=== PATIENT | male | born 1950 | race Caucasian/White ===

== ENCOUNTER 2022-01-21 14:32 | Emergency (ER) | payer OTHER, MEDICARE, SELFPAY ==
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
[2022-01-21 14:40] VITALS: BP 146/63; PULSE 62; RESP 18; TEMP 36.8; O2SAT 98; BMI 28.7
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
[2022-01-21] MEDS: Acetaminophen 325 MG TABLET 650 MG PO (18:19)
[2022-01-21] MEDS: Cyclobenzaprine HCl 5 MG TABLET PO (18:19)
[2022-01-21 18:23] VITALS: BP 178/80; PULSE 60; RESP 20; TEMP 36.6; O2SAT 98
[2022-01-21 18:30] VITALS: BP 126/62
[2022-01-21 18:31] VITALS: BP 126/62
== END 2022-01-21 20:47 | disposition home or self-care (01) ==
PROVIDERS: Emergency Provider Emergency Medicine; PCP Physician Assistant Medical
DX: S13.4XXA Sprain of ligaments of cervical spine, initial encounter (principal); V43.52XA Car driver injured in collision with other type car in traffic accident, initial encounter; Y93.89 Activity, other specified; Y92.414 Local residential or business street as the place of occurrence of the external cause; Y99.9 Unspecified external cause status
CPT/HCPCS: 70450; 72125; 73030; 73090; 73502; 73564; 99283; 99284

== ENCOUNTER 2023-02-14 18:32 | Inpatient (IN) | payer MEDICARE, OTHER, SELFPAY ==
--- NOTE | ~2023-02-14 | XR_ITS ---
EXAMINATION: XR WRIST, RIGHT XR HAND, RIGHT CLINICAL INFORMATION: Evaluate for osteopenia. COMPARISON: None available. TECHNIQUE: PA, lateral, and oblique views of the right wrist and PA, lateral, and oblique views of the right hand FINDINGS: RIGHT HAND: There is loss of PIP and DIP joint space with mild periarticular spurring DIP joint fifth digit and PIP joint fourth digit. No visible acute fracture, dislocation or subluxation seen. RIGHT WRIST: There is small lucency in the central scaphoid bone. No visible fracture or dislocation involving the carpal bones. The intercarpal joint space is preserved. The radioulnar carpal and carpometacarpal joint space is preserved. There are surgical lobo along the distal radius soft tissues from previous intervention.. XR/XR hand wrist RT IMPRESSION: 1. Mild degenerative changes PIP and DIP joints right hand. No visible acute fracture or dislocation seen. 2. Small lucency in the central scaphoid bone likely degenerative cyst. 3. There are surgical lobo along the distal radius soft tissues from previous intervention. No abnormality seen involving the right wrist. 4. There is mild degenerative osteoarthritis PIP and DIP joints all digits with periarticular articular spurring
--- NOTE | ~2023-02-14 | US_ITS ---
EXAMINATION: US VENOUS WITH DOPPLER UPPER EXTREMITY, RIGHT CLINICAL INFORMATION: Redness, swelling COMPARISON: None available. TECHNIQUE: Ultrasound of the upper extremity is performed using compression sonography and color and pulse Doppler flow with assessment of augmentation of flow. There is also imaging and Doppler assessment of the jugular and subclavian veins. Spectral analysis with color-flow imaging is performed. FINDINGS: Respiratory variation, normal compression, and augmented flow are noted throughout the upper extremity including the axillary, brachial, basilic, cephalic and radial and ulnar veins. There is normal flow in the internal jugular and subclavian veins. There is no visible deep or superficial thrombophlebitis. Normal vascular flow is seen within the left subclavian vein. US/US venous duplex UE RT IMPRESSION: No DVT demonstrated in the right upper extremity.
--- NOTE | 2023-02-14 18:59 | ED.SKABFB ---
HPI - Skin/Abscess/Foreign Bdy General Chief complaint: Extremity Problem Stated complaint: cellulitis Time Seen by Provider: 02/15/23 01:30 Source: patient Mode of arrival: ambulatory Limitations: no limitations Related Data Previous Rx's Medication Instructions Recorded cyclobenzaprine 10 mg tablet 10 mg PO TID PRN muscle spasm #14 01/21/22 tabs Allergies Allergy/AdvReac Type Severity Reaction Status Date / Time celecoxib [From CELEBREX] Allergy Severe ANAPHYLAXIS Verified 02/15/23 02:46 Sulfa (Sulfonamide Allergy Unknown ANAPHYLACTI Verified 02/15/23 02:46 Antibiotics) S [SULFA (SULFONAMIDE ANTIBIOTICS)] [facility] Past Medical History Medical History (Updated 02/15/23 @ 04:33 by Suraj Keith MD) Cervical radiculopathy due to degenerative joint disease of spine Severe obesity Thyroid goiter Scottie cell carcinoma HLD (hyperlipidemia) Social History Alcohol intake: current Alcohol intake frequency: holidays/special occasions only Patient Tobacco Use Status: Never used Tobacco Smoked in Last 30 Days: No Use of substances other than those prescribed or required for medical reasons: No Advance Directives: No Advance Directives Information Provided: Yes Nutrition Risks: No Nutritional Risk Physical Exam Vital Signs: Vital Signs: Last Vital Signs Temp 97.7 F 02/15/23 04:50 Pulse 69 02/15/23 04:50 Resp 20 02/15/23 04:50 BP 119/69 02/15/23 04:50 Pulse Ox 95 02/15/23 04:50 O2 Del Method Room Air 02/15/23 04:50 BMI result Body Mass Index 39.3 Course Course Course Narrative: This is a rapid medical exam. Deferred additional HPI, ROS, PE to primary provider. 72yo male with a past medical history of merckels cell carcinoma RUE (immunotherapy-followed by [facility] oncology/Kala Felix), HLD here with right arm swollen/painful/redness x 1 week. Patient is right-hand dominant. Patient was seen at the cancer center today at [facility] and did receive cefepime today. Will obtain labs, x-ray, give APAP VSS Medications Administered Generic Name Dose Route Start Last Admin Trade Name Freq PRN Reason Stop Dose Admin Enoxaparin Sodium 40 mg 02/15/23 06:00 02/15/23 05:44 Enoxaparin Sodium 40 Mg/0.4 Ml Syringe SUBCUT 40 mg Q24H CHEO Administration Piperacillin Sod/Tazobactam 50 mls @ 100 mls/hr 02/15/23 05:00 02/15/23 05:45 Sod 3.375 gm/ Sodium Chloride IV Infused Q6H CHEO Infusion Discontinued Medications Generic Name Dose Route Start Last Admin Trade Name Freq PRN Reason Stop Dose Admin Acetaminophen 975 mg 02/14/23 19:08 02/14/23 19:11 Acetaminophen 325 Mg Tablet PO 02/14/23 19:09 975 mg ONCE ONE Administration Vancomycin HCl 2,000 mg in 500 mls @ 250 mls/hr 02/15/23 02:25 02/15/23 05:24 Vancomycin/Ns IV 02/15/23 04:24 Infused ONCE ONE Infusion Medical Decision Making Lab Data 02/14/23 19:36 02/15/23 05:48 Labs: Lab Results 02/14/23 Range/Units 19:36 WBC 11.8 H (4.8-10.8) X10*3/uL RBC 4.63 (4.60-5.80) X10*6/uL Hgb 13.8 L (14.0-18.0) g/dl Hct 41.0 L (42.0-52.0) % MCV 88.6 (80.0-98.0) fL MCH 29.8 (27.0-33.0) pg MCHC 33.7 (31.0-36.0) g/dl RDW 13.0 (11.0-16.0) % Plt Count 134 L (160-400) X10*3/uL MPV 10.4 (9.4-12.4) fL Immature Gran % (Auto) 0.2 (0.0-0.4) % Neut % (Auto) 83.1 H (45-73) % Lymph % (Auto) 7.8 L (20-40) % [place] % (Auto) 7.7 (2-11) % Eos % (Auto) 0.9 (0-4) % Baso % (Auto) 0.3 (0-2) % Lymph # (Auto) 0.9 L (1.2-4.9) X10*3/uL [place] # (Auto) 0.9 (0.1-1.2) X10*3/uL Eos # (Auto) 0.1 (0.0-0.4) X10*3/uL Baso # (Auto) 0.0 (0.0-0.2) X10*3/uL Abs Immat Gran (auto) 0.02 (0.00-0.03) X10*3/uL Absolute Neuts (auto) 9.9 H (2.0-8.3) x10*3/uL Absolute Nucleated RBC 0.000 (0.0-0.012) X10*3/uL Nucleated RBC % (auto) 0.0 (0.0-0.2) /100WBC ESR 65 H (0-15) MM/HR Sodium 134 L (135-145) mmol/L Potassium 4.0 (3.3-5.1) mmol/L Chloride 104 (96-108) mmol/L Carbon Dioxide 22 (22-29) mmol/L Anion Gap 12 (12-20) BUN 23 H (9-16) mg/dL Creatinine 1.26 (0.5-1.4) mg/dL Estim Creat Clear Calc 72.1 Estimated GFR 57 Random Glucose 172 H (60-115) mg/dL Lactic Acid 0.9 (0.5-2.0) mmol/L Calcium 9.2 (8.4-10.2) mg/dL Total Bilirubin 0.8 (0.0-1.0) mg/dL Direct Bilirubin 0.4 (0.0-0.5) mg/dL AST 20 (5-37) U/L ALT 31 (0-40) U/L Alkaline Phosphatase 77 (39-117) U/L C-Reactive Protein 20.84 H (< or = 0.50) mg/dL Total Protein 7.3 (6.5-8.0) g/dL Albumin 3.8 (3.5-5.0) g/dL
[2023-02-14 19:01] VITALS: BP 151/78; PULSE 108; RESP 20; TEMP 37.7; O2SAT 95; BMI 39.3
[2023-02-14] MEDS: Acetaminophen 325 MG TABLET 975 MG PO (19:11)
[2023-02-14 19:43] LABS: MANUAL DIFF FLAG NO
[2023-02-14 19:44] LABS: Basophils Percent Auto 0.3 % (0-2); Eosinophils Absolute Auto 0.1 X10*3/uL (0.0-0.4); Eosinophils Percent Auto 0.9 % (0-4); Hemoglobin 13.8 g/dl (14.0-18.0); Imm Gran Abs Auto 0.02 X10*3/uL (0.00-0.03); Imm Gran Pct Auto 0.2 % (0.0-0.4); Lymphocytes Absolute Auto 0.9 X10*3/uL (1.2-4.9); Lymphocytes Percent Auto 7.8 % (20-40); Mean Corpuscular HGB Conc 33.7 g/dl (31.0-36.0); Mean Corpuscular Hemoglobin 29.8 pg (27.0-33.0); Mean Corpuscular Volume 88.6 fL (80.0-98.0); Mean Platelet Volume 10.4 fL (9.4-12.4); Monocytes Absolute Auto 0.9 X10*3/uL (0.1-1.2); Monocytes Percent Auto 7.7 % (2-11); Neutrophils Absolute Auto 9.9 x10*3/uL (2.0-8.3); Neutrophils Percent Auto 83.1 % (45-73); Platelet Count 134 X10*3/uL (160-400); Red Blood Count 4.63 X10*6/uL (4.60-5.80); White Blood Count 11.8 X10*3/uL (4.8-10.8)
[2023-02-14 19:54] LABS: Lactic Acid 0.9 mmol/L (0.5-2.0)
[2023-02-14 19:58] LABS: Alanine Aminotransferase 31 U/L (0-40); Albumin Level 3.8 g/dL (3.5-5.0); Alkaline Phosphatase 77 U/L (39-117); Anion Gap 12 (12-20); Aspartate Amino Transferase 20 U/L (5-37); Bilirubin Direct 0.4 mg/dL (0.0-0.5); Bilirubin Total 0.8 mg/dL (0.0-1.0); Blood Urea Nitrogen 23 mg/dL (9-16); C Reactive Protein 20.84 mg/dL (< or = 0.50); Calcium 9.2 mg/dL (8.4-10.2); Carbon Dioxide 22 mmol/L (22-29); Chloride 104 mmol/L (96-108); Creatinine Clr Calc Pharmacy 72.1; Estimated Glomerular Filt Rate 57; Glucose Random 172 mg/dL (60-115); Sodium 134 mmol/L (135-145); Total Protein 7.3 g/dL (6.5-8.0)
[2023-02-14 20:42] LABS: Erythrocyte Sedimentation Rate 65 MM/HR (0-15)
[2023-02-14 22:41] VITALS: BP 122/62; PULSE 74; RESP 16; O2SAT 96
[2023-02-15] VITALS (7 sets, daily range): BP systolic 112–139; BP diastolic 53–83; PULSE 53–89; RESP 17–20; TEMP 36–37.1; O2SAT 95–97; BMI 38.3
--- NOTE | 2023-02-15 01:00 | PC.NURSE ---
pt presents with R wrist redness and swelling. majority of concern in below the elbow. some patchy redness extends just below the shoulder and at the elbow. pt reporting pressure and tightness, no itching or burning. limited ROM d/t size. minimal pain. pt brought CPAP from home, left for the night.
--- NOTE | 2023-02-15 02:28 | ED_ITS ---
HPI - Extremity Problem General Chief complaint: Extremity Problem Stated complaint: cellulitis Time Seen by Provider: 02/15/23 01:30 Source: patient Mode of arrival: ambulatory Limitations: no limitations History of Present Illness HPI Narrative: Patient been treated with immunotherapy for [place] cell carcinoma for last 1 year last dose was on 02/11/23 which was given on the left arm patient noticed redness on the right arm last 2 days getting worse spreading to the arm now no fever no chills Related Data Previous Rx's Medication Instructions Recorded cyclobenzaprine 10 mg tablet 10 mg PO TID PRN muscle spasm #14 01/21/22 tabs Allergies Allergy/AdvReac Type Severity Reaction Status Date / Time celecoxib [From CELEBREX] Allergy Severe ANAPHYLAXIS Verified 02/15/23 02:46 Sulfa (Sulfonamide Allergy Unknown ANAPHYLACTI Verified 02/15/23 02:46 Antibiotics) S [SULFA (SULFONAMIDE ANTIBIOTICS)] Review of Systems 2 Review of Systems: Yes all other systems are reviewed and are negative PMFSH Past Medical History Medical History (Updated 02/15/23 @ 07:35 by Thiago Fitch MD) Cervical radiculopathy due to degenerative joint disease of spine Severe obesity Thyroid goiter Scottie cell carcinoma HLD (hyperlipidemia) Social History Alcohol intake: current Alcohol intake frequency: holidays/special occasions only Patient Tobacco Use Status: Never used Tobacco Smoked in Last 30 Days: No Use of substances other than those prescribed or required for medical reasons: No Advance Directives: No Advance Directives Information Provided: Yes Nutrition Risks: No Nutritional Risk Physical Exam 2 Vital Signs: Vital Signs: Last Vital Signs Temp 97.7 F 02/15/23 04:50 Pulse 69 02/15/23 04:50 Resp 20 02/15/23 04:50 BP 119/69 02/15/23 04:50 Pulse Ox 95 02/15/23 04:50 O2 Del Method Room Air 02/15/23 04:50 BMI result Body Mass Index 39.3 Appearance: Alert. Oriented X3. No acute distress. Eyes: PERRLA, No Nystagmus ENT: Pharynx normal. Oral Mucosa moist Neck: Normal inspection. Neck supple. CVS: Normal heart rate and rhythm. Pulses normal. Respiratory: No respiratory distress. Equal air entry bilateral, Abdomen: Soft and nontender. Bowel sounds are present, Skin: Skin warm and dry. Normal skin color. Normal skin turgor. Extremities: No lower extremity edema. No calf tenderness Neuro: Oriented X 3. No motor deficit. No sensory deficit.No cerebellar signs , cranial nerves II-XII intact Medications Administered Generic Name Dose Route Start Last Admin Trade Name Freq PRN Reason Stop Dose Admin Enoxaparin Sodium 40 mg 02/15/23 06:00 02/15/23 05:44 Enoxaparin Sodium 40 Mg/0.4 Ml Syringe SUBCUT 40 mg Q24H CHEO Administration Piperacillin Sod/Tazobactam 50 mls @ 100 mls/hr 02/15/23 05:00 02/15/23 05:45 Sod 3.375 gm/ Sodium Chloride IV Infused Q6H CHEO Infusion Discontinued Medications Generic Name Dose Route Start Last Admin Trade Name Freq PRN Reason Stop Dose Admin Acetaminophen 975 mg 02/14/23 19:08 02/14/23 19:11 Acetaminophen 325 Mg Tablet PO 02/14/23 19:09 975 mg ONCE ONE Administration Vancomycin HCl 2,000 mg in 500 mls @ 250 mls/hr 02/15/23 02:25 02/15/23 05:24 Vancomycin/Ns IV 02/15/23 04:24 Infused ONCE ONE Infusion Medical Decision Making Medical Decision Making [facility] Narrative: Patient immunocompromised with right forearm erisepelas/cellulitis very rapidly progressing will give IV antibiotic and admit Differential Diagnosis Differential Diagnoses: The differential diagnosis associated with the presentation includes as above Admission/Observation Consideration of admission/observation: Escalation of care including admission/observation considered Consult Healthcare Provider Management of the patient was discussed with: Hospitalist Lab Data [facility] Lab Attestation statement: I reviewed the patient's lab results. 02/14/23 19:36 02/15/23 05:48 Labs: Lab Results 02/14/23 Range/Units 19:36 WBC 11.8 H (4.8-10.8) X10*3/uL RBC 4.63 (4.60-5.80) X10*6/uL Hgb 13.8 L (14.0-18.0) g/dl Hct 41.0 L (42.0-52.0) % MCV 88.6 (80.0-98.0) fL MCH 29.8 (27.0-33.0) pg MCHC 33.7 (31.0-36.0) g/dl RDW 13.0 (11.0-16.0) % Plt Count 134 L (160-400) X10*3/uL MPV 10.4 (9.4-12.4) fL Immature Gran % (Auto) 0.2 (0.0-0.4) % Neut % (Auto) 83.1 H (45-73) % Lymph % (Auto) 7.8 L (20-40) % [place] % (Auto) 7.7 (2-11) % Eos % (Auto) 0.9 (0-4) % Baso % (Auto) 0.3 (0-2) % Lymph # (Auto) 0.9 L (1.2-4.9) X10*3/uL [place] # (Auto) 0.9 (0.1-1.2) X10*3/uL Eos # (Auto) 0.1 (0.0-0.4) X10*3/uL Baso # (Auto) 0.0 (0.0-0.2) X10*3/uL Abs Immat Gran (auto) 0.02 (0.00-0.03) X10*3/uL Absolute Neuts (auto) 9.9 H (2.0-8.3) x10*3/uL Absolute Nucleated RBC 0.000 (0.0-0.012) X10*3/uL Nucleated RBC % (auto) 0.0 (0.0-0.2) /100WBC ESR 65 H (0-15) MM/HR Sodium 134 L (135-145) mmol/L Potassium 4.0 (3.3-5.1) mmol/L Chloride 104 (96-108) mmol/L Carbon Dioxide 22 (22-29) mmol/L Anion Gap 12 (12-20) BUN 23 H (9-16) mg/dL Creatinine 1.26 (0.5-1.4) mg/dL Estim Creat Clear Calc 72.1 Estimated GFR 57 Random Glucose 172 H (60-115) mg/dL Lactic Acid 0.9 (0.5-2.0) mmol/L Calcium 9.2 (8.4-10.2) mg/dL Total Bilirubin 0.8 (0.0-1.0) mg/dL Direct Bilirubin 0.4 (0.0-0.5) mg/dL AST 20 (5-37) U/L ALT 31 (0-40) U/L Alkaline Phosphatase 77 (39-117) U/L C-Reactive Protein 20.84 H (< or = 0.50) mg/dL Total Protein 7.3 (6.5-8.0) g/dL Albumin 3.8 (3.5-5.0) g/dL Discharge Plan Discharge Clinical Impression: Cellulitis of right arm Patient Disposition: Admitted As Inpatient
[2023-02-15] MEDS: vancomycin/NS 2,000 MG/500 ML PLAST..BAG 250 MG IV (02:46)
--- NOTE | 2023-02-15 03:58 | PM.IMHP ---
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 He is followed by both [facility] oncology and [facility]. He has been well until about a week ago when noticed increasing fatigue and had noticed area of redness in the right arm that has progresively gotten much worse today along with fatigue. Additionally has noticed some redness in the upper arm. He has not had fever or chills. Patient was seen at the Oncology clinic at [facility] on Feb 14 and was given 1 dose of Cefepime in clinic and advised to go to the ED. Review of Systems Review of Systems: Gen: no fever, gen fatigue Resp: no sob, no cough CV: no chest, no FIGUEROA, no leg edema GI: No n/v, no abd pain Neuro: No confusion Skin: redness of the right arm Yes all other systems are reviewed and are negative [facility] Medical History (Updated 02/15/23 @ 04:33 by Suraj Keith MD) Cervical radiculopathy due to degenerative joint disease of spine Severe obesity Thyroid goiter Scottie cell carcinoma HLD (hyperlipidemia) Alcohol intake: current Alcohol intake frequency: holidays/special occasions only Patient Tobacco Use Status: Never used Tobacco Smoked in Last 30 Days: No Use of substances other than those prescribed or required for medical reasons: No Advance Directives: No Advance Directives Information Provided: Yes Nutrition Risks: No Nutritional Risk Meds Allergies Allergy/AdvReac Type Severity Reaction Status Date / Time celecoxib [From CELEBREX] Allergy Severe ANAPHYLAXIS Verified 02/15/23 02:46 Sulfa (Sulfonamide Allergy Unknown ANAPHYLACTI Verified 02/15/23 02:46 Antibiotics) S [SULFA (SULFONAMIDE ANTIBIOTICS)] Active Medications: Current Medications Vancomycin HCl (Vancomycin/Ns) 2,000 mg in 500 mls @ 250 mls/hr IV ONCE ONE Stop: 02/15/23 04:24 Last Admin: 02/15/23 02:46 Dose: 250 mls/hr Pharmacy Consult (Consult Rx Vancomycin Dosing) 1 each MISCELLANE DAILY PRN PRN Reason: Consult order Physical Exam Vital Signs and Narrative: Vital Signs: Last Vital Signs Temp 97.8 F 02/15/23 00:38 Pulse 69 02/15/23 02:24 Resp 20 02/15/23 02:24 BP 112/53 L 02/15/23 02:24 Pulse Ox 96 02/15/23 02:24 O2 Del Method CPAP 02/15/23 02:24 BMI result Body Mass Index 39.3 Constitutional: Alert, in no distress, overweight. Mental Status: Oriented to person, place and time. Eyes: Pupils are equal, round and reactive to light. Ear, Nose and Throat: Oropharynx clear, mucous membranes moist. Respiratory: Clear to auscultation. No wheezing, rales or rhonchi. Cardiovascular: S1 S2 regular. No murmurs, rubs or gallops. Gastrointestinal: Abdomen soft, non-tender, non-distended. Normal bowel sounds.? Neurologic: Cranial nerves II-XII grossly intact. No focal neurological deficits. Moves all extremities spontaneously.? Skin: see picture Musculoskeletal: No cyanosis or clubbing. Psychiatric: Normal mood and affect? Const: Other: Results Labs 02/14/23 19:36 02/14/23 19:36 Labs: Laboratory Results - last 24 hr 02/14/23 19:36 MCV 88.6 MCH 29.8 MCHC 33.7 RDW 13.0 Plt Count 134 L MPV 10.4 Immature Gran % (Auto) 0.2 Neut % (Auto) 83.1 H Lymph % (Auto) 7.8 L [place] % (Auto) 7.7 Eos % (Auto) 0.9 Baso % (Auto) 0.3 Lymph # (Auto) 0.9 L [place] # (Auto) 0.9 Eos # (Auto) 0.1 Baso # (Auto) 0.0 Abs Immat Gran (auto) 0.02 Absolute Neuts (auto) 9.9 H Absolute Nucleated RBC 0.000 Nucleated RBC % (auto) 0.0 ESR 65 H Anion Gap 12 Estim Creat Clear Calc 72.1 Estimated GFR 57 Random Glucose 172 H Lactic Acid 0.9 Calcium 9.2 Total Bilirubin 0.8 Direct Bilirubin 0.4 AST 20 ALT 31 Alkaline Phosphatase 77 C-Reactive Protein 20.84 H Total Protein 7.3 Albumin 3.8 Imaging Radiologist's Impressions: Impressions Hand/Wrist X-Ray 02/14/23 19:55 IMPRESSION: 1. Mild degenerative changes PIP and DIP joints right hand. No visible acute fracture or dislocation seen. 2. Small lucency in the central scaphoid bone likely degenerative cyst. 3. There are surgical lobo along the distal radius soft tissues from previous intervention. No abnormality seen involving the right wrist. 4. 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 Here with extensive cellulitis of the right arm and upper arm with raid progression Right arm and upper severe Cellulitis in an immunocompromised patient, involving > 50% of the limb -Zosyn and Vnco, started 02/15 -Blood cultures pending -ID consult -doesn't meet sepsis criteria but not to be closely monitor for progression to sepsis JAIR, CPAP at night HLD--statin morbid obesity -weight loss advised DVT prophylaxis: Lovenox Full Code Admission for at least 2 midnight for management of severe cellulitis Quality Stroke Does the patient have a stroke diagnosis?: No VTE Prior VTE?: No VTE Risk Level:: Medical - moderate - high VTE Device Contraindication: Treatment Not Indicated VTE Drug Contraindication: N/A - Med Ordered
[2023-02-15] MEDS: Piperacillin Sodium/Tazobactam 3.375 GM in 0.9 % Sodium Chloride 50 ML IV ×3 (05:12→16:40)
[2023-02-15] MEDS: Enoxaparin Sodium 40 MG/0.4 ML SYRINGE SUBCUT (05:44)
[2023-02-15 06:15] LABS: Alanine Aminotransferase 29 U/L (0-40); Albumin Level 3.4 g/dL (3.5-5.0); Alkaline Phosphatase 70 U/L (39-117); Anion Gap 11 (12-20); Aspartate Amino Transferase 20 U/L (5-37); Bilirubin Total 0.7 mg/dL (0.0-1.0); Blood Urea Nitrogen 21 mg/dL (9-16); Calcium 8.8 mg/dL (8.4-10.2); Carbon Dioxide 24 mmol/L (22-29); Chloride 105 mmol/L (96-108); Creatinine Clr Calc Pharmacy 88.2; Estimated Glomerular Filt Rate > 60; Glucose Random 110 mg/dL (60-115); Potassium 3.9 mmol/L (3.3-5.1); Sodium 136 mmol/L (135-145); Total Protein 6.7 g/dL (6.5-8.0)
--- NOTE | 2023-02-15 07:15 | PC.NURSE ---
pt is alert and oriented, skin pwd, respirations even and unlabored, ls clear, pt presents with a right arm redness- the entire hand to the upper wrist area, there is a also a red area behind the elbow area and another red spot by the shoulder, pt states that it feels like pressure, and pain at 5/10. ns on the monitor and vs stable.
--- NOTE | 2023-02-15 07:44 | PC.NURSE ---
called the floor to give report but no answer
--- NOTE | 2023-02-15 07:51 | PHA.PROG ---
Admission Date/Time: February 15, 2023 04:52 Indication: skin Weight in k.3 kg Adjusted body weight in K.52 [place] body weight in K Obesity Dosing Indication % IBW: Serum Creatinine - Last 168 Hours 02/14/23 02/15/23 19:36 05:48 Creatinine 1.26 1.03 Estimated CrCl and GFR - Last 168 Hours 02/14/23 02/15/23 19:36 05:48 Estim Creat Clear Calc 72.1 88.2 Estimated GFR 57 > 60 Vancomycin Loading Dose: 1999 Current Vancomycin Dosing Regimen: 1000 Q12H Vancomycin Monitoring using AUC goal of 400 - 600 range with trough as surrogate marker: 506 Date and Time for next Vancomycin Level to be drawn: 02/16 @1300 Pharmacist Comments on Vancomycin Plan: Vancomycin dosing will take advantage of [employer] as a clinical decision support tool that uses Bayesian modeling to calculate individual patient's pharmacokinetic parameters and forecast the patient's drug concentration time course with the target goal AUC 24 range of 400 - 600 mg/L/hr.
[2023-02-15] MEDS: 0.9 % Sodium Chloride Flush 3 ML SYRINGE IVFLUSH ×3 (07:52→20:46)
--- NOTE | 2023-02-15 08:36 | PC.NURSE ---
report given to med/rn neurosurgical
--- NOTE | 2023-02-15 08:46 | P.PNIM_ITS ---
Subjective Subjective Date of Service: 02/15/23 Interval History: Seen in follow up for extensive cellulitis RUE Interval history: Mild headache, reports pressure in the right forearm, hand. Still warmth and erythematous Review of Systems Review of Systems: Yes all other systems are reviewed and are negative Physical Exam 2 Vital Signs: Vital Signs: Last Vital Signs Temp 98.7 F 02/15/23 08:15 Pulse 70 02/15/23 08:15 Resp 18 02/15/23 08:15 BP 128/71 02/15/23 08:15 Pulse Ox 96 02/15/23 08:15 O2 Del Method Room Air 02/15/23 08:15 BMI result Body Mass Index 39.3 Constitutional - Awake and Alert, No apparent distress Eyes - PERRLA, EOMI Cardiovascular - S1S2, RRR, No edema Respiratory - Normal lung expansion, Normal respiratory effort, No respiratory distress, CTA bilaterally Gastrointestinal - NT / ND; +BS; No rebound or guarding Extremities - no calf tenderness bilaterally, no swelling Skin - Warm/Dry. Significant erythema and warmth of the dorsal aspect of the right hand extending circumferentiallyover the right forearm. Satellite patches of erythema on the upper arm. No fluctuance or drainage. See photos Neurological - Alert & oriented x3 Psychological - Appropriate affect Objective Data Active Medications Acetaminophen (Acetaminophen 325 Mg Tablet) 650 mg PO Q6H PRN PRN Reason: Pain, Mild (Pain Scale 1-3) Enoxaparin Sodium (Enoxaparin Sodium 40 Mg/0.4 Ml Syringe) 40 mg SUBCUT Q24H [facility] Last Admin: 02/15/23 05:44 Dose: 40 mg Documented By: WILTON Piperacillin Sod/Tazobactam (Sod 3.375 gm/ Sodium Chloride) 50 mls @ 100 mls/hr IV Q6H [facility] Last Infusion: 02/15/23 05:45 Dose: Infused Documented By: WILTON Vancomycin HCl 1,000 mg/ (Sodium Chloride) 270 mls @ 270 mls/hr IV Q12H [facility] Magnesium Hydroxide (Milk Of Magnesia 30 Ml Oral.Susp) 30 ml PO DAILY PRN PRN Reason: Constipation Ondansetron HCl (Ondansetron Hcl 4 Mg/2 Ml Vial) 4 mg IVPUSH Q8H PRN PRN Reason: Nausea and Vomiting Pharmacy Consult (Consult Rx Vancomycin Dosing) 1 each MISCELLANE DAILY PRN PRN Reason: Consult order Sodium Chloride (0.9 % Sodium Chloride Flush 3 Ml Syringe) 3 ml IVFLUSH QSHIFT [facility] Last Admin: 02/15/23 07:52 Dose: 3 ml Documented By: DEMETRIUS Labs 02/14/23 19:36 02/15/23 05:48 Labs: Laboratory Results - last 24 hr 02/14/23 02/15/23 19:36 05:48 MCV 88.6 MCH 29.8 MCHC 33.7 RDW 13.0 Plt Count 134 L MPV 10.4 Immature Gran % (Auto) 0.2 Neut % (Auto) 83.1 H Lymph % (Auto) 7.8 L [place] % (Auto) 7.7 Eos % (Auto) 0.9 Baso % (Auto) 0.3 Lymph # (Auto) 0.9 L [place] # (Auto) 0.9 Eos # (Auto) 0.1 Baso # (Auto) 0.0 Abs Immat Gran (auto) 0.02 Absolute Neuts (auto) 9.9 H Absolute Nucleated RBC 0.000 Nucleated RBC % (auto) 0.0 ESR 65 H Anion Gap 12 11 L Estim Creat Clear Calc 72.1 88.2 Estimated GFR 57 > 60 Random Glucose 172 H 110 Lactic Acid 0.9 Calcium 9.2 8.8 Total Bilirubin 0.8 0.7 Direct Bilirubin 0.4 AST 20 20 ALT 31 29 Alkaline Phosphatase 77 70 C-Reactive Protein 20.84 H Total Protein 7.3 6.7 Albumin 3.8 3.4 L Assessment and Plan (1) Cellulitis of right arm: Status: Acute Plan 72 year male with 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 Admitted early this morning with extensive cellulitis RUE with rapid progression. #Severe cellulitis RUE in immunocompromised patient involving >50% of limb -Continue Zosyn and Vanco, started 02/15 -Blood cultures pending -ID consult pending -doesn't meet sepsis criteria but not to be closely monitor for progression to sepsis #JAIR -CPAP at night #HLD -statin #Scottie cell carcinoma -outpt follow up morbid obesity -weight loss advised DVT prophylaxis: Lovenox Full Code Requires ongoing inpt stay for ivx due to extensive cellulitis >50% extremity in immunocompromised pt Quality Stroke Does the patient have a stroke diagnosis?: No VTE Prior VTE?: No VTE Risk Level:: Medical - moderate - high VTE Device Contraindication: Treatment Not Indicated VTE Drug Contraindication: N/A - Med Ordered
[2023-02-15] MEDS: Acetaminophen 325 MG TABLET 650 MG PO ×2 (09:51→20:59)
--- NOTE | 2023-02-15 10:30 | PHA.MEDREC ---
Pharmacy Consult ? Medication Reconciliation Pharmacy has completed the medication reconciliation confirmed with patient.
--- NOTE | 2023-02-15 11:50 | MHC.CM.PN ---
pt lives with they are independent not expecting to neeeed servcies when dcd ..has own ride home..
--- NOTE | 2023-02-15 14:04 | P.CNID_ITS ---
History of Present Illness Data of Consult Service Date: 02/15/23 Requesting physician: Tawny Ibrahim Primary Care Provider: KIERA White HPI Reason for consult: right arm redness He presents with right arm redness and pain and diagnosed he says with cellulitis per his Oncologist yesterday. He received one dose Cefepime from oncologist and told to come to ER. 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 He received infusion left arm. He is not febrile at this time. Review of Systems 2 Review of Systems: Yes all other systems are reviewed and are negative PMFSH Past Medical History Medical History (Updated 02/15/23 @ 14:08 by Noris Beard MD) Arm erythema Cervical radiculopathy due to degenerative joint disease of spine Severe obesity Thyroid goiter Scottie cell carcinoma HLD (hyperlipidemia) Social History Social History Household Members: Spouse Housing: House Do you presently have visiting nurse or other home services: No Alcohol intake: current Alcohol intake frequency: holidays/special occasions only Patient Tobacco Use Status: Never used Tobacco Smoked in Last 30 Days: No Patient Interested in Nicotine Replacement: No Patient Given Instructions on How to Stop Smoking: No Second Hand Smoke Exposure: No Use of substances other than those prescribed or required for medical reasons: No Currently Displaying Signs/Symptoms of Drug Intoxication Withdrawal: No Any prior treatment program specific to substance use: No Have you been hit, kicked, punched, or otherwise hurt by someone within the past year? If so, by whom?: No Do you feel safe in your current relationship?: Yes Is there a partner from a previous relationship who is making you feel unsafe now?: No Are you made to feel afraid or neglected: No Advance Directives: No Advance Directives Information Provided: Yes Advance Directives on File: No Do you have thoughts of harming others: None Do you have a plan to hurt others: No Plan Recently lost weight without trying: No Eating poorly because of decreased appetite: No Nutrition Risks: No Nutritional Risk Poor oral hygiene: No service: No Meds Allergies Allergy/AdvReac Type Severity Reaction Status Date / Time celecoxib [From CELEBREX] Allergy Severe ANAPHYLAXIS Verified 02/15/23 02:46 Sulfa (Sulfonamide Allergy Unknown ANAPHYLACTI Verified 02/15/23 02:46 Antibiotics) S [SULFA (SULFONAMIDE ANTIBIOTICS)] Active Medications: Current Medications Acetaminophen (Acetaminophen 325 Mg Tablet) 650 mg PO Q6H PRN PRN Reason: Pain, Mild (Pain Scale 1-3) Last Admin: 02/15/23 09:51 Dose: 650 mg Enoxaparin Sodium (Enoxaparin Sodium 40 Mg/0.4 Ml Syringe) 40 mg SUBCUT Q24H [facility] Last Admin: 02/15/23 05:44 Dose: 40 mg Piperacillin Sod/Tazobactam (Sod 3.375 gm/ Sodium Chloride) 50 mls @ 100 mls/hr IV Q6H [facility] Last Infusion: 02/15/23 11:07 Dose: Infused Vancomycin HCl 1,000 mg/ (Sodium Chloride) 270 mls @ 270 mls/hr IV Q12H [facility] Magnesium Hydroxide (Milk Of Magnesia 30 Ml Oral.Susp) 30 ml PO DAILY PRN PRN Reason: Constipation Ondansetron HCl (Ondansetron Hcl 4 Mg/2 Ml Vial) 4 mg IVPUSH Q8H PRN PRN Reason: Nausea and Vomiting Pharmacy Consult (Consult Rx Vancomycin Dosing) 1 each MISCELLANE DAILY PRN PRN Reason: Consult order Sodium Chloride (0.9 % Sodium Chloride Flush 3 Ml Syringe) 3 ml IVFLUSH QSHIFT [facility] Last Admin: 02/15/23 07:52 Dose: 3 ml Home Medications Medication Instructions Recorded Confirmed Last Taken Type acetaminophen 325 mg tablet 325 mg PO QID PRN Pain 02/15/23 02/15/23 Unknown History atorvastatin 20 mg tablet 20 mg PO DAILY 02/15/23 02/15/23 02/14/23 History chlordiazepoxide-clidinium 5 1 cap PO TIDWM 02/15/23 02/15/23 02/14/23 History mg-2.5 mg capsule citalopram 20 mg tablet 20 mg PO DAILY 02/15/23 02/15/23 02/14/23 History diclofenac sodium 1 % topical gel 2 g topical QID PRN Pain 02/15/23 02/15/23 Unknown History famotidine 20 mg tablet 20 mg PO BID 02/15/23 02/15/23 02/14/23 History fluticasone propionate 50 2 spray intranasal DAILY PRN 02/15/23 02/15/23 Unknown History mcg/actuation nasal Allergy Symptoms spray,suspension ketoconazole 2 % topical cream 1 appl topical DAILY PRN Rash 02/15/23 02/15/23 Unknown History nystatin 100,000 unit/gram topical 1 appl topical QID PRN Rash 02/15/23 02/15/23 Unknown History powder tramadol 50 mg tablet 50 mg PO Q12H PRN pain 02/15/23 02/15/23 Unknown History Physical Exam 2 Vital Signs: Vital Signs: Last Vital Signs Temp 96.9 F 02/15/23 09:16 Pulse 89 02/15/23 09:16 Resp 18 02/15/23 09:16 BP 130/71 02/15/23 09:16 Pulse Ox 95 02/15/23 09:16 O2 Del Method Room Air 02/15/23 09:16 BMI result Body Mass Index 38.3 Const: General: cooperative HEENT: Head: Yes normal to inspection Face and sinus: Yes normal facial exam Mouth: Normal oral and palatal mucosa present Teeth and gingiva: d entition normal Eyes: General: appearance normal, both eyes and all related structures P upils: Equal, round and reactive pupils present Resp: Effort & Inspection: normal respiratory effort Cardio: Rate: regular rate Rhythm: regular rhythm GI: Palpation (GI): Soft to palpation and nontender : General: Yes no CVA tenderness Back/Spine/Pelvis: Back: no CVA tenderness Skin: General skin exam: no rashes or lesions noted Neuro: General: moves all extremities Cranial nerves: Yes Equal, round and reactive pupils present Extrem: Other: right arm hot and red including fingers skip lesion red upper arm Psych: Appearance: grossly normal Results Labs 02/14/23 19:36 02/15/23 05:48 Labs: Short CBC 02/14/23 Range/Units 19:36 WBC 11.8 H (4.8-10.8) X10*3/uL Hgb 13.8 L (14.0-18.0) g/dl Hct 41.0 L (42.0-52.0) % Plt Count 134 L (160-400) X10*3/uL BMP 02/14/23 02/15/23 19:36 05:48 Sodium 134 L 136 Potassium 4.0 3.9 Chloride 104 105 Carbon Dioxide 22 24 BUN 23 H 21 H Creatinine 1.26 1.03 Calcium 9.2 8.8 Liver Function 02/14/23 02/15/23 Range/Units 19:36 05:48 Total Bilirubin 0.8 0.7 (0.0-1.0) mg/dL Direct Bilirubin 0.4 (0.0-0.5) mg/dL AST 20 20 (5-37) U/L ALT 31 29 (0-40) U/L Alkaline Phosphatase 77 70 (39-117) U/L Albumin 3.8 3.4 L (3.5-5.0) g/dL Assessment and Plan (1) Cellulitis of right arm: Status: Acute (2) Arm erythema: Status: Acute He may have cellulitis,septic thrombitis or SJS/TENS He has unusual distribution rash Less likely atypical fungal or AFB or tick borne Plan Continue Zosyn and Vancomycin for now. Await blood cultures. Arm u/s evaluate DVT/ Septic thrombophlebitis. Surgery check biopsy eval SJS/TENS if patient agrees.
--- NOTE | 2023-02-15 14:21 | PM.EVENT ---
Event Note Date of Service: 02/15/23 Event Note: He also has fungal infection and using ketoconazole cream under breast left. Time Spent With Patient Time: Total time managing care of this patient today ____ minutes.
[2023-02-15] MEDS: vancomycin HCL 1,000 MG in 0.9 % Sodium Chloride 250 ML 270 MG IV (14:31)
[2023-02-15] MEDS: Famotidine 20 MG TABLET PO (20:46)
[2023-02-15] MEDS: Nystatin Powder 15 GM BOTTLE 1 APPL TOPICAL (20:59)
[2023-02-15] MEDS: Clotrimazole 1 % Cream 15 GM TUBE 1 APPL TOPICAL (20:59)
--- NOTE | 2023-02-15 21:26 | PM.CNGS ---
History of Present Illness Consult details Consult date: 02/15/23 Reason for consult: other Requesting physician: Tawny Ibrahim Narrative: The patient is a 72-year-old male who has Scottie cell cancer of his right forearm that was surgically excised and for which she received chemo and radiation therapy several years ago. Generally he has been doing okay. However he came into the emergency room last night complaining of increased redness to the arm. He denies any trauma he denies any IV medications he denies any bug bites but it was definitely more swollen and tight and uncomfortable. He denies any fevers or chills. He sometimes gets fungal infections in his left axillary area in groins for which he uses antifungal powder or creams. He says this feels different however. He is followed by Oncology at [facility] Dr. Guzman and other doctor in [place]. This afternoon he is feeling much better the arm is less swollen less erythematous less tight. He does not feel ill he feels fine. Review of Systems Review of Systems: Yes all other systems are reviewed and are negative [facility] Past Medical History Medical History (Updated 02/15/23 @ 14:08 by Noris Beard MD) Arm erythema Cervical radiculopathy due to degenerative joint disease of spine Severe obesity Thyroid goiter Scottie cell carcinoma HLD (hyperlipidemia) Social History Social History Household Members: Spouse Housing: House Do you presently have visiting nurse or other home services: No Alcohol intake: current Alcohol intake frequency: holidays/special occasions only Patient Tobacco Use Status: Never used Tobacco Smoked in Last 30 Days: No Patient Interested in Nicotine Replacement: No Patient Given Instructions on How to Stop Smoking: No Second Hand Smoke Exposure: No Use of substances other than those prescribed or required for medical reasons: No Currently Displaying Signs/Symptoms of Drug Intoxication Withdrawal: No Any prior treatment program specific to substance use: No Have you been hit, kicked, punched, or otherwise hurt by someone within the past year? If so, by whom?: No Do you feel safe in your current relationship?: Yes Is there a partner from a previous relationship who is making you feel unsafe now?: No Are you made to feel afraid or neglected: No Advance Directives: No Advance Directives Information Provided: Yes Advance Directives on File: No Do you have thoughts of harming others: None Do you have a plan to hurt others: No Plan Recently lost weight without trying: No Eating poorly because of decreased appetite: No Nutrition Risks: No Nutritional Risk Poor oral hygiene: No service: No Meds Allergies Allergy/AdvReac Type Severity Reaction Status Date / Time celecoxib [From CELEBREX] Allergy Severe ANAPHYLAXIS Verified 02/15/23 02:46 Sulfa (Sulfonamide Allergy Unknown ANAPHYLACTI Verified 02/15/23 02:46 Antibiotics) S [SULFA (SULFONAMIDE ANTIBIOTICS)] Active Medications: Current Medications Acetaminophen (Acetaminophen 325 Mg Tablet) 650 mg PO Q6H PRN PRN Reason: Pain, Mild (Pain Scale 1-3) Last Admin: 02/15/23 20:59 Dose: 650 mg Atorvastatin Calcium (Atorvastatin Calcium 20 Mg Tablet) 20 mg PO DAILY [facility] Clotrimazole (Clotrimazole 1 % Cream 15 Gm Tube) 1 appl TOPICAL DAILY PRN PRN Reason: Rash Last Admin: 02/15/23 20:59 Dose: 1 appl Enoxaparin Sodium (Enoxaparin Sodium 40 Mg/0.4 Ml Syringe) 40 mg SUBCUT Q24H [facility] Last Admin: 02/15/23 05:44 Dose: 40 mg Escitalopram Oxalate (Escitalopram Oxalate 10 Mg Tablet) 10 mg PO DAILY [facility] Famotidine (Famotidine 20 Mg Tablet) 20 mg PO BID [facility] Last Admin: 02/15/23 20:46 Dose: 20 mg Fluticasone Propionate (Fluticasone Propionate Nasal 16 Gm [place]) 2 spray NOSTRIL-B DAILY PRN PRN Reason: Allergy Symptoms Piperacillin Sod/Tazobactam (Sod 3.375 gm/ Sodium Chloride) 50 mls @ 100 mls/hr IV Q6H [facility] Last Infusion: 02/15/23 17:15 Dose: Infused Vancomycin HCl 1,000 mg/ (Sodium Chloride) 270 mls @ 270 mls/hr IV Q12H [facility] Last Infusion: 02/15/23 15:49 Dose: Infused Magnesium Hydroxide (Milk Of Magnesia 30 Ml Oral.Susp) 30 ml PO DAILY PRN PRN Reason: Constipation Non-Formulary Medication (Chlordiazepoxide-Clidinium) 1 cap PO TIDWM [facility] Nystatin (Nystatin Powder 15 Gm Bottle) 1 appl TOPICAL QID PRN; Protocol PRN Reason: Rash Last Admin: 02/15/23 20:59 Dose: 1 appl Ondansetron HCl (Ondansetron Hcl 4 Mg/2 Ml Vial) 4 mg IVPUSH Q8H PRN PRN Reason: Nausea and Vomiting Pharmacy Consult (Consult Rx Vancomycin Dosing) 1 each MISCELLANE DAILY PRN PRN Reason: Consult order Sodium Chloride (0.9 % Sodium Chloride Flush 3 Ml Syringe) 3 ml IVFLUSH QSHIFT [facility] Last Admin: 02/15/23 20:46 Dose: 3 ml Tramadol HCl (Tramadol Hcl 50 Mg Tablet) 50 mg PO Q12H PRN PRN Reason: Pain, Moderate(Pain Scale 4-6) Home Medications Medication Instructions Recorded Confirmed Last Taken Type acetaminophen 325 mg tablet 325 mg PO QID PRN Pain 02/15/23 02/15/23 Unknown History atorvastatin 20 mg tablet 20 mg PO DAILY 02/15/23 02/15/23 02/14/23 History chlordiazepoxide-clidinium 5 1 cap PO TIDWM 02/15/23 02/15/23 02/14/23 History mg-2.5 mg capsule citalopram 20 mg tablet 20 mg PO DAILY 02/15/23 02/15/23 02/14/23 History diclofenac sodium 1 % topical gel 2 g topical QID PRN Pain 02/15/23 02/15/23 Unknown History famotidine 20 mg tablet 20 mg PO BID 02/15/23 02/15/23 02/14/23 History fluticasone propionate 50 2 spray intranasal DAILY PRN 02/15/23 02/15/23 Unknown History mcg/actuation nasal Allergy Symptoms spray,suspension ketoconazole 2 % topical cream 1 appl topical DAILY PRN Rash 02/15/23 02/15/23 Unknown History nystatin 100,000 unit/gram topical 1 appl topical QID PRN Rash 02/15/23 02/15/23 Unknown History powder tramadol 50 mg tablet 50 mg PO Q12H PRN pain 02/15/23 02/15/23 Unknown History Physical Exam Vital Signs: Vital Signs: Last Vital Signs Temp 96.8 F 02/15/23 20:00 Pulse 85 02/15/23 20:00 Resp 18 02/15/23 20:00 BP 131/66 02/15/23 20:00 Pulse Ox 97 02/15/23 20:00 O2 Del Method Room Air 02/15/23 20:00 BMI result Body Mass Index 38.3 Const: General: cooperative, healthy appearing, comfortable, no acute distress, alert, awake and Physically active Orientation/consciousness: patient oriented x3 Skin: Other: Right dorsal forearm a little bit on the ventral aspect with red erythematous flat skin changes. In comparison with previous pictures the erythema is in the smaller area and is definitely not as bright as it was. The skin erythema does not mckenna there is a little bit of some edema but nothing very significant the patient says he generally has some arm swelling and wears compression garment at times. The tissue here is not painful he is able to have a good range of motion. There is no blistering or open areas. There is no evidence of any bug bites etc.. Neuro: General: patient oriented x3, moves all extremities and Normal light touch and pain sensation Results Labs 02/14/23 19:36 02/15/23 05:48 Labs: Abnormal lab results 02/15/23 Range/Units 05:48 Anion Gap 11 L (12-20) BUN 21 H (9-16) mg/dL Albumin 3.4 L (3.5-5.0) g/dL BMP 02/15/23 05:48 Sodium 136 Potassium 3.9 Chloride 105 Carbon Dioxide 24 BUN 21 H Creatinine 1.03 Calcium 8.8 Liver Function 02/15/23 Range/Units 05:48 Total Bilirubin 0.7 (0.0-1.0) mg/dL AST 20 (5-37) U/L ALT 29 (0-40) U/L Alkaline Phosphatase 70 (39-117) U/L Albumin 3.4 L (3.5-5.0) g/dL All other labs normal. Assessment and Plan (1) Arm erythema: Status: Acute Plan 72-year-old male with history of right Scottie cell forearm carcinoma status post remote excision and chemo or radiation treatment. Recently in the last 48 hours with increasing arm erythema any came into the hospital and was started on IV Zosyn and vanco. Diagnosis was erysipelas/cellulitis. Infectious Disease has seen patient as well. Question whether this may be Farhad Archie syndrome but at this point the patient is not really ill and there is not a lot of blistering and the area is not really tender. It seems to been remarkably improved from early this morning to now. Will discuss with the team about the benefit of biopsy especially seeing as the patient is improving with just antibiotic treatment and is not ill. I think wearing compression once he is discharged is a good idea to decreased lymphedema. Risks of open wounds or biopsies on this lymphedema arm could lead to chronic wound failure to heal especially as he is improving with hold this for now. Patient agrees and would like to be re-evaluated tomorrow. Total time managing care of this patient today: 45 minutes. Procedures Date of Service Date of Service: 02/15/23
[2023-02-16] MEDS: Piperacillin Sodium/Tazobactam 3.375 GM in 0.9 % Sodium Chloride 50 ML IV ×5 (00:52→22:08)
[2023-02-16] MEDS: vancomycin HCL 1,000 MG in 0.9 % Sodium Chloride 250 ML 270 MG IV ×2 (02:47→15:17)
[2023-02-16 03:14] VITALS: BP 141/65; PULSE 53; RESP 18; TEMP 36.4; O2SAT 98
[2023-02-16 06:21] LABS: MANUAL DIFF FLAG NO
[2023-02-16 06:36] LABS: Basophils Percent Auto 0.3 % (0-2); Eosinophils Absolute Auto 0.4 X10*3/uL (0.0-0.4); Eosinophils Percent Auto 4.6 % (0-4); Hematocrit 38.4 % (42.0-52.0); Hemoglobin 12.8 g/dl (14.0-18.0); Imm Gran Abs Auto 0.03 X10*3/uL (0.00-0.03); Imm Gran Pct Auto 0.4 % (0.0-0.4); Lymphocytes Absolute Auto 1.1 X10*3/uL (1.2-4.9); Lymphocytes Percent Auto 14.2 % (20-40); Mean Corpuscular HGB Conc 33.3 g/dl (31.0-36.0); Mean Corpuscular Volume 89.9 fL (80.0-98.0); Monocytes Absolute Auto 0.7 X10*3/uL (0.1-1.2); Monocytes Percent Auto 8.7 % (2-11); Neutrophils Absolute Auto 5.5 x10*3/uL (2.0-8.3); Neutrophils Percent Auto 71.8 % (45-73); Platelet Count 136 X10*3/uL (160-400); Red Blood Count 4.27 X10*6/uL (4.60-5.80); White Blood Count 7.6 X10*3/uL (4.8-10.8)
[2023-02-16] MEDS: Enoxaparin Sodium 40 MG/0.4 ML SYRINGE SUBCUT (06:36)
[2023-02-16 06:43] LABS: Anion Gap 11 (12-20); Blood Urea Nitrogen 21 mg/dL (9-16); Calcium 8.8 mg/dL (8.4-10.2); Carbon Dioxide 27 mmol/L (22-29); Chloride 105 mmol/L (96-108); Creatinine Clr Calc Pharmacy 86.1; Estimated Glomerular Filt Rate > 60; Glucose Random 105 mg/dL (60-115); Potassium 3.8 mmol/L (3.3-5.1); Sodium 139 mmol/L (135-145)
[2023-02-16 07:51] VITALS: BP 120/60; PULSE 56; RESP 18; TEMP 36.2; O2SAT 96
[2023-02-16] MEDS: 0.9 % Sodium Chloride Flush 3 ML SYRINGE IVFLUSH ×3 (08:11→22:09)
[2023-02-16] MEDS: Famotidine 20 MG TABLET PO ×2 (08:11→22:08)
[2023-02-16] MEDS: Atorvastatin Calcium 20 MG TABLET PO (08:11)
[2023-02-16] MEDS: Escitalopram Oxalate 10 MG TABLET PO (08:11)
--- NOTE | 2023-02-16 12:57 | MHC.CM.PN ---
per rounds pt to be seen by id expected dc posiible fri
[2023-02-16 13:07] LABS: Vancomycin Random 10.4 mcg/mL (15-20)
--- NOTE | 2023-02-16 13:19 | HO.PM.IMPN ---
Subjective Subjective Date of Service: 02/16/23 Interval History: Seen in follow up for extensive cellulitis RUE Interval history: No complaints. Decreased pressure in RUE, improved erythema. WBC trending down Review of Systems Review of Systems: Yes all other systems are reviewed and are negative Physical Exam Vital Signs: Vital Signs: Last Vital Signs Temp 97.2 F 02/16/23 07:51 Pulse 56 02/16/23 07:51 Resp 18 02/16/23 07:51 BP 120/60 02/16/23 07:51 Pulse Ox 96 02/16/23 07:51 O2 Del Method Room Air 02/16/23 07:51 BMI result Body Mass Index 38.3 Constitutional - Awake and Alert, No apparent distress Eyes - PERRLA, EOMI Cardiovascular - S1S2, RRR, No edema Respiratory - Normal lung expansion, Normal respiratory effort, No respiratory distress, CTA bilaterally Extremities - no calf tenderness bilaterally, no swelling Skin - Warm/Dry. Improved erythema and warmth of the dorsal aspect of the right hand extending circumferentially over the right forearm, with improvement in swelling. Satellite patches of erythema on the upper arm. No fluctuance or drainage Neurological - Alert & oriented x3 Psychological - Appropriate affect Objective Data Active Medications Acetaminophen (Acetaminophen 325 Mg Tablet) 650 mg PO Q6H PRN PRN Reason: Pain, Mild (Pain Scale 1-3) Last Admin: 02/15/23 20:59 Dose: 650 mg Documented By: ELVIA Atorvastatin Calcium (Atorvastatin Calcium 20 Mg Tablet) 20 mg PO DAILY [facility] Last Admin: 02/16/23 08:11 Dose: 20 mg Documented By: PANDA Clotrimazole (Clotrimazole 1 % Cream 15 Gm Tube) 1 appl TOPICAL DAILY PRN PRN Reason: Rash Last Admin: 02/15/23 20:59 Dose: 1 appl Documented By: ELVIA Enoxaparin Sodium (Enoxaparin Sodium 40 Mg/0.4 Ml Syringe) 40 mg SUBCUT Q24H [facility] Last Admin: 02/16/23 06:36 Dose: 40 mg Documented By: ELVIA Escitalopram Oxalate (Escitalopram Oxalate 10 Mg Tablet) 10 mg PO DAILY [facility] Last Admin: 02/16/23 08:11 Dose: 10 mg Documented By: PANDA Famotidine (Famotidine 20 Mg Tablet) 20 mg PO BID [facility] Last Admin: 02/16/23 08:11 Dose: 20 mg Documented By: PANDA Fluticasone Propionate (Fluticasone Propionate Nasal [address]) 2 spray NOSTRIL-B DAILY PRN PRN Reason: Allergy Symptoms Piperacillin Sod/Tazobactam (Sod 3.375 gm/ Sodium Chloride) 50 mls @ 100 mls/hr IV Q6H [facility] Last Infusion: 02/16/23 12:08 Dose: Infused Documented By: PANDA Vancomycin HCl 1,000 mg/ (Sodium Chloride) 270 mls @ 270 mls/hr IV Q12H [facility] Last Infusion: 02/16/23 04:20 Dose: Infused Documented By: ELVIA Magnesium Hydroxide (Milk Of Magnesia 30 Ml Oral.Susp) 30 ml PO DAILY PRN PRN Reason: Constipation Non-Formulary Medication (Chlordiazepoxide-Clidinium) 1 cap PO TIDWM [facility] Nystatin (Nystatin Powder 15 Gm Bottle) 1 appl TOPICAL QID PRN; Protocol PRN Reason: Rash Last Admin: 02/15/23 20:59 Dose: 1 appl Documented By: ELVIA Ondansetron HCl (Ondansetron Hcl 4 Mg/2 Ml Vial) 4 mg IVPUSH Q8H PRN PRN Reason: Nausea and Vomiting Pharmacy Consult (Consult Rx Vancomycin Dosing) 1 each MISCELLANE DAILY PRN PRN Reason: Consult order Sodium Chloride (0.9 % Sodium Chloride Flush 3 Ml Syringe) 3 ml IVFLUSH QSHIFT [facility] Last Admin: 02/16/23 08:11 Dose: 3 ml Documented By: PANDA Tramadol HCl (Tramadol Hcl 50 Mg Tablet) 50 mg PO Q12H PRN PRN Reason: Pain, Moderate(Pain Scale 4-6) Labs 02/16/23 05:26 02/16/23 05:26 Labs: Laboratory Results - last 24 hr 02/16/23 02/16/23 05:26 12:45 MCV 89.9 MCH 30.0 MCHC 33.3 RDW 13.0 Plt Count 136 L MPV 11.0 Immature Gran % (Auto) 0.4 Neut % (Auto) 71.8 Lymph % (Auto) 14.2 L [place] % (Auto) 8.7 Eos % (Auto) 4.6 H Baso % (Auto) 0.3 Lymph # (Auto) 1.1 L [place] # (Auto) 0.7 Eos # (Auto) 0.4 Baso # (Auto) 0.0 Abs Immat Gran (auto) 0.03 Absolute Neuts (auto) 5.5 Absolute Nucleated RBC 0.000 Nucleated RBC % (auto) 0.0 Anion Gap 11 L Estim Creat Clear Calc 86.1 Estimated GFR > 60 Random Glucose 105 Calcium 8.8 Random Vancomycin 10.4 L Microbiology Microbiology Results: Microbiology 02/14/23 19:36 Blood Culture - Preliminary Blood - Venous No growth after 24 hours. 02/14/23 19:36 Blood Culture - Preliminary Blood - Venous No growth after 24 hours. 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 Admitted early this morning with extensive cellulitis RUE with rapid progression. #Severe cellulitis RUE in immunocompromised patient involving >50% of limb -Improving erythema but still covering extension area of RUE -Continue Zosyn and Vanco, started 02/15 -Blood cultures pending, prelim report negative x2 -Per ID, consider bx. Seen by general surgery, given improvement in appearance of RUE, elect to defer bx at this time. ID also considering SJS/TEN but pt is otherwise well appearing #JAIR -CPAP at night #HLD -statin #Scottie cell carcinoma -outpt follow up morbid obesity -weight loss advised DVT prophylaxis: Lovenox Full Code Requires ongoing inpt stay for ivx due to extensive cellulitis >50% extremity in immunocompromised pt Quality Stroke Does the patient have a stroke diagnosis?: No VTE Prior VTE?: No VTE Risk Level:: Medical - moderate - high VTE Device Contraindication: Treatment Not Indicated VTE Drug Contraindication: N/A - Med Ordered
--- NOTE | 2023-02-16 13:39 | HE.PHANOTE ---
RE: VANCO Based on sCr of 1.04 and predicted AUC of 453 and trough of 14.5, continue dose of 1000mg q12h. Next random lab is scheduled on 02/18/23@1300 before 7th dose to make sure dose is still appropriate.
[2023-02-16 16:00] VITALS: BP 126/59; PULSE 58; RESP 18; TEMP 36.1; O2SAT 95
[2023-02-16 19:24] VITALS: BP 127/60; PULSE 62; RESP 18; TEMP 36.2; O2SAT 94
[2023-02-17] MEDS: vancomycin HCL 1,000 MG in 0.9 % Sodium Chloride 250 ML 270 MG IV (03:01)
[2023-02-17 03:11] VITALS: BP 118/60; PULSE 56; RESP 18; TEMP 37; O2SAT 96
[2023-02-17] MEDS: Piperacillin Sodium/Tazobactam 3.375 GM in 0.9 % Sodium Chloride 50 ML IV ×4 (04:46→22:47)
[2023-02-17] MEDS: Enoxaparin Sodium 40 MG/0.4 ML SYRINGE SUBCUT (05:33)
[2023-02-17 06:44] LABS: Creatinine Clr Calc Pharmacy 90.5; Estimated Glomerular Filt Rate > 60
[2023-02-17 08:00] VITALS: BP 128/56; PULSE 75; RESP 18; TEMP 36.1; O2SAT 96
[2023-02-17] MEDS: Escitalopram Oxalate 10 MG TABLET PO (08:14)
[2023-02-17] MEDS: Atorvastatin Calcium 20 MG TABLET PO (08:14)
[2023-02-17] MEDS: 0.9 % Sodium Chloride Flush 3 ML SYRINGE IVFLUSH ×3 (08:14→20:17)
[2023-02-17] MEDS: Famotidine 20 MG TABLET PO ×2 (08:14→20:17)
[2023-02-17 15:06] VITALS: BP 136/63; PULSE 76; RESP 18; TEMP 36.6; O2SAT 96
--- NOTE | 2023-02-17 17:24 | P.PNIM_ITS ---
Subjective Subjective Date of Service: 02/17/23 Interval History: seen and examined this morning follow up for RUE cellulitis beginning to improve denies fever or chills Review of Systems Review of Systems: Yes all other systems are reviewed and are negative Constitutional Constitutional: Denies chills and Denies fever(s) Cardiovascular Cardiovascular: Denies chest pain, Denies palpitations and Denies dyspnea Respiratory Respiratory: Denies cough and Denies dyspnea Endocrine Endocrine: Denies palpitations Physical Exam 2 Vital Signs: Vital Signs: Last Vital Signs Temp 97.8 F 02/17/23 15:06 Pulse 76 02/17/23 15:06 Resp 18 02/17/23 15:06 BP 136/63 02/17/23 15:06 Pulse Ox 96 02/17/23 15:06 O2 Del Method Room Air 02/17/23 15:06 BMI result Body Mass Index 38.3 Const: General: cooperative, comfortable, no acute distress, alert and awake Nutritional Appearance: obese Orientation/consciousness: patient oriented x3 Resp: Effort & Inspection: normal respiratory effort, able to speak in complete sentences, no respiratory distress and no use of accessory muscles Cardio: Rate: regular rate GI: Inspection: No distended Palpation (GI): Soft to palpation Skin: Other: right arm, no open wounds, no drainage Neuro: General: patient oriented x3 Extrem: General: Yes no pedal edema Objective Data Active Medications Acetaminophen (Acetaminophen 325 Mg Tablet) 650 mg PO Q6H PRN PRN Reason: Pain, Mild (Pain Scale 1-3) Last Admin: 02/15/23 20:59 Dose: 650 mg Documented By: ELVIA Atorvastatin Calcium (Atorvastatin Calcium 20 Mg Tablet) 20 mg PO DAILY [facility] Last Admin: 02/17/23 08:14 Dose: 20 mg Documented By: MIO Clotrimazole (Clotrimazole 1 % Cream 15 Gm Tube) 1 appl TOPICAL DAILY PRN PRN Reason: Rash Last Admin: 02/15/23 20:59 Dose: 1 appl Documented By: ELVIA Enoxaparin Sodium (Enoxaparin Sodium 40 Mg/0.4 Ml Syringe) 40 mg SUBCUT Q24H [facility] Last Admin: 02/17/23 05:33 Dose: 40 mg Documented By: GIRMA Escitalopram Oxalate (Escitalopram Oxalate 10 Mg Tablet) 10 mg PO DAILY [facility] Last Admin: 02/17/23 08:14 Dose: 10 mg Documented By: MIO Famotidine (Famotidine 20 Mg Tablet) 20 mg PO BID [facility] Last Admin: 02/17/23 08:14 Dose: 20 mg Documented By: MIO Fluticasone Propionate (Fluticasone Propionate Nasal 16 Gm [place]) 2 spray NOSTRIL-B DAILY PRN PRN Reason: Allergy Symptoms Piperacillin Sod/Tazobactam (Sod 3.375 gm/ Sodium Chloride) 50 mls @ 100 mls/hr IV Q6H [facility] Last Admin: 02/17/23 17:11 Dose: 100 mls/hr Documented By: MIO Magnesium Hydroxide (Milk Of Magnesia 30 Ml Oral.Susp) 30 ml PO DAILY PRN PRN Reason: Constipation Non-Formulary Medication (Chlordiazepoxide-Clidinium) 1 cap PO TIDWM [facility] Nystatin (Nystatin Powder 15 Gm Bottle) 1 appl TOPICAL QID PRN; Protocol PRN Reason: Rash Last Admin: 02/15/23 20:59 Dose: 1 appl Documented By: ELVIA Ondansetron HCl (Ondansetron Hcl 4 Mg/2 Ml Vial) 4 mg IVPUSH Q8H PRN PRN Reason: Nausea and Vomiting Sodium Chloride (0.9 % Sodium Chloride Flush 3 Ml Syringe) 3 ml IVFLUSH QSHIFT [facility] Last Admin: 02/17/23 15:22 Dose: 3 ml Documented By: MIO Tramadol HCl (Tramadol Hcl 50 Mg Tablet) 50 mg PO Q12H PRN PRN Reason: Pain, Moderate(Pain Scale 4-6) Labs 02/16/23 05:26 02/17/23 05:51 Labs: Laboratory Results - last 24 hr 02/17/23 05:51 Hold Purple Top SEE NOTE Estim Creat Clear Calc 90.5 Estimated GFR > 60 Microbiology Microbiology Results: Microbiology 02/14/23 19:36 Blood Culture - Preliminary Blood - Venous No growth after 48 hours. 02/14/23 19:36 Blood Culture - Preliminary Blood - Venous No growth after 48 hours. 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 Seen by general surgery, given improvement in appearance of RUE, elect to defer bx at this time. ID also considering SJS/TEN but pt is otherwise well appearing so less likely - plan to d/c home with 7 days of augmentin, likely in am US negative for clot #JAIR -CPAP at night #HLD -statin #Scottie cell carcinoma -outpt follow up morbid obesity -weight loss advised DVT prophylaxis: Lovenox Full Code attending - dr. moran Requires ongoing inpt stay for ivx due to extensive cellulitis >50% extremity in immunocompromised pt to prevent decompensation Quality Stroke Does the patient have a stroke diagnosis?: No VTE Prior VTE?: No VTE Risk Level:: Medical - moderate - high VTE Device Contraindication: Treatment Not Indicated VTE Drug Contraindication: N/A - Med Ordered
[2023-02-17 20:00] VITALS: BP 123/59; PULSE 59; RESP 17; TEMP 36; O2SAT 96
[2023-02-18 03:33] VITALS: BP 146/72; PULSE 52; RESP 17; TEMP 36.5; O2SAT 95
[2023-02-18] MEDS: Piperacillin Sodium/Tazobactam 3.375 GM in 0.9 % Sodium Chloride 50 ML IV (04:47)
[2023-02-18] MEDS: Enoxaparin Sodium 40 MG/0.4 ML SYRINGE SUBCUT (05:06)
[2023-02-18 06:13] LABS: Creatinine Clr Calc Pharmacy 97.4; Estimated Glomerular Filt Rate > 60
[2023-02-18 07:04] VITALS: BP 123/61; PULSE 55; RESP 16; TEMP 36; O2SAT 97
[2023-02-18] MEDS: Escitalopram Oxalate 10 MG TABLET PO (08:26)
[2023-02-18] MEDS: Atorvastatin Calcium 20 MG TABLET PO (08:26)
[2023-02-18] MEDS: 0.9 % Sodium Chloride Flush 3 ML SYRINGE IVFLUSH (08:26)
[2023-02-18] MEDS: Famotidine 20 MG TABLET PO (08:26)
--- NOTE | 2023-02-18 11:28 | PM.DS ---
DS: Providers Provider Date of Service: 02/18/23 Date of admission: 02/15/23 04:52 Date of discharge: 02/18/23 Primary care physician: KIERA White Consults: 02/15/23 04:01 Consult to Infectious Diseases Routine Consulting Provider: [facility] Infect[facility] Disease Reason for consultation: extensive cellulitis of the right arm Has provider been notified: No 02/15/23 14:05 Consult to General Surgery Routine Consulting Provider: [facility] [place] General Surgeons Reason for consultation: ?bx RUE per ID Attending physician on discharge: Alec Villalta Discharging clinician: Yamini Macias DS: Diagnosis Discharge Diagnosis (1) Cellulitis of right arm: Status: Acute DS: Summary Hospital Course Hospital Course: From H&P on day of admission 72 year male with 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 He is followed by both [facility] oncology and [facility]. He has been well until about a week ago when noticed increasing fatigue and had noticed area of redness in the right arm that has progresively gotten much worse today along with fatigue. Additionally has noticed some redness in the upper arm. He has not had fever or chills. Patient was seen at the Oncology clinic at [facility] on Feb 14 and was given 1 dose of Cefepime in clinic and advised to go to the ED. Severe cellulitis RUE in immunocompromised patient involving >50% of limb He was treated with IV Zosyn and Vanco, started 02/15, his erythema improved, leukocytosis resolved and he has remained afebrile. Blood cultures have remained negative to date. He was seen by ID who recommended to consider biopsy. He was Seen by general surgery, but given that he was already improving elected to defer bx at this time. US of the arm showed no evidence of blood clot. ID rec total 7 days of augmentin. Recommend outpatient follow up with PCP to ensure resolution. Time Attestation Discharge coordination time: Greater than 30 minutes Quality: Safe Use of Opioids Does Pt have an Active Cancer Diagnosis on the Problem List?: Yes Opioid Measure Date for [facility] Report: 01/19/23 Opioid Measure Time for [facility] Report: 11:33 Quality: Stroke Does the patient have a stroke diagnosis?: No Physical Exam Vital Signs: Vital Signs: Last Vital Signs Temp 96.8 F 02/18/23 07:04 Pulse 55 02/18/23 07:04 Resp 16 02/18/23 07:04 BP 123/61 02/18/23 07:04 Pulse Ox 97 02/18/23 07:04 O2 Del Method CPAP 02/18/23 07:04 BMI result Body Mass Index 38.3 Const: General: cooperative and comfortable Nutritional Appearance: obese Orientation/consciousness: patient oriented x3 Resp: Effort & Inspection: normal respiratory effort, able to speak in complete sentences, no respiratory distress and no use of accessory muscles Cardio: Rate: regular rate GI: Inspection: No distended Palpation (GI): Soft to palpation Skin: Other: right arm, no open wounds, no drainage Neuro: General: patient oriented x3 Extrem: General: Yes no pedal edema DS: Data Data Completed and Pending Labs on day of discharge: Laboratory Results - last 24 hr 02/18/23 05:23 Hold Purple Top SEE NOTE Creatinine 0.92 Estim Creat Clear Calc 97.4 Estimated GFR > 60 Preliminary micro results at discharge 02/14/23 19:36 Blood Culture - Preliminary Blood - Venous No growth after 48 hours. 02/14/23 19:36 Blood Culture - Preliminary Blood - Venous No growth after 48 hours. Discharge Plan Discharge Anticipated Discharge Date/Time: 02/18/23 11:33 Patient Disposition: Home, Self-Care Discharge Diagnosis: right arm cellulitis Referrals: Suresh Mcclellan PA [Primary Care Provider] - 1 Week Discharge Medications: New amoxicillin-pot clavulanate 875-125 mg tablet 1 tab PO BID 7 Days Qty: 14 0RF Continued atorvastatin 20 mg tablet 20 mg PO DAILY tramadol 50 mg tablet 50 mg PO Q12H PRN (Reason: pain) citalopram 20 mg tablet 20 mg PO DAILY famotidine 20 mg tablet 20 mg PO BID chlordiazepoxide-clidinium 5-2.5 mg capsule 1 cap PO TIDWM nystatin 100,000 unit/gram powder 1 appl topical QID PRN (Reason: Rash) ketoconazole 2 % cream 1 appl topical DAILY PRN (Reason: Rash) fluticasone propionate 50 mcg/actuation spray,suspension 2 spray intranasal DAILY PRN (Reason: Allergy Symptoms) acetaminophen 325 mg Tablet 325 mg PO QID PRN (Reason: Pain) diclofenac sodium 1 % Gel 2 g TOPICAL QID PRN (Reason: Pain) Rx Instructions: APPLY TO KNEES PRN Discharge Orders: Discharge Order (Routine); Ordered 02/18/23 Ordered By: Yamini Macias Activity on Discharge: As tolerated Stand Alone Forms: Patient Portal Discharge page Care Plan Goals: see below Health Concerns: right arm cellulitis Plan of Treatment: complete course of antibiotics as prescribed call to schedule follow up appointment with PCP to ensure resolution of infection Assessment: see discharge summary
--- NOTE | 2023-02-18 12:32 | MHC.CM.PN ---
pt is dcd home no servies
== END 2023-02-18 14:22 | disposition home or self-care (01) | DRG 603 ==
LOC: HO.ED 02-15 01:30 → HO.EDOVER 02-15 05:16 → HO.S3 02-15 07:27
PROVIDERS: Nurse Practitioner Family; Physician Assistant; Student in an Organized Health Care Education/Training Program; Admitting Provider Internal Medicine; Emergency Provider Internal Medicine; PCP Physician Assistant Medical; Visit Provider Physician Assistant Medical
DX: L03.113 Cellulitis of right upper limb (principal); D84.9 Immunodeficiency, unspecified; C4A.61 Merkel cell carcinoma of right upper limb, including shoulder; B36.8 Other specified superficial mycoses; G47.33 Obstructive sleep apnea (adult) (pediatric); E66.01 Morbid (severe) obesity due to excess calories; Z68.38 Body mass index [BMI] 38.0-38.9, adult; Z79.899 Other long term (current) drug therapy
CPT/HCPCS: 36415; 73110; 73130; 80048; 80053; 80076; 80202; 82565; 83605; 85025; 85652; 86140; 87040; 93971; 99285; J1650; J2543; J3370

== ENCOUNTER → 2023-02-15 04:52 | Outpatient (BNV) | payer MEDICARE, OTHER, SELFPAY | PROVIDERS: Admitting Provider Internal Medicine; Emergency Provider Internal Medicine; PCP Physician Assistant Medical; Visit Provider Physician Assistant | DX: L03.113 Cellulitis of right upper limb (principal) | CPT/HCPCS: 99223; 99232; 99239; 99429; 99499 ==

== ENCOUNTER → 2023-02-15 04:52 | Outpatient (BNV) | payer MEDICARE, OTHER, SELFPAY | PROVIDERS: Admitting Provider Internal Medicine; Emergency Provider Internal Medicine; PCP Physician Assistant Medical; Visit Provider Internal Medicine | DX: L03.113 Cellulitis of right upper limb (principal); L53.9 Erythematous condition, unspecified | CPT/HCPCS: 99222; 99499 ==

== ENCOUNTER → 2023-02-15 04:52 | Outpatient (BNV) | payer MEDICARE, OTHER, SELFPAY | PROVIDERS: Admitting Provider Internal Medicine; Emergency Provider Internal Medicine; PCP Physician Assistant Medical; Visit Provider Surgery | DX: L53.9 Erythematous condition, unspecified (principal) | CPT/HCPCS: 99222 ==

== ENCOUNTER 2024-02-07 14:47 | Outpatient (AMB) | payer MEDICARE, OTHER, SELFPAY ==
[2024-02-07 15:20] VITALS: BP 110/58; PULSE 74; O2SAT 96; BMI 32.1
--- NOTE | 2024-02-07 15:20 | MHC.OFFVIS ---
Vital Signs 02/07/24 15:20 Height 5 ft 10 in Weight 223 lb 12.307 oz BMI 32.1 BP 110/58 L Blood Pressure Location Lt brachial Position Sitting Pulse 74 Pulse Source Pulse Oximeter Pulse Oximetry (%) 96 Oxygen Delivery Method Room Air Intake Visit Reasons: arthritis//RECORDS RECEIVED Intake Note: Patient presents today for follow up on arthritis, he was last seen in the arthritis treatment center by Dr. Nam on 09/30/2023. Allergies celecoxib [From CELEBREX] Allergy (Severe, Verified 02/07/24 15:23) ANAPHYLAXIS Sulfa (Sulfonamide Antibiotics) [SULFA (SULFONAMIDE ANTIBIOTICS)] Allergy (Unknown, Verified 02/07/24 15:23) ANAPHYLACTIS z pack Allergy (Mild, Uncoded 02/07/24 15:23) Hives HPI HPI arthritis//RECORDS RECEIVED: Details: Last cortisone injection in bilateral knees was effective. He completed physical therapy for right shoulder pain. He has lost over 60 lb in the last year. No rheumatology records received from [facility]. Rheumatology history osteoarthritis bilateral knees treated with cortisone injections. He has completed physical therapy in the past. He uses Tylenol as needed when experiences pain. [facility] Medical History (Updated 02/07/24 @ 16:26 by Murray Nam MD) Cervical radiculopathy due to degenerative joint disease of spine Severe obesity Thyroid goiter Comfort cell carcinoma HLD (hyperlipidemia) Social History Household Members: Spouse Housing: House Do you presently have visiting nurse or other home services: No Alcohol intake: current Alcohol intake frequency: holidays/special occasions only Patient Tobacco Use Status: Never used Tobacco Second Hand Smoke Exposure: No service: No Review of Systems Const All systems reviewed & are unremarkable except as noted in HPI and below Physical Exam Vital Signs: Last Vital Signs Pulse 74 02/07/24 15:20 BP 110/58 L 02/07/24 15:20 Pulse Ox 96 02/07/24 15:20 Oxygen Delivery Method Room Air 02/07/24 15:20 BMI result Body Mass Index 32.1 Const General: cooperative and healthy appearing Skin General skin exam: no rashes or lesions noted Extrem Other: Tender to palpate bilateral knees along joint line. No joint effusion. Good range of motion of bilateral knees. Office Procedures AMB Joint Injection/Aspiration Joint Injection/Aspiration Details: Bilateral knees were injected. Each knee Prep: site was prepped using aseptic technique Injected: 40 mg of, Kenalog and 1% plain lidocaine Approach Used: anterolateral Procedure: The patient tolerated the procedure well Coding 99567 - Large joint (Bilateral) Additional procedure code (CPT) needed (Modifier needed) Office Meds Kenalog 40 mg/mL suspension for injection Performing Provider: Murray Nam MD [place] [facility] [place] [facility] Administered by: Murray Nam MD on 02/07/24 16:19 Dose Route Admin Location Dispensed Lot Number Expiration Date [facility] [employer] 40 mg intra-articular Right knee 1 mL [id number] [employer] 40 mg intra-articular Left knee 1 mL AP [id number] [employer] lidocaine (PF) 10 mg/mL (1 %) injection solution Performing Provider: Murray Nam MD [place] [facility] [place] [facility] Administered by: Murray Nam MD on 02/07/24 16:19 Dose Route Admin Location Dispensed Lot Number Expiration Date [facility] [employer] 10 mg Infiltration Right knee and left knee 2 mL [id number] [facility] Assessment & Plan Assessment & Plan (1) Osteoarthritis of knees, bilateral: Comment: Uncontrolled pain. Pain is controlled with cortisone injections. Code(s): M17.0 - Bilateral primary osteoarthritis of knee Category: Medical Plan: Bilateral knee cortisone injections given this visit Continue exercise Okay to use Tylenol as needed for pain Return to clinic in 3 months Plan . Orders: Orders AMB Joint Injection/Aspiration Today M17.0 - Bilateral primary osteoarthritis of knee Medications: New lidocaine (PF) 10 mg Infiltration ONCE 1 mL 0RF M17.0 - Bilateral primary osteoarthritis of knee Kenalog (triamcinolone acetonide) 80 mg (2 mL) intra-articular ONCE 2 mL 0RF NS M17.0 - Bilateral primary osteoarthritis of knee Coding Level of Care Code Est Pt Level 3 (10372) Diagnoses Osteoarthritis of knees, bilateral M17.0 CPT Codes Coding - 26347 Large joint: 75858 - Large joint ([id number])
== END 2024-02-07 16:15 | disposition home or self-care (01) ==
PROVIDERS: PCP Physician Assistant Medical; Visit Provider Internal Medicine Rheumatology
DX: M17.0 Bilateral primary osteoarthritis of knee (principal)
CPT/HCPCS: 20610; 99214

== ENCOUNTER → 2024-02-07 14:47 | Outpatient (BNVA) | payer MEDICARE, OTHER, SELFPAY | PROVIDERS: PCP Physician Assistant Medical; Visit Provider Internal Medicine Rheumatology | DX: M17.0 Bilateral primary osteoarthritis of knee (principal) | CPT/HCPCS: 20610; 99212; J2003; J3300 ==

== ENCOUNTER 2024-05-08 14:28 | Outpatient (AMB) | payer MEDICARE, OTHER, SELFPAY ==
--- NOTE | 2024-05-08 14:33 | A.OFFVIS_ITS ---
Vital Signs 05/08/24 14:34 Height 5 ft 10 in Weight 229 lb 4 oz BMI 32.9 BP 102/68 Blood Pressure Location Rt brachial Position Sitting Pulse 76 Pulse Source Pulse Oximeter Pulse Oximetry (%) 98 Oxygen Delivery Method Room Air Intake Visit Reasons: 3 mo f/u Intake Note: Patient presents today for follow up on arthritis. Accompanied by: Self / Same As Patient Allergies celecoxib [From CELEBREX] Allergy (Severe, Verified 05/08/24 14:33) ANAPHYLAXIS Sulfa (Sulfonamide Antibiotics) [SULFA (SULFONAMIDE ANTIBIOTICS)] Allergy (Unknown, Verified 05/08/24 14:33) ANAPHYLACTIS z pack Allergy (Mild, Uncoded 02/07/24 15:23) Hives HPI HPI 3 mo f/u: Details: Last cortisone injection last month. He has been intermittent pain in his knees, which he most experiences in the evening. Pain occurs with activity. He self medicates with Tylenol when needed for pain control. [facility] Medical History (Updated 05/08/24 @ 15:49 by Murray Nam MD) Cervical radiculopathy due to degenerative joint disease of spine Severe obesity Thyroid goiter [place] cell carcinoma HLD (hyperlipidemia) Social History Household Members: Spouse Housing: House Do you presently have visiting nurse or other home services: No Alcohol intake: current Alcohol intake frequency: holidays/special occasions only Patient Tobacco Use Status: Never used Tobacco Second Hand Smoke Exposure: No service: No Review of Systems Const All systems reviewed & are unremarkable except as noted in HPI and below Physical Exam Vital Signs: Last Vital Signs Pulse 76 05/08/24 14:34 BP 102/68 05/08/24 14:34 Pulse Ox 98 05/08/24 14:34 Oxygen Delivery Method Room Air 05/08/24 14:34 BMI result Body Mass Index 32.9 Const General: cooperative and healthy appearing Skin General skin exam: no rashes or lesions noted Extrem Other: Tender to palpate bilateral knees along joint line. No joint effusion. Good range of motion of bilateral knees. Office Procedures AMB Joint Injection/Aspiration Joint Injection/Aspiration Details: Bilateral knee joints Prep: site was prepped using aseptic technique Injected into each joint: 40 mg of, Kenalog, with 1 mL of and 1% plain lidocaine Procedure: The patient tolerated the procedure well. Postprocedure protocol was discussed with patient. Coding 96560 - Bilateral Large Joint Procedure code (CPT) selection complete AMB Joint Injection/Aspiration Coding 28888 - Bilateral Large Joint Procedure code (CPT) selection complete Office Meds lidocaine (PF) 10 mg/mL (1 %) injection solution Performing Provider: Murray Nam MD Performing Location: [facility] [place] [facility] Administered by: Murray Nam MD on 05/08/24 15:45 Dose Route Admin Location Dispensed Lot Number Expiration Date [facility] [employer]man 10 mg Infiltration 2 mL [id number] [employer] Kenalog 40 mg/mL suspension for injection Performing Provider: Murray Nam MD Performing Location: [facility] – [place] [facility] Administered by: Murray Nam MD on 05/08/24 15:45 Dose Route Admin Location Dispensed Lot Number Expiration Date [facility] [employer] 40 mg intra-articular 1 mL AP [id number] [employer] lidocaine (PF) 10 mg/mL (1 %) injection solution Performing Provider: Murray Nam MD Performing Location: [facility] – [place] [facility] Administered by: Murray Nam MD on 05/08/24 15:45 Dose Route Admin Location Dispensed Lot Number Expiration Date [facility] Camera [employer]man 10 mg Infiltration 2 mL [id number] [employer] Kenalog 40 mg/mL suspension for injection Performing Provider: Murray Nam MD Performing Location: [facility] – [place] [facility] Administered by: Murray Nam MD on 05/08/24 15:45 Dose Route Admin Location Dispensed Lot Number Expiration Date [facility] [employer]man 40 mg intra-articular 1 mL AP [id number] [employer] Assessment & Plan Assessment & Plan (1) Osteoarthritis of knees, bilateral: Comment: Uncontrolled pain. We discussed considering Euflexxa injections. Cortisone injections are only lasting a month and now he is experiencing intermittent pain mostly at night requiring Tylenol for pain control. He would like to try cortisone injections this time and will think about Euflexxa injections. Discussed side effects and benefits of Euflexxa. Code(s): M17.0 - Bilateral primary osteoarthritis of knee Category: Medical Plan: Patient received bilateral cortisone injections to knees Information on Euflexxa given to patient. Return to clinic in 3 months or sooner if needed Orders: Orders AMB Joint Injection/Aspiration Today M17.0 - Bilateral primary osteoarthritis of knee AMB Joint Injection/Aspiration Today M17.0 - Bilateral primary osteoarthritis of knee Medications: New Kenalog (triamcinolone acetonide) 40 mg intra-articular ONCE 1 mL 0RF NS M17.0 - Bilateral primary osteoarthritis of knee Kenalog (triamcinolone acetonide) 40 mg intra-articular ONCE 1 mL 0RF NS M17.0 - Bilateral primary osteoarthritis of knee lidocaine (PF) 10 mg Infiltration ONCE 1 mL 0RF M17.0 - Bilateral primary osteoarthritis of knee lidocaine (PF) 10 mg Infiltration ONCE 1 mL 0RF M17.0 - Bilateral primary osteoarthritis of knee Coding Level of Care Code Est Pt Level 3 (21631) Complex EM visit Add On G2211 Diagnoses Osteoarthritis of knees, bilateral M17.0 CPT Codes Coding - 21676 - Bilateral Large Joint: 22605 - Bilateral Large Joint ([id number]) Coding - 14188 - Bilateral Large Joint: 50235 - Bilateral Large Joint ([id number])
[2024-05-08 14:34] VITALS: BP 102/68; PULSE 76; O2SAT 98; BMI 32.9
--- OUTSIDE RECORDS SUMMARY | 2024-05-08 15:27 | XMS_ITS | Clinical Summary ---
Author Organization [address] [facility] Address [address] [place] [address] Phone Care Team Providers Care Customer Relationship Specialist Name Role Phone Suresh Mcclellan Primary Care Provider [phone] Allergies Active Allergy Reactions Criticality Noted Date Comments Azithromycin 11/09/2019 rash Celecoxib 08/07/2009 Other Reaction(s): Hives/Urticaria, Numbness, tingling or swelling of the lips, tongue or mouth Dexamethasone 07/07/2021 Sulfa (Sulfonamide Antibiotics) Medium 08/07/2009 Other Reaction(s): Flushing, feeling of warmth This occurred with celebrex Medications pembrolizumab (Keytruda) 25 mg/mL solution Infuse into a venous catheter. Active nystatin (MYCOSTATIN) 100,000 unit/gram powder APPLY 1 TO 4 TIMES A DAY TO BODY FOLDS NEEDED Strength: 100,000 UNIT/GM 3 Active traMADoL (ULTRAM) 50 mg tablet Take 1 Tab by mouth every 6 hours as needed for Pain. 0 Active LORazepam (ATIVAN) 1 mg tablet Take 1 Tab by mouth daily as needed for Anxiety. 9 Active ketoconazole (NIZORAL) 2 % cream APPLY TO RASHES IN BODY FOLDS AND GROIN DAILY NEEDED 3 Active fluticasone propionate (FLONASE) 50 mcg/actuation nasal spray Administer 1 spray into each nostril 1 (one) time each day. Active atorvastatin (LIPITOR) 20 mg tablet Take 1 tablet (20 mg total) by mouth 1 (one) time each day. 4 Active sildenafiL (VIAGRA) 100 mg tablet 1 (one) time each day if needed. Take 0.5 Tablets by mouth as needed for Erectile Dysfunction Active citalopram (CeleXA) 10 mg tablet Take 1 Tablet by mouth every morning Active chlordiazePOXID E-clidinium (LIBRAX) 5-2.5 mg per capsule TAKE ONE CAPSULE BY MOUTH THREE TIMES A DAY WITH MEALS Active famotidine (PEPCID) 20 mg tablet Take 1 tablet (20 mg total) by mouth 1 (one) time each day. Active miscellaneous medical supply misc CPAP Historical (HISTORICAL CPAP) Inhale 9 cm into the lungs nightly. 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 Sebaceous cyst 04/03/2019 Obstructive sleep apnea 12/19/2018 Overview (12/21/2023): Uses cpap regularly Severe obesity (BMI 35.0-39.9) with comorbidity 12/19/2018 Hyperlipidemia 06/05/2018 Irritable bowel syndrome 11/30/2016 Neck pain 01/28/2015 Overview (12/21/2023): [facility] - 01/28/15 - 80% improved after second injection; gabapentin discussed but deferred; followup 3 months Adjustment disorder 02/13/2013 GERD (gastroesophageal reflux disease) 1 Dysplastic nevus 03/16/2010 Generalized osteoarthrosis, involving multiple s ites 05/07/2009 Panic disorder without agoraphobia 07/04/2006 Allergic rhinitis 07/19/2005 Encounters Date Type Department Care Team Description 02/28/2024 2:45 PM EST Office Visit Orthopedic Surgery - [address] [facility] [address] [place] [address] Ishan Riojas, KARLA Pain in toes of both feet (Primary Dx); Ingrown right big toenail; Arthritis of both feet; Neuropathy due to chemotherapeutic drug ([facility]/HCC) from Last 3 Months Immunizations Name Administration Dates Next Due H1N1 Inj Preservative Free 03/31/2009 Influenza Quadravalent, 0.5m l (Fluzone High-dose) 65yo and older 12/05/2023 Influenza Quadravalent, MDCK , 0.5ml, preservative free (Flucelvax) 6mo and older 02/28/2018 Influenza Quadravalent, MDCK , 0.5ml, with preservative (Flucelvax) 6mo and older 11/30/2016 Influenza trivalent, 0.5mL ( Fluzone High-dose) 65yo and older 11/29/2022,01/18/2022,12/31/2020,01/21,12/26/2018 Influenza trivalent, 0.5mL, preservative free (Fluarix; FluLaval; Fluzone) ages 6mo and older (Afluria) 3 years and older 05/18/2014 Influenza trivalent, with pr eservative (Fluzone; Afluria) 6mo and older 12/16/2015,11/21/2012,12/21/2011,04/09,03/31/2009 Pneumococcal conjugate 13 va lent (Prevnar 13, PCV13) 2mo and older 12/06/2017 Pneumococcal polysaccharide 23 valent (Pneumovax 23) 2yo and older 12/26/2018 Td Tetanus diptheria (Tdvax) 7yo and older 05/22/2013,09/26/2001,09/26/2001 Zoster Live 11/21/2012 Surgical History Surgery Date Site/Laterality Comments COLONOSCOPY 2002 PROCEDURE: HISTORICAL COLONOSCOPY; COMMENT: minimal diverticulosis OTHER SURGICAL HISTORY PROCEDURE: HISTORY OTHER; COMMENT: SCALP basal cell skin cancer MOLE REMOVAL PROCEDURE: HISTORICAL MOLE (REMOVAL OF) COLONOSCOPY 2012 PROCEDURE: TX COLONOSCOPY FLX DX W/COLLJ SPEC WHEN PFRMD; COMMENT: no polyps OTHER SURGICAL HISTORY PROCEDURE: CHG ONC SCOTTIE CELL CARC DETCJ ANTB SERUM PABLO; COMMENT: biopsies related to scottie cell cancer OTHER SURGICAL HISTORY PROCEDURE: TX MYRINGOTOMY ASPIR&/EUSTACHIAN TUBE NFLTJ; COMMENT: ENT in [place] 2022 Medical History Medical History Date Comments Allergic rhinitis, cause unspecified 07/19/2005 DX:Allergic rhinitis, cause unspecified Panic disorder without agoraphobia 07/04/2006 DX:Panic disorder without agoraphobia Obesity, unspecified 07/04/2006 DX:Obesity, unspecified Historical Medical DX DX:Other a nd unspecified malignant neoplasm of skin of other and unspecified parts of face Dysplastic nevus 03/16/2010 DX:Dysplastic n evus Dysplastic nevus 03/16/2010 DX:Dysplastic n evus History of basal cell carcinoma 10/18/2006 DX:History of basal cell carcinoma; COMMENT: BCC 09/20 Scalp IMO update History of dysplastic nevus 03/16/2010 DX:H istory of dysplastic nevus; COMMENT: Dysplastic nevus 02/27 back (moderate atypia) History of basal cell carcin mat of skin 10/18/2006 DX:History of basal cell car cinoma of skin; COMMENT: BCC 09/20 Scalp IMO update Hyperlipidemia 06/05/2018 DX:Hyperlipidemi a Melanoma (CMS/HCC) DX:Melanoma ( HCC) Multiple thyroid nodules 04/28/2021 DX:Mult iple thyroid nodules; COMMENT: Benign follicular nodules (left and right) - followed by [facility] endocrinology (Dr. Kat Guerrero) Scottie cell cancer (CMS/HCC) DX: Scottie cell cancer (HCC) H/O head and neck radiation DX:H /O head and neck radiation Esophageal reflux DX:Esophageal reflux Immunotherapy DX:Immunotherapy Dyspepsia DX:Dyspepsia Cervical spondylosis without myelopathy DX:Cervical spondylosis with out myelopathy Depressive disorder DX:Depressiv e disorder Irritable bowel syndrome DX:Irri table bowel syndrome Family History Medical History Relation Name Comments Colon cancer Father Ovarian cancer Sister 1 Relation Name Status Comments Father (Age 91) COLON CANC ER AT AGE 91 Mother (Age 91) CVA Sister 1 ovarian cancer Sister 2 Alive Sister 3 Alive Sister 4 Alive Social History Tobacco Use Types Packs/Day Years Used Date Smoking Tobacco: Never Smokeless Tobacco: Never Alcohol Use Standard Drinks/Week Comments Yes 0 (1 standard drink = 0.6 oz pur e alcohol) Sex and Gender Information Value Date Recorded Sex Assigned at Not on file Legal Sex Male 1:22 PM EST Gender Identity Not on file Sexual Orientation Not on file Obstetrics History Last Filed Vital Signs Vital Sign Reading Time Taken Comments Blood Pressure 88/59 12/05/2023 11:13 AM EDT Pulse 87 12/05/2023 11:13 AM EDT Temperature - - Respiratory Rate - - Oxygen Saturation - - Inhaled Oxygen Concentration - - Weight 101 kg (223 lb) 02/28/2024 2:58 PM EST Height 177.8 cm (5' 10 ) 02/28/2024 2:58 PM EST Body Mass Index 32 02/28/2024 2:58 PM EST Plan of Treatment Health Maintenance Due Date Last Done Comments RSV Immunization Patients 60+ Years Old (1 - Risk 60-74 years 1-dose series) 2012 Zoster Vaccines (1 of 2) 01/16/2013 11/21/2012 Falls Risk Assessment 02/26/2022 Social Influencers of Health Screening 02/26/2022 DTaP,Tdap,and Td Vaccines (4 - Td or Tdap) 05/23/2023 05/22/2013, 09/26/2001, 09/26/2001 COVID-19 Vaccine ( - season) 2023 03/02/2021, 02/18/2021, 06/14/2020, Additional history exists Depression Screening 12/04/2024 12/05/2023 Medicare Annual Wellness Visit 12/04/2024 12/05/2023 Cholesterol Screening (Lipid Panel) 12/04/2028 12/05/2023, 12/05/2023 Colorectal Cancer Screening: Colonoscopy 03/31/2033 03/31/2023 Pneumococcal Vaccine: 50+ Years Completed 12/26/2018, 12/06/2017 Hepatitis C Screening Completed 07/17/2023 Influenza Vaccine Completed 12/05/2023, , 01/18/2022, Additional history exists HIB Vaccines Aged Out No longer eligi ble based on patient's age to complete this topic HPV Vaccines Aged Out No longer eligi ble based on patient's age to complete this topic Hepatitis A Vaccines Aged Out No long er eligible based on patient's age to complete this topic Hepatitis B Vaccines Aged Out No long er eligible based on patient's age to complete this topic IPV Vaccines Aged Out No longer eligi ble based on patient's age to complete this topic MMR Vaccines Aged Out No longer eligi ble based on patient's age to complete this topic Meningococcal ACWY Vaccine Aged Out N o longer eligible based on patient's age to complete this topic Meningococcal B Vacine Aged Out No lo nger eligible based on patient's age to complete this topic RSV Immunization Patients Under 20 months Aged Out No longer eligible based on patient's age to complete this topic Varicella Vaccines Aged Out No longer eligible based on patient's age to complete this topic Procedures Procedure Name Priority Date/Time Associated Diagnosis Comments DEPRESSION SCREENING Routine 12/05/2023 LIPID PANEL Routine 12/05/2023 HEPATITIS C SCREENING Routine 07/17/2023 COLONOSCOPY Routine 03/31/2023 from Last 3 Months or Most Recently Relevant to Health Maintenance Results * Depression Screening (12/05/2023) [facility] Depression Screening Abstracted [facility] Provider HEALTH MAINTENANCE Final Result * Lipid panel (12/05/2023) [facility] LDL/HDL Ratio 3 0 - 4 Triglycerides 133 0 - 150 mg/dL Cholesterol 140 0 - 200 mg/dL HDL 46 >=40 mg/dL LDL Cholesterol 68 0 - 100 mg/dL Blood Venous blood specimen / Unknown [facility] Provider LAB BLOOD ORDERABLES Aminata l Result * Hepatitis C Screening (07/17/2023) [facility] Hepatitis C Screening Abstracted [facility] Provider HEALTH MAINTENANCE Final Result * Colonoscopy (03/31/2023) [facility] Colonoscopy No Interpretation , Abstracted Anatomical Region Laterality Modality Other [facility] Provider HEALTH MAINTENANCE Final Result from Last 3 Months or Most Recently Relevant to Health Maintenance Insurance MEDICARE [facility] Care Teams Customer Relationship Specialist Relationship Specialty Start Date End Date Suresh Mcclellan PA [facility] [place] [phone] PCP - General Internal Medicine 06/06/20
--- OUTSIDE RECORDS SUMMARY | 2024-05-08 15:28 | XMS_ITS ---
Author Name [facility] Organization Unknown Results Test Name/Text Value Interpretation Date Range Source Surgical . Normal [id number] History of Medication Use Medication Directions Dispensed Refills Start Date End Date Stat us traMADol (ULTRAM) 50 MG tablet Take 50 mg by mouth. 2023 active sildenafil (VIAGRA) 100 MG tablet 1 (one) time each day if needed. Take 0.5 Tablets by mouth as needed for Erectile Dysfunction 12/21/2023 active fluticasone (FloNASE) 50 mcg/spray nasal spray 100 mcg into each nostril. 05/30/2023 active pembrolizumab (Keytruda) Solution injection Infuse into a venous catheter. active citalopram (CeleXA) 10 MG tablet Take 1 tablet by mouth every morning. 12/05/2023 active Problems Problem Status Onset Date Problem Type Date of Resolution Source History of basal cell carcinoma (BCC) active 2006-10-18 [facility] DJD (degenerative joint disease) active 2019-06-14 ProblemAct [facility] Sebaceous cyst active 2019-04-03 ProblemAct [facility] CT Adjustment disorder active 2013-02-13 ProblemAct [facility] Hypercholesteremia active 2019-06-14 ProblemAct [facility] Seasonal allergies active 2019-06-14 ProblemAct [facility] Dysplastic nevus active 2010-03-16 ProblemAct [facility] Eustachian tube dysfunction, bilateral active EncounterDiagnosisAct [facility] Scottie cell carcinoma active 2023-12-21 ProblemAct [facility] History of dysplastic nevus active 2010-03-16 ProblemAct [facility] Irritable bowel syndrome active 2016-11-30 ProblemAct [facility] Obstructive sleep apnea active 2018-12-19 ProblemAct [facility] 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 active 2019-06-06 ProblemAct [facility] Allergic rhinitis active 2005-07-19 ProblemAct [facility] Hyperlipidemia active 2018-06-05 ProblemAct [facility] CT Dyspepsia active 2023-12-21 ProblemAct [facility] Prediabetes active 2022-02-12 ProblemAct [facility] Generalized osteoarthritis of multiple sites active 2009-05-07 ProblemAct [facility] Depression active 2019-06-14 ProblemAct [facility] Panic disorder without agoraphobia active 2006-07-04 ProblemAct [facility] Multiple thyroid nodules active 2021-04-28 ProblemAct [facility] Nasopharyngeal neoplasm active EncounterDiagnos isAct [facility] H/O head and neck radiation active 2024-02-24 ProblemAct [facility] Class 1 obesity active 2024-02-24 ProblemAct [facility] Perforation of right tympanic membrane active EncounterDiagnosisAct [facility] Immunotherapy active 2024-02-24 ProblemAct [facility] T Neck pain active 2015-01-28 ProblemAct [facility] Severe obesity (BMI 35.0-39.9) with comorbidity active 2018-12-19 ProblemAct [facility] GERD (gastroesophageal reflux disease) active 2010-10-12 ProblemAct [facility] Immunizations Vaccine Date Source Lot Number Status Influenza High-Dose Trivalen t,(FLUZONE HIGH-DOSE), Perservative Free IM 0.5 mL 65 years and older 12/31/2020 [facility] [id number] completed Influenza Virus Trivalent Sp lit Vaccine (MDV) IM 11/21/2012 [facility] [id number] completed Influenza, Trivalent (FLUARI X, AFLURIA, FLULAVAL, FLUZONE) Preservative Free IM 12/21/2011 [facility] [id number] completed Influenza, Trivalent (FLUARI X, AFLURIA, FLULAVAL, FLUZONE) Preservative Free IM 11/21/2012 [facility] [id number] completed Influenza High-Dose Trivalen t,(FLUZONE HIGH-DOSE), Perservative Free IM 0.5 mL 65 years and older 01/18/2022 [facility] [id number] completed Influenza, Trivalent (FLUAD) Adjuvanted Preservative Free IM 65 years and older 01/18/2022 [facility] [id number] completed Pneumococcal Conjugate 13-Valent 12/06/2017 [facility] [id number] completed Zoster Vaccine Live/Attenuated (Zostavax) 11/21/2012 [facility] [id number] completed Influenza High-Dose Quadriva lent,(FLUZONE HIGH-DOSE), Perservative Free IM 0.7 mL 65 years and older 12/31/2020 [facility] [id number] completed Influenza, Trivalent (FLUAD) Adjuvanted Preservative Free IM 65 years and older 11/29/2022 [facility] [id number] completed Influenza, Trivalent (FLUARI X, AFLURIA, FLULAVAL, FLUZONE) Preservative Free IM 03/31/2009 [facility] [id number] completed Influenza High-Dose Quadriva lent,(FLUZONE HIGH-DOSE), Perservative Free IM 0.7 mL 65 years and older 12/05/2023 [facility] completed Influenza High-Dose Trivalen t,(FLUZONE HIGH-DOSE), Perservative Free IM 0.5 mL 65 years and older 01/22/2020 [facility] [id number] completed Influenza High-Dose Quadriva lent,(FLUZONE HIGH-DOSE), Perservative Free IM 0.7 mL 65 years and older 01/22/2020 [facility] [id number] completed Influenza, Trivalent (FLUARI X, AFLURIA, FLULAVAL, FLUZONE) Preservative Free IM 12/16/2015 [facility] [id number] completed Influenza Virus Trivalent Sp lit Vaccine (MDV) IM 12/21/2011 [facility] [id number] completed Influenza High-Dose Trivalen t,(FLUZONE HIGH-DOSE), Perservative Free IM 0.5 mL 65 years and older 11/29/2022 [facility] [id number] completed Influenza Virus Trivalent Sp lit Vaccine (MDV) IM 04/09/2011 [facility] [id number] completed Influenza, Quadrivalent (FLU CELVAX) MDCK, Preservative Free IM 02/28/2018 [facility] [id number] completed H1N1 Inj Preservative Free 03/31/2009 [facility] [id number] completed Influenza, Trivalent (FLUARI X, AFLURIA, FLULAVAL, FLUZONE) Preservative Free IM 05/18/2014 [facility] [id number] completed Influenza, Trivalent (FLUARI X, AFLURIA, FLULAVAL, FLUZONE) Preservative Free IM 04/09/2011 [facility] [id number] completed Influenza High-Dose Trivalen t,(FLUZONE HIGH-DOSE), Perservative Free IM 0.5 mL 65 years and older 12/26/2018 [facility] [id number] completed Influenza, Trivalent (FLUAD) Adjuvanted Preservative Free IM 65 years and older 12/26/2018 [facility] [id number] completed Influenza Virus Trivalent Sp lit Vaccine (MDV) IM 12/16/2015 [facility] [id number] completed Influenza, Trivalent (FLUAD) Adjuvanted Preservative Free IM 65 years and older 12/05/2023 [facility] [id number] completed Pneumococcal Polysaccharide 23-Valent 12/26/2018 [facility] [id number] completed Influenza, Trivalent (FLUAD) Adjuvanted Preservative Free IM 65 years and older 12/31/2020 [facility] [id number] completed Influenza Virus Trivalent Sp lit Vaccine (MDV) IM 03/31/2009 [facility] [id number] completed Influenza, Trivalent (FLUAD) Adjuvanted Preservative Free IM 65 years and older 01/22/2020 [facility] [id number] completed
--- OUTSIDE RECORDS SUMMARY | 2024-05-08 15:28 | XMS_ITS | Clinical Summary ---
Author Organization [facility] Address [address] [place] [address] Care Team Providers Care Store Receiving Specialist Name Role Phone Suresh Mcclellan PA-C Primary Care Provider [phone] Allergies Active Allergy Reactions Criticality Noted Date Comments Azithromycin Hives Medium 11/09/2019 rash Celecoxib Anaphylaxis,Hives,Sw ell ing,Rash/Dermatitis High 08/07/2009 Other Reaction(s): Hives/Urticaria, Numbness, tingling or swelling of the lips, tongue or mouth Dexamethasone Unknown/Patient and Family Unable to Define Medium 07/07/2021 Sulfa Antibiotics Other (See Comments),Rash/Dermatit is Medium 08/07/2009 This occurred with celebrex Medications Medication Sig Dispensed Refills Start Date End Date Status acetaminophen (TYLENOL) 325 MG tablet Take 650 mg by mouth 4 times daily (every 6 hours) as needed. Active atorvastatin (LIPITOR) 20 MG tablet Take 20 mg by mouth daily. 04/25/2023 Active clidinium-chlordiaze poxide (LIBRAX) 5-2.5 MG per capsule TAKE ONE CAPSULE BY MOUTH THREE TIMES A DAY WITH MEALS 01/16/2024 Active citalopram (CeleXA) 10 MG tablet Take 1 tablet by mouth every morning. 12/05/2023 Active famotidine (PEPCID) 20 MG tablet Take 20 mg by mouth daily. 11/29/2023 Active fexofenadine (LETICIA) 180 MG tablet Take 180 mg by mouth daily. Active fluticasone (FloNASE) 50 mcg/spray nasal spray 100 mcg into each nostril. 05/30/2023 Active pembrolizumab (Keytruda) Solution injection Infuse into a venous catheter. Active sildenafil (VIAGRA) 100 MG tablet 1 (one) time each day if needed. Take 0.5 Tablets by mouth as needed for Erectile Dysfunction 12/21/2023 Active traMADol (ULTRAM) 50 MG tablet Take 50 mg by mouth. 2023 Acti ve Active Problems Problem Noted Date Diagnosed Date Class 1 obesity 02/24/2024 H/O head and neck radiation 02/24/2024 Immunotherapy 02/24/2024 Dyspepsia 12/21/2023 [place] cell carcinoma 12/21/2023 Overview (02/24/2024): Right forearm, stage IIIB Prediabetes 02/12/2022 Multiple thyroid nodules 04/28/2021 Overview (02/24/2024): Benign follicular nodules (left and right) - followed by [facility] endocrinology (Dr. 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 06/06/2019 Sebaceous cyst 04/03/2019 Obstructive sleep apnea 12/19/2018 Overview (02/24/2024): Uses cpap regularly Severe obesity (BMI 35.0-39.9) with comorbidity 12/19/2018 Hyperlipidemia 06/05/2018 Irritable bowel syndrome 11/30/2016 Neck pain 01/28/2015 Overview (02/24/2024): [facility] - 01/28/15 - 80% improved after second injection; gabapentin discussed but deferred; followup 3 months Adjustment disorder 02/13/2013 GERD (gastroesophageal reflux disease) 1 Dysplastic nevus 03/16/2010 History of dysplastic nevus 03/16/2010 Overview (02/24/2024): Dysplastic nevus 02/27 back (moderate atypia) Generalized osteoarthritis of multiple sites History of basal cell carcinoma (BCC) 10/18/2006 Overview (02/24/2024): BCC 09/20 Scalp IMO update Panic disorder without agoraphobia 07/04/2006 Allergic rhinitis 07/19/2005 Encounters Date Type Department Care Team Description 02/27/2024 2:15 PM EST Office Visit [facility] [address] [place] [phone] Luke Ross MD [place] cell carcinoma (HCC) (Primary Dx); Perforation of right tympanic membrane; Eustachian tube dysfunction, bilateral; Nasopharyngeal neoplasm from Last 3 Months Immunizations Name Administration Dates Next Due H1N1 Inj Preservative Free 03/31/2009 Influenza High-Dose Quadrivalent,(FLUZONE HIGH-DOSE), Perservative Free IM 0.7 mL 65 years and older 12/05/2023,12/31/2020,01/22/2020 Influenza High-Dose Trivalen t,(FLUZONE HIGH-DOSE), Perservative Free IM 0.5 mL 65 years and older 11/29/2022,01/18/2022,12/31/2020,01/21,12/26/2018 Influenza Virus Trivalent Sp lit Vaccine (MDV) IM 12/16/2015,11/21/2012,12/21/2011,04/09,03/31/2009 Influenza, Quadrivalent (FLU CELVAX) MDCK, Preservative Free IM 02/28/2018 Influenza, Trivalent (FLUAD) Adjuvanted Preservative Free IM 65 years and older 12/05/2023,11/29/2022,01/18/2022,12/31,01/22/2020,12/26/2018 Influenza, Trivalent (FLUARI X, AFLURIA, FLULAVAL, FLUZONE) Preservative Free IM 12/16/2015,05/18/2014,11/21/2012,12/20,04/09/2011,03/31/2009 Pneumococcal Conjugate 13-Valent 12/06/2017 Pneumococcal Polysaccharide 23-Valent 12/26/2018 Zoster Vaccine Live/Attenuat ed (Zostavax) 11/21/2012 Social History Tobacco Use Types Packs/Day Years Used Date Smoking Tobacco: Never Passive Smoke Exposure: Never Smokeless Tobacco: Never Tobacco Cessation:Counseling Given: Not Answered Sex and Gender Information Value Date Recorded Sex Assigned at Male 01/03/2023 4:03 PM EDT Gender Identity Male 01/03/2023 4:03 PM EDT Sexual Orientation Not on file Last Filed Vital Signs Vital Sign Reading Time Taken Comments Blood Pressure - - Pulse - - Temperature - - Respiratory Rate - - Oxygen Saturation - - Inhaled Oxygen Concentration - - Weight 97.1 kg (214 lb) 02/27/2024 2:20 PM EST Height 177.8 cm (5' 10 ) 02/27/2024 2:20 PM EST Body Mass Index 30.71 02/27/2024 2:20 PM EST Plan of Treatment Upcoming Encounters Date Type Department Care Team (Late st Contact Info) Description 05/28/2024 2:15 PM EDT Office Visit [facility] [address] [place] [address] Luke Ross MD [address] [place] [address] Health Maintenance Due Date Last Done Comments Hepatitis C Virus Screening 1950 DTaP/Tdap/Td Vaccines (1 - Tdap) 09/20/1971 Colonoscopy 1997 RSV Vaccine 60 years and older and Patients (1 - Risk 60-74 years 1-dose series) 2012 Zoster (Shingles) Vaccine (1 of 2) 01/16/2013 11/21/2012 COVID-19 Vaccine ( season) 2023 03/02/2021, 02/18/2021, 06/14/2020, Additional history exists Pneumococcal Vaccines 50+ Completed 12/26/2018, Influenza Vaccine Completed 12/05/2023, , 12/05/2023, Additional history exists Hepatitis B Vaccines Aged Out No long er eligible based on patient's age to complete this topic Care Teams Store Receiving Specialist Relationship Specialty Start Date End Date Suresh Mcclellan PA-C PCP - General Internal Medicine 02/24/24
--- OUTSIDE RECORDS SUMMARY | 2024-05-08 15:28 | XMS_ITS | Patient Health Record ---
Author Organization [facility] Address [address] [place] [address] Care Team Providers Care Lathe Scalper Operator Name Role Phone Suresh Gill Primary Care Provider Unav ailable David Williams Unavailable [phone] Suresh Gill Unavailable Unavailabl e Allergies Allergen (clinical drug ingredient) Drug/Non Drug Allergy documented on EMR Reaction Allergy Type Onset Date Status sulfamethoxazole / trimethoprim Bactrim Ended up in the Er Drug Allergy Active celecoxib CeleBREX Ended up in ER Drug Allergy Ac tive Reason For Referral No Information Medications Medication SIG (Take, Route, Frequency, Duration) Notes Start Date End Date Status LORazepam PRN Active traMADol HCl PRN Active Clidinium-Chlordiazepox elkin Active Atenolol Active codeine Cough syrup Active LORazepam Active Atenolol Active Clidinium-Chlordiazepox elkin 2.5 mg Active traMADol HCl 50 MG as directed Orally Active Mucinex PRN Active Night Splint AFO - L1930 as directed 10/08/2021 Active Mucinex Active Immunizations Vaccine Route Administration Date Status Comme nts COVID-19 Pfizer BioNTech Vaccine Unknown 02/18/2021 Administered 05/2020 Unsure Dates Social History Tobacco Use: Social History Observation Description Date Details (start date - stop date) Never Smoker NA - NA Tobacco Use/Smoking Question Answer Notes Are you a: nonsmoker Additional Findings: Tobacco Non-User Current no n-smoker Alcohol Screen Question Answer Notes Did you have a drink contain ing alcohol in the past year? Yes How often did you have a dri nk containing alcohol in the past year? 2 to 3 times a week (3 points) Points 3 Interpretation Negative Tobacco use other than smoking: Question Answer Notes Are you an other tobacco user? No Problems Problem Type SNOMED Code ICD Code Onset Dates Problem Status W/U Status Risk Notes Problem Acquired hammer toe of right foot (8214145933070 105) Other hammer toe(s) (acquired), right foot (M20.41) Active confirmed Problem Acquired hammer toe of left foot (9540431830736 103) Other hammer toe(s) (acquired), left foot (M20.42) Active confirmed Plan Of Treatment Pending Test Test Name Order Date X ray : Foot, left 3V 10/08/2021 X ray : Foot, right 3V 10/08/2021 Insurance Providers Payer Name Payer Address Payer Phone Subscriber Number Group Number Insured Name Patient Relationship to Insured Coverage Start Date Coverage End Date Medicare National Govt Sv[employer] [address] [facility] [place] [address] [id number] Hernandez Boss Self - patient is the insured [facility] [address] [place] [address] [phone] [id number] Hernandez Boss Self - patient is the insured Medical (General) History Medical History History ICD Code Anxiety Arthritis Cancer Depression Hiatal hernia chronic sinusitis Measles Chicken pox Surgical History Surgery Date(Month/Year) tumor removal from the right arm 020 Hospitalization History Reason Date(Month/Year) Cancer Teartment 2021
--- OUTSIDE RECORDS SUMMARY | 2024-05-08 15:28 | XMS_ITS | Clinical Summary ---
Author Organization [facility] Address [address] [place] [address] Care Team Providers Care Cigar Bander Hand Name Role Phone Trae Rojas MD Primary Care Provider [phone] Allergies Active Allergy Reactions Criticality Noted Date Comments Celecoxib 06/06/2019 Sulfa Antibiotics 06/06/2019 Medications Medication Sig Dispensed Refills Start Date End Date Status fluticasone (FLONASE) 50 MCG/ACT nasal spray spray/apply 1 spray in each nostril daily. 0 Active Fexofenadine HCl (LETICIA ALLERGY PO) Take by mouth daily as needed. 0 Active traMADol (ULTRAM) 50 MG tablet Take 50 mg by mouth every 6 (six) hours as needed for pain. 0 Active acetaminophen (TYLENOL) 325 MG tablet Take 650 mg by mouth every 6 (six) hours as needed for pain. 0 Active ibuprofen (ADVIL,MOTRIN) 200 MG tablet Take 200 mg by mouth every 6 (six) hours as needed for pain. 0 Active CITALOPRAM HYDROBROMIDE POIndications:pt does not know dosage Take by mouth daily. 0 Active NAPROXEN POIndications:pt does not know dosage Take by mouth 2 (two) times a day. 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 Family History Medical History Relation Name Comments Colon cancer Father Cervical cancer Sister Relation Name Status Comments Father Mother Sister Social History Tobacco Use Types Packs/Day Years Used Date Smoking Tobacco: Never Smokeless Tobacco: Never Alcohol Use Standard Drinks/Week Comments Yes 0 (1 standard drink = 0.6 oz pur e alcohol) Sex and Gender Information Value Date Recorded Sex Assigned at Not on file Gender Identity Not on file Sexual Orientation Not on file Last Filed Vital Signs Vital Sign Reading Time Taken Comments Blood Pressure 141/64 06/19/2019 1:12 PM EDT Pulse 63 06/19/2019 1:12 PM EDT Temperature 37 ??C (98.6 ??F) 06/19/2019 1:12 PM EDT Respiratory Rate - - Oxygen Saturation - - Inhaled Oxygen Concentration - - Weight 118.4 kg (261 lb) 06/19/2019 1:12 PM EDT Height 172.7 cm (5' 8 ) 06/19/2019 1:12 PM EDT Body Mass Index 39.68 06/19/2019 1:12 PM EDT Plan of Treatment Health Maintenance Due Date Last Done Comments Hepatitis C Screening 1950 COVID-19 Vaccine (#1) 1957 Depression Screening 1964 Preventative Health Evaluation 1970 DTap / Tdap / Td (1 - Tdap) 09/20/1971 Shingrix-Zoster Vaccine (1 of 2) 09/20/1971 Colon Cancer Screening (Colonoscopy) 1997 Fall Risk Assessment 2017 Influenza Vaccine (#1) 2023 9, 02/28/2018, 11/30/2016, Additional history exists RSV Adult > 60+ Yrs or (1 - 1-dose 75+ series) 09/20/2027 Pneumococcal Vaccine Completed 12/26/2018, 12/07/19 18 Hepatitis B Vaccines Aged Out No long er eligible based on patient's age to complete this topic RSV Ped < 20 months Aged Out No longe r eligible based on patient's age to complete this topic Care Teams Cigar Bander Hand Relationship Specialty Start Date End Date Trae Rojas MD PCP - General Slasher Runner 05/29/19
== END 2024-05-08 15:31 | disposition home or self-care (01) ==
PROVIDERS: PCP Physician Assistant Medical; Visit Provider Internal Medicine Rheumatology
DX: M17.0 Bilateral primary osteoarthritis of knee (principal)
CPT/HCPCS: 20610; 99213

== ENCOUNTER → 2024-05-08 14:28 | Outpatient (BNVA) | payer MEDICARE, OTHER, SELFPAY | PROVIDERS: PCP Physician Assistant Medical; Visit Provider Internal Medicine Rheumatology | DX: M17.0 Bilateral primary osteoarthritis of knee (principal) | CPT/HCPCS: 20610; 99212; J2003; J3300 ==

== ENCOUNTER 2024-08-07 12:52 | Outpatient (AMB) | payer MEDICARE, OTHER, SELFPAY ==
[2024-08-07 12:57] VITALS: BP 100/70; PULSE 54; O2SAT 98; BMI 33.3
--- NOTE | 2024-08-07 12:57 | A.OFFVIS_ITS ---
Vital Signs 08/07/24 12:57 Height 5 ft 10 in Weight 231 lb 14.821 oz BMI 33.3 BP 100/70 Blood Pressure Location Rt brachial Position Sitting Pulse 54 Pulse Source Pulse Oximeter Pulse Oximetry (%) 98 Oxygen Delivery Method Room Air Intake Visit Reasons: 3 months Intake Note: Patient presents today for follow up on arthritis. Allergies celecoxib [From CELEBREX] Allergy (Severe, Verified 08/07/24 12:57) ANAPHYLAXIS Sulfa (Sulfonamide Antibiotics) [SULFA (SULFONAMIDE ANTIBIOTICS)] Allergy (Unknown, Verified 08/07/24 12:57) ANAPHYLACTIS z pack Allergy (Mild, Uncoded 02/07/24 15:23) Hives HPI HPI 3 months: Details: He continues to have benefit in reducing knee pain from last set of cortisone injections. He is using Tylenol about twice a week as needed for joint pain. He has intermittent hip pain. [facility] Medical History Cervical radiculopathy due to degenerative joint disease of spine Severe obesity Thyroid goiter Valentine cell carcinoma HLD (hyperlipidemia) Social History Household Members: Spouse Housing: House Do you presently have visiting nurse or other home services: No Alcohol intake: current Alcohol intake frequency: holidays/special occasions only Patient Tobacco Use Status: Never used Tobacco Second Hand Smoke Exposure: No service: No Physical Exam Vital Signs: Last Vital Signs Pulse 54 08/07/24 12:57 BP 100/70 08/07/24 12:57 Pulse Ox 98 08/07/24 12:57 Oxygen Delivery Method Room Air 08/07/24 12:57 BMI result Body Mass Index 33.3 Const General: cooperative and healthy appearing Skin General skin exam: no rashes or lesions noted Extrem Other: Tender to palpate bilateral knees along joint line. Left knee mild joint effusion. Normal range of motion of bilateral knees. Tender to palpate bilateral trochanteric bursae. Assessment & Plan Assessment & Plan (1) Osteoarthritis of knees, bilateral: Comment: Pain is controlled with last of cortisone injections. Code(s): M17.0 - Bilateral primary osteoarthritis of knee Category: Medical Plan: Return to clinic in 3 months or sooner if needed for cortisone injections [facility] knee strengthening program printed for patient (2) Greater trochanteric bursitis of both hips: Comment: Intermittent. Discussed conservative management. Code(s): M70.61 - Trochanteric bursitis, right hip; M70.62 - Trochanteric bursitis, left hip Category: Medical Plan: [facility] hip strengthening program printed for patient Return to clinic in 3 months Coding Level of Care Code Est Pt Level 3 (53513) Complex EM visit Add On G2211 Diagnoses Osteoarthritis of knees, bilateral M17.0 Greater trochanteric bursitis of both hips M70.61; M70.62
--- OUTSIDE RECORDS SUMMARY | 2024-08-07 13:56 | XMS_ITS | Patient Health Record ---
[facility] Address [address] [place] [address] Care Team Providers Care Tune Up Mechanic Name Role Phone Suresh Gill Primary Care Provider Unav ailfabio Hernandez Williams Unavailable [phone] Suresh Gill Unavailable Unavailabl e Allergies Allergen [...] Problem Acquired hammer toe of right foot ([id number] 105) Other hammer toe(s) (acquired), right foot (M20.41) Active confirmed Problem Acquired hammer toe of left foot (2359177988203 103) Other hammer toe(s) (acquired), left foot [...] Medicare National Govt Svcs Inc [address] [facility] [place] [address] [id number] Hernandez Boss Self - patient is the insured [facility] ([facility]) [address] [place] [address] [id number] Hernandez Boss Self - patient is the insured Medical (General) History Medical History History ICD Code Anxiety Arthritis Cancer Depression Hiatal hernia chronic sinusitis Measles Chicken pox Surgical History Surgery Date(Month/Year) tumor removal from the right arm 020 Hospitalization History Reason Date(Month/Year) Cancer Teartment 2021
--- OUTSIDE RECORDS SUMMARY | 2024-08-07 13:56 | XMS_ITS | Clinical Summary ---
Author Organization [facility] Address [address] [place] [address] Care Team Providers Care Screen Printing Machine Operator Name Role Phone Trae Rojas MD Primary Care Provider [phone] Allergies Active Allergy Reactions Criticality Noted Date [...] Active Problems Problem Noted Date Diagnosed Date [place] cell carcinoma of right upper extremity 0 [...] age to complete this topic Care Teams Screen Printing Machine Operator Relationship Specialty Start Date End Date Trae Rojas MD PCP - General Agricultural Produce Sorter 05/29/19
--- OUTSIDE RECORDS SUMMARY | 2024-08-07 13:56 | XMS_ITS | Clinical Summary ---
Author Organization [facility] Address [address] [place] [address] Care Team Providers Care Automotive Parts Counter Assistant Name Role Phone Suresh Mcclellan PA-C Primary Care Provider Un available Allergies Active Allergy Reactions Criticality Noted Date Comments Azithromycin Hives Medium 11/09/2019 rash Celecoxib Anaphylaxis,Hives,Sw elling,Rash/Dermatit is High 08/07/2009 Other Reaction(s): Hives/Urticaria, Numbness, tingling or swelling of the lips, tongue or mouth Dexamethasone Unknown/Patient and Family Unable to Define Medium 07/07/2021 Sulfa Antibiotics Other (See Comments),Rash/[place]nee titis Medium 08/07/2009 This occurred with celebrex Sulfamethoxazole-Trimeth oprim Other (See Comments) Low 05/14/2024 Medications acetaminophen (TYLENOL) 325 MG tablet Take 650 mg by mouth 4 times daily (every 6 hours) as needed. Active atorvastatin (LIPITOR) 20 MG tablet Take 20 mg by mouth daily. 4 Active clidinium-chlor diazepoxide (LIBRAX) 5-2.5 MG per capsule TAKE ONE CAPSULE BY MOUTH THREE TIMES A DAY WITH MEALS 4 Active citalopram (CeleXA) 10 MG tablet Take 1 tablet by mouth every morning. 4 Active famotidine (PEPCID) 20 MG tablet Take 20 mg by mouth daily. 4 Active fexofenadine (LETICIA) 180 MG tablet Take 180 mg by mouth daily. Active fluticasone (FloNASE) 50 mcg/spray nasal spray 100 mcg into each nostril. 4 Active pembrolizumab (Keytruda) Solution injection Infuse into a venous catheter. Active sildenafil (VIAGRA) 100 MG tablet 1 (one) time each day if needed. Take 0.5 Tablets by mouth as needed for Erectile Dysfunction 4 Active traMADol (ULTRAM) 50 MG tablet Take 50 mg by mouth. 4 Active Active Problems Problem Noted Date Diagnosed Date Class 1 obesity 02/24/2024 H/O head and neck radiation 02/24/2024 Immunotherapy 02/24/2024 Dyspepsia 12/21/2023 [place] cell carcinoma 12/21/2023 Overview (02/24/2024): Right forearm, stage IIIB Prediabetes 02/12/2022 Multiple thyroid nodules 04/28/2021 Overview (02/24/2024): Benign follicular nodules (left and right) - followed by [facility] endocrinology (Dr. Kat Guerrero) Depression 06/14/2019 DJD (degenerative joint disease) 06/14/2019 Hypercholesteremia 06/14/2019 Seasonal allergies 06/14/2019 [place] cell carcinoma of right upper extremity 0 06/06/2019 Sebaceous cyst 04/03/2019 Obstructive sleep apnea 12/19/2018 Overview (02/24/2024): Uses cpap regularly Severe obesity (BMI 35.0-39.9) with comorbidity 12/19/2018 Hyperlipidemia 06/05/2018 Irritable bowel syndrome 11/30/2016 Neck pain 01/28/2015 Overview (02/24/2024): [facility] - 01/28/15 - 80% [...] Encounters Date Type Department Care Team Description 05/28/2024 2:15 PM EDT Office Visit [facility] [address] [place] [address] Luke Ross MD [place] cell carcinoma (HCC) (Primary Dx); Eustachian tube dysfunction, bilateral; Perforation of right tympanic membrane from Last 3 Months Immunizations Immunization Administration Dates Next Due Covid-19 MRNA Vaccine - Pfiz er 12+ (Purple Cap) 02/18/2021 H1N1 Inj Preservative Free 03/31/2009 Influenza High-Dose [...] Assigned at Male 01/03/2023 4:03 PM EDT Legal Sex Male 4:03 PM EDT Gender Identity Male 01/03/2023 4:03 PM EDT Sexual Orientation Not on file Last Filed Vital Signs Vital Sign Reading Time Taken Comments Blood Pressure - - Pulse - - Temperature - - Respiratory Rate - - Oxygen Saturation - - Inhaled Oxygen Concentration - - Weight 97.1 kg (214 lb) 05/28/2024 2:20 PM EDT Height 177.8 cm (5' 10 ) 05/28/2024 2:20 PM EDT Body Mass Index 30.71 05/28/2024 2:20 PM EDT Plan of Treatment Upcoming Encounters Date Type Department Care Team (Late st Contact Info) Description 08/28/2024 3:00 PM EDT Office Visit [facility] [address] [address] Luke Ross MD [address] [place] [address] Health Maintenance Due Date Last Done Comments Hepatitis C Virus Screening 1950 DTaP/Tdap/Td Vaccines (1 - Tdap) 09/20/1971 Colonoscopy 1997 RSV Vaccine 60 years and older and Patients (1 - Risk 60-74 years 1-dose series) 2012 Zoster (Shingles) Vaccine (1 of 2) 01/16/2013 11/21/2012 COVID-19 Vaccine ( season) 2023 03/02/2021, 02/18/2021, 06/14/2020, Additional history exists Influenza Vaccine 10/19/2024 12/05/2023, , 12/05/2023, Additional history exists Pneumococcal Vaccines 50+ Completed 12/26/2018, Hepatitis B Vaccines Aged Out No long er eligible based on patient's age to complete this topic Insurance MEDICARE PART A & [facility] Care Teams Automotive Parts Counter Assistant Relationship Specialty Start Date End Date Suresh Mcclellan PA-C PCP - General Internal Medicine 02/24/24
--- OUTSIDE RECORDS SUMMARY | 2024-08-07 13:56 | XMS_ITS | Clinical Summary ---
Author Organization [address] [facility] Address [address] [place] [address] Phone Care Team Providers Care Weigher Alloy Name Role Phone Suresh Mcclellan Primary Care Provider [phone] Allergies Active Allergy Reactions Criticality Noted Date [...] nostril 1 (one) time each day. Active sildenafiL (VIAGRA) 100 mg tablet 1 (one) time each day if needed. Take 0.5 Tablets by mouth as needed for Erectile Dysfunction Active citalopram (CeleXA) 10 mg tablet Take 1 Tablet by mouth every morning Active famotidine (PEPCID) 20 mg tablet Take 1 tablet (20 mg total) by mouth 1 (one) time each day. Active miscellaneous medical supply [facility] CPAP Historical (HISTORICAL CPAP) Inhale 9 cm into the lungs nightly. Via nasal pillows/ BHI&R, 9 cm, Inhalation, NIGHTLY Active atorvastatin (LIPITOR) 20 mg tablet TAKE ONE TABLET BY MOUTH EVERY DAY 90 tablet 5 Active chlordiazePOXI DE-clidinium (LIBRAX) 5-2.5 mg per capsule Take 1 capsule by mouth 3 (three) times a day with meals. 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 9) with comorbidity ([facility] V24, [facility] V28) 12/19/2018 Hyperlipidemia 06/05/2018 Irritable bowel syndrome 11/30/2016 Neck pain 01/28/2015 Overview (12/21/2023): [facility] - 01/28/15 - 80% improved after second injection; gabapentin discussed but deferred; followup 3 months Adjustment disorder 02/13/2013 GERD (gastroesophageal reflux disease) 1 Dysplastic nevus 03/16/2010 Generalized osteoarthrosis, involving multiple s ites 05/07/2009 Panic disorder without agoraphobia 07/04/2006 Allergic rhinitis 07/19/2005 Encounters Date Type Department Care Team Description 06/13/2024 1:45 PM EDT Office Visit [facility] [place] [address] [place] [phone] Ishan Riojas, DPM Pain in toes of both feet (Primary Dx); Ingrown right big toenail; Arthritis of both feet; Neuropathy due to chemotherapeutic drug ([facility] V24) from Last 3 Months Immunizations Name Administration [...] HISTORICAL MOLE (REMOVAL OF) COLONOSCOPY 2012 PROCEDURE: ID COLONOSCOPY FLX DX W/COLLJ SPEC WHEN PFRMD; COMMENT: no polyps OTHER SURGICAL HISTORY PROCEDURE: CHG ONC SCOTTIE CELL CARC DETCJ ANTB SERUM PABLO; COMMENT: biopsies related to scottie cell cancer OTHER SURGICAL HISTORY PROCEDURE: ID MYRINGOTOMY ASPIR&/EUSTACHIAN TUBE NFLTJ; COMMENT: ENT in [place] 2022 Medical History Medical History Date Comments [...] IMO update Hyperlipidemia 06/05/2018 DX:Hyperlipidemi a Melanoma (CMS/HCC V24, CMS/HCC V28) DX:Melanoma (HCC) Multiple thyroid nodules 04/28/2021 DX:Mult iple thyroid nodules; COMMENT: Benign follicular nodules (left and right) - followed by [facility] endocrinology (Dr. Kat Guerrero) [place] cell cancer (CMS/HCC V24, CMS/HCC V28) DX:[place] cell cancer (HCC) H/O head and neck [...] - - Weight 101 kg (223 lb) 06/13/2024 1:52 PM EDT Height 177.8 cm (5' 10 ) 06/13/2024 1:52 PM EDT Body Mass Index 32 06/13/2024 1:52 PM EDT Plan of Treatment Upcoming Encounters Date Type Department Care Team ([facility] st Contact Info) Description 08/22/2024 2:00 PM EDT Office Visit Orthopedic Surgery - [place] [address] [phone] Ishan Riojas, KARLA [address] [address] Health Maintenance Due Date Last Done Comments RSV Immunization Adult Patients (1 - Risk 60-74 years 1-dose series) 2012 Zoster Vaccines (1 of 2) 01/16/2013 11/21/2012 Falls Risk Assessment 02/26/2022 Social Influencers of Health Screening 02/26/2022 DTaP,Tdap,and Td Vaccines (4 - Td or Tdap) 05/23/2023 05/22/2013, 09/26/2001, 09/26/2001 COVID-19 Vaccine (5 - 2024-25 season) 2023 03/02/2021, 02/18/2021, 06/14/2020, Additional history [...] age to complete this topic Meningococcal B Vaccine Aged Out No l onger eligible based on patient's age to complete [...] Health Maintenance Results * Depression Screening (12/05/2023) Depression Screening Abstracted Historical Provider HEALTH MAINTENANCE Final Result * Lipid panel (12/05/2023) Pathologist [facility] LDL/HDL Ratio 3 0 - 4 Triglycerides 133 0 - 150 mg/dL Cholesterol 140 0 - 200 mg/dL HDL 46 >=40 mg/dL LDL Cholesterol 68 0 - 100 mg/dL Blood Venous blood specimen / Unknown [facility] Provider LAB BLOOD ORDERABLES Aminata l Result * Hepatitis C Screening (07/17/2023) Pathologist [facility] Hepatitis C Screening Abstracted [facility] Provider HEALTH MAINTENANCE Final Result * Colonoscopy (03/31/2023) Pathologist [facility] Colonoscopy No Interpretation , Abstracted Anatomical Region Laterality Modality Other [facility] Provider HEALTH MAINTENANCE Final Result from Last 3 Months or Most Recently Relevant to Health Maintenance Insurance MEDICARE [facility] Care Teams Weigher Alloy Relationship Specialty Start Date End Date Suresh Mcclellan PA [address] [place] [address] PCP - General Internal Medicine 06/06/20
== END 2024-08-07 13:40 | disposition home or self-care (01) ==
LOC: HO.RHES 12:53
PROVIDERS: PCP Physician Assistant Medical; Visit Provider Internal Medicine Rheumatology
DX: M17.0 Bilateral primary osteoarthritis of knee (principal); M70.61 Trochanteric bursitis, right hip; M70.62 Trochanteric bursitis, left hip
CPT/HCPCS: 99213; G2211

== ENCOUNTER → 2024-08-07 12:52 | Outpatient (BNVA) | payer MEDICARE, OTHER, SELFPAY | PROVIDERS: PCP Physician Assistant Medical; Visit Provider Internal Medicine Rheumatology | DX: M17.0 Bilateral primary osteoarthritis of knee (principal); M70.61 Trochanteric bursitis, right hip; M70.62 Trochanteric bursitis, left hip | CPT/HCPCS: 99212 ==

== ENCOUNTER 2024-11-13 12:59 | Outpatient (AMB) | payer MEDICARE, OTHER, SELFPAY ==
--- OUTSIDE RECORDS SUMMARY | 2024-11-07 12:18 | XMS_ITS | Encounter Summary ---
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 Procedures NM PET CT Scalp to Toes Melany Davey MD Phone: tel: fax: mailto:[email or web address] Referral ID Status Reason Start Date Expiration Date Visits Re quested Visits Authorized [id number] Closed 08/16/2024 12/08/2024 1 1 Reason for Visit * MRI/CAT Scan - Closed Specialty Diagnoses / Procedures Referred By Contac t Referred To Contact Radiology Diagnoses 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 Procedures NM PET CT Scalp to Toes Melany Davey MD Phone: tel: fax: mailto:[email or web address] Referral ID Status Reason Start Date Expiration Date Visits Re quested Visits Authorized [id number] Closed 08/16/2024 12/08/2024 1 1 Encounter Details Date Type Department Care Team (Late st Contact Info) Description 11/07/2024 12:18 PM EDT - 11/07/2024 11:59 PM EDT Hospital Encounter [facility] Imaging Department, [facility] [place], PET/CT [address] [place] [address] Melany Davey MD [address] [place] [address] [email or web address] Discharge Disposition: Home or Self Care Social History Tobacco Use Types Packs/Day Years Used Date Smoking Tobacco: Never Smokeless Tobacco: Never Education Answer Date Recorded Are you interested in more education? Not on alice e 07/16/2022 Are you concerned about learning? Not on file 07/16/2022 No 07/16/2022 No 07/16/2022 Digital Access Answer Date Recorded No 08/17/2022 No 08/17/2022 Reliable internet access at home? Not on file 08/17/2022 Device with a working camera? Not on file Sex and Gender Information Value Date Recorded Sex Assigned at Male 10/10/2019 11:34 PM EDT Legal Sex Male 3:02 PM EDT Gender Identity Male 10/10/2019 11:34 PM EDT Sexual Orientation Straight 10/10/2019 11 :34 PM EDT documented as of this encounter Last Filed Vital Signs Vital Sign Reading Time Taken Comments Blood Pressure - - Pulse - - Temperature - - Respiratory Rate - - Oxygen Saturation - - Inhaled Oxygen Concentration - - Weight 101.3 kg (223 lb 5.2 oz) 025 11:00 AM EDT Height - - Body Mass Index 34.08 04/19/2024 9:26 AM EST documented in this encounter Medications at Time of Discharge citalopram (CELEXA) 10 MG tablet Take 10 mg by mouth daily. clindamycin (CLEOCIN T) 1 % lotion Apply topically 2 (two) times a day. 60 mL 6 09/01/2021 clobetasol (TEMOVATE) 0.05 % ointment Apply topically 2 (two) times a day. As needed for itchy bug bites. For flares of rash on TRUNK/EXTREMITI ES up to 2weeks/month. Avoid face, genitals, armpits. 30 g 1 12/28/2022 fexofenadine (LETICIA) 180 MG tablet Take 180 mg by mouth daily. fluticasone propionate (FLONASE) 50 mcg/actuation nasal spray 1 spray by Nasal route daily. ketoconazole 2 % cream APPLY TOPICALLY DAILY NEEDED FOR RASHES IN BODY FOLDS AND GROIN AREA 60 g 11 06/22/2022 triamcinolone acetonide 0.1 % cream Apply topically to affected areas of skin twice daily for no more than 2 weeks per month. Avoid eyes and areas with thin skin. 80 g 1 10/11/2019 documented as of this encounter Plan of Treatment Upcoming Encounters Date Type Department Care Team (Late st Contact Info) Description 01/30/2025 11:45 AM EST Blood Draw [facility], [facility], Imaging [facility] [address] [facility], Floor [address] [place] [address] Melany Davey MD [address] [place] [id number] [email or web address] 01/30/2025 1:45 PM EST Appointment [facility] Imaging Department, [facility], PET/CT [address] [place] [address] Melany Davey MD [address] [place] [id number] [email or web address] 01/31/2025 11:30 AM EST [facility], [address] [place] [address] Alida Mancilla MD [address] [facility] [address] [place] [address] [email or web address] 01/31/2025 12:00 PM EST [facility] [address] [facility], 5th [place] [address] Melany Davey MD [address] [place] [address] 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 There are also persistent intensely avid foci of uptake within the spleen with new areas of heterogeneous increased uptake scattered throughout the rest of the splenic parenchyma. There is a newly FDG-avid portacaval lymph node which has increased in size. This pattern of findings would be unusual for metastatic Scottie cell carcinoma, especially given the reported benign biopsy results from the spleen. Inflammation of the liver and spleen is possible, possibly representing a delayed immunotherapy related adverse event after treatment cessation. Clinical correlation is recommended. There is no definite evidence of FDG-avid Scottie cell carcinoma. ATTESTATION: Sen Botello, as teaching physician have reviewed the images, if any, for this patient's exam, and if necessary, have edited the report originally created by Elizabeth Nguyen. 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 Subsequent treatment strategy. TECHNIQUE: Radiopharmaceutical: F-18-FDG. Dose: 10.0 mCi. Blood glucose: 99 mg/dL. TECHNIQUE: At 61 minutes following IV tracer administration via a left antecubital vein, positron emission tomography was performed from the vertex of the skull through the toes. Non-contrast low-dose helical CT imaging was performed over the same range without breath-hold for attenuation correction of PET images and anatomic correlation. COMPARISON: FDG PET/CT of 08/15/2024. FINDINGS: HEAD AND NECK: No abnormal FDG uptake in the head and neck. Similar large left thyroid nodule with internal calcifications and low level FDG uptake, extending into the superior mediastinum with tracheoesophageal displacement. This was previously characterize as benign nodular hyperplasia on thyroid ultrasound in 2019. Bilateral carotid artery atherosclerosis. CHEST: Ports and devices: None. Lungs: No abnormal FDG uptake. Bilateral apical scarring/radiation fibrosis. Similar size of right apical, middle, and bilateral lower lobe consolidations with low level uptake decreased from prior, likely scarring. Pleura: No abnormal FDG uptake. Similar mild pleural thickening near areas of parenchymal scarring, likely postradiation changes. Lymph Nodes: No abnormal FDG uptake. Mediastinum: Mild esophageal uptake similar to prior, likely inflammatory in the setting of a small hiatal hernia. Atherosclerosis of the thoracic aorta and coronary arteries. Breasts/Chest Wall: No abnormal FDG uptake. Right axillary lymph node dissection. ABDOMEN/PELVIS: Liver/biliary system: There is new diffuse relatively intense heterogeneous FDG uptake throughout the liver which has increased in size from approximately 18 cm to 24 cm in craniocaudal dimension. Pancreas: No abnormal FDG uptake. Spleen: There are persistent intensely avid foci of uptake within the spleen with new areas of heterogeneous increased uptake throughout the rest of the splenic parenchyma. The spleen has slightly increased in size. Adrenal Glands: No abnormal FDG uptake. Kidneys: No abnormal FDG uptake. Bowel: No abnormal FDG uptake. Mesentery, Omentum and Peritoneum: No abnormal FDG uptake. Pelvis Organs: No abnormal FDG uptake. Lymph Nodes: There has been increase in size and new FDG uptake in a 1.8 x 1.1 cm portacaval lymph node (image 194). MUSCULOSKELETAL: No abnormal FDG uptake. LOWER EXTREMITIES: No abnormal FDG uptake. Multilevel degenerative changes of the spine with expected post radiation changes in the upper thoracic spine. Similar sclerotic changes in the right humeral head with mild FDG uptake likely representing treated disease. Procedure Note Sen Coon MD - 11/12/2024 Reason for exam (per EHR order): *Skin cancer, staging Additional clinical information obtained from the EHR: 74-year-old manwith [place] cell carcinoma of the right forearm status post excision andradiation to the right forearm (2019) with metastatic recurrence statuspost radiation to the left neck (2021) and nasopharynx (2023), onpembrolizumab since 2019. Subsequent treatment strategy. TECHNIQUE: Radiopharmaceutical: F-18-FDG. Dose: 10.0 mCi. Blood glucose: 99 mg/dL. TECHNIQUE: At 61 minutes following IV tracer administration via a leftantecubital vein, positron emission tomography was performed from thevertex of the skull through the toes. Non-contrast low-dose helical CTimaging was performed over the same range without breath-hold forattenuation correction of PET images and anatomic correlation. COMPARISON: FDG PET/CT of 08/15/2024. FINDINGS: HEAD AND NECK: No abnormal FDG uptake in the head and neck. Similar largeleft thyroid nodule with internal calcifications and low level FDG uptake,extending into the superior mediastinum with tracheoesophagealdisplacement. This was previously characterize as benign nodularhyperplasia on thyroid ultrasound in 2020. Bilateral carotid artery atherosclerosis. CHEST: Ports and devices: None. Lungs: No abnormal FDG uptake. Bilateral apical scarring/radiationfibrosis. Similar size of right apical, middle, and bilateral lower lobeconsolidations with low level uptake decreased from prior, likelyscarring. Pleura: No abnormal FDG uptake. Similar mild pleural thickening near areasof parenchymal scarring, likely postradiation changes. Lymph Nodes: No abnormal FDG uptake. Mediastinum: Mild esophageal uptake similar to prior, likely inflammatoryin the setting of a small hiatal hernia. Atherosclerosis of the thoracicaorta and coronary arteries. Breasts/Chest Wall: No abnormal FDG uptake. Right axillary lymph nodedissection. ABDOMEN/PELVIS: Liver/biliary system: There is new diffuse relatively intenseheterogeneous FDG uptake throughout the liver which has increased in sizefrom approximately 18 cm to 24 cm in craniocaudal dimension. Pancreas: No abnormal FDG uptake. Spleen: There are persistent intensely avid foci of uptake within thespleen with new areas of heterogeneous increased uptake throughout therest of the splenic parenchyma. The spleen has slightly increased in size. Adrenal Glands: No abnormal FDG uptake. Kidneys: No abnormal FDG uptake. Bowel: No abnormal FDG uptake. Mesentery, Omentum and Peritoneum: No abnormal FDG uptake. Pelvis Organs: No abnormal FDG uptake. Lymph Nodes: There has been increase in size and new FDG uptake in a 1.8 x1.1 cm portacaval lymph node (image 194). MUSCULOSKELETAL: No abnormal FDG uptake. LOWER EXTREMITIES: No abnormal FDG uptake. Multilevel degenerative changesof the spine with expected post radiation changes in the upper thoracicspine. Similar sclerotic changes in the right humeral head with mild FDGuptake likely representing treated disease. IMPRESSION: There is new diffuse relatively intense heterogeneous uptake throughoutthe liver which has increased in size. There are also persistent intenselyavid foci of uptake within the spleen with new areas of heterogeneousincreased uptake scattered throughout the rest of the splenic parenchyma.There is a newly FDG-avid portacaval lymph node which has increased insize. This pattern of findings would be unusual for metastatic [place] cellcarcinoma, especially given the reported benign biopsy results [facility]. Inflammation of the liver and spleen is possible, possiblyrepresenting a delayed immunotherapy related adverse event after treatmentcessation. Clinical correlation is recommended. There is no definite evidence of FDG-avid [place] cell carcinoma. ATTESTATION: Sen Botello, as teaching physician have reviewedthe images, if any, for this patient's exam, and if necessary, have editedthe report originally created by Elizabeth Nguyen. Melany Davey MD IMG NM PET Final Result * POCT Glucose (11/07/2024 12:31 PM EDT) WHOLE BLOOD GLUCOSE 91 70 - 110 mg/dL [facility] LIC# [id number] 11/07/2024 12:3 1 PM EDT 11/07/2024 12:32 PM EDT us Melany Davey MD POINT OF CARE TEST ORDERABLES Fi nal Result [facility] LIC# [id number] [address] [place] [address] documented in this encounter Visit Diagnoses Diagnosis [place] cell carcinoma of right upper extremity documented in this encounter Administered Medications Inactive Administered Medications - up to 3 most recent administrations Medication Order MAR Action Action Date Dose Rate Site fludeoxyglucose F-18 (FDG) injection 9-11 millicurie 9-11 millicurie, Intravenous, Once as needed, pre procedure/treatment, Starting on Tue11/07/24 at 1250, For 1 dose, Procedural Contrast/Med Active Now Given 11/07/2024 12:38 PM EDT 10 millicuries documented in this encounter Care Teams Rotary Machine Operator Relationship Specialty Start Date End Date Suresh Mcclellan PA [address] [place] [address] PCP - General Unknown Provider Specialty 10/30/20 Self-Referred, Patient Referring Physician 06/07/19 Lillian Muñiz LICSW [address] [place] [id number] [email or web address] Closer 06/20/19 Janine Simeon MD [address] [place] [id number] [email or web address] [email or web address] Oncology 10/19/19 Herman Guzman MD [address] [place] [address] Hematology/[place] [address] [email or web address] 01/18/20 Daniela Bazan MD [address] [place] [id number] [email or web address] Medical Student 11/05/20 Luke Ross MD 15 Janeen Abdullahi [address] [place] [id number] Otolaryngology 03/04/23 documented as of this encounter Additional Source Comments The information contained in this document represents components of the legal health record. It is not the complete legal health record.[facility]
--- OUTSIDE RECORDS SUMMARY | 2024-11-08 10:00 | XMS_ITS | Encounter Summary ---
Author Organization [facility] Address [address] [facility] [address] [place] [phone] Phone Care Team Providers Care Plier Worker Name Role Phone Self-Referred, Patient Unavailable Unavailab Lillian ChoSW Unavailable Janine Simeon MD Unavailable Herman Guzman MD Unavailable Suresh Mcclellan Primary Care Provid er Daniela Bazan MD Unavailable Luke Ross MD Unavailable Encounter Details Date Type Department Care Team (Late st Contact Info) Description 11/08/2024 10:00 AM EDT Office Visit [facility] [place] [address] [place] [address], 5th [place] [address] Alida Mancilla MD [address] 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; Seborrheic keratoses Social History Tobacco Use Types Packs/Day Years [...] Sign Reading Time Taken Comments Blood Pressure 117/56 11/08/2024 10:13 AM EDT Pulse 91 11/08/2024 10:13 AM EDT Temperature 36.6 C (97.9 F) 11/08/2024 10:13 AM EDT Respiratory Rate 18 11/08/2024 10:1 1 AM EDT Oxygen Saturation 96% 11/08/2024 10: 13 AM EDT Inhaled Oxygen Concentration - - Weight 102.1 kg (225 lb 1.4 oz) 025 10:11 AM EDT Height 172.5 cm (5' 7.91 ) 11/08/2024 1 0:11 AM EDT Body Mass Index 34.31 11/08/2024 10:11 AM EDT documented in this encounter Progress Notes * Alida Mancilla MD - 11/08/2024 10:00 AM EDT Images from the original note were not included. [address] [place], [place] [id number] ?? [facility] Follow-Up Visit Last Visit: 08/16/2024 ?Date of Service: 11/08/2024 INVOLVED PHYSICIANS: - PCP: Trae Rojas MD - Primary Fuller Brush Worker: KIERA Melgar ([facility]) - Surgeon: Dr. Nelson Webb - Radiation Oncologist ([facility]): Dr. Suresh Calabrese - Medical Oncologist ([facility]): Dr. Herman Guzman - Medical Oncology at [facility]: Melany Davey MD - Radiation Oncology at [facility]: Tierney Davidson MD MPH Chief Complaint: f/u ASSISTED ID: Hernandez Boss is a very pleasant 74 y.o. male with past history significant for BCC, HLD, and depression, and Stage IV ASSISTED, initially of the right forearm. He is usually accompanied by his supportive Joanna. CUTANEOUS ONCOLOGY HISTORY: The following has been copied from prior notes for clinical reference and updated to reflect the most recent history as appropriate. + past history of basal cell carcinoma on scalp, 15 years ago, follows routinely with dermatology PA Jagdeep Tyler. Dec 2018: enlarging mass on right forearm 05/10/19: Biopsy taken on by Dr. Nelson Webb, which was consistent with Scottie Cell Carcinoma. StageIIIA T3N1a. Work up and initial consults done at [place], [place]. 05/10/19 Excisional Biopsy Results: 3 discrete masses, all > 2cm. CK20 +. Chromogranin +. Synaptophysin +. LVI +. Deep and peripheral margins involved. 05/21/19 MRI of right forearm- subcutaneous tumor on dorsal aspect of right forearm adjacent to the distant ulnar shaft. Measurements 1.4x 1.0 x 2.9. 05/25/19- WLE with skin grafting and SLN bx by Dr. Webb: 1.4 cm (1.5 cm thickness) Byron Cell Carcinoma. LVI was not present, mitotic rate was 14/m2. The deep margin was 0.5 sound technician and the peripheral margin 0.9 cm. 1/ sentinel lymph nodes martinez involved witha 2. 5 mm tumor. 1/1 non sentinel lymph node was involved with a 2. 9 cm tumor with extranodal extension. Local surgical oncologist recommended possible completion right axillary node dissection, 2nd opinion at [facility] 06/05/[address]: negative for metastatic disease. 06/14/19, [facility] consults with Drs. Mancilla and Petar, both Virtual due to COVID-19 pandemic 06/15/19: [facility] consult with Dr. Davidson. Recommended adjuvant radiation to the primary site and axilla and strongly recommended against completion lymph node dissection 10/01/19: completed RT to the right forearm at OSH (records not available at the time of visit) 01/10/20: Recurrence fo ASSISTED of R forearm 01/14/20: PET showed FDG-avid skeletal metastatic disease involving multiple skeletal sites, neck and left inguinal lymph nodes, chest wall nodules. FDG-avid right pleural nodularity, most likely metastatic 02/08/2020: started pembro 07/16/20: PET 1. Decreased FDG avidity of multiple osseous lesions which no longer demonstrated FDG uptake above background. 2. New FDG-avid left level 2 cervical lymph nodes, indeterminate. 10/29/20: PET/CT showed FDG avid lymph node in the neck and bilateral inguinal region most concerning for worsening metastatic disease. 11/04/20, FNA left neck node, +ASSISTED November 2020: Hernandez was treated by Dr. Suresh Calabrese to a very large and fast growing 08/26/21, PET/CT: Increasing size and FDG uptake of left level 2 lymph nodes which is suspicious for increasing metabolically active malignancy. There are similar metabolic activity in bilateral inguinal nodes. left cervical LN 11/26/2021: Recommended switching treatment to ipi/nivo, insurance not covered so continued pembro. Plan for 2nd course of RT to left neck. 09/25/2021: Hernandez received a second course of radiation to the left neck by Dr. Suresh Calabrese in 5 fractions. The area of disease progression was located just above the previous radiation field. 12/2022: PET stable 04/27/23 PET: stable to slightly progressive findings. Has increased nasopharyngeal intensity along the nasopharyngeal soft tissue/adenoids. Azalea increased 11-->37 05/18/23: Local ENT in CT, pathology of R nasophaynx showed ASSISTED 06/23/23-08/03/23: completed RT to nasopharynx 09/12/23: f/u with local onc. Continues on pembro. MRI brain ordered for persistent frontal headaches 10/12/23 PET 1. Resolved FDG-avid nasopharyngeal soft tissue thickening, representing the known metasatic Merkelcell carcinoma. 2. Decreased size and FDG uptake of the left upper cervical chain lymph nodes. 3. New multifocal FDG avid pulmonary consolidations may be infectious, possibly atypical, or represent an inflammatory process such as sarcoidosis. Clinical correlation is recommended, and these findings should be followed up to clearing. 4. New bilateral pleuroparenchymal scarring with low level FDG uptake, may be related to post radiation changes. 5. FDG avid focal right pleural base thickening, of unclear etiology, may be inflammatory as well. 6. Increased size and FDG uptake of a right inguinal node. This node has been FDG-avid on scans dating back to 2021 following the initiation of immunotherapy and therefore may be reactive and less likely metastatic. 12/16/23 MRI Brain IMPRESSION: 1. No acute intracranial process 2. No evidence of acute infarct or intracranial hemorrhage. 3. No abnormal enhancement to suggest mass lesions. 01/04/2024 PET 1. Increased size of the FDG-avid right inguinal node, likely metastatic. 2. Increased focal FDG uptake along the inferior endplate at L3 (image 252), likely inflammatory, associated with a Schmorl's node. Attention to follow-up. 3. Persistent multifocal pulmonary consolidations with decreased FDG uptake, likely resolving infectious/inflammatory process. 04/18/2024 PET 1. Interval radiation to right inguinal maryann conglomerate, which show decreased size and near complete resolution of FDG avidity now similar to that of blood pool, consistent with treatment response. 2. Interval slightly decreased multifocal pulmonary consolidations, likely inflammatory. 3. Persistent mild diffuse heterogeneous FDG uptake in the prostate gland, correlation with PSA would be useful. 08/16/24 PET 1. Three new moderately to intensely FDG avid lesions in the spleen as described. Metastases are atypical in this region but cannot be formally excluded in the current clinical context. A lymphoproliferative disorder is also in the differential diagnosis. Histopathological correlation is recommended. 2. Further interval decrease in FDG uptake involving the 2 small right inguinal lymph nodes, currently below blood pool uptake, consistent with treated disease. 3. Persistent large nodule in the left lobe of the thyroid gland. Consider sonography for further evaluation given its large size. INTERVAL HISTORY: 11/07/24 PET: Pending History of Present Illness The patient is a 74-year-old gentleman with a complicated history of metastatic Scottie cell carcinoma, currently on pembrolizumab for over 4 years. He is here for follow-up of a recent scan performedyesterday, which has not yet been read. Dr. Davey, who reviewed the scan, and I discussed the case with, feels that it looks largely the same as prior. He had AMERK antibody and Azalea ctDNA drawn yesterday, with results pending. He is scheduled to see Dr. Davey, a medical oncologist at [facility], later today and follows for treatment with Dr. Guzman at [facility]. He is accompanied by his supportive . He reports that his interpretation of the recent OSH biopsy is that body appears to be storing antibodies. The biopsy did not reveal any definitive lymphoma, suggesting a reactive phenomenon. His recalls a bowling alley attendant suggesting the possibility of no longer having Byron cell carcinoma. Dr. Guzman did discussed the option of a temporary pause in immunotherapy, which he is considering due to its perceived benefits. He has been diligent in protecting his skin from sun exposure during the summer. He has noticed a spot on his scalp, which he is unsure if it was present before. Patient Active Problem List Diagnosis 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 Seasonal allergies DJD (degenerative joint disease) Depression Hypercholesteremia Outpatient Medications as of 07/17/2020 Medication atorvastatin (LIPITOR) 20 MG tablet citalopram (CELEXA) 10 MG tablet clindamycin (CLEOCIN T) 1 % lotion fexofenadine (LETICIA) 180 MG tablet fluticasone propionate (FLONASE) 50 mcg/actuation nasal spray ketoconazole 2 % cream triamcinolone acetonide 0.1 % cream No current facility-administered medications on file as of 07/17/2020. Family History: - Melanoma: negative - NMSC: negative - Father with h/o metastatic colon cancer, at 91 from cancer. - Mother also at 91 from complications of a CVA - 1/4 sisters with ovarian cancer, at 74 from cancer. Social History: - Self employed- runs [employer] - 37 years, no children - Daily alcohol intake at dinner - Never smoker - No hx/o blistering sunburns or tanning bed use PHYSICAL EXAM: full skin and lymph node exam Estimated body mass index is 34.08 kg/m?? as calculated from the following: Height as of 04/19/24: 172.4 cm (5' 7.87 ). Weight as of 11/07/24: 101.3 kg (223 lb 5.2 oz). Skin examined was unremarkable except for where noted below. - No evidence of ASSISTED - No palpable nodes ASSESSMENT/PLAN/MDM: He is a 74 y.o. male who was diagnosed with Stage IIIB ([id number]) Byron cell carcinoma of the rightforearm in early 2019, now Stage IV. He had a mixed response on pembro. Most of the disease shrank,but he required palliative RT to the left neck x2. Has had stable to slowly progressive disease on pembro for a long time, but developed a new met in R nasopharynx and increase in ctDNA, status post radiation therapy with improvement of the nasopharyn mass and decrease in CT DNA. In fall 2023 had doubling in size of R inguinal mass with elevation in ctDNA and AMERK, and subsequent palliative RT. ASSISTED Specialty labs: AMERK status: + 06/21/19 = 1570 10/11/19 = 2400 01/10/20 = 15,000 02/28/20 = 47,200 04/10/20 = 32,600 07/16/20 = 17,600 10/29/20 = 19,100 01/22/21 = 13,600 02/25/21 = 20,500 03/25/2021 = 26,600 05/28/21 = 22,200 08/27/21= 18,900 11/25/21 = 16,700 03/04/22 = 21,300 04/06/22 = 24,800 05/26/22 = 30,200 09/08/22: 25,400 12/29/22: 49,800 04/27/23: 115,000 10/12/23: [id number] 01/04/24: 40842 08/15/24: 56846 11/07/24 Circulating tumor DNA assay with Azalea, which was detectable: 11/18/20 = 18.47 01/22/21 = 15.44 02/25/21 = 11.79 03/25/2021 = 22.86 05/16/2021 = 0.0 05/27/21 = 0.0 07/31/2021 = 20.07 08/27/2021 = 62.12 10/25/2021 = 2.08 11/26/2021 =1.42 01/18/22 = 2.50 02/23/22 = 4.89 04/06/22= 2.64 05/26/22 = 2.68 09/08/22= 3.28 12/29/22 = 11.12 04/27/23 = 37.09 (RT completed 08/03/23) 09/24/23= 5.72 10/12/23: 8.34 01/04/24: 162.28 (POD) 02/28/24: 0.00 (s/p RT to R groin mass) 08/15/24: 0.00 11/07/24: # Scottie cell carcinoma of the right forearm with distant mets - At last visit, PET showed three new moderately to intensely FDG lesions in the spleen. Subsequentbiopsy at [facility] c/w atypical lymphocytes, but after review with heme-onc at [facility] it was feltnot to be lymphoma. They felt it could be reactive from immunotherapy. - PET/CT pending from today. On my review, the liver appears very avid and there are more avid areas on the spleen. - pt to discuss further with Dr. Davey re: treatment holiday, which I would agree with if his most recent AMERK and Azalea are again reassuring. Most recent results in July suggest that he is currentlyfree of ASSISTED (Azalea 0.00 x 2, AMERK downtrending). - if he does take a holiday, I offered him to return in 6 weeks to repeat labs; he will consider # Otherwise, normal cutaneous exam with benign-appearing nevi, lentigines, seborrheic keratoses, and cosby angiomas. - includes SK right posterior scalp # Dermatoheliosis The patient was advised to continue practicing sun protection and sun avoidance, use broad spectrumsunscreen >30 SPF routinely, and perform regular self skin exams. Not addressed today: # Thyroid nodule: - had u/s in 2019 showing nodule and hyperplasia - PET/CT revealed persistent large nodule in the left lobe of the thyroid gland. -On examination, he had no obvious goiter. - Will CTM on pET # FDG uptake in prostate gland: - Similar nonspecific diffuse mildly FDG avid uptake in the prostate, likely benign inflammation. - Will CTM. Total time spent on 11/08/2024 for this visit in [id number] and non [id number] time reviewing, documenting, and obtaining, clinical information, coordinating with the care team and/or other specialists, and counseling the patient: 40 minutes. Alida Mancilla MD Co-Director, [facility] ??Department of Dermatology, [facility], [facility] [place] CC: Trae Rojas MD CC: Herman Guzman MD CC: Suresh Calabrese MD CC: Murray Nam MD documented in this encounter Plan of Treatment Upcoming Encounters Date Type Department Care Team (Late st Contact Info) Description 01/30/2025 11:45 AM EST Blood Draw [facility], [facility], Imaging [id number] [address] [facility], [address] [place] [address] Melany Davey MD [address] [place] [id number] [email or web address] 01/30/2025 1:45 PM EST Appointment [facility], [facility], PET/CT [address] [place] [address] Melany Davey MD [address] [place] [phone] [email or web address] 01/31/2025 11:30 AM EST Office Visit [facility], [address] [place] [address] Alida Mancilla MD [address] [place] [address] [place] [phone] [email or web address] 01/31/2025 12:00 PM EST Office Visit [facility], [address], [address] [place] [address] Melany Davey MD [address] [place] [id number] [email or web address] documented as of this encounter Visit Diagnoses Diagnosis Scottie cell carcinoma- Primary Scottie cell carcinoma of other sites Abnormal findings on imaging test Other nonspecific (abnormal) findings on radiological and other examinations of body structure 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 Seborrheic keratoses documented in this encounter Care Teams Plier Worker Relationship Specialty Start Date End Date Suresh Mcclellan PA [address] [place] [address] PCP - General Unknown Provider Specialty 10/30/20 Self-Referred, Patient Referring Physician 06/07/19 Lillian Muñiz [facility] [address] [place] [address] [email or web address] Commercial Lines Account Assistant 06/20/19 Janine Simeon MD [address] [place] [id number] [email or web address] Radiation Oncology 10/19/19 Herman Guzman MD [address] [place] [address] Hematology/[place] [address] [email or web address] 01/18/20 Daniela Bazan MD [address] [place] [address] [id number] [place] [address] [email or web address] Medical Student 11/05/20 Luke [place] MD [address] Abdullahi [address] [place] [phone] Otolaryngology 03/04/23 documented as of this encounter Additional Source Comments The information contained in this document represents components of the legal health record. It is not the complete legal health record.[facility]
--- OUTSIDE RECORDS SUMMARY | 2024-11-08 10:30 | XMS_ITS | Encounter Summary ---
Author Organization [facility] Address [address] [facility] [address] [place] [phone] Phone Care Team Providers Care Screed Person Name Role Phone Self-Referred, Patient Unavailable Unavailab Lillian ChoSW Unavailable [phone] Janine Simeon MD Unavailable [phone] Herman Guzman MD Unavailable Suresh Mcclellan Primary Care Provid er Daniela Bazan MD Unavailable Luke Ross MD Unavailable Reason for Referral * E-Consult - New Request Specialty Diagnoses / Procedures Referred By Contac t Referred To Contact Hematology Procedures Ambulatory [facility] Hematology Non-Malignant E-Consult Melany Davey MD [address] [place] [address] Phone: tel: fax: mailto:[email or web address] Referral ID Status Reason Start Date Expiration Date V isits Requested Visits Authorized [id number] New Request 11/09/2024 1 1 * MRI/CAT Scan - New Request Specialty Diagnoses / Procedures Referred By Contac t Referred To Contact Radiology Diagnoses Coupland cell carcinoma Procedures NM PET CT Scalp to Toes Melany Davey MD [address] [place] [address] Phone: tel: fax: mailto:[email or web address] Referral ID Status Reason Start Date Expiration Date V isits Requested Visits Authorized [id number] New Request 11/08/2024 1 1 Encounter Details Date Type Department Care Team (Late st Contact Info) Description 11/08/2024 10:30 AM EDT Office Visit [facility], [facility] [address] [facility] 5th [place] [address] Melany Davey MD [address] [place] [address] [email or web address] Scottie cell carcinoma (Primary Dx) Social History Tobacco Use Types Packs/Day Years [...] PM EDT documented as of this encounter Progress Notes * Melany Davey MD - 11/08/2024 10:30 AM EDT Images from the original note were not included. Cutaneous Oncology Program Medical Oncology Follow-up Note NAME: Hernandez Boss Age: 74 y.o. PCP: Suresh Mcclellan PA Date: 11/08/2024 DIAGNOSIS/ CHIEF COMPLAINT: SENIOR LIVING, RUE PET/CT review History of Present Illness: Oncology History Overview Note Dec 2018: enlarging mass on right forearm 05/10/19: Biopsy taken on by Dr. Nelson Webb, which was consistent with Scottie Cell Carcinoma. StageIIIA T3N1a. Work up and initial consults done at [place], [place]. 05/10/19 Excisional Biopsy Results: 3 discrete [...] Dr. Webb: 1.4 cm (1.5 cm thickness) Scottie Cell Carcinoma. LVI was not present, mitotic rate was 14/m2. The deep margin was 0.5 secondary school principal and the peripheral margin 0.9 cm. 1/ sentinel lymph nodes martinez involved witha 2. 5 mm tumor. 1/1 non sentinel lymph node was involved with a 2. 9 cm tumor with extranodal extension. Local surgical oncologist recommended possible completion right axillary node dissection, 2nd opinion at [facility] 06/05/[address]: negative for metastatic disease. 06/14/19, [facility] consults with Drs. Mancilla and Petar, both Virtual due to COVID-19 pandemic 06/15/19: [facility] consult with Dr. Davidson. Recommended adjuvant radiation to the primary site and axilla and strongly recommended against completion lymph node dissection 10/01/19: completed RT to the right forearm at OSH (records not available at the time of visit) 01/10/20: Recurrence fo SENIOR LIVING of R forearm 01/14/20: PET showed FDG-avid [...] metastatic disease. 11/04/20, FNA left neck node, +SENIOR LIVING November 2020: Hernandez was treated by Dr. [...] nasopharyngeal intensity along the nasopharyngeal soft tissue/adenoids. Lynn increased 11-->37 05/18/23: Local ENT in CT, pathology of R nasophaynx showed SENIOR LIVING 06/23/23-08/03/23: completed RT to nasopharynx 09/12/23: f/u with local onc. Continues on pembro. MRI brain ordered for persistent frontal headaches Interim History: 8 Heme consult at [facility] Multiple splenic lesions seen on ultrasound and PET scan at [facility]. A biopsy of this was consistent with relatively normal splenic tissue. Ekron/ lambda ratio was normal and the B- cells were polytypic. It is unlikely that this patient has lymphoma. There have been several cases of patients to develop sarcoid-like lesions secondary to immunotherapy such as the patients, who receive pembrolizumab Mr. Boss presents today for a follow up and PET/CT review. Accompanied by his . He reports doing well overall. His last dose of pembro was approximately 3 months ago. He had a biopsy of splenic lesion and it was not malignant, no clonal population on flow cytometry. Review of systems: He reports being light headed with sudden change in position. Denies any associated falls or syncopal episodes. He reports no history of hypertension or diabetes mellitus. No B symptoms. Otherwise negative. PAST MEDICAL, SURGICAL, FAMILY & SOCIAL HISTORY: - data was updated and reviewed. Medications Current Outpatient Medications Ordered in Epic Medication Sig citalopram (CELEXA) 10 MG tablet Take 10 mg by mouth daily. clindamycin (CLEOCIN T) 1 % lotion Apply topically 2 (two) times a day. clobetasol (TEMOVATE) 0.05 % ointment Apply topically 2 (two) times a day. As needed for itchy bug bites. For flares of rash on TRUNK/EXTREMITIES up to 2weeks/month. Avoid face, genitals, armpits. fexofenadine (LETICIA) 180 MG tablet Take 180 mg by mouth daily. fluticasone propionate (FLONASE) 50 mcg/actuation nasal spray 1 spray by Nasal route daily. ketoconazole 2 % cream APPLY TOPICALLY DAILY NEEDED FOR RASHES IN BODY FOLDS AND GROIN AREA triamcinolone acetonide 0.1 % cream Apply topically to affected areas of skin twice daily for no more than 2 weeks per month. Avoid eyes and areas with thin skin. Allergies Allergies Allergen Reactions Celebrex [Celecoxib] Anaphylaxis Sulfa (Sulfonamide Antibiotics) Anaphylaxis Azithromycin Hives PHYSICAL EXAM: Vital signs were reviewed in the flowsheet Physical Exam General: He appears well and is in no acute distress HEENT: EOMI. Skin: No rash is noted on exposed skin. Eyes: Pupils are equal, sclerae are white, and EOM are normal. Neck: The neck is normal appearing. No appreciable thyroid mass. Lymphadenopathy: No cervical, supraclavicular or inguinal lymphadenopathy Cardiovascular: Normal rate and rhythm. Exam reveals no gallop or murmur. Pulmonary/Chest: Effort normal. No respiratory distress. No wheezes or crackles. Abdominal: Bowel sounds are normal. No distension. There is no tenderness. Extremities: No edema or lymphedema. Neurological: Alert and oriented to person, place, and time. Walks unassisted. Psychiatric: Normal mood and affect. Behavior and thought content normal. RESULTS: IMAGES & DATA REVIEW Hospital Outpatient Visit on 11/07/2024 Component Date Value Ref Range Status WHOLE BLOOD GLUCOSE 11/07/2024 91 70 - 110 mg/dL Final Blood Draw on 11/07/2024 Component Date Value Ref Range Status WBC 11/07/2024 5.99 4.00 - 10.00 K/uL Final RBC 11/07/2024 4.57 4.50 - 6.40 M/uL Final HGB 11/07/2024 13.8 13.5 - 18.0 g/dL Final HCT 11/07/2024 40.9 40.0 - 54.0 % Final PLT 11/07/2024 175 150 - 450 K/uL Final MCV 11/07/2024 89.5 80.0 - 100.0 fL Final MCH 11/07/2024 30.2 27.0 - 32.0 pg Final MCHC 11/07/2024 33.7 32.0 - 36.0 g/dL Final RDW 11/07/2024 13.2 11.5 - 14.5 % Final MPV 11/07/2024 9.6 8.4 - 12.0 fL Final NRBC 11/07/2024 0.00 0 /100 WBCs Final ABSOLUTE NRBC 11/07/2024 0.00 0 K/uL Final DIFF METHOD 11/07/2024 Auto Final NEUTS 11/07/2024 69.6 48.0 - 76.0 % Final LYMPHS 11/07/2024 12.4 (L) 18.0 - 41.0 % Final MONOS 11/07/2024 13.0 (H) 4.0 - 11.0 % Final EOS 11/07/2024 4.0 0.0 - 5.0 % Final BASOS 11/07/2024 0.8 0.0 - 1.5 % Final % IMMATURE GRANS 11/07/2024 0.2 0.0 - 1.0 % Final ABSOLUTE NEUTS 11/07/2024 4.17 1.92 - 7.60 K/uL Final ABSOLUTE LYMPHS 11/07/2024 0.74 0.72 - 4.10 K/uL Final ABSOLUTE MONOS 11/07/2024 0.78 0.16 - 1.10 K/uL Final ABSOLUTE EOS 11/07/2024 0.24 0.00 - 0.50 K/uL Final ABSOLUTE BASOS 11/07/2024 0.05 0.00 - 0.15 K/uL Final ABS IMMATURE GRANS 11/07/2024 0.01 0.00 - 0.10 K/uL Final SODIUM 11/07/2024 132 (L) 136 - 145 mmol/L Final POTASSIUM 11/07/2024 4.4 3.4 - 5.1 mmol/L Final CHLORIDE 11/07/2024 97 (L) 98 - 107 mmol/L Final CO2 11/07/2024 25 22 - 31 mmol/L Final BUN 11/07/2024 21 6 - 23 mg/dL Final CREATININE 11/07/2024 1.32 (H) 0.50 - 1.20 mg/dL Final GLUCOSE 11/07/2024 89 70 - 100 mg/dL Final ALBUMIN 11/07/2024 4.0 3.5 - 5.2 g/dL Final TOTAL PROTEIN 11/07/2024 8.5 (H) 6.4 - 8.3 g/dL Final CALCIUM 11/07/2024 9.9 8.8 - 10.7 mg/dL Final ALKALINE PHOSPHATASE 11/07/2024 111 40 - 129 U/L Final TOTAL BILIRUBIN 11/07/2024 0.6 0.2 - 1.2 mg/dL Final AST 11/07/2024 42 (H) <41 U/L Final ALT 11/07/2024 17 <42 U/L Final GLOBULIN 11/07/2024 4.5 (H) 2.3 - 4.2 g/dL Final EGFR 11/07/2024 57 (L) >59 mL/min/1.73m2 Final Estimated glomerular filtration rate calculated using the CKD-EPI refit equation. ANION GAP 11/07/2024 10 7 - 17 mmol/L Final TSH 11/07/2024 1.44 0.27 - 4.20 uIU/mL Final FREE T4 11/07/2024 1.4 0.9 - 1.7 ng/dL Final PET/CT Scalp to Toe I personally reviewed the images. His liver and spleen are very FDG avid SENIOR LIVING Specialty labs: AMERK status: + 06/21/19 = 1570 10/11/19 = 2400 01/10/20 = 15,000 02/28/20 = 47,200 04/10/20 = 32,600 07/16/20 = 17,600 10/29/20 = 19,100 01/22/21 = 13,600 02/25/21 = 20,500 03/25/2021 = 26,600 05/28/21 = 22,200 08/27/21= 18,900 11/25/21 = 16,700 03/04/22 = 21,300 04/06/22 = 24,800 05/26/22 = 30,200 09/08/22: 25,400 12/29/22: 49,800 04/27/23: 115,000 10/12/23: 94729 01/04/24: 59053 08/15/24: 02467 11/07/24 Circulating tumor DNA assay with Lynn: 11/18/20 = 18.47 01/22/21 = 15.44 02/25/21 [...] to R groin mass) 08/15/24: 0.00 11/07/24: ASSESSMENT & PLAN: He is a 74 y.o. 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 Experienced doubling in size of R inguinal mass and ctDNA rising s/p RT to R groin mass in late 2023. Last pembro was 09/07/24. 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 - Lynn from 08/15/24 was 0.00. AMERK [place] [address] on 08/15/24. Awaiting results from yesterday. - Recent labs were reviewed. - Will closely monitor with a blood Signatera in approximately every six weeks since he is off pembro for the first time in 5 years - repeat PET in 3m # FDG avid splenic masses - The noted spleen abnormalities were worked up by Dr. Kapil Hi (notes reviewed in Media tab) -- not consistent with SENIOR LIVING or lymphoma, and may instead represent an immune reaction. He advisedd/c pembro - Discussed an E-consultation with a aquatics lifeguard to get a second opinion on his immune cell statusand the spleen abnormalities noted on the PET/CT. Pt. Was in agreement, referral placed. - He had a skin check with Dr. Mancilla earlier this morning. - I discussed him with Dr. Mancilla. # Light headedness: - Recommended adequate hydration. - Advised him to be careful with change in position. # Thyroid nodule: - had u/s in 2019 showing nodule and hyperplasia - PET/CT revealed persistent large nodule in the left lobe of the thyroid gland. - Will CTM on PET. Follow up: - MP lynn in 6 weeks - E consult Heme to ensure splenic workup is complete given liver and spleen uptake - He will return in 3 months. Review of Systems, Physical Exam, and Assessment and Plan reviewed and/or performed on 11/08/2024 and there are no changes except as documented. Virtual Scribe Attestation: By signing my name below, I, Carmen Ac, attest that this documentation has been prepared under the direction of Melany Davey MD. Carmen Ac 11/08/24 11:14 AM Attestation: I explained to the patient the role of a virtual scribe in providing documentation support. The patient consents to having a scribe during this encounter. All medical entries entered by the scribe were at my direction. I have reviewed the documentation and agree that the record reflects my personal performance and is accurate and complete. Melany Davey MD 11/10/24 4:40 PM Melany Davey M.D., M.S. Medical Oncologist [facility] [phone] (office) [phone] (fax) documented in this encounter Plan of Treatment Upcoming Encounters Date Type Department Care Team (Late st Contact Info) Description 01/30/2025 11:45 AM EST Blood Draw [facility] [id number] [address] [facility] [place] [address] Melany Davey MD [address] [place] [phone] [email or web address] 01/30/2025 1:45 PM EST Appointment [facility], PET/CT [address] [place] [address] Melany Davey MD [address] [place] [phone] [email or web address] 01/31/2025 11:30 AM EST Office Visit [facility], [address] [place] [address] Alida Mancilla MD [address] [place] [address] [place] [phone] [email or web address] 01/31/2025 12:00 PM EST Office Visit [facility], [address], [address] [place] [address] Melany Davey MD [address] [place] [phone] [email or web address] Scheduled Orders Name Type Priority Associated Diagnoses Orde r Schedule CBC and differential Lab Routine Scottie cell carcinoma Expected: 11/08/2024, Expires: 11/08/2025 Comprehensive metabolic panel Lab Routine Coupland cell carcinoma Expected: 11/08/2024, Expires: 11/08/2025 LDH Lab Routine Scottie cell carcinoma Expected: 11/08/2024, Expires: 11/08/2025 Coupland cell antibody Lab Routine Scottie cell carcinoma Expected: 02/08/2025, Expires: 08/08/2025 ONC Lynn Follow-up Lab Routine Coupland cell carcinoma Expected: 02/08/2025, Expires: 08/08/[address] Scalp to Toes Imaging Routine Scottie cell carcinoma Expected: 02/08/2025, Expires: 08/08/2025 documented as of this encounter Visit Diagnoses Diagnosis Scottie cell carcinoma- Primary Scottie cell carcinoma of other sites documented in this encounter Care Teams Screed Person Relationship Specialty Start Date End Date Suresh Mcclellan PA [address] [place] [address] PCP - General Unknown Provider Specialty 10/30/20 Self-Referred, Patient Referring Physician 06/07/19 Lillian Muñiz DELIVERY ARCHITECT [address] [place] [phone] [email or web address] It Security Architect 06/20/19 Janine Simeon MD [address] [place] [phone] [email or web address] Radiation Oncology 10/19/19 Herman Guzman MD [address] [place] [address] Hematology/[place] [address] [email or web address] 01/18/20 Daniela Bazan MD [address] [place] [address] [phone] [place] [address] [email or web address] 11/05/20 Luke Ross MD [address] Janeen Abdullahi [address] [place] [address] Otolaryngology 03/04/23 documented as of this encounter Additional Source Comments The information contained in this document represents components of the legal health record. It is not the complete legal health record.[facility]
--- NOTE | 2024-11-13 13:06 | MHC.OFFVIS ---
Vital Signs 11/13/24 13:07 Height 5 ft 10 in Weight 223 lb 5.252 oz BMI 32.0 BP 120/90 H Blood Pressure Location Lt brachial Position Sitting Pulse 81 Pulse Source Pulse Oximeter Pulse Oximetry (%) 96 Oxygen Delivery Method Room Air Intake Visit Reasons: 3 months Intake Note: Patient presents today for follow up on arthritis. Accompanied by: Self / Same As Patient Allergies celecoxib (From CELEBREX) Allergy (Severe, Verified 11/13/24 13:08) ANAPHYLAXIS Sulfa (Sulfonamide Antibiotics) (SULFA (SULFONAMIDE ANTIBIOTICS)) Allergy (Unknown, Verified 11/13/24 13:08) ANAPHYLACTIS z pack Allergy (Mild, Uncoded 02/07/24 15:23) Hives HPI HPI 3 months: Details: His knees feel well. Denies knee pain. He is not self medicating joint pain with tylenol as he has done in the past. He has no functional difficult. Trochanteric bursa pain is persistent. He has been doing exercises that I printed for him last visit. He is compliant about 3 times a week. He had some benefit initially. He had a spleen bx, which revealed that his body is during antibodies. He reports that he does not have cancer affecting his spleen. [facility] Medical History Cervical radiculopathy due to degenerative joint disease of spine Severe obesity Thyroid goiter [place] cell carcinoma HLD (hyperlipidemia) Social History Household Members: Spouse Housing: House Do you presently have visiting nurse or other home services: No Alcohol intake: current Alcohol intake frequency: holidays/special occasions only Patient Tobacco Use Status: Never used Tobacco Second Hand Smoke Exposure: No service: No Physical Exam Vital Signs: Last Vital Signs Pulse 81 11/13/24 13:07 BP 120/90 H 11/13/24 13:07 Pulse Ox 96 11/13/24 13:07 Oxygen Delivery Method Room Air 11/13/24 13:07 BMI result Body Mass Index 32.0 Const Other: General: Comfortable CVS: RRR Respiratory: clear to auscultation bilaterally. Good respiratory effort Skin: No lesions seen MSK: Tender to palpate bilateral trochanteric bursae. Good external rotation of bilateral hips. No tenderness of knees. No joint effusion. Bilateral Knee flexion 90 degrees. Assessment & Plan Assessment & Plan (1) Greater trochanteric bursitis of both hips: Comment: Chronic, bilateral. Code(s): M70.61 - Trochanteric bursitis, right hip; M70.62 - Trochanteric bursitis, left hip Category: Medical Plan: PT ordered Can consider trochanteric bursa injections next visit if pain persists Return to clinic in 3 months (2) Osteoarthritis of knees, bilateral: Comment: Pain is controlled with last of cortisone injections 05/08/2024 Code(s): M17.0 - Bilateral primary osteoarthritis of knee Category: Medical Plan: Monitor clinically Use Tylenol PRN joint pain Return to clinic in 3 months Orders: Orders PT Evaluation and Treatment Today M70.61 - Trochanteric bursitis, right hip, M70.62 - Trochanteric bursitis, left hip Coding Level of Care Code Est Pt Level 3 (24826) Complex EM visit Add On G2211 Diagnoses Greater trochanteric bursitis of both hips M70.61; M70.62 Osteoarthritis of knees, bilateral M17.0
[2024-11-13 13:07] VITALS: BP 120/90; PULSE 81; O2SAT 96; BMI 32.0
--- OUTSIDE RECORDS SUMMARY | 2024-11-13 13:41 | XMS_ITS | Encounter Summary ---
Author Organization [facility] Address [facility] [place] [address] Care Team Providers Care Rn Imcu Name Role Phone Suresh Mcclellan PA-C Primary Care Provider [phone] Reason for Visit * Reason Onset Date Comments Faxed Order 09/27/2022 [facility] Physical The rapy Eval and Plane of Care 09/22/22 Encounter Details Date Type Department Care Team Description 09/27/2022 Telephone Adult Medicine [address] [address] Suresh Mcclellan PA-C [address] [place] [phone] Faxed Order ([facility] Physical Therapy Eval and Plane of Care 09/22/22) Social History Tobacco Use Types Packs/Day Years Used Date Smoking Tobacco: Never Smokeless Tobacco: Never Alcohol Use Standard Drinks/Week Comments Yes 0 (1 standard drink = 0.6 oz pur e alcohol) occ use Sex Assigned at Date Recorded Not on file Job Start Date Occupation Industry Not on file Not on file Not on file COVID-19 Exposure Response Date Recorded In the last 10 days, have yo u been in contact with someone who was confirmed or suspected to have Coronavirus/COVID-19? No / Unsure 09/02/2022 8:59 AM EDT documented as of this encounter Plan of Treatment Not on file documented as of this encounter Visit Diagnoses Not on filedocumented in this encounter Care Teams Rn Imcu Relationship Specialty Start Date End Date Suresh Mcclellan PA-C [address] [place] [address] PCP - General Internal Medicine 06/06/20 documented as of this encounter
--- OUTSIDE RECORDS SUMMARY | 2024-11-13 13:42 | XMS_ITS | Encounter Summary ---
Author Organization [facility] Address [address] [place] [address] Care Team Providers Care Greens Picker Name Role Phone Suresh Mcclellan Primary Care Provider [phone] Reason for Visit * Reason Onset Date Comments Medication Problem 11/06/2024 Encounter Details Date Type Department Care Team (Late st Contact Info) Description 11/06/2024 Telephone Adult Medicine [facility] [address] [place] [address] Suresh Mcclellan PA [address] [place], [place] [phone] Social History Tobacco Use Types Packs/Day Years Used Date Smoking Tobacco: Never Smokeless Tobacco: Never Alcohol Use Standard Drinks/Week Comments Yes 0 (1 standard drink = 0.6 oz pur e alcohol) Sex and Gender Information Value Date Recorded Sex Assigned at Not on file Legal Sex Male 1:22 PM EST Gender Identity Not on file Sexual Orientation Not on file documented as of this encounter Progress Notes * Corrine Herrera MA - 11/08/2024 8:23 AM EDT PA for chlordiazePOXIDE-clidinium Approved from 03/21/2024 through 11/07/2025 * Corrine Herrera MA - 11/07/2024 8:41 AM EDT PA for chlordiazePOXIDE-clidinium (LIBRAX) 5-2.5 mg per capsule initiated on cmm Dx K21.9 * KIERA White - 11/06/2024 4:00 PM EDT Sounds like a prior authorization might be needed for this medication? * Fernanda Shaver - 11/06/2024 3:25 PM EDT Medication Problem: What is the name of the medication patient is having a problem with?: chlordiazePOXIDE-clidinium (LIBRAX) 5-2.5 mg per capsule What is the problem?: the patient is calling and states he was told by [employer] he needs a prior auth for this. The patient is going to [facility] tomorrow morning for a couple of days and isvery concerned that he won't get this resolved on time. Please advise. Who is calling about the problem? : The patient Is this a NEW medication?: no How long has the patient been taking this medication? 25 years Who prescribed this medication for the patient? PCP Who is patients PCP?: KIERA Mcdaniels Payor: MEDICARE / Plan: MEDICARE PART A & B / Product Type: Medicare / documented in this encounter Plan of Treatment Upcoming Encounters Date Type Department Care Team (Late st Contact Info) Description 12/26/2024 9:30 AM EDT Office Visit Orthopedic Surgery - [place] [address] [place] [phone] Ishan Riojas DPM [facility] [place] [address] documented as of this encounter Visit Diagnoses Not on filedocumented in this encounter Care Teams Greens Picker Relationship Specialty Start Date End Date Suresh Mcclellan PA [address] [place] [address] PCP - General Internal Medicine 3/19/21 documented as of this encounter
--- OUTSIDE RECORDS SUMMARY | 2024-11-13 13:42 | XMS_ITS | Encounter Summary ---
Author Organization [facility] Address [facility] [place] [address] Care Team Providers Care Director Social Service Name Role Phone Trae Rojas MD Primary Care Provider [phone] [phone] Suresh Mcclellan PA-C Primary Care Provider [phone] Encounter Details Date Type Department Care Team Description 09/04/2015 Missile Control Pilot Report Medical Records [address] [place], [place] [id number] Dewey Robledo MD Social History Tobacco Use Types Packs/Day Years Used Date Smoking Tobacco: Never Smokeless Tobacco: Never Alcohol Use Standard Drinks/Week Comments Yes 0 (1 standard drink = 0.6 oz pur e alcohol) 35 drinks per mo Sex Assigned at Date Recorded Not on file Job Start Date Occupation Industry Not on file Not on file Not on file documented as of this encounter Plan of Treatment Not on file documented as of this encounter Visit Diagnoses Not on filedocumented in this encounter Care Teams Director Social Service Relationship Specialty Start Date End Date Trae Rojas MD [address] [place] [address] [phone] PCP - General 11/11/01 06/05/20 Suresh Mcclellan PA-C [address] [place] [address] [phone] PCP - General Internal Medicine 06/06/20 documented as of this encounter
--- OUTSIDE RECORDS SUMMARY | 2024-11-13 13:42 | XMS_ITS | Encounter Summary ---
Author Organization [facility] Address [facility] [place] [address] Care Team Providers Care Wharf Labourer Name Role Phone Trae Rojas MD Primary Care Provider [phone] Suresh Mcclellan PA-C Primary Care Provider +[phone] Encounter Details Date Type Department Care Team Description 02/01/2018 Business Doc Medical Records [address] [place] [address] Abstract, Provider Social History Tobacco Use Types Packs/Day Years [...] on filedocumented in this encounter Care Teams Wharf Labourer Relationship Specialty Start Date End Date Trae Rojas MD [address] [place] [id number] PCP - General 11/11/01 06/05/20 Suresh Mcclellan PA-C [address] [place] [address] [phone] PCP - General Internal Medicine 06/06/20 documented as of this encounter
--- OUTSIDE RECORDS SUMMARY | 2024-11-13 13:42 | XMS_ITS | Encounter Summary ---
Author Organization [facility] Address [address] [place] [address] Care Team Providers Care Snuff Packing Machine Operator Name Role Phone Suresh Mcclellan Primary Care Provider [phone] Reason for Visit * Reason Onset Date Comments Prior Authorization 11/09/2024 Encounter Details Date Type Department Care Team (Late st Contact Info) Description 11/09/[address] [facility] [address] [place] [phone] Suresh Mcclellan PA [address] [place] [address] Social History Tobacco Use Types Packs/Day Years [...] Progress Notes * Corrine Herrera MA - 11/12/2024 8:19 AM EDT Approved on November 07 by [employer] NCPDP 2017 Your request has been approved Effective Date: 03/21/2024 Authorization Expiration Date: 11/07/2025 * Rakan Clancy - 11/09/2024 3:49 PM EDT Prior Authorization for Medication-do not complete and send this encounter unless you have the fax from the pharmacy. Is this a Cover My Meds request: Yes -- [place] Code BEPFRYKE Name of Medication chlordiazePOXIDE-clidinium (LIBRAX) 5-2.5 mg per capsule Sig: Take 1 capsule by mouth 3 (three) times a day with meals. TAKE ONE CAPSULE BY MOUTH THREE TIMES A DAY WITH MEALS Sent to pharmacy as: chlordiazepoxide-clidinium 5 mg-2.5 mg capsule (LIBRAX) Class: Normal Route: oral E-Prescribing Status: Receipt confirmed by pharmacy (07/24/2024 10:06 AM EDT) What Pharmacy did the fax come from: [facility] Pharmacy fax #: [phone] documented in this encounter Plan of Treatment Upcoming Encounters Date Type Department Care Team (Late st Contact Info) Description 12/26/2024 9:30 AM EDT Office Visit Orthopedic Surgery - [address] [phone] Ishan Riojas DPM [address] [place] [phone] documented as of this encounter Visit Diagnoses Not on filedocumented in this encounter Care Teams Snuff Packing Machine Operator Relationship Specialty Start Date End Date Suresh Mcclellan PA [address] [place] [phone] PCP - General Internal Medicine 06/06/20 documented as of this encounter
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
--- OUTSIDE RECORDS SUMMARY | 2024-11-13 13:42 | XMS_ITS | Encounter Summary ---
Author Organization [facility] Address [facility] [place] [address] Care Team Providers Care Paper Reel Operator Name Role Phone Trae Rojas MD Primary Care Provider [phone] Suresh Mcclellan PA-C Primary Care Provider [phone] Encounter Details Date Type Department Care Team Description 07/26/2018 Refuse And Recycling Worker Report Medical Records [address] [place], [place] [id number] Justin Guerrero MD Social History Tobacco Use Types Packs/Day [...] on filedocumented in this encounter Care Teams Paper Reel Operator Relationship Specialty Start Date End Date Trae Rojas MD [address] [place] [address] [phone] PCP - General 11/11/01 06/05/20 Suresh Mcclellan PA-C [address] [place] [address] [phone] PCP - General Internal Medicine 06/06/20 documented as of this encounter
--- OUTSIDE RECORDS SUMMARY | 2024-11-13 13:42 | XMS_ITS | Encounter Summary ---
Author Organization [facility] Address [facility]9 [place] [address] Care Team Providers Care Communications Associate Name Role Phone Suresh Mcclellan PA-C Primary Care Provider +1 [phone] Encounter Details Date Type Department Care Team Description 03/28/2023 Used Car Manager Report Medical Records [address] [place] [address] Herman Guzman MD Social History Tobacco Use Types Packs/Day [...] on filedocumented in this encounter Care Teams Communications Associate Relationship Specialty Start Date End Date Suresh Mcclellan PA-C [address] [place] [address] [phone] PCP - General Internal Medicine 06/06/20 documented as of this encounter
--- OUTSIDE RECORDS SUMMARY | 2024-11-13 13:42 | XMS_ITS | Encounter Summary ---
Author Organization [facility] Address [facility]9 [place] [address] Care Team Providers Care Hand Sole Sewer Name Role Phone Trae Rojas MD Primary Care Provider [phone] Suresh Mcclellan PA-C Primary Care Provider [phone] Encounter Details Date Type Department Care Team Description 02/05/2019 Business Doc Medical Records [address] [place] [address] Abstract, Provider Social History Tobacco Use Types [...] on filedocumented in this encounter Care Teams Hand Sole Sewer Relationship Specialty Start Date End Date Trae Rojas MD [address] [place] [phone] PCP - General 11/11/01 06/05/20 Suresh Mcclellan PA-C [address] [place] [address] [phone] PCP - General Internal Medicine 06/06/20 documented as of this encounter
--- OUTSIDE RECORDS SUMMARY | 2024-11-13 13:42 | XMS_ITS | Encounter Summary ---
Author Organization [facility] Address [facility] [place] [address] Care Team Providers Care Commercial Announcer Name Role Phone Suresh Mcclellan PA-C Primary Care Provider [phone] [phone] Encounter Details Date Type Department Care Team Description 12/13/2022 Keyboard Specialist Report Medical Records [address] [place] [address] Herman Guzman MD Social History Tobacco Use [...] suspected to have Coronavirus/COVID-19? No / Unsure 11/29/2022 11:07 AM EDT documented as of this encounter Plan of Treatment Not on file documented as of this encounter Visit Diagnoses Not on filedocumented in this encounter Care Teams Commercial Announcer Relationship Specialty Start Date End Date Suresh Mcclellan PA-C [address] [place], [place] [phone] PCP - General Internal Medicine 06/06/20 documented as of this encounter
--- OUTSIDE RECORDS SUMMARY | 2024-11-13 13:42 | XMS_ITS | Encounter Summary ---
Author Organization [facility] Address [facility]9 [place] [address] Care Team Providers Care Dry Molder Name Role Phone Trae Rojas MD Primary Care Provider [phone] Suresh Mcclellan PA-C Primary Care Provider [phone] Encounter Details Date Type Department Care Team Description 10/03/2017 Casing Blower Report Medical Records [address] [place] [address] Poli Whitehead MD Social History Tobacco Use Types Packs/Day [...] on filedocumented in this encounter Care Teams Dry Molder Relationship Specialty Start Date End Date Trae Rojas MD [address] [place] [address] [phone] PCP - General 11/11/01 06/05/20 Suresh Mcclellan PA-C [address] [place] [address] [phone] PCP - General Internal Medicine 06/06/20 documented as of this encounter
--- OUTSIDE RECORDS SUMMARY | 2024-11-13 13:42 | XMS_ITS | Encounter Summary ---
Author Organization [facility] Address [facility] [place] [address] Care Team Providers Care Mold Dumper Name Role Phone Trae Rojas MD Primary Care Provider [phone] Suresh Mcclellan PA-C Primary Care Provider [phone] Encounter Details Date Type Department Care Team Description 01/11/2018 Chainstitch Zipper Setter Report Medical Records [address] [place], [place] [phone] Justin Guerrero MD Social History Tobacco Use [...] on filedocumented in this encounter Care Teams Mold Dumper Relationship Specialty Start Date End Date Trae Rojas MD [address] [place] [address] [phone] PCP - General 11/11/01 06/05/20 Suresh Mcclellan PA-C [address] [place] [address] [phone] PCP - General Internal Medicine 06/06/20 documented as of this encounter
--- OUTSIDE RECORDS SUMMARY | 2024-11-13 13:42 | XMS_ITS | Encounter Summary ---
Author Organization [facility] Address [facility]9 [place] [address] Care Team Providers Care Senior Living Sales Counselor Name Role Phone Trae Rojas MD Primary Care Provider [phone] Suresh Mcclellan PA-C Primary Care Provider [phone] Encounter Details Date Type Department Care Team Description 08/12/2015 Residential Assistant Report Medical Records [address] [place] [address] Bear Fulton Social History Tobacco Use Types Packs/Day Years [...] on filedocumented in this encounter Care Teams Senior Living Sales Counselor Relationship Specialty Start Date End Date Trae Rojas MD [address] [place] [phone] PCP - General 11/11/01 06/05/20 Suresh Mcclellan PA-C [address] [place] [address] [phone] PCP - General Internal Medicine 06/06/20 documented as of this encounter
--- OUTSIDE RECORDS SUMMARY | 2024-11-13 13:42 | XMS_ITS | Encounter Summary ---
Author Organization [facility] Address [facility] [place] [address] Care Team Providers Care Gas Cutting Machine Operator Name Role Phone Suresh Mcclellan PA-C Primary Care Provider [phone] Encounter Details Date Type Department Care Team Description 03/03/2023 Orders Only Medical Records [address] [place] [address] [facility] Social History Tobacco Use Types Packs/Day Years [...] on file documented as of this encounter Procedures Procedure Name Priority Date/Time Associated Diagnosis Comments OUTSIDE PLAIN FILM Routine 02/14/2023 documented in this encounter Results * OUTSIDE PLAIN FILM (02/14/2023) [facility] RADIOLOGY documented in this encounter Visit Diagnoses Not on filedocumented in this encounter Care Teams Gas Cutting Machine Operator Relationship Specialty Start Date End Date Suresh Mcclellan PA-C [address] [place], [place] [phone] PCP - General Internal Medicine 06/06/20 documented as of this encounter
--- OUTSIDE RECORDS SUMMARY | 2024-11-13 13:42 | XMS_ITS | Encounter Summary ---
Author Organization [facility] Address [facility]9 [place] [address] Care Team Providers Care Boat Joiner Helper Name Role Phone Trae Rojas MD Primary Care Provider [phone] Suresh Mcclellan PA-C Primary Care Provider [phone] Encounter Details Date Type Department Care Team Description 11/03/2017 Veterinary Hospital Attendant Report Medical Records [address] [place] [address] Poli Whitehead MD Social History Tobacco Use [...] on filedocumented in this encounter Care Teams Boat Joiner Helper Relationship Specialty Start Date End Date Trae Rojas MD [address] [place] [address] [phone] PCP - General 11/11/01 06/05/20 Suresh Mcclellan PA-C [address] [place] [address] [phone] PCP - General Internal Medicine 06/06/20 documented as of this encounter
--- OUTSIDE RECORDS SUMMARY | 2024-11-13 13:42 | XMS_ITS | Encounter Summary ---
Author Organization [facility] Address [facility] [place] [address] Care Team Providers Care Tactical/Mobile Watch Officer Name Role Phone Suresh Mcclellan PA-C Primary Care Provider +1 [phone] Encounter Details Date Type Department Care Team Description 01/01/2022 Health Support Specialist Report Medical Records [address] [place] [address] Social History Tobacco Use Types Packs/Day Years [...] on filedocumented in this encounter Care Teams Tactical/Mobile Watch Officer Relationship Specialty Start Date End Date Suresh Mcclellan PA-C [address] [place] [address] PCP - General Internal Medicine 06/06/20 documented as of this encounter
--- OUTSIDE RECORDS SUMMARY | 2024-11-13 13:42 | XMS_ITS | Encounter Summary ---
Author Organization [facility] Address [facility]9 [place] [address] Care Team Providers Care Clothespin Drier Operator Name Role Phone Suresh Mcclellan PA-C Primary Care Provider +1 [phone] Encounter Details Date Type Department Care Team Description 03/02/2023 Orders Only Medical Records [address] [place] [address] Yamini Macias Social History Tobacco Use Types Packs/Day Years [...] Name Priority Date/Time Associated Diagnosis Comments OUTSIDE VASCULAR STUDY Routine 02/17/2023 documented in this encounter Results * OUTSIDE VASCULAR STUDY (02/17/2023) Yamini Macias CARDIOLOGY documented in this encounter Visit Diagnoses Not on filedocumented in this encounter Care Teams Clothespin Drier Operator Relationship Specialty Start Date End Date Suresh Mcclellan PA-C [address] [place], [place] [phone] PCP - General Internal Medicine 06/06/20 documented as of this encounter
--- OUTSIDE RECORDS SUMMARY | 2024-11-13 13:42 | XMS_ITS | Clinical Summary ---
Author Organization [facility] Address [address] [place] [address] Care Team Providers Care Load Out Person Name Role Phone Suresh Mcclellan PA-C Primary Care Provider Un available Allergies Active Allergy Reactions Criticality Noted Date Comments Azithromycin Hives Medium 11/09/2019 rash Celecoxib Anaphylaxis,Hives,Sw elling,Rash/Dermatit is High 08/07/2009 Other Reaction(s): Hives/Urticaria, Numbness, tingling or swelling of the lips, tongue or mouth Dexamethasone Unknown/Patient and Family Unable to Define Medium 07/07/2021 Sulfa Antibiotics Other (See Comments),Rash/[place] titis Medium 08/07/2009 This occurred with celebrex [...] neck radiation 02/24/2024 Immunotherapy 02/24/2024 Dyspepsia 12/21/2023 [place] 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 Kat Guerrero) Depression 06/14/2019 DJD (degenerative joint disease) 06/14/2019 Hypercholesteremia 06/14/2019 Seasonal allergies 06/14/2019 [place] cell carcinoma of right upper extremity 0 06/06/2019 Sebaceous cyst 04/03/2019 Obstructive sleep apnea 12/19/2018 Overview (02/24/2024): Uses cpap regularly Severe obesity (BMI 35.0-39.9) with comorbidity 12/19/2018 Hyperlipidemia 06/05/2018 Irritable bowel syndrome 11/30/2016 Neck pain 01/28/2015 Overview (02/24/2024): [facility] - 01/28/15 - 80% [...] Encounters Date Type Department Care Team Description 09/04/2024 2:45 PM EDT Office Visit [facility] [address] [place] [address] Luke Ross MD Scottie cell carcinoma (HCC) (Primary Dx); Eustachian tube dysfunction, bilateral; Nasopharyngeal neoplasm; Vocal cord weakness from Last 3 Months Immunizations Immunization Administration [...] - Inhaled Oxygen Concentration - - Weight 103 kg (227 lb) 09/04/2024 2:57 PM EDT Height 177.8 cm (5' 10 ) 09/04/2024 2:57 PM EDT Body Mass Index 32.57 09/04/2024 2:57 PM EDT Plan of Treatment Upcoming Encounters Date Type Department Care Team (Late st Contact Info) Description 03/12/2025 2:30 PM EST Office Visit [facility] [address], [place] [address] Luke Ross MD [address] [place] [address] Health Maintenance Due Date Last Done [...] topic Insurance MEDICARE PART A & B [facility] Care Teams Load Out Person Relationship Specialty Start Date End Date Suresh Mcclellan PA-C PCP - General Internal Medicine 02/24/24
--- OUTSIDE RECORDS SUMMARY | 2024-11-13 13:42 | XMS_ITS | Encounter Summary ---
Author Organization [facility] Address [facility]9 [place] [address] Care Team Providers Care Street Sprinkler Name Role Phone Trae Rojas MD Primary Care Provider +1 [phone] Suresh Mcclellan PA-C Primary Care Provider [phone] Encounter Details Date Type Department Care Team Description 11/01/2018 Treating Engineer Helper Report Medical Records [address] [place] [address] Social History Tobacco Use Types Packs/Day Years [...] on filedocumented in this encounter Care Teams Street Sprinkler Relationship Specialty Start Date End Date Trae Rojas MD [address] [place] [id number] PCP - General 11/11/01 06/05/20 Suresh Mcclellan PA-C [address] [place] [address] [phone] PCP - General Internal Medicine 06/06/20 documented as of this encounter
--- OUTSIDE RECORDS SUMMARY | 2024-11-13 13:42 | XMS_ITS | Encounter Summary ---
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; termite control technician current use of anticoagulant therapy Social History Tobacco Use Types Packs/Day Years Used Date Smoking Tobacco: Never Smokeless Tobacco: Never Alcohol Use Standard Drinks/Week Comments Yes 0 (1 standard drink = 0.6 oz pur e alcohol) occ use Sex Assigned at Date Recorded Not on file Job Start Date Occupation Industry Not on file Not on file Not on file documented as of this encounter Plan of Treatment Scheduled Orders Name Type Priority Associated Diagnoses Orde r Schedule CT ECG ROUTINE ECG W/LEAST 12 LDS W/I&R Cardiology Routine Preoperative examination Expected: 04/06/2023, Expires: 04/06/2024 documented as of this encounter Results * [facility]G THROMBOPLASTIN TIME PARTIAL PLASMA/WHOLE BLOOD (04/25/2023 11:08 AM EST) Partial Thromboplastin Time 35.3 24.1 - 39.3 sec 04/25/2023 2:36 PM EST [facility] 04/25/2023 11:0 8 AM EST 04/25/2023 11:08 AM EST Narrative [facility] [employer] - 04/25/2023 2:36 PM EST Release to patient->Immediate Suresh Mcclellan PA-C LAB Performing Organization Address [facility] Co de Phone Number [facility] * CHG PROTHROMBIN TIME (04/25/2023 11:08 AM EST) Prothrombin Time 11.7 10.6 - 13.9 SEC 04/25/2023 2:36 PM EST [facility] INR 0.94 04/25/2023 2:36 PM EST [facility] 04/25/2023 11:0 8 AM EST 04/25/2023 11:08 AM EST Narrative [facility] [employer] - 04/25/2023 2:36 PM EST Release to patient->Immediate Suresh Mcclellan PA-C LAB Performing Organization Address [facility] Co de Phone Number [facility] * CHG COMPREHENSIVE METABOLIC PANEL (04/25/2023 11:08 AM EST) GLUCOSE 85 70 - 100 mg/dL 04/25/2023 3:24 PM EST [facility] [employer] Comment:Reference range appl icable to fasting specimens only Blood Urea Nitrogen 18 5 - 25 mg/dL 04/25/2023 3:24 PM EST [facility] CREAT 1.07 0.7 - 1.3 mg/dL 04/25/2023 3:24 PM EST [facility] GLOMERULAR FILTRATION RATE 75 >60 04/25/2023 3:24 PM EST [facility] [employer] Comment: This eGFR result was calculated using the CKD-EPI 2020 Creatinine Equation CALCIUM 9.2 8.5 - 10.5 mg/dL 04/25/2023 3:24 PM EST [facility] [employer] TOTAL PROTEIN (TP) 7.4 6.0 - 8.0 G/dL 04/25/2023 3:24 PM EST [facility] Albumin 3.4 3.2 - 5.0 G/dL 04/25/2023 3:24 PM EST [facility] BILIRUBIN TOTAL 0.3 0.0 - 1.4 mg/dL 04/25/2023 3:24 PM EST [facility] SGOT 24 10 - 42 U/L 04/25/2023 3:24 PM EST [facility] SGPT 43 10 - 60 U/L 04/25/2023 3:24 PM EST [facility] ALK PHOS 105 42 - 121 U/L 04/25/2023 3:24 PM EST [facility] NA 141 135 - 145 mEq/L 04/25/2023 4:19 PM EST [facility] K 4.3 3.5 - 5.5 mmol/L 04/25/2023 4:19 PM EST [facility] CL 109 96 - 110 mmol/L 04/25/2023 4:19 PM EST [facility] CARBON DIOXIDE (CO2) 28 21 - 32 mmol/L 04/25/2023 4:19 PM EST [facility] ANION GAP 4 3 - 11 04/25/2023 4:19 PM EST [facility] 04/25/2023 11:0 8 AM EST 04/25/2023 11:08 AM EST Narrative [facility] - 04/25/2023 4:19 PM EST Release to patient->Immediate Suresh Mcclellan PA-C LAB [facility] * (ABNORMAL) CHG BLOOD COUNT COMPLETE AUTO&AUTO DIFRNTL WBC (04/25/2023 11:08 AM EST) Pathologist [facility] WHITE BLOOD COUNT 7.7 4.8 - 10.8 x10-3/uL 04/25/2023 2:48 PM EST [facility] RED BLOOD COUNT 4.5 4.5 - 5.5 x10-6/uL 04/25/2023 2:48 PM EST [facility] Hemoglobin 13.4(L) 13.5 - 17.5 g/dL 04/25/2023 2:48 PM EST [facility] Hematocrit 41.2(L) 42 - 54 % 04/25/2023 2:48 PM EST [facility] MEAN CORPUSCULAR VOLUME 92.2 79 - 98 fL 04/25/2023 2:48 PM EST [facility] MEAN CORPUSCULAR HEMOGLOBIN 30.0 27 - 32 pg 04/25/2023 2:48 PM EST [facility] MEAN CORPUSCULAR HGB CONC 32.5 32 - 37 g/dL 04/25/2023 2:48 PM EST [facility] RED CELL DISTRIBUTION WIDTH 13.1 11 - 15 % 04/25/2023 2:48 PM EST [facility] PLT COUNT 176 130 - 400 x10-3/uL 04/25/2023 2:48 PM EST [facility] [employer] MEAN PLATELET VOLUME 10.7 7 - 11 fL 04/25/2023 2:48 PM EST [facility] NRBC % AUTO 0.0 <1 % 04/25/2023 2:48 PM EST [facility] [employer] NEUTROPHILS % 65.0 % 04/25/2023 2:48 PM EST [facility] LYMPH % 18.7 % 04/25/2023 2:48 PM EST [facility] MONO % 9.2 % 04/25/2023 2:48 PM EST [facility] EOS % 5.9 % 04/25/2023 2:48 PM EST [facility] BASO % 0.9 % 04/25/2023 2:48 PM EST [facility] IMMATURE GRANULOCYTES % 0.3 % 04/25/2023 2:48 PM EST [facility] NRBC # AUTO 0.00 <0.1 x10-3/uL 04/25/2023 2:48 PM EST [facility] NEUT # 5.03 1.5 - 7.0 x10-3/uL 04/25/2023 2:48 PM EST [facility] LYMPH # 1.45 1 - 5.0 x10-3/uL 04/25/2023 2:48 PM EST [facility] MONO # 0.71 0.2 - 1.0 x10-3/uL 04/25/2023 2:48 PM EST [facility] EOS # 0.46 0 - 0.5 x10-3/uL 04/25/2023 2:48 PM EST [facility] BASO # 0.07 0 - 0.2 x10-3/uL 04/25/2023 2:48 PM EST [facility] IMMATURE GRANULOCYTES # 0.02 0 - 0.03 x10-3/uL 04/25/2023 2:48 PM EST [facility] 04/25/2023 11:0 8 AM EST 04/25/2023 11:08 AM EST Narrative [facility] SANDOVAL - 04/25/2023 2:48 PM EST Release to patient->Immediate Suresh Mcclellan PA-C LAB Performing Organization Address City/State/[facility] Co de Phone Number AMIE SANDOVAL documented in this encounter Visit Diagnoses Diagnosis Preoperative examination Preoperative examination, unspecified Screening for deficiency anemia Screening for other and 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
--- OUTSIDE RECORDS SUMMARY | 2024-11-13 13:43 | XMS_ITS | Encounter Summary ---
Author Organization [facility] Address [address] [facility] [address] [place] [phone] Phone Care Team Providers Care Fluid Designer Name Role Phone Self-Referred, Patient Unavailable Unavailab Lillian Cho [facility] Unavailable [phone] Janine Simeon MD Unavailable Herman Guzman MD Unavailable Suresh Mcclellan Primary Care Provid er Daniela Bazan MD Unavailable Luke Ross MD Unavailable Encounter Details Date Type Department Care Team (Late st Contact Info) Description 12/09/2020 Procedure Pass [facility] Imaging Department, [facility] [place] [address] [facility] [place] [address] Social History Tobacco Use Types Packs/Day Years Used Date Smoking Tobacco: Never Smokeless Tobacco: Never Sex and Gender Information Value Date Recorded Sex Assigned at Male 10/10/2019 11:34 PM EDT Legal Sex Male 3:02 PM EDT Gender Identity Male 10/10/2019 11:34 PM EDT Sexual Orientation Straight 10/10/2019 11 :34 PM EDT documented as of this encounter Plan of Treatment Upcoming Encounters Date Type Department Care Team (Late st Contact Info) Description 01/30/2025 11:45 AM EST Blood Draw [facility] Imaging Department, [facility], Imaging Imavy[facility] [address] [facility] [place] [address] Melany Davey MD [address] [place] [id number] [email or web address] 01/30/2025 1:45 PM EST Appointment Formerly [facility] Imaging Department, [facility], PET/CT [address] [place] [address] Melany Davey MD [address] [place] [id number] [email or web address] 01/31/2025 11:30 AM EST Office [facility], [address] [place] [address] Alida Mancilla MD [address] [place] [address] [place] [phone] [email or web address] 01/31/2025 12:00 PM EST Office Visit [facility], [address] [place] [address] Melany Davey MD [address] [place] [phone] [email or web address] documented as of this encounter Visit Diagnoses Not on filedocumented in this encounter Care Teams Fluid Designer Relationship Specialty Start Date End Date Suresh Mcclellan PA [address] [place] [address] PCP - General Unknown Provider Specialty 10/30/20 Self-Referred, Patient Referring Physician 06/07/19 Lillian Muñiz LICSW [address] [place] [id number] [email or web address] Certified Nurses Aide 06/20/19 Jannie Simeon MD [address] [place] [address] [email or web address] Radiation Oncology 10/19/19 [place] [address] [place] [address] Hematology/[place] [address] [email or web address] Hematology 01/18/20 Daniela Bazan MD [address] [address] [email or web address] Medical Student 11/05/20 Luke Ross MD [address] Janeen Abdullahi [address] [place] [address] Otolaryngology 03/04/23 documented as of this encounter Additional Source Comments The information contained in this document represents components of the legal health record. It is not the complete legal health record.[facility]
--- OUTSIDE RECORDS SUMMARY | 2024-11-13 13:43 | XMS_ITS | Encounter Summary ---
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
--- OUTSIDE RECORDS SUMMARY | 2024-11-13 13:43 | XMS_ITS | Encounter Summary ---
Author Organization [facility] Address [facility] [place] [address] Care Team Providers Care Literacy Teacher Name Role Phone Suresh Mcclellan PA-C Primary Care Provider [phone] Encounter Details Date Type Department Care Team Description 09/22/2021 Planisher Report Medical Records [address] [place], [place] [address] [place] Social History Tobacco Use Types Packs/Day Years [...] on filedocumented in this encounter Care Teams Literacy Teacher Relationship Specialty Start Date End Date Suresh Mcclellan PA-C [address] [place], [place] [phone] PCP - General Internal Medicine 06/06/20 documented as of this encounter
--- OUTSIDE RECORDS SUMMARY | 2024-11-13 13:43 | XMS_ITS | Clinical Summary ---
Author Organization [facility] Address [address] [facility] [address] [place] [address] Phone Care Team Providers Care Conference Director Name Role Phone Self-Referred, Patient Unavailable Unavailab Lillian Cho [facility] Unavailable Janine Simeon MD Unavailable Herman Guzman MD Unavailable Suresh Mcclellan Primary Care Provid er Daniela Bazan MD Unavailable Luke Ross MD Unavailable Allergies Active Allergy Reactions Criticality Noted Date Comments Azithromycin Hives 01/10/2020 Celecoxib Anaphylaxis High 06/14/2019 Sulfa (Sulfonamide Antibiotics) Anaphylaxis High Medications citalopram (CELEXA) 10 MG tablet Take 10 mg by mouth daily. Active fexofenadine (LETICIA) 180 MG tablet Take 180 mg by mouth daily. Active fluticasone propionate (FLONASE) 50 mcg/actuation nasal spray 1 spray by Nasal route daily. Active triamcinolone acetonide 0.1 % cream Apply topically to affected areas of skin twice daily for no more than 2 weeks per month. Avoid eyes and areas with thin skin. 80 g 1 0 Active clindamycin (CLEOCIN T) 1 % lotion Apply topically 2 (two) times a day. 60 mL 6 2 Active ketoconazole 2 % cream APPLY TOPICALLY DAILY NEEDED FOR RASHES IN BODY FOLDS AND GROIN AREA 60 g 11 3 Active clobetasol (TEMOVATE) 0.05 % ointment Apply topically 2 (two) times a day. As needed for itchy bug bites. For flares of rash on TRUNK/EXTREMIT IES up to 2weeks/month. Avoid face, genitals, armpits. 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 (Primary Dx) 08/16/2024 9:00 AM EDT Office Visit [facility], [address], [address] [place] [address] Lexis Tapia MD Scottie cell carcinoma (Primary Dx); Abnormal findings on imaging test; Seborrheic keratosis; Actinic keratosis; Lentigines; Melanocytic nevi of trunk 08/16/2024 Orders Only [facility], [address], [address] [place] [address] Melany Davey MD Rochester cell carcinoma (Primary Dx) 08/16/2024 Orders Only Nursing Services [address], [address] [place] [address] Melany Davey MD 08/15/2024 12:13 PM EDT - 08/15/2024 11:59 PM EDT Hospital Encounter [facility] Imaging Department, [facility], PET/CT [address] [place] [address] Melany Davey MD Discharge Disposition: Home or Self Care from Last 3 Months Social History Tobacco Use Types Packs/Day Years [...] Orientation Straight 10/10/2019 11 :34 PM EDT Last Filed Vital Signs Vital Sign Reading [...] Mass Index 34.31 11/08/2024 10:11 AM EDT Plan of Treatment Upcoming Encounters Date Type Department Care Team (Late st Contact Info) Description 01/30/2025 11:45 AM EST Blood [facility] Imaging [facility], [facility], Imaging Hjdrv-ar-Novy [address] [place] [address], Floor [address] [place] [address] Melany Davey MD [address] [place] [id number] [email or web address] 01/30/2025 1:45 PM EST Appointment [facility] Imaging Department, [facility], PET/CT [address] [place] [address] Melany Davey MD [address] [place] [phone] [email or web address] 01/31/2025 11:30 AM EST Office Visit [facility], [address], 5th [place] [address] Alida Mancilla MD [address] [place] [address] [address] [place] [address] [email or web address] 01/31/2025 12:00 PM EST Office Visit [facility], [facility] [address] [facility], [address] [place] [address] Melany Davey MD [address] [place] [address] [email or web address] Health Maintenance Due Date Last Done Comments DEPRESSION SCREENING 1964 HEPATITIS C SCREENING 1970 COLOGUARD 1997 COLONOSCOPY 1997 COLORECTAL CANCER SCREENING 1997 FIT TEST 1997 FOBT 1997 SIGMOIDOSCOPY 1997 VIRTUAL COLONOSCOPY 1997 ZOSTER VACCINES (1 of 2) 01/16/2013 11/21/2012 Adult Td,Tdap Booster 05/23/2023 05/22/2013, 002 COVID-19 VACCINE (2023- season) 2023 03/02/2021, 06/14/2020, 05/24/2020 INFLUENZA VACCINE (#1) 2024 , 12/05/2023, 11/29/2022, Additional history exists RSV VACCINE (1 - 1-dose 75+ series) 09/20/2027 LIPID PANEL 12/04/2028 12/05/2023, 02/18, 06/30/2022, Additional history exists PNEUMOCOCCAL VACCINES (50+ years) Completed 12/26/2018, 12/06/2017 SMOKING STATUS SCREENING (Once After 26 Yrs) Completed 02/10/2021 HEPATITIS A VACCINES Aged Out No long er eligible based on patient's age to complete this topic HIB VACCINES Aged Out No longer eligi ble based on patient's age to complete this topic MENINGOCOCCAL VACCINES (ACWY) Aged Out No longer eligible based on patient's age to complete this topic MENINGOCOCCAL VACCINES (B) Aged Out N o longer eligible based on patient's age to complete this topic Medical Devices Not on file Procedures Procedure Name Priority Date/Time Associated Diagnosis Comments NM PET CT SCALP TO TOES Routine 11/07/2024 1:55 PM EDT 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 POCT GLUCOSE Routine 11/07/2024 12:31 PM EDT FREE T4 Routine 11/07/2024 12:16 PM EDT Scottie cell carcinoma TSH Routine 11/07/2024 12:16 PM EDT Rochester cell carcinoma COMPREHENSIVE METABOLIC PANEL Routine 11/07/2024 12:16 PM EDT Rochester cell carcinoma HC BLOOD COUNT COMPLETE AUTO&AUTO DIFRNTL WBC Routine 11/07/2024 12:16 PM EDT Rochester cell carcinoma NM PET CT SCALP TO TOES Routine 08/15/2024 1:58 PM EDT 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 POCT GLUCOSE Routine 08/15/2024 12:28 PM EDT MRD AZALEA FOLLOW-UP Routine 08/15/2024 12:10 PM EDT 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 HC DFCI ONC SCOTTIE CELL CARC DETCJ ANTB SERUM PABLO Routine 08/15/2024 12:10 PM EDT 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 Inflammation of the liver and spleen is possible, possiblyrepresenting a delayed immunotherapy related adverse event after treatmentcessation. Clinical correlation is recommended. There is no definite evidence of FDG-avid [place] cell carcinoma. ATTESTATION: I, Sen Coon, as teaching physician have reviewedthe images, if any, for this patient's exam, and if necessary, have editedthe report originally created by Elizabeth Nguyen. Melany Davey MD IMG NM PET Final Result * POCT Glucose (11/07/2024 12:31 PM EDT) Only the most recent of2 resultswithin the time period is included. Pathologist [facility] WHOLE BLOOD GLUCOSE 91 70 - 110 mg/dL [facility] LIC# [id number] 11/07/2024 12:3 1 PM EDT 11/07/2024 12:32 PM EDT Melany Davey MD POINT OF CARE TEST ORDERABLES Fi nal Result [facility] LIC# [id number] [address] [place] [address] * (ABNORMAL) Comprehensive metabolic panel (11/07/2024 12:16 PM EDT) Pathologist [facility] SODIUM 132(L) 136 - 145 mmol/L [facility] LIC# [id number] POTASSIUM 4.4 3.4 - 5.1 mmol/L [facility] LIC# [id number] CHLORIDE 97(L) 98 - 107 mmol/L [facility] LIC# [id number] CO2 25 22 - 31 mmol/L [facility] LIC# [id number] BUN 21 6 - 23 mg/dL [facility] LIC# [id number] CREATININE 1.32(H) 0.50 - 1.20 mg/dL [facility] LIC# [id number] GLUCOSE 89 70 - 100 mg/dL [facility] LIC# [id number] ALBUMIN 4.0 3.5 - 5.2 g/dL [facility] LIC# [id number] TOTAL PROTEIN 8.5(H) 6.4 - 8.3 g/dL [facility] LIC# [id number] CALCIUM 9.9 8.8 - 10.7 mg/dL [facility] LIC# [id number] ALKALINE PHOSPHATASE 111 40 - 129 U/L [facility] LIC# [id number] TOTAL BILIRUBIN 0.6 0.2 - 1.2 mg/dL [facility] LIC# [id number] AST 42(H) <41 U/L [facility] LIC# [id number] ALT 17 <42 U/L [facility] LIC# [id number] GLOBULIN 4.5(H) 2.3 - 4.2 g/dL [facility] LIC# [id number] EGFR 57(L) >59 mL/min/1.7 3m2 [facility] LIC# [id number] Comment:Estimated glomerular filtration rate calculated using the CKD-EPI refit equation. ANION GAP 10 7 - 17 mmol/L [facility] LIC# [id number] Blood 11/07/2024 12:1 6 PM EDT 11/07/2024 12:45 PM EDT us Melany Davey MD LAB BLOOD ORDERABLES Final Resul t [facility] LIC# [id number] [address] [place] [address] * (ABNORMAL) CBC and differential (11/07/2024 12:16 PM EDT) WBC 5.99 4.00 - 10.00 K/uL [facility] LIC# [id number] RBC 4.57 4.50 - 6.40 M/uL [facility] LIC# [id number] HGB 13.8 13.5 - 18.0 g/dL [facility] LIC# [id number] HCT 40.9 40.0 - 54.0 % [facility] LIC# [id number] PLT 175 150 - 450 K/uL [facility] LIC# [id number] MCV 89.5 80.0 - 100.0 fL [facility] LIC# [id number] MCH 30.2 27.0 - 32.0 pg [facility] LIC# [id number] MCHC 33.7 32.0 - 36.0 g/dL [facility] LIC# [id number] RDW 13.2 11.5 - 14.5 % [facility] LIC# [id number] MPV 9.6 8.4 - 12.0 fL [facility] LIC# [id number] NRBC 0.00 0 /100 WBCs [facility] LIC# [id number] ABSOLUTE NRBC 0.00 0 K/uL [facility] LIC# [id number] DIFF [employer] [facility] LIC# [id number] NEUTS 69.6 48.0 - 76.0 % [facility] LIC# [id number] LYMPHS 12.4(L) 18.0 - 41.0 % [facility] LIC# [id number] MONOS 13.0(H) 4.0 - 11.0 % [facility] LIC# [id number] EOS 4.0 0.0 - 5.0 % [facility] LIC# [id number] BASOS 0.8 0.0 - 1.5 % [facility] LIC# [id number] % IMMATURE GRANS 0.2 0.0 - 1.0 % [facility] LIC# [id number] ABSOLUTE NEUTS 4.17 1.92 - 7.60 K/uL [facility] LIC# [id number] ABSOLUTE LYMPHS 0.74 0.72 - 4.10 K/uL [facility] LIC# [id number] ABSOLUTE MONOS 0.78 0.16 - 1.10 K/uL [facility] LIC# [id number] ABSOLUTE EOS 0.24 0.00 - 0.50 K/uL [facility] LIC# [id number] ABSOLUTE BASOS 0.05 0.00 - 0.15 K/uL [facility] LIC# [id number] ABS IMMATURE GRANS 0.01 0.00 - 0.10 K/uL [facility] LIC# [id number] Blood 11/07/2024 12:1 6 PM EDT 11/07/2024 12:45 PM EDT Melany Davey MD LAB BLOOD ORDERABLES Final Resul t Performing Organization Address [facility] Co de Phone Number [facility] LIC# [id number] [address] [place] [address] * TSH (11/07/2024 12:16 PM EDT) TSH 1.44 0.27 - 4.20 uIU/mL [facility] LIC# [id number] Blood 11/07/2024 12:1 6 PM EDT 11/07/2024 12:45 PM EDT Melany Davey MD LAB BLOOD ORDERABLES Final Resul t Performing Organization Address [facility] Co de Phone Number [facility] LIC# [id number] [address] [place] [address] * Free T4 (11/07/2024 12:16 PM EDT) FREE T4 1.4 0.9 - 1.7 ng/dL [facility] LIC# [id number] Blood 11/07/2024 12:1 6 PM EDT 11/07/2024 12:45 PM EDT Melany Davey MD LAB BLOOD ORDERABLES Final Resul t Performing Organization Address [facility] Co de Phone Number [facility] LIC# [id number] [address] [place] [address] * NM PET CT Scalp to Toes (08/15/2024 1:58 PM EDT) Anatomical Region Laterality Modality Computed Tomogra phy Other 08/15/2024 2:51 PM EDT Impressions 08/15/2024 4:42 PM EDT 1. Three new moderately to intensely FDG [...] for further evaluation given its large size. ATTESTATION: Jose Botello, as teaching physician have reviewed the images, if any, for this patient's exam, and if necessary, have edited the report originally created by Saskia Rodriguez. Narrative 08/15/2024 4:42 PM EDT Reason for exam (per EHR order): *Skin cancer, assess treatment response; The primary tumor is located on Additional clinical information obtained from the EHR: 73-year-old male. 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 Recent radiation to the right groin (01/2024). Subsequent treatment strategy. TECHNIQUE: Radiopharmaceutical: F-18-FDG. Dose: 9.95 mCi. Blood glucose: 101 mg/dL. TECHNIQUE: At 64 minutes following IV tracer administration via a left antecubital fossa vein, positron emission tomography was performed from the vertex of the skull through the toes. Non-contrast low-dose helical CT imaging was performed over the same range without breath-hold for attenuation correction of PET images and anatomic correlation. COMPARISON: FDG PET/CT 04/18/2024 and 01/04/2024. FINDINGS: HEAD AND NECK: Similar large left thyroid lobe nodule replacing the left lobe and extending into the superior mediastinum with mild displacement of the trachea and the esophagus, shows similar diffuse low-level FDG uptake (image 113). Atherosclerotic calcifications in the left carotid system. CHEST: Ports and devices: None. Lungs/Pleura: Similar biapical pleural parenchymal scarring. Similar size and mild FDG avidity of multifocal pulmonary consolidations, along the right apical segment, middle lobe, lingular segment, and bilateral lower lobes. These are likely a combination of scar and atelectasis. These are partially associated with adjacent pleural thickening with mild uptake. Lymph Nodes: No abnormal FDG uptake. Status post right axillary lymph node dissection. Mediastinum: Small hiatal hernia, with associated tracer uptake at the gastroesophageal junction, likely inflammatory. Coronary artery calcifications. Aortic valve and thoracic aortic calcifications. Breasts/Chest Wall: No abnormal FDG uptake. ABDOMEN/PELVIS: Liver/biliary system: No abnormal FDG uptake. Pancreas: No abnormal FDG uptake. Spleen: There are three new foci of uptake. Two new intensely FDG avid lesions with soft tissue attenuation are seen in the anterior portion of the spleen (SUV max 14.9, image 192) and in the posteromedial portion of the spleen (SUV max 9.2, image 192). A third focus with milder in uptake is moderately FDG avid (SUV max 4.0, image 197) and is located in the lateral middle portion of the spleen. Adrenal Glands: No abnormal FDG uptake. Kidneys: No abnormal FDG uptake. Bowel: No abnormal FDG uptake. Mesentery, Omentum and Peritoneum: No abnormal FDG uptake. Pelvis Organs: Similar nonspecific diffuse mildly FDG avid uptake in the prostate, likely benign inflammation. Lymph Nodes: Further interval decrease in mild FDG uptake involving the 2 small lymph nodes in the right inguinal region, currently below blood pool uptake. For example, the largest measures 1.6 x 0.9 cm with SUV max 1.8 on image 311 versus 1.5 x 1.3 cm with SUV max 2.3 previously. MUSCULOSKELETAL/LOWER EXTREMITIES: Sclerotic changes in the right humeral head with mild FDG uptake, most likely represent treated disease. Relative photopenia along the cervical and upper thoracic spine, likely related to prior radiation. Multilevel degenerative changes of the spine. Procedure Note Jose Beltran MD - 08/15/2024 Reason for exam (per EHR order): *Skin cancer, assess treatment response;The primary tumor is located on Additional clinical information obtained from the EHR: 73-year-old male.History of metastatic right forearm Ayesha cell carcinoma status postresection and adjuvant radiation therapy to the left neck and rightnasopharynx and under Pembrolizumab. Recent radiation to the right groin(01/2024). Subsequent treatment strategy. TECHNIQUE: Radiopharmaceutical: F-18-FDG. Dose: 9.95 mCi. Blood glucose: 101 mg/dL. TECHNIQUE: At 64 minutes following IV tracer administration via a leftantecubital fossa vein, positron emission tomography was performed fromthe vertex of the skull through the toes. Non-contrast low-dose helical CTimaging was performed over the same range without breath-hold forattenuation correction of PET images and anatomic correlation. COMPARISON: FDG PET/CT 04/18/2024 and 01/04/2024. FINDINGS: HEAD AND NECK: Similar large left thyroid lobe nodule replacing the leftlobe and extending into the superior mediastinum with mild displacement ofthe trachea and the esophagus, shows similar diffuse low-level FDG uptake(image 113). Atherosclerotic calcifications in the left carotid system. CHEST: Ports and devices: None. Lungs/Pleura: Similar biapical pleural parenchymal scarring. Similar size and mild FDG avidity of multifocal pulmonary consolidations,along the right apical segment, middle lobe, lingular segment, andbilateral lower lobes. These are likely a combination of scar andatelectasis. These are partially associated with adjacent pleuralthickening with mild uptake. Lymph Nodes: No abnormal FDG uptake. Status post right axillary lymph nodedissection. Mediastinum: Small hiatal hernia, with associated tracer uptake at thegastroesophageal junction, likely inflammatory. Coronary arterycalcifications. Aortic valve and thoracic aortic calcifications. Breasts/Chest Wall: No abnormal FDG uptake. ABDOMEN/PELVIS: Liver/biliary system: No abnormal FDG uptake. Pancreas: No abnormal FDG uptake. Spleen: There are three new foci of uptake. Two new intensely FDG avidlesions with soft tissue attenuation are seen in the anterior portion ofthe spleen (SUV max 14.9, image 192) and in the posteromedial portion ofthe spleen (SUV max 9.2, image 192). A third focus with milder in uptakeis moderately FDG avid (SUV max 4.0, image 197) and is located in thelateral middle portion of the spleen. Adrenal Glands: No abnormal FDG uptake. Kidneys: No abnormal FDG uptake. Bowel: No abnormal FDG uptake. Mesentery, Omentum and Peritoneum: No abnormal FDG uptake. Pelvis Organs: Similar nonspecific diffuse mildly FDG avid uptake in theprostate, likely benign inflammation. Lymph Nodes: Further interval decrease in mild FDG uptake involving the 2small lymph nodes in the right inguinal region, currently below blood pooluptake. For example, the largest measures 1.6 x 0.9 cm with SUV max 1.8 onimage 311 versus 1.5 x 1.3 cm with SUV max 2.3 previously. MUSCULOSKELETAL/LOWER EXTREMITIES: Sclerotic changes in the right humeral head with mild FDG uptake, mostlikely represent treated disease. Relative photopenia along the cervical and upper thoracic spine, likelyrelated to prior radiation. Multilevel degenerative changes of the spine. IMPRESSION: 1. Three new moderately to intensely FDG avid lesions in the spleen asdescribed. Metastases are atypical in this region but cannot be formallyexcluded in the current clinical context. A lymphoproliferative disorderis also in the differential diagnosis. Histopathological correlation isrecommended. 2. Further interval decrease in FDG uptake involving the 2 small rightinguinal lymph nodes, currently below blood pool uptake, consistent withtreated disease. 3. Persistent large nodule in the left lobe of the thyroid gland.Consider sonography for further evaluation given its large size. ATTESTATION: I, Jose Beltran, as teaching physician have reviewed theimages, if any, for this patient's exam, and if necessary, have edited thereport originally created by Saskia Rodriguez. Melany Davey MD [facility] NM PET Final Result * Scottie cell antibody (08/15/2024 12:10 PM EDT) SCOTTIE CELL ANTIBODY SEE MANUAL REPORT [facility] LIC# [id number] Blood 08/15/2024 12:1 0 PM EDT 08/15/2024 12:37 PM EDT Melany Davey MD LAB BLOOD ORDERABLES Final Resul t [facility] LIC# [id number] [address] [place] [address] * ONC Azalea Follow-up (08/15/2024 12:10 PM EDT) Streck Tube RESULTS SCANNED UNDER MEDIA TAB IN [facility] LIC# [id number] Streck Tube RESULTS SCANNED UNDER MEDIA TAB IN [facility] LIC# [id number] Blood 08/15/2024 12:1 0 PM EDT 08/15/2024 12:37 PM EDT Melany Davey MD LAB BLOOD ORDERABLES Final Resul t [facility] LIC# [id number] [address] [place] [address] * Signatera only (08/15/2024) Signatera Test Result NEGATIVE AZALEA Signatera MTM Readout 0 AZALEA Comment: A full complement of 16 bespoke assays could not be designed from this particular tumor section. Testing with less than 16 assays may decrease clinical sensitivity. Limitations Signatera is a personalized, tumor-informed test for the longitudinal detection of circulating tumor DNA (ctDNA). Interval testing is recommended for all patients. Studies have demonstrated that when ctDNA is detected (Signatera Positive) following surgery or definitive treatment, the risk for disease relapse is high without further treatment. Conversely, when ctDNA is not detected, the patient may be considered at lower risk for relapse. For those with multiple timepoints, upward trending ctDNA levels are suggestive of increasing tumor burden (1,2). For a single time point in isolation, the absolute MTM/mL value has no known clinical significance and should not be compared across patients. Test results should be interpreted in context of other clinicopathological features. ctDNA detection sensitivity may be limited due to blood collection within two weeks of surgery and while the patient is on therapy. Signatera is a quantitative test and reports in units of mean tumor molecules per ml (MTM/mL), which is comprised of three measured components (plasma volume, cell free DNA (cfDNA) concentration, and Variant Allele Frequency (VAF)). The MTM/mL number will be qualified if any measured component falls outside the analytical measurement range for that component. The analytical sensitivity is 95% at the limit of detection (0.3 MTM/mL). Results obtained are specific to the assessed time point. A negative test result does not definitively indicate the absence of cancer. This test is not designed to detect or report germline variation, nor does it infer hereditary cancer risk for the patient. Each Signatera assay is designed to a single tumor for a given patient. At this time, multiple personalized Signatera assays cannot be developed for the same patient. This test is designed to detect ctDNA from the assayed tumor only; new primary tumors will not be detected. There is a low risk that a new primary may share a variant that could interfere with the Signatera test. Testing cannot be performed in patients who are , have a history of bone marrow transplant, or history of blood transfusion within three months. This test is expected to have limited sensitivity in cancer types such as GIST, renal cell carcinomas, primary brain tumors, and lymphoma due to limited ctDNA shed. 1 Chaparro SV, Freddy SERRANOC, Ni HUIZAR, et al. Personalized circulating tumor DNA analysis as a predictive biomarker in solid tumor patients treated with pembrolizumab. Nature Cancer. 2020;1(9):873-881. 2 Carrie TV, Jhonatan Solis, et al., Circulating Tumor DNA in Stage III Colorectal Cancer, beyond Minimal Residual Disease Detection, toward Assessment of Adjuvant Therapy Efficacy and Clinical Behavior of Recurrences. Clin Cancer Res. 202; 28(3):507-517. Methodology FFPE samples are assessed by a pathologist to identify tumor margins and percent tumor content. Tumor DNA is extracted using Qiagen AllPrep. Whole genomic DNA is isolated from peripheral blood using QIAamp DNA Blood Mini Kit to provide a baseline DNA sequence. Circulating tumor DNA (ctDNA) is extracted from plasma derived from whole blood samples collected in cell-free DNA blood tubes (QualQuant Signals) using the QIAsymphony automated or manual extraction method (Qiagen). Using a proprietary algorithm, putative, clonal variants present in the tumor but absent in the germline DNA are identified to design the customized multiplex PCR assay. Whole-exome sequencing is performed on tumor and peripheral blood DNA using the proprietary [employer] whole-exome sequencing assay. Pathology services are performed at [facility], [address] [place] [address] A, [address], and whole exome sequencing is performed at [employer] (CLIA ID# [id number]), [address] [place] [address], [place]. Disclaimer The extraction, library preparation, and sequencing for this test were performed by [employer] [address], [place] [address] (CLIA ID [id number]). The data analysis and reporting for this test were performed by [employer] [address], [place] [address] (CLIA ID [id number]). This test was developed and its performance characteristics determined by [employer]. The test has not been cleared or approved by the U.S. Food and Drug Administration (FDA). CAP accredited, ISO 00052 certified, and CLIA certified. Pathology services and whole exome sequencing for this test were performed by [employer] (CLIA ID # [id number]), [address] [place] [address]. 2020 [employer]. All Rights Reserved. 08/15/2024 Melany Davey MD LAB BLOOD ORDERABLES Final Resul t [facility] [address] [place] [address], [facility] [phone] from Last 3 Months Insurance MEDICARE PART A & B [facility] MEDICARE SUPPLEMENT MEDICARE PART A & B [facility] MEDICARE SUPPLEMENT MEDICARE PART A & B [facility] EXTENSION MEDICARE SUPPLEMENT MEDICARE PART A & B [facility] EX[facility]ION MEDICARE SUPPLEMENT MEDICARE PART A & B [facility] EX[facility]ION MEDICARE SUPPLEMENT MEDICARE PART A & B [facility] MEDICARE SUPPLEMENT MEDICARE PART A & B [employer] MEDICARE SUPPLEMENT MEDICARE PART A & B [employer] EXTENSION MEDICARE SUPPLEMENT MEDICARE PART A & B Member Subscriber Plan / Payer ( fective 2017-Present) Name:Hernandez Boss Member ID:[id number] Relation to Subscriber:Self Name:Hernandez Boss Subscriber ID:[id number] Payer ID:[id number] Group ID:Not on file Type:Medicare Address: [facility] [address] [place] [phone] [facility] EXTENSION MEDICARE SUPPLEMENT Care Teams Conference Director Relationship Specialty Start Date End Date Suresh Mcclellan PA [address] [place] [phone] PCP - General Unknown Provider Specialty 10/30/20 Self-Referred, Patient Referring Physician 06/07/19 Lillian Muñiz LICSW [address] [place] [address] [email or web address] .[facility] Labor Economics Teacher 06/20/19 Janine Simeon MD [address] [place] [address] [email or web address] Radiation Oncology 10/19/19 Herman Guzman MD [address] [facility] Hematology/[place] [address] [email or web address] Hematology 01/18/20 Daniela Bazan MD [address] [id number] [place] [address] [email or web address] Medical Student 11/05/20 Luek Ross MD 15 Janeen Abdullahi [address] [place] [address] Otolaryngology 03/04/23 Additional Source Comments The information contained in this document represents components of the legal health record. It is not the complete legal health record.[facility]
--- OUTSIDE RECORDS SUMMARY | 2024-11-13 13:43 | XMS_ITS | Encounter Summary ---
Author Organization [facility] Address [facility] [place] [address] Care Team Providers Care Tactical/Mobile Watch Officer Name Role Phone Suresh Mcclellan PA-C Primary Care Provider [phone] Encounter Details Date Type Department Care Team Description 09/01/2021 Nylon Mender Report Medical Records [address] [place] [address] Herman Guzman MD Social History Tobacco Use [...] Start Date End Date Suresh Mcclellan PA-C [address] [place] [address] [phone] PCP - General Internal Medicine 06/06/20 documented as of this encounter
--- OUTSIDE RECORDS SUMMARY | 2024-11-13 13:43 | XMS_ITS | Encounter Summary ---
Author Organization [facility] Address [address] [facility] [address] [place] [address] Phone Care Team Providers Care Power Press Tender Name Role Phone Self-Referred, Patient Unavailable Unavailab Lillian Cho [facility] Unavailable [phone] Janine Simeon MD Unavailable [phone] Herman Guzman MD Unavailable Suresh Mcclellan Primary Care Provid er Daniela Bazan MD Unavailable Luke Ross MD Unavailable Encounter Details Date Type Department Care Team (Late st Contact Info) Description 12/09/2020 Procedure Pass [facility] Imaging Department, [facility] Cancer [place], [place] [address] [facility], Floor L1 [place] [address] Social History Tobacco Use Types Packs/Day Years [...] Description 01/30/2025 11:45 AM EST Blood Draw [facility] Imaging Department, [facility], Imaging Uxyqa-zz-Obnh [address] [facility], Floor [address]1 [place] [address] Melany Davey MD [address] [place] [phone] Sharif@[facility] 01/30/2025 1:45 PM EST Appointment [facility] Imaging Department, [facility], PET/CT [address] [place] [address] Melany Davey MD [address] [place] [phone] Sharif@[facility] 01/31/2025 11:30 AM EST Office [facility], [address], [address] [place] [address] Alida aMncilla MD [address] [place] [address] [place] [address] [email or web address] 01/31/2025 12:00 PM EST Office Visit [facility], [address], [address] [place] [address] Melany Davey MD [address] [place] [phone] Sharif@[facility] documented as of this encounter Visit Diagnoses Not on filedocumented in this encounter Care Teams Power Press Tender Relationship Specialty Start Date End Date Suresh Mcclellan PA [address] [place] [address] PCP - General Unknown Provider Specialty 10/30/20 Self-Referred, Patient Referring Physician 06/07/19 Lillian Muñiz LICSW [address] [place] [address] [email or web address] .[facility] Corporate Vp Advertising & Online 06/20/19 Janine Simeon MD [address] [place] [address] [email or web address] Radiation Oncology 10/19/19 [place] [address] [place] [address] Hematology/[place] [address] [email or web address] Hematology 01/18/20 Daniela Bazan MD [address] [address] [email or web address] Medical Student 11/05/20 Luke Ross MD 15 Janeen Abdullahi [address] [place] [address] Otolaryngology 03/04/23 documented as of this encounter Additional Source Comments The information contained in this document represents components of the legal health record. It is not the complete legal health record.[facility]
--- OUTSIDE RECORDS SUMMARY | 2024-11-13 13:43 | XMS_ITS | Encounter Summary ---
Author Organization [facility] Address [facility] [place] [address] Care Team Providers Care Valve Setter Name Role Phone Suresh Mcclellan PA-C Primary Care Provider [phone] Encounter Details Date Type Department Care Team Description 05/27/2021 Home Paraprofessional Report Medical Records [address] [place], [place] [address] [place] Social History Tobacco Use Types Packs/Day Years Used Date Smoking Tobacco: Never Smokeless Tobacco: Never Alcohol Use Standard Drinks/Week Comments Yes 0 (1 standard drink = 0.6 oz pur e alcohol) occ use Sex Assigned at Date Recorded Not on file Job Start Date Occupation Industry Not on file Not on file Not on file COVID-19 Exposure Response Date Recorded In the last month, have you been in contact with someone who was confirmed or suspected to have Coronavirus / COVID-19? No / Unsure 05/19/2021 2:52 PM EST documented as of this encounter Plan of Treatment Not on file documented as of this encounter Visit Diagnoses Not on filedocumented in this encounter Care Teams Valve Setter Relationship Specialty Start Date End Date Suresh Mcclellan PA-C [address] [place], [place] [phone] PCP - General Internal Medicine 06/06/20 documented as of this encounter
--- OUTSIDE RECORDS SUMMARY | 2024-11-13 13:43 | XMS_ITS | Encounter Summary ---
Author Organization [facility] Address [address] [facility] [address] [place] [address] Phone Care Team Providers Care Clammer Name Role Phone Self-Referred, Patient Unavailable Unavailab Lillian Cho [facility] Unavailable Janine Simeon MD Unavailable Herman Guzman MD Unavailable Suresh Mcclellan Primary Care Provid er Daniela Bazan MD Unavailable Luke Ross MD Unavailable Encounter Details Date Type Department Care Team (Late st Contact Info) Description 11/08/2024 Orders Only [facility], [facility] [place] [address] [facility], 5th [place] [address] Melany Davey MD 450 [place] [address] [email or web address] Scottie cell carcinoma (Primary Dx) Social History [...] Description 01/30/2025 11:45 AM EST Blood Draw [facility] Imaging Department, [facility], Imaging Qkbvu-ak-Kzts [address] [facility], Floor L1 [place] [address] Melany Davey MD [address] [place] [address] [email or web address]@[facility] 01/30/2025 1:45 PM EST Appointment [facility] Imaging Department, [facility], PET/CT 450 [place] [address] Melany Davey MD [address] [place] [phone] [email or web address]@[facility] 01/31/2025 11:30 AM EST Office Visit [facility], [address], [address] [place] [address] Alida Mancilla MD [address] [place] [address] [place] [address] [email or web address] 01/31/2025 12:00 PM EST Office Visit [facility], [address], [address] [place] [address] Melany Davey MD [address] [place] [address] [email or web address] Scheduled Orders Name Type Priority Associated Diagnoses Orde r Schedule TSH Lab Routine 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, Expires: 11/08/2025 Free T4 Lab Routine Scottie cell carcinoma Expected: 11/08/2024, Expires: 11/08/2025 documented as of this encounter Visit Diagnoses Diagnosis 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 documented in this encounter Care Teams Clammer Relationship Specialty Start Date End Date Suresh Mcclellan PA [address] [place] [address] PCP - General Unknown Provider Specialty 10/30/20 Self-Referred, Patient Referring Physician 06/07/19 Lillian Muñiz LICSW [address] [place] [address] Moo@[email or web address] Comb Setter 06/20/19 Janine Simeon MD [address] [place] [address] [email or web address] Radiation Oncology 10/19/19 Herman Guzman MD [address] [place] [address] Hematology/[place] [address] [email or web address] Hematology 01/18/20 Daniela Bazan MD [address] [facility] [address] [place] [address] [email or web address] Medical Student 11/05/20 Luke Ross MD 15 Janeen Abdullahi [address] [place] [address] Otolaryngology 03/04/23 documented as of this encounter Additional Source Comments The information contained in this document represents components of the legal health record. It is not the complete legal health record.[facility]
--- OUTSIDE RECORDS SUMMARY | 2024-11-13 13:43 | XMS_ITS | Encounter Summary ---
Author Organization [facility] Address [address] [facility] [address] [place] [address] Phone Care Team Providers Care Marine Electrician Helper Name Role Phone Self-Referred, Patient Unavailable Unavailab Lillian Cho [facility] Unavailable Janine Simeon MD Unavailable Herman Guzman MD Unavailable Suresh Mcclellan Primary Care Provid er Daniela Bazan MD Unavailable Luke Ross MD Unavailable [phone] Encounter Details Date Type Department Care Team (Late st Contact Info) Description 12/09/2020 Procedure Pass [facility] Imaging Department, [facility] Cancer [place], [place] [address] [facility], Floor L1 [place] [address] Social History Tobacco Use Types Packs/Day Years [...] Description 01/30/2025 11:45 AM EST Blood Draw [facility] Imaging Department, [facility], Imaging Assck-mf-Bmck [address] [facility], Floor L1 [place] [address] Melany Davey MD [address] [place] [phone] [email or web address]@[facility] 01/30/2025 1:45 PM EST Appointment [facility] Imaging Department, [facility], PET/CT [address] [place] [address] Melany Davey MD [address] [place] [phone] Sharif@[facility] 01/31/2025 11:30 AM EST Office Visit [facility], [address], [address]th [place] [address] Alida Mancilla MD [address] [place] [address] [place] [address] [email or web address] 01/31/2025 12:00 PM EST Office Visit [facility], [address], [address]th [place] [address] Melany Davey MD [address] [place] [phone] Sharif@[facility] documented as of this encounter Visit Diagnoses Not on filedocumented in this encounter Care Teams Marine Electrician Helper Relationship Specialty Start Date End Date Suresh Mcclellan PA [address] [place] [address] PCP - General Unknown Provider Specialty 10/30/20 Self-Referred, Patient Referring Physician 06/07/19 Lillian Muñiz LICSW [address] [place] [phone] [email or web address] .[facility] Glass Etcher 06/20/19 Janine Simeon MD [address] [place] [address] [email or web address] Radiation Oncology 10/19/19 [place] [address] [place] [address] Hematology/[place] [address] [email or web address] Hematology 01/18/20 Daniela Bazan MD [address] [address] JESE@[email or web address] Medical Student 11/05/20 Luke Ross MD 15 Janeen Abdullahi [address] [place] [address] Otolaryngology 03/04/23 documented as of this encounter Additional Source Comments The information contained in this document represents components of the legal health record. It is not the complete legal health record.[facility]
--- OUTSIDE RECORDS SUMMARY | 2024-11-13 13:43 | XMS_ITS | Encounter Summary ---
Author Organization [facility] Address [address] [facility] [address] [place] [address] Phone Care Team Providers Care Press Tender Short Goods Name Role Phone Self-Referred, Patient Unavailable Unavailab Lillian Cho [facility] Unavailable [phone] Janine Simeon MD Unavailable Herman Guzman MD Unavailable [phone] Suresh Mcclellan Primary Care Provid er Daniela Bazan MD Unavailable Luke Ross MD Unavailable Encounter Details Date Type Department Care Team (Late st Contact Info) Description 10/31/2020 Procedure Pass [facility] Cross Sectional Interventional Radiology [address] [place] [address] Social History Tobacco Use Types Packs/Day Years [...] 01/30/2025 11:45 AM EST Blood Draw [facility] Imaging Department, [facility] [place], Imaging Nseao-vl-Ndgj [address] [facility], Floor L1 [place] [address] Melany Davey MD [address] [place] [phone] Sharif@[facility] 01/30/2025 1:45 PM EST Appointment [facility] Imaging Department, [facility], PET/CT 450 [place] [address] Melany Davey MD [address] [place] [phone] Sharif@[facility] 01/31/2025 11:30 AM EST Office Visit [facility], [address], [address] [place] [address] Alida Mancilla MD [address] [place] [address] [place] [address] [email or web address] 01/31/2025 12:00 PM EST Office Visit [facility], [address], [address] [place] [address] Melany Davey MD [address] [place] [phone] Sharif@[facility] documented as of this encounter Visit Diagnoses Not on filedocumented in this encounter Care Teams Press Tender Short Goods Relationship Specialty Start Date End Date Suresh Mcclellan PA [address] [place] [address] PCP - General Unknown Provider Specialty 10/30/20 Self-Referred, Patient Referring Physician 06/07/19 Lillian Muñiz LICSW [address] [place] [address] Moo@[email or web address] .[facility] Rn Staffing 06/20/19 Janine Simeon MD [address] [place] [address] [email or web address] Radiation Oncology 10/19/19 Herman Guzman MD [address] [place] [address] Hematology/[place] [address] [email or web address] Hematology 01/18/20 Daniela Bazan MD [address] [place] [address] [email or web address] Medical Student 11/05/20 Luke Ross MD 15 Janeen Abdullahi [address] [place] [address] Otolaryngology 03/04/23 documented as of this encounter Additional Source Comments The information contained in this document represents components of the legal health record. It is not the complete legal health record.[facility]
--- OUTSIDE RECORDS SUMMARY | 2024-11-13 13:43 | XMS_ITS | Clinical Summary ---
Author Organization 175 [facility] Address [address] [place] [address] Phone Care Team Providers Care Legal Director Name Role Phone Suresh Mcclellan Primary Care Provider [phone] Allergies Active Allergy Reactions Criticality Noted Date [...] time each day. Active miscellaneous medical supply [facility] CPAP Historical (HISTORICAL CPAP) Inhale 9 cm into the lungs nightly. Via nasal pillows/ BHI&R, 9 cm, Inhalation, NIGHTLY Active atorvastatin (LIPITOR) 20 mg tablet TAKE ONE TABLET BY MOUTH EVERY DAY 90 tablet 5 Active chlordiazePOXID E-clidinium (LIBRAX) 5-2.5 mg per capsule Take 1 capsule by mouth 3 (three) times a day with meals. 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 9) with comorbidity ([facility] V24, [facility] V28) 12/19/2018 Hyperlipidemia 06/05/2018 Irritable bowel syndrome 11/30/2016 Neck pain 01/28/2015 Overview (12/21/2023): [facility] - 01/28/15 - 80% improved after second injection; gabapentin discussed but deferred; followup 3 months Adjustment disorder 02/13/2013 GERD (gastroesophageal reflux disease) 1 Dysplastic nevus 03/16/2010 Generalized osteoarthrosis, involving multiple s ites 05/07/2009 Panic disorder without agoraphobia 07/04/2006 Allergic rhinitis 07/19/2005 Encounters Date Type Department Care Team Description 11/09/2024 Telephone [address] [facility] [address] [place] [phone] Suresh Mcclellan PA 11/06/2024 Telephone Adult Medicine [facility] [address] [place] [phone] Suresh Mcclellan, PA 10/24/2024 8:30 AM EDT Office Visit Orthopedic Surgery [facility] [address] [phone] Ishan Riojas DPM Pain in toes of both feet (Primary Dx); Arthritis of both feet; Neuropathy due to chemotherapeutic drug ([facility] V24); Ingrown nail of fourth toe of right foot 08/22/2024 2:00 PM EDT Office Visit Orthopedic Surgery [facility] [address] [phone] Ishan Riojas DPYashira Pain in toes of both feet (Primary Dx); Arthritis of both feet; Neuropathy due to chemotherapeutic drug ([facility] V24); Ingrown right big toenail from Last 3 Months Immunizations Name Administration [...] HISTORICAL MOLE (REMOVAL OF) COLONOSCOPY 2012 PROCEDURE: [place] COLONOSCOPY FLX DX W/COLLJ SPEC WHEN PFRMD; COMMENT: no polyps OTHER SURGICAL HISTORY PROCEDURE: CHG ONC SCOTTIE CELL CARC DETCJ ANTB SERUM PABLO; COMMENT: biopsies related to scottie cell cancer OTHER SURGICAL HISTORY PROCEDURE: [place] MYRINGOTOMY ASPIR&/EUSTACHIAN TUBE NFLTJ; COMMENT: ENT in [place] 2022 Medical History Medical History Date Comments [...] nodules (left and right) - followed by [facility] endocrinology (Dr. Kat Guerrero) Scottie cell cancer (CMS/HCC V24, CMS/HCC V28) DX:Scottie cell cancer (HCC) H/O head and neck [...] AM EDT Office Visit Orthopedic Surgery - [address] [phone] Ishan Riojas, DPM [address] [place] [address] Health Maintenance Due Date Last Done Comments RSV Immunization Adult Patients (1 - Risk 60-74 years 1-dose series) 2012 Zoster Vaccines (1 of 2) 01/16/2013 11/21/2012 Falls Risk Assessment 02/26/2022 Social Influencers of Health Screening 02/26/2022 DTaP,Tdap,and Td Vaccines (4 - Td or Tdap) 05/23/2023 05/22/2013, 09/26/2001, 09/26/2001 COVID-19 Vaccine ( season) 2023 03/02/2021, 02/18/2021, 06/14/2020, Additional history exists Depression Screening 03/21/2024 12/05/2023 Influenza Vaccine (#1) 2024 , 11/29/2022, 01/18/2022, Additional history exists Medicare Annual Wellness Visit 12/04/2024 12/05/2023 Cholesterol Screening (Lipid Panel) 12/04/2028 12/05/2023, 12/05/2023 Colorectal Cancer Screening: Colonoscopy 03/31/2033 03/31/2023 Pneumococcal Vaccine: 50+ Years Completed 12/26/2018, 12/06/2017 Hepatitis C Screening Completed 07/17/2023 HIB Vaccines Aged Out No longer eligi [...] Health Maintenance Results * Depression Screening (12/05/2023) [facility] Depression Screening Abstracted [facility] Provider HEALTH MAINTENANCE Final Result * Lipid panel (12/05/2023) [facility] LDL/HDL Ratio 3 0 - 4 Triglycerides 133 0 - 150 mg/dL Cholesterol 140 0 - 200 mg/dL HDL 46 >=40 mg/dL LDL Cholesterol 68 0 - 100 mg/dL Blood Venous blood specimen / Unknown [facility] Provider LAB BLOOD ORDERABLES Aminata l Result * Hepatitis C Screening (07/17/2023) [facility] Hepatitis C Screening Abstracted [facility] Provider HEALTH MAINTENANCE Final Result * Colonoscopy (03/31/2023) [facility] Colonoscopy No Interpretation , Abstracted Anatomical Region Laterality Modality Other [facility] Provider HEALTH MAINTENANCE Final Result from Last 3 Months or Most Recently Relevant to Health Maintenance Insurance MEDICARE [employer] Care Teams Legal Director Relationship Specialty Start Date End Date Suresh Mcclellan PA [address] [place] [address] PCP - General Internal Medicine 06/06/20
--- OUTSIDE RECORDS SUMMARY | 2024-11-13 13:43 | XMS_ITS | Encounter Summary ---
Author Organization [facility] Address [address] [facility] [address] [place] [address] Phone Care Team Providers Care Patron Attendant Name Role Phone Self-Referred, Patient Unavailable Unavailab Lillian Cho [facility] Unavailable [phone] Janine Simeon MD Unavailable [phone] Herman Guzman MD Unavailable Suresh Mcclellan Primary Care Provid er Daniela Bazan MD Unavailable Luke Ross MD Unavailable Encounter Details Date Type Department Care Team (Late st Contact Info) Description 12/09/2020 Procedure Pass [facility] Imaging Department, [facility] Cancer [place], [place] [address] [facility], Floor [address]1 [place] [address] Social History Tobacco Use Types Packs/Day Years [...] 11:45 AM EST Blood Draw [facility] Imaging Department, [facility], Imaging Frulr-jo-Bhae [address] [facility], Floor [address] [place] [address] Melany Davey MD [address] [place] [phone] [email or web address] 01/30/2025 1:45 PM EST Appointment [facility] Imaging Department, [facility], PET/CT [address] [place] [address] Melany Davey MD [address] [place] [phone] [email or web address] 01/31/2025 11:30 AM EST Office [facility], [address], [address] [place] [address] Alida Mancilla MD [address] [place] [address] [place] [address] [email or web address] 01/31/2025 12:00 PM EST Office Visit [facility], [address], [address] [place] [address] Melany Davey MD [address] [place] [phone] [email or web address] documented as of this encounter Visit Diagnoses Not on filedocumented in this encounter Care Teams Patron Attendant Relationship Specialty Start Date End Date Suresh Mcclellan PA [address] [place] [address] PCP - General Unknown Provider Specialty 10/30/20 Self-Referred, Patient Referring Physician 06/07/19 Lillian Muñiz LICSW [address] [place] [address] [email or web address] Waste Picker 06/20/19 Janine Simeon MD [address] [place] [address] [email or web address] Radiation Oncology 10/19/19 [place] [address] [place] [address] Hematology/[place] [address] [email or web address] Hematology 01/18/20 Daniela Bazan MD [address] [address] [email or web address] Medical Student 11/05/20 Luke Ross MD 15 Janeen Abdullahi [address] [place] [address] Otolaryngology 03/04/23 documented as of this encounter Additional Source Comments The information contained in this document represents components of the legal health record. It is not the complete legal health record.[facility]
--- OUTSIDE RECORDS SUMMARY | 2024-11-13 13:43 | XMS_ITS | Encounter Summary ---
Author Organization [facility] Address [facility] [place] [address] Care Team Providers Care Gasfitter Name Role Phone Suresh Mcclellan PA-C Primary Care Provider [phone] Encounter Details Date Type Department Care Team Description 06/23/2021 Watch Mechanic Report Medical Records [address] [place] [address] [place] Social History Tobacco Use Types Packs/Day Years [...] on filedocumented in this encounter Care Teams Gasfitter Relationship Specialty Start Date End Date Suresh Mcclellan PA-C [address] [place] [address] [phone] PCP - General Internal Medicine 06/06/20 documented as of this encounter
--- OUTSIDE RECORDS SUMMARY | 2024-11-13 13:44 | XMS_ITS | Clinical Summary ---
Author Organization [facility] Address [address] [place] [address] Care Team Providers Care Toll Testboard Worker Name Role Phone Trae Rojas MD Primary Care Provider [phone] Allergies Active Allergy Reactions Criticality Noted Date [...] 63 06/19/2019 1:12 PM EDT Temperature 37 C (98.6 F) 06/19/2019 1:12 PM EDT Respiratory Rate - [...] Fall Risk Assessment 2017 Influenza Vaccine (#1) 2024 9, 02/28/2018, 11/30/2016, Additional history exists RSV Adult > 60+ Yrs or (1 - 1-dose 75+ series) 09/20/2027 Pneumococcal Vaccine Completed 12/26/2018, 12/07/19 18 Hepatitis B Vaccines Aged Out No long er eligible based on patient's age to complete this topic RSV Ped < 20 months Aged Out No longe r eligible based on patient's age to complete this topic Care Teams Toll Testboard Worker Relationship Specialty Start Date End Date Trae Rojas MD PCP - General Sanitation Manager 05/29/19
--- OUTSIDE RECORDS SUMMARY | 2024-11-13 13:44 | XMS_ITS | Encounter Summary ---
Author Organization [facility] Address [facility] [place] [address] Care Team Providers Care Business Risk Analyst Name Role Phone Trae Rojas MD Primary Care Provider [phone] Suresh Mcclellan PA-C Primary Care Provider [phone] Encounter Details Date Type Department Care Team Description 05/26/2020 Process Mold Technician Report Medical Records [address] [place] [address] Herman Guzman MD Social History Tobacco Use [...] or suspected to have Coronavirus / COVID-19? Unable to assess 05/12/2020 3:57 PM EST documented as of this encounter Plan of Treatment Not on file documented as of this encounter Visit Diagnoses Not on filedocumented in this encounter Care Teams Business Risk Analyst Relationship Specialty Start Date End Date Trae Rojas MD [address] [place] [address] [phone] PCP - General 11/11/01 06/05/20 Suresh Mcclellan PA-C [address] [place] [address] PCP - General Internal Medicine 06/06/20 documented as of this encounter
--- OUTSIDE RECORDS SUMMARY | 2024-11-13 13:44 | XMS_ITS | Encounter Summary ---
Author Organization [facility] Address [facility] [place] [address] Care Team Providers Care Inserting Operator Name Role Phone Trae Rojas MD Primary Care Provider [phone] Suresh Mcclellan PA-C Primary Care Provider [phone] Encounter Details Date Type Department Care Team Description 01/10/2020 Pattern Duplicator Report Medical Records [address] [place] [address] [facility] [place] Social History Tobacco Use Types Packs/Day Years [...] on filedocumented in this encounter Care Teams Inserting Operator Relationship Specialty Start Date End Date Trae Rojas MD [address] [place] [address] [phone] PCP - General 11/11/01 06/05/20 Suresh Mcclellan PA-C [address] [place] [address] [phone] PCP - General Internal Medicine 06/06/20 documented as of this encounter
--- OUTSIDE RECORDS SUMMARY | 2024-11-13 13:44 | XMS_ITS | Encounter Summary ---
Author Organization [facility] Address [address] [place] [address] Care Team Providers Care Termite Control Service Representative Name Role Phone Trae Rojas MD Primary Care Provider [phone] Suresh Mcclellan PA-C Primary Care Provider [phone] Encounter Details Date Type Department Care Team Description 05/30/2019 Telephone General Surgery - [address] [place] [phone] Nelson Webb MD [address] [place] [address] Social History Tobacco Use Types Packs/Day Years [...] encounter Miscellaneous Notes * Telephone Encounter - Anat See - 05/30/2019 4:10 PM EDT Patient called and is asking if the final patholgy is ready yet from Dr Webb. Patient had this procedure on 05/24 (exc right forearm tumor) documented in this encounter Plan of Treatment Not on file documented as of this encounter Visit Diagnoses Not on filedocumented in this encounter Care Teams Termite Control Service Representative Relationship Specialty Start Date End Date Trae Rojas MD [address] [place] [address] PCP - General 11/11/01 06/05/20 Suresh Mcclellan PA-C [address] [place] [phone] PCP - General Internal Medicine 06/06/20 documented as of this encounter
--- OUTSIDE RECORDS SUMMARY | 2024-11-13 13:44 | XMS_ITS | Encounter Summary ---
Author Organization [facility] Address [facility] [place] [address] Care Team Providers Care Research Interviewer Name Role Phone Suresh Mcclellan PA-C Primary Care Provider [phone] Encounter Details Date Type Department Care Team Description 09/25/2020 Court Recording Monitor Report Medical Records [address] [place] [address] Cindy House NP Social History Tobacco Use Types Packs/Day Years [...] on filedocumented in this encounter Care Teams Research Interviewer Relationship Specialty Start Date End Date Suresh Mcclellan PA-C [address] [place] [address] [phone] PCP - General Internal Medicine 06/06/20 documented as of this encounter
--- OUTSIDE RECORDS SUMMARY | 2024-11-13 13:44 | XMS_ITS | Encounter Summary ---
Author Organization [facility] Address [facility] [place] [address] Care Team Providers Care Auto Bench Mechanic Name Role Phone Suresh Mcclellan PA-C Primary Care Provider [phone] Encounter Details Date Type Department Care Team Description 08/07/2020 Collision Mechanic Report Medical Records [address] [place] [address] Suresh Calabrese Social History Tobacco Use Types Packs/Day Years [...] on filedocumented in this encounter Care Teams Auto Bench Mechanic Relationship Specialty Start Date End Date Suresh Mcclellan PA-C [address] [place], [place] [phone] PCP - General Internal Medicine 06/06/20 documented as of this encounter
--- OUTSIDE RECORDS SUMMARY | 2024-11-13 13:44 | XMS_ITS | Encounter Summary ---
Author Organization [facility] Address [facility] [place] [address] Care Team Providers Care Computer Security Coordinator Name Role Phone Trea Rojas MD Primary Care Provider [phone] Suresh Mcclellan PA-C Primary Care Provider [phone] Reason for Visit * Reason Comments E-prescribe Rx Request Encounter Details Date Type Department Care Team Description 04/16/2020 Refill Adult Medicine [address] [phone] Trae Rojas MD [address] [place] [address] [phone] E-prescribe Rx Request Social History Tobacco Use Types Packs/Day Years [...] have Coronavirus / COVID-19? No / Unsure 03/19/2020 2:54 PM EST documented as of this encounter Miscellaneous Notes * Telephone Encounter - Dennis Jung - 04/17/2020 10:40 AM EST Patient would like script to be: E-PRESCRIBED/FAXED TO PHARMACY WHEN WAS THE PATIENT'S LAST APPOINTMENT IN ADULT MEDICINE? 12/26/19 WHEN WAS THE LAST TIME THE PATIENT SAW THEIR PCP? Same as above Does patient have an upcoming appointment? No, letter mailed to patient to call and schedule a future follow up. (THE MEDICATION REQUESTED IS ON THE MED LIST ABOVE) All of the medications requested were on the CURRENT MEDS list Did you check the Pharmacy information above?: YES Patient wants: 90 -day supply Is this a mail order prescription request ? NO If the refill is from a FAXED refill request what is the RX # listed on the fax? N/A Patients current insurance carrier is: Payor: MEDICARE-[employer] / [place] / Product Type: MEDICARE [id number] documented in this encounter Plan of Treatment Not on file documented as of this encounter Visit Diagnoses Not on filedocumented in this encounter Care Teams Computer Security Coordinator Relationship Specialty Start Date End Date Trae Rojas MD [address] [place] [address] PCP - General 11/11/01 06/05/20 Suresh Mcclellan PA-C [address] [place] [phone] PCP - General Internal Medicine 06/06/20 documented as of this encounter
--- OUTSIDE RECORDS SUMMARY | 2024-11-13 13:44 | XMS_ITS | Encounter Summary ---
Author Organization [facility] Address [address] [facility] [address] [place] [address] Phone Care Team Providers Care Burn Nurse Name Role Phone Self-Referred, Patient Unavailable Unavailab Lillian ChoSW Unavailable [phone] Janine Simeon MD Unavailable Herman Guzman MD Unavailable Suresh Mcclellan Primary Care Provid er Daniela Bazan MD Unavailable Luke Ross MD Unavailable Reason for Referral * Consultation (Within 1 month) - New Request Specialty Diagnoses / Procedures Referred By Nathen kruger Referred To Contact Hematology and Oncology Melany Davey MD [address] [place] [address] Phone: tel: fax: mailto:[email or web address]. [facility] DFCI Parent [address] [place] [address] Referral ID Status Reason Start Date Expiration Date V isits Requested Visits Authorized [id number] New Request 11/12/2024 11/12/2025 1 1 Encounter Details Date Type Department Care Team (Late st Contact Info) Description 11/12/2024 Orders Only [facility], [facility] [place] [address] [place] [address] [facility], 5th [place] [address] Melany Davey MD [address] [place] [address] [email or web address]. U Social History Tobacco Use Types Packs/Day Years [...] Description 01/30/2025 11:45 AM EST Blood Draw [facility] Imaging Department, [facility], Imaging Bxbnj-ai-Lquu [address] [facility], Floor [address] [place] [address] Melany Davey MD [address] [place] [address] [email or web address] 01/30/2025 1:45 PM EST Appointment [facility] Imaging Department, [facility], PET/CT [address] [place] [address] Melany Davey MD [address] [place] [phone] [email or web address] 01/31/2025 11:30 AM EST Office Visit [facility], [address] [place] [address] Alida Mancilla MD [address] [place] [address] [address] [place] [address] [email or web address] 01/31/2025 12:00 PM EST Office Visit [facility], [facility] [place] [address] [facility], 5th [place] [address] Melany Davey MD [address] [place] [address] [email or web address] Scheduled Referrals Name Type Priority Associated Diagnoses Order Schedule Ambulatory referral to [facility] Lymphoma Outpatient Referral Routine Ordered: 11/12/2024 documented as of this encounter Visit Diagnoses Not on filedocumented in this encounter Care Teams Burn Nurse Relationship Specialty Start Date End Date Suresh Mcclellan PA [address] [place] [address] PCP - General Unknown Provider Specialty 10/30/20 Self-Referred, Patient Referring Physician 06/07/19 Lillian Muñiz BARREL CHARRER HELPER [address] [place] [phone] [email or web address] .[email or web address] Supervisor Pipeline Maintenance 06/20/19 Janine Simeon MD [address] [place] [address] [email or web address] Radiation Oncology 10/19/19 Herman Guzman MD [address] [place] [address] Hematology/[place] [address] [email or web address] 01/18/20 Daniela Bazan MD [address] [address] [email or web address] Medical Student 11/05/20 Luke Ross MD 15 [facility] [address] [place] [address] Otolaryngology 03/04/23 documented as of this encounter Additional Source Comments The information contained in this document represents components of the legal health record. It is not the complete legal health record.[facility]
--- OUTSIDE RECORDS SUMMARY | 2024-11-13 13:44 | XMS_ITS | Encounter Summary ---
Author Organization [facility] Address [facility] [place] [address] Care Team Providers Care Transition Mgr Name Role Phone Trae Rojas MD Primary Care Provider [phone] Suresh Mcclellan PA-C Primary Care Provider [phone] Encounter Details Date Type Department Care Team Description 01/16/2020 Estimate Clerk Report Medical Records [address] [place] [address] Alida Mancilla Social History Tobacco Use Types Packs/Day Years [...] on filedocumented in this encounter Care Teams Transition Mgr Relationship Specialty Start Date End Date Trae Rojas MD [address] [place] [address] [phone] PCP - General 11/11/01 06/05/20 Suresh Mcclellan PA-C [address] [place] [address] [phone] PCP - General Internal Medicine 06/06/20 documented as of this encounter
--- OUTSIDE RECORDS SUMMARY | 2024-11-13 13:44 | XMS_ITS | Encounter Summary ---
Author Organization [facility] Address [facility]9 [place] [address] Care Team Providers Care Oliver Filter Operator Name Role Phone Trae Rojas MD Primary Care Provider [phone] Suresh Mcclellan PA-C Primary Care Provider [phone] Reason for Visit * Reason Onset Date Comments Faxed Order 04/06/2019 Encounter Details Date Type Department Care Team Description 04/06/2019 Telephone Adult Medicine [address] [phone] Trae Rojas MD [address] [place] [address] Faxed Order Social History Tobacco Use Types Packs/Day Years [...] encounter Miscellaneous Notes * Telephone Encounter - Rufina Estevez - 04/06/2019 2:15 PM EST Received orders from AT Please sign date and return documented in this encounter Plan of Treatment Not on file documented as of this encounter Visit Diagnoses Not on filedocumented in this encounter Care Teams Oliver Filter Operator Relationship Specialty Start Date End Date Trae Rojas MD [address] [place] [address] PCP - General 11/11/01 06/05/20 Suresh Mcclellan PA-C [address] [place] [address] PCP - General Internal Medicine 06/06/20 documented as of this encounter
--- OUTSIDE RECORDS SUMMARY | 2024-11-13 13:44 | XMS_ITS | Encounter Summary ---
Author Organization [facility] Address [address] [facility] [address] [place] [address] Phone Care Team Providers Care Oim Consultant Name Role Phone Self-Referred, Patient Unavailable Unavailab Lillian Cho [facility] Unavailable Janine Simeon MD Unavailable Herman Guzman MD Unavailable Suresh Mcclellan Primary Care Provid er Daniela Bazan MD Unavailable Luke Ross MD Unavailable [phone] Encounter Details Date Type Department Care Team (Late st Contact Info) Description 11/12/2024 E-Consult [facility] Hematology [address] [place] [address] Karin Vilchis MD, PhD [address] [place] [address] [email or web address] Social History Tobacco Use Types Packs/Day Years [...] as of this encounter Progress Notes * Karin Vilchis MD, PhD - 11/12/2024 12:24 PM EDT Hematology E-consult: Reason for consultation: Splenic lesions Mr. Boss is a 74-year-old man with recurrent Ayesha Cell Carcinoma, first diagnosed in 2019, onpembrolizumab. Per report, he has multiple splenic lesions seen on ultrasound and PET scan at [facility]. A biopsy of this was consistent with relatively normal splenic tissue. [place]wasa/ lambda ratio was normal and the B- cells were polytypic. It is unlikely that this patient has lymphoma. There have been several cases of patients to develop sarcoid-like lesions secondary to immunotherapy such as the patients, who receive pembrolizumab. This e-consult was placed to obtain a second opinion on thenature of Mr. Boss's splenic lesions. This question is beyond the scope of an eConsult. Please place a request for a full hematology consult and we will arrange for Mr. Boss to be seen in clinic in the next 4-6 weeks. Thank you. Karin Vilchis MD, PhD Hematology Division, [facility] Please note that eConsults do not establish care with the manager business banking. Due to the high volume of hematology eConsults, we cannot field follow up questions about or coordinate care for patients evaluated in this way. If you have further questions, a new eConsult should be placed to review any additional results or clinical findings. Serial questions may be a sign that a full consultation is needed. As this is an eConsult, I have not had the opportunity to speak with or examine the patient. The above must be interpreted after taking into account any considerations that are not available to me from the consult question or medical records I have reviewed. The ongoing management of this clinical problem is the responsibility of the referring provider andother members of the patient's care team. documented in this encounter Plan of Treatment Upcoming Encounters Date Type Department Care Team (Late st Contact Info) Description 01/30/2025 11:45 AM EST Blood Draw [facility] Imaging Department, [facility], Imaging Znkfz-wr-Ojap [address] [place] [address], Floor [address]1 [place] [address] Melany Davey MD [address] [place] [address] [email or web address] 01/30/2025 1:45 PM EST Appointment [facility] Imaging Department, [facility], PET/CT [address] [place] [address] Melany Davey MD [address] [place] [address] [email or web address] 01/31/2025 11:30 AM EST Office [facility], [address] [place] [address] Alida Mancilla MD [address] [place] [address] [place] [address] [email or web address] 01/31/2025 12:00 PM EST Office Visit [facility], [address], [address] [place] [address] Melany Davey MD [address] [place] [address] [email or web address] documented as of this encounter Visit Diagnoses Not on filedocumented in this encounter Care Teams Oim Consultant Relationship Specialty Start Date End Date Suresh Mcclellan PA [address] [place] [address] PCP - General Unknown Provider Specialty 10/30/20 Self-Referred, Patient Referring Physician 06/07/19 Lillian Muñiz LICSW [address] [place] [address] [email or web address] Lifter 06/20/19 [email or web address] Simeon MD [address] [place] [address] [email or web address] Radiation Oncology 10/19/19 Herman Guzman MD [address] [place] [address] Hematology/[place] [address] [email or web address] Hematology 01/18/20 Daniela Bazan MD [address] [place] [address] [address] [email or web address] Medical Student 11/05/20 Luke Ross MD 15 Janeen Abdullahi [address] [place] [address] Otolaryngology 03/04/23 documented as of this encounter Additional Source Comments The information contained in this document represents components of the legal health record. It is not the complete legal health record.[facility]
--- OUTSIDE RECORDS SUMMARY | 2024-11-13 13:44 | XMS_ITS | Encounter Summary ---
Author Organization [facility] Address [facility] [place] [address] Care Team Providers Care Claims Service Representative Name Role Phone Suresh Mcclellan PA-C Primary Care Provider [phone] Encounter Details Date Type Department Care Team Description 11/10/2020 Afternoon Babysitter Report Medical Records [address] [place] [address] Herman Guzman MD Social History Tobacco Use [...] on filedocumented in this encounter Care Teams Claims Service Representative Relationship Specialty Start Date End Date Suresh Mcclellan PA-C [address] [place] [address] [phone] PCP - General Internal Medicine 06/06/20 documented as of this encounter
--- OUTSIDE RECORDS SUMMARY | 2024-11-13 13:44 | XMS_ITS | Encounter Summary ---
Author Organization [facility] Address [facility]9 [place] [address] Care Team Providers Care Almond Paste Molder Name Role Phone Suresh Mcclellan PA-C Primary Care Provider [phone] Encounter Details Date Type Department Care Team Description 10/30/2020 Statement Request Clerk Report Medical Records [address] [place], [place] [address]a-Iliana Cancer, [place] Social History Tobacco Use Types Packs/Day Years [...] on filedocumented in this encounter Care Teams Almond Paste Molder Relationship Specialty Start Date End Date Suresh Mcclellan PA-C [address] [place] [address] [phone] PCP - General Internal Medicine 06/06/20 documented as of this encounter
--- OUTSIDE RECORDS SUMMARY | 2024-11-13 13:44 | XMS_ITS | Encounter Summary ---
Author Organization [facility] Address [facility]9 [place] [address] Care Team Providers Care Orange Picking Supervisor Name Role Phone Trae Rojas MD Primary Care Provider [phone] Suresh Mcclellan PA-C Primary Care Provider [phone] Reason for Visit * Reason Comments E-prescribe Rx Request Encounter Details Date Type Department Care Team Description 04/21/2019 Refill Adult Medicine [address] [phone] Trae Rojas MD [address] [place] [address] [phone] E-prescribe Rx Request Social History Tobacco Use [...] encounter Miscellaneous Notes * Telephone Encounter - Beatriz Pineda PA-C - 04/24/2019 12:09 PM EST I do not feel comfortable prescribing long-term, max daily dose of NSAIDs in patients with known GERD. Beatriz Pineda PA-C * Telephone Encounter - Mona Kaufman M.A. - 04/24/2019 11:15 AM EST Pt recently seen by Beatriz Pineda on 02/26/19. Care team is out of the office. Will you consider? Last filled on 06/20/17 for 90 days with 3 refills. (1 yrs worth) * Telephone Encounter - Clau Estiven - 04/23/2019 10:15 AM EST Patient would like script to be: E-PRESCRIBED/FAXED TO PHARMACY WHEN WAS THE PATIENT'S LAST APPOINTMENT IN ADULT MEDICINE? 04/11/19 WHEN WAS THE LAST TIME THE PATIENT SAW THEIR PCP? Same as above Does patient have an upcoming appointment? Yes 07/11/19 (THE MEDICATION REQUESTED IS ON THE MED [...] N/A Patients current insurance carrier is: [place] / [place] / Product Type: MEDICARE [id number] documented in this encounter Plan of Treatment Not on file documented as of this encounter Visit Diagnoses Not on filedocumented in this encounter Care Teams Orange Picking Supervisor Relationship Specialty Start Date End Date Trae Rojas MD [address] [place] [address] PCP - General 11/11/01 06/05/20 Suresh Mcclellan PA-C [address] [place] [address] PCP - General Internal Medicine 06/06/20 documented as of this encounter
--- OUTSIDE RECORDS SUMMARY | 2024-11-13 13:44 | XMS_ITS | Encounter Summary ---
Author Organization [facility] Address [facility]9 [place] [address] Care Team Providers Care Division Service Manager Name Role Phone Trae Rojas MD Primary Care Provider [phone] Suresh Mcclellan PA-C Primary Care Provider [phone] Reason for Referral * EXTERNAL (Priority) - Authorized/Booked Specialty Diagnoses / Procedures Referred By Contac t Referred To Contact Radiation Therapy / Radiation Oncology Diagnoses Rock[place] cell cancer (HCC) Procedures REFERRAL TO RADIATION ONCOLOGY Nelson Webb MD [address] [place] [address] Thu William [address] [place] [phone] Referral ID Status Reason Start Date Expiration Date V isits Requested Visits Authorized SEE NOTE Authorized/B ooked 05/25/2019 08/25/2019 1 1 * EXTERNAL (Urgent) - Authorized/Booked Specialty Diagnoses / Procedures Referred By Contac t Referred To Contact Oncology/Hematology Diagnoses [place] cell cancer (HCC) Procedures REFERRAL TO ONCOLOGY/HEMATOLOGY (IN NETWORK) Nelson Webb MD [address] [place] [address] Tung Flannery MD [address] [place] [address] Referral ID Status Reason Start Date Expiration Date V isits Requested Visits Authorized SEE NOTE Authorized/B ooked 05/25/2019 08/29/2019 1 1 Encounter Details Date Type Department Care Team Description 05/25/2019 Orders Only General Surgery - [address] [place] [id number] Nelson Webb MD [address] [place] [address] Scottie cell cancer (HCC) (Primary Dx) Social History Tobacco Use Types [...] Name Priority Date/Time Associated Diagnosis Comments OUTSIDE NUCLEAR MEDICINE Routine 05/25/2019 documented in this encounter Results * OUTSIDE NUCLEAR MEDICINE (05/25/2019) Nelson Webb MD RADIOLOGY documented in this encounter Visit Diagnoses Diagnosis Scottie cell cancer (HCC)- Primary [place] cell carcinoma of other sites documented in this encounter Care Teams Division Service Manager Relationship Specialty Start Date End Date Trae Rojas MD [address] [place] [address] PCP - General 11/11/01 06/05/20 Suresh Mcclellan PA-C [address] [place] [address] PCP - General Internal Medicine 06/06/20 documented as of this encounter
--- OUTSIDE RECORDS SUMMARY | 2024-11-13 13:44 | XMS_ITS | Encounter Summary ---
Author Organization [facility] Address [facility]9 [place] [address] Care Team Providers Care Transportation Solutions Manager Name Role Phone Trae Rojas MD Primary Care Provider [phone] Suresh Mcclellan PA-C Primary Care Provider [phone] Encounter Details Date Type Department Care Team Description 06/15/2019 Lock Up Worker Report Medical Records [address] [place] [address] [facility], [place] Social History Tobacco Use Types Packs/Day Years [...] on filedocumented in this encounter Care Teams Transportation Solutions Manager Relationship Specialty Start Date End Date Trae Rojas MD [address] [place] [address] [phone] PCP - General 11/11/01 06/05/20 Suresh Mcclellan PA-C [address] [place] [address] [phone] PCP - General Internal Medicine 06/06/20 documented as of this encounter
--- OUTSIDE RECORDS SUMMARY | 2024-11-13 13:44 | XMS_ITS | Encounter Summary ---
Author Organization [facility] Address [facility]9 [place] [address] Care Team Providers Care Home Energy Inspector Name Role Phone Suresh Mcclellan PA-C Primary Care Provider [phone] Encounter Details Date Type Department Care Team Description 07/17/2020 Aircraft Riveter Report Medical Records [address] [place] [address] Alida Mancilla Social History Tobacco Use Types [...] on filedocumented in this encounter Care Teams Home Energy Inspector Relationship Specialty Start Date End Date Suresh Mcclellan PA-C [address] [place] [address] [phone] PCP - General Internal Medicine 06/06/20 documented as of this encounter
--- OUTSIDE RECORDS SUMMARY | 2024-11-13 13:44 | XMS_ITS | Encounter Summary ---
Author Organization [facility] Address [facility]9 [place] [address] Care Team Providers Care Buttermaker Continuous Churn Name Role Phone Trae Rojas MD Primary Care Provider [phone] Suresh Mcclellan PA-C Primary Care Provider [phone] Reason for Visit * Reason Onset Date Comments Surgical Follow Up 05/27/2019 Encounter Details Date Type Department Care Team Description 05/27/2019 Telephone Triage [address] [place] [address] Nelson Adams [facility] Surgical Follow Up Social History Tobacco Use Types Packs/Day Years [...] * Telephone Encounter - Rufina Estevez - 05/27/2019 10:16 AM EDT Patient called to speak with Dr. Webb (litigation assistant surgeon) concerning his procedure he had on May 24. Would like to discuss Tramadol script as well. Dr Webb was paged and given above information documented in this encounter Plan of Treatment Not on file documented as of this encounter Visit Diagnoses Not on filedocumented in this encounter Care Teams Buttermaker Continuous Churn Relationship Specialty Start Date End Date Trae Rojas MD [address] [place] [address] PCP - General 11/11/01 06/05/20 Suresh Mcclellan PA-C [address] [facility] [address] PCP - General Internal Medicine 06/06/20 documented as of this encounter
--- OUTSIDE RECORDS SUMMARY | 2024-11-13 13:44 | XMS_ITS | Encounter Summary ---
Author Organization [facility] Address [facility]9 [place] [address] Care Team Providers Care Dean Of Girls Name Role Phone Suresh Mcclellan PA-C Primary Care Provider [phone] Encounter Details Date Type Department Care Team Description 08/21/2020 Refill Adult Medicine [address] [address] Suresh Mcclellan PA-C [address] [place] [address] Social History Tobacco Use Types Packs/Day Years [...] on filedocumented in this encounter Care Teams Dean Of Girls Relationship Specialty Start Date End Date Suresh Mcclellan PA-C [address] [place] [address] PCP - General Internal Medicine 06/06/20 documented as of this encounter
--- OUTSIDE RECORDS SUMMARY | 2024-11-13 13:44 | XMS_ITS | Encounter Summary ---
Author Organization [facility] Address [facility]9 [place] [address] Care Team Providers Care Plugman Name Role Phone Trae Rojas MD Primary Care Provider [phone] Suresh Mcclellan PA-C Primary Care Provider [phone] Encounter Details Date Type Department Care Team Description 05/31/2019 Telephone Adult Medicine [address] [phone] Trae Rojas MD [address] [place] [address] [phone] Social History Tobacco Use Types Packs/Day Years [...] on filedocumented in this encounter Care Teams Plugman Relationship Specialty Start Date End Date Trae Rojas MD [address] [place] [address] [phone] PCP - General 11/11/01 06/05/20 Suresh Mcclellan PA-C [address] [place] [address] [phone] PCP - General Internal Medicine 06/06/20 documented as of this encounter
--- OUTSIDE RECORDS SUMMARY | 2024-11-13 13:44 | XMS_ITS | Patient Health Record ---
[facility] [place] Address [address] [place] [address] Care Team Providers Care Test Engine Evaluator Name Role Phone Suresh Gill Primary Care Provider Unav ailable David Williams Unavailable [phone] Suresh Gill Unavailable Unavailabl e Allergies Allergen [...] Problem Acquired hammer toe of right foot (1919038797059 105) Other hammer toe(s) (acquired), right foot (M20.41) Active confirmed Problem Acquired hammer toe of left foot ([id number] 103) Other hammer toe(s) (acquired), left foot [...] Medicare [employer] [address] [place] [address] [id number] Hernandez Boss Self - patient is the insured 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
--- OUTSIDE RECORDS SUMMARY | 2024-11-13 13:44 | XMS_ITS | Encounter Summary ---
Author Organization [facility] Address [facility]9 [place] [address] Care Team Providers Care Jump Iron Machine Presser Name Role Phone Trae Rojas MD Primary Care Provider [phone] Suresh Mcclellan PA-C Primary Care Provider [phone] Encounter Details Date Type Department Care Team Description 06/07/2019 Orders Only Medical Records [address] [place] [address] Nelson Webb MD [address] [place] [address] [phone] Social History Tobacco Use Types Packs/Day Years [...] Name Priority Date/Time Associated Diagnosis Comments OUTSIDE CT Routine 06/05/2019 documented in this encounter Results * OUTSIDE CT (06/05/2019) Nelson Webb MD RADIOLOGY documented in this encounter Visit Diagnoses Not on filedocumented in this encounter Care Teams Jump Iron Machine Presser Relationship Specialty Start Date End Date Trae Rojas MD [address] [place] [address] PCP - General 11/11/01 06/05/20 Suresh Mcclellan PA-C [address] [place] [address] PCP - General Internal Medicine 06/06/20 documented as of this encounter
--- OUTSIDE RECORDS SUMMARY | 2024-11-13 13:44 | XMS_ITS | Encounter Summary ---
Author Organization [facility] Address [facility]9 [place] [address] Care Team Providers Care Windows Server Engineer Name Role Phone Suresh Mcclellan PA-C Primary Care Provider [phone] Encounter Details Date Type Department Care Team Description 08/26/2020 Manager Shop Report Medical Records [address] [place] [address] Herman Guzman MD Social History Tobacco Use [...] on filedocumented in this encounter Care Teams Windows Server Engineer Relationship Specialty Start Date End Date Suresh Mcclellan PA-C [address] [place] [address] [phone] PCP - General Internal Medicine 06/06/20 documented as of this encounter
--- OUTSIDE RECORDS SUMMARY | 2024-11-13 13:44 | XMS_ITS | Encounter Summary ---
Author Organization [facility] Address [facility]9 [place] [address] Care Team Providers Care Heavy Duty Mechanic Farm Equipment Name Role Phone Trae Rojas MD Primary Care Provider [phone] Suresh Mcclellan PA-C Primary Care Provider [phone] Encounter Details Date Type Department Care Team Description 06/25/2019 Printed Circuit Boards Inspector Report Medical Records [address] [place], [place] [phone] Herman Guzman MD Social History Tobacco Use [...] on filedocumented in this encounter Care Teams Heavy Duty Mechanic Farm Equipment Relationship Specialty Start Date End Date Trae Rojas MD [address] [place] [address] PCP - General 11/11/01 06/05/20 Suresh Mcclellan PA-C [address] [place] [address] [phone] PCP - General Internal Medicine 06/06/20 documented as of this encounter
--- OUTSIDE RECORDS SUMMARY | 2024-11-13 13:44 | XMS_ITS | Encounter Summary ---
Author Organization [facility] Address [facility]9 [place] [address] Care Team Providers Care Civil Celebrant Name Role Phone rTae Rojas MD Primary Care Provider [phone] Suresh Mcclellan PA-C Primary Care Provider [phone] Reason for Visit * Reason Onset Date Comments Faxed Order 04/06/2019 Encounter Details Date Type Department Care Team Description 04/06/2019 Telephone Adult Medicine [address] [phone] Trae Rojas MD [address] [place] [address] Faxed Order Social History Tobacco Use Types [...] Telephone Encounter - Rufina Estevez - 04/06/2019 2:07 PM EST Received faxed order from [facility] Please sign date and return orders documented in this encounter Plan of Treatment Not on file documented as of this encounter Visit Diagnoses Not on filedocumented in this encounter Care Teams Civil Celebrant Relationship Specialty Start Date End Date Trae Rojas MD [address] [place] [address] PCP - General 11/11/01 06/05/20 Suresh Mcclellan PA-C [address] [place] [address] PCP - General Internal Medicine 06/06/20 documented as of this encounter
--- OUTSIDE RECORDS SUMMARY | 2024-11-13 13:45 | XMS_ITS | Encounter Summary ---
Author Organization [facility] Address [facility]9 [place] [address] Care Team Providers Care Rn Cardiovascular Icu Name Role Phone Trae Rojas MD Primary Care Provider [phone] Suresh Mcclellan PA-C Primary Care Provider [phone] Encounter Details Date Type Department Care Team Description 12/04/2011 Customer Liaison Report Medical Records [address] [place] [place] [address] Addy Paula Social History Tobacco Use Types Packs/Day Years [...] filedocumented in this encounter Care Teams Rn Cardiovascular Icu Relationship Specialty Start Date End Date Trae Rojas MD [address] [place] [address] PCP - General 11/11/01 06/05/20 Suresh Mcclellan PA-C [address] [place] [address] [phone] PCP - General Internal Medicine 06/06/20 documented as of this encounter
--- OUTSIDE RECORDS SUMMARY | 2024-11-13 13:45 | XMS_ITS | Encounter Summary ---
Author Organization [facility] Address [facility]9 [place] [address] Care Team Providers Care Slots Manager Name Role Phone Suresh Mcclellan PA-C Primary Care Provider [phone] [phone] Reason for Visit * Reason Onset Date Comments Prior Authorization 10/13/2023 Encounter Details Date Type Department Care Team Description 10/13/2023 Telephone Adult Medicine [address] [address] Suresh Mcclellan PA-C [address] [place] [phone] Prior Authorization Social History Tobacco Use Types Packs/Day Years [...] Miscellaneous Notes * Telephone Encounter - Rufina Kraft M.A. - 12/16/2023 9:40 AM EDT The patient currently has access to the requested medication and a Prior Authorization is not needed for the patient/medication. * Telephone Encounter - Rufina Kraft M.A. - 10/21/2023 12:51 PM EDT Prior authorization fof the clidinium chlordiazepoxide was completed today on [facility] Dx code IBS * Telephone Encounter - Suresh Mcclellan PA-C - 10/20/2023 12:29 PM EDT IBS * Telephone Encounter - Rufina Kraft M.A. - 10/20/2023 9:32 AM EDT Please provide dx For the clidinium-chlordiazepoxide (LIBRAX) 5-2.5 MG per capsule Thank you Please reply back to [id number] Prior Auth Pool Rufina Fairchild [facility] Prior Authorization Ext [id number] * Telephone Encounter - Anat Bentleyabhijit - 10/13/2023 2:14 PM EDT Prior Authorization for Medication-do not complete and send this encounter unless you have the fax from the pharmacy. Is this a Cover My Meds request: Yes -- [place] Code [id number] documented in this encounter Plan of Treatment Not on file documented as of this encounter Visit Diagnoses Not on filedocumented in this encounter Care Teams Slots Manager Relationship Specialty Start Date End Date Suresh Mcclellan PA-C [address] [place] [address] PCP - General Internal Medicine 06/06/20 documented as of this encounter
--- OUTSIDE RECORDS SUMMARY | 2024-11-13 13:45 | XMS_ITS | Encounter Summary ---
Author Organization [facility] Address [facility]9 [place] [address] Care Team Providers Care Anesthesiologist Assistant Certified Name Role Phone Trae Rojas MD Primary Care Provider [phone] Suresh Mcclellan PA-C Primary Care Provider [phone] Encounter Details Date Type Department Care Team Description 05/18/2014 Hospital Medical Records [address] [place] [address] Jose Grullon MD Social History Tobacco Use Types Packs/Day [...] on filedocumented in this encounter Care Teams Anesthesiologist Assistant Certified Relationship Specialty Start Date End Date Trae Rojas MD [address] [place] [address] PCP - General 11/11/01 06/05/20 Suresh Mcclellan PA-C [address] [place] [address] [phone] PCP - General Internal Medicine 06/06/20 documented as of this encounter
--- OUTSIDE RECORDS SUMMARY | 2024-11-13 13:45 | XMS_ITS | Encounter Summary ---
Author Organization [facility] Address [address] [facility] [address] [place] [phone] Phone Care Team Providers Care Flying Teacher Name Role Phone Self-Referred, Patient Unavailable Unavailab Lillian Cho [facility] Unavailable Janine Simeon MD Unavailable Herman Guzman MD Unavailable Suresh Mcclellan Primary Care Provid er Daniela Bazan MD Unavailable Luke Ross MD Unavailable [phone] Encounter Details Date Type Department Care Team (Late st Contact Info) Description 12/10/2020 Procedure Pass [facility] Imaging Department, [facility] [place], [place] [address] [facility], Floor [address] [place] [address] Social History Tobacco Use Types Packs/Day Years [...] Description 01/30/2025 11:45 AM EST Blood Draw [facility] Imaging Department, [facility], Imaging Svxli-ke-Fita [address] [facility], [address] [place] [address] Melany Davey MD [address] [place] [phone] [email or web address] 01/30/2025 1:45 PM EST Appointment [facility] Imaging Department, [facility], PET/CT [address] [place] [address] Melany Davey MD [address] [place] [phone] [email or web address] 01/31/2025 11:30 AM EST Office [facility], [address] [place] [address] Alida Mancilla MD [address] [place] [address] [place] [address] [email or web address] 01/31/2025 12:00 PM EST Office Visit [facility], [address] [place] [address] Melany Davey MD [address] [place] [phone] [email or web address] documented as of this encounter Visit Diagnoses Not on filedocumented in this encounter Care Teams Flying Teacher Relationship Specialty Start Date End Date Suresh Mcclellan PA [address] [place] [phone] PCP - General Unknown Provider Specialty 10/30/20 Self-Referred, Patient Referring Physician 06/07/19 Lillian Muñiz LICSW [address] [place] [id number] [email or web address] [facility] Production Editor 06/20/19 Janine Simeon MD [address] [place] [address] [email or web address] Radiation Oncology 10/19/19 [place] [address] [place] [address] Hematology/[place] [address] [email or web address] Hematology 01/18/20 Daniela Bazan MD [address] [address] [email or web address] Medical Student 11/05/20 Luke Ross MD 15 Janeen Abdullahi [address] [place] [phone] Otolaryngology 03/04/23 documented as of this encounter Additional Source Comments The information contained in this document represents components of the legal health record. It is not the complete legal health record.[facility]
--- OUTSIDE RECORDS SUMMARY | 2024-11-13 13:45 | XMS_ITS | Encounter Summary ---
Author Organization [facility] Address [facility]9 [place] [address] Care Team Providers Care Pelletizer Operator Name Role Phone Trae Rojas MD Primary Care Provider [phone] Suresh Mcclellan PA-C Primary Care Provider [phone] Encounter Details Date Type Department Care Team Description 07/03/2014 Customs Brokerage Manager Report Medical Records [address] [place], [place] [id number] Justin Guerrero MD Social History Tobacco Use [...] on filedocumented in this encounter Care Teams Pelletizer Operator Relationship Specialty Start Date End Date Trae Rojas MD [address] [place] [address] [phone] PCP - General 11/11/01 06/05/20 Suresh Mcclellan PA-C [address] [place] [address] [phone] PCP - General Internal Medicine 06/06/20 documented as of this encounter
--- OUTSIDE RECORDS SUMMARY | 2024-11-13 13:45 | XMS_ITS | Encounter Summary ---
Author Organization [facility] Address [employer] [place] [address] Care Team Providers Care Furnace And Wash Equipment Operator Name Role Phone Trae Rojas MD Primary Care Provider [phone] Suresh Mcclellan PA-C Primary Care Provider [phone] Encounter Details Date Type Department Care Team Description 01/28/2015 Baker Helper Report Medical Records [address] [place] [address] Baer [place] Social History Tobacco Use Types Packs/Day [...] on filedocumented in this encounter Care Teams Furnace And Wash Equipment Operator Relationship Specialty Start Date End Date Trae Rojas MD [address] [place] [address] PCP - General 11/11/01 06/05/20 Suresh Mcclellan PA-C [address] [place] [address] [phone] PCP - General Internal Medicine 06/06/20 documented as of this encounter
--- OUTSIDE RECORDS SUMMARY | 2024-11-13 13:45 | XMS_ITS | Encounter Summary ---
Author Organization [facility] Address [facility]9 [place] [address] Care Team Providers Care Spool Fixer Name Role Phone Suresh Mcclellan PA-C Primary Care Provider [phone] Encounter Details Date Type Department Care Team Description 12/09/2020 Safety Coordinator Report Medical Records [address] [place], [place] [address] [place] Social History Tobacco Use Types Packs/Day Years [...] have Coronavirus / COVID-19? No / Unsure 11/25/2020 2:57 PM EDT documented as of this encounter Plan of Treatment Not on file documented as of this encounter Visit Diagnoses Not on filedocumented in this encounter Care Teams Spool Fixer Relationship Specialty Start Date End Date Suresh Mcclellan PA-C [address] [place], [place] [phone] PCP - General Internal Medicine 06/06/20 documented as of this encounter
--- OUTSIDE RECORDS SUMMARY | 2024-11-13 13:45 | XMS_ITS | Encounter Summary ---
Author Organization [facility] Address [facility]9 [place] [address] Care Team Providers Care Wastewater Engineer Name Role Phone Trae Rojas MD Primary Care Provider [phone] Suresh Mcclellan PA-C Primary Care Provider [phone] Encounter Details Date Type Department Care Team Description 10/29/2019 [place] Report Medical Records [address] [place], [place] [id number] Herman Guzman MD Social History Tobacco Use [...] on filedocumented in this encounter Care Teams Wastewater Engineer Relationship Specialty Start Date End Date Trae Rojas MD [address] [place] [address] PCP - General 11/11/01 06/05/20 Suresh Mcclellan PA-C [address] [place] [address] [phone] PCP - General Internal Medicine 06/06/20 documented as of this encounter
--- OUTSIDE RECORDS SUMMARY | 2024-11-13 13:45 | XMS_ITS | Encounter Summary ---
Author Organization [facility] Address [facility]9 [place] [address] Care Team Providers Care Tipple Greaser Name Role Phone Trae Rojas MD Primary Care Provider [phone] Suresh Mcclellan PA-C Primary Care Provider [phone] Encounter Details Date Type Department Care Team Description 11/06/2014 Kindergarten Assistant Report Medical Records [address] [place] [address] [place] [address] [place] [address] Social History Tobacco Use Types Packs/Day Years [...] on filedocumented in this encounter Care Teams Tipple Greaser Relationship Specialty Start Date End Date Trae Rojas MD [address] [place] [address] PCP - General 11/11/01 06/05/20 Suresh Mcclellan PA-C [address] [place] [address] [phone] PCP - General Internal Medicine 06/06/20 documented as of this encounter
--- OUTSIDE RECORDS SUMMARY | 2024-11-13 13:45 | XMS_ITS | Encounter Summary ---
Author Organization [facility] Address [facility]9 [place] [address] Care Team Providers Care Process Control Tech Name Role Phone Trae Rojas MD Primary Care Provider [phone] Suresh Mcclellan PA-C Primary Care Provider [phone] Encounter Details Date Type Department Care Team Description 05/20/2014 Hospital Medical Records [address] [place] [address] Suraj Keith MD Social History Tobacco Use Types Packs/Day [...] on filedocumented in this encounter Care Teams Process Control Tech Relationship Specialty Start Date End Date Trae Rojas MD [address] [place] [address] PCP - General 11/11/01 06/05/20 Suresh Mcclellan PA-C [address] [place] [address] [phone] PCP - General Internal Medicine 06/06/20 documented as of this encounter
--- OUTSIDE RECORDS SUMMARY | 2024-11-13 13:45 | XMS_ITS | Encounter Summary ---
Author Organization [facility] Address [facility]9 [place] [address] Care Team Providers Care Telephone Interviewer Name Role Phone Trae Rojas MD Primary Care Provider [phone] Suresh Mcclellan PA-C Primary Care Provider [phone] Encounter Details Date Type Department Care Team Description 04/10/2020 Machine Molder Report Medical Records [address] [place] [address] [facility] [place] Social History Tobacco Use Types Packs/Day Years [...] on filedocumented in this encounter Care Teams Telephone Interviewer Relationship Specialty Start Date End Date Trae Rojas MD [address] [place] [address] [phone] PCP - General 11/11/01 06/05/20 Suresh Mcclellan PA-C [address] [place] [address] PCP - General Internal Medicine 06/06/20 documented as of this encounter
--- OUTSIDE RECORDS SUMMARY | 2024-11-13 13:45 | XMS_ITS | Encounter Summary ---
Author Organization [facility] Address [facility]9 [place] [address] Care Team Providers Care Faculty Member Name Role Phone Suresh Mcclellan PA-C Primary Care Provider [phone] Encounter Details Date Type Department Care Team Description 03/26/2021 Livestock Auctioneer Report Medical Records [address] [place] [address] [place] Social History Tobacco Use Types Packs/Day Years [...] on filedocumented in this encounter Care Teams Faculty Member Relationship Specialty Start Date End Date Suresh Mcclellan PA-C [address] [place] [address] [phone] PCP - General Internal Medicine 06/06/20 documented as of this encounter
--- OUTSIDE RECORDS SUMMARY | 2024-11-13 13:45 | XMS_ITS | Encounter Summary ---
Author Organization [facility] Address [facility]9 [place] [address] Care Team Providers Care Flour Worker Name Role Phone Trae Rojas MD Primary Care Provider [phone] Suresh Mcclellan PA-C Primary Care Provider [phone] Encounter Details Date Type Department Care Team Description 09/18/2014 Supervisor Blood Report Medical Records [address] [place] [address] Bear Fulton Social History Tobacco Use Types [...] on filedocumented in this encounter Care Teams Flour Worker Relationship Specialty Start Date End Date Trae Rojas MD [address] [place] [phone] PCP - General 11/11/01 06/05/20 Suresh Mcclellan PA-C [address] [place] [address] [phone] PCP - General Internal Medicine 06/06/20 documented as of this encounter
--- OUTSIDE RECORDS SUMMARY | 2024-11-13 13:45 | XMS_ITS | Encounter Summary ---
Author Organization [facility] Address [facility]9 [place] [address] Care Team Providers Care Mandarin Tutor Name Role Phone Suresh Mcclellan PA-C Primary Care Provider [phone] Encounter Details Date Type Department Care Team Description 12/25/2020 Assistant Press Operator Report Medical Records [address] [place], [place] [address] [place] Social History Tobacco Use Types Packs/Day Years [...] on filedocumented in this encounter Care Teams Mandarin Tutor Relationship Specialty Start Date End Date Suresh Mcclellan PA-C [address] [place], [place] [phone] PCP - General Internal Medicine 06/06/20 documented as of this encounter
--- OUTSIDE RECORDS SUMMARY | 2024-11-13 13:45 | XMS_ITS | Clinical Summary ---
Author Organization [facility] Address [facility]9 [place] [address] Care Team Providers Care Purchasing Contracting Clerk Name Role Phone Suresh Mcclellan PA-C Primary Care Provider [phone] [phone] Allergies Active Allergy Reactions Severity Noted Date Comments Azithromycin 11/09/2019 rash Celecoxib Numbness, tingling o r swelling of the lips, tongue or mouth,Hives/Urticaria 08/07/2009 Sulfa Drugs Flushing, feeling of warmth Medium 08/07/2009 This occurred with celebrex Zema-Angus 07/07/2021 Medications Medication Sig Dispensed Refills Start Date End Date Status CPAP Historical (HISTORICAL CPAP) Inhale 9 cm into the lungs nightly. Via nasal pillows/ BHI&R 0 Active lorazepam (ATIVAN) 1 MG tabletIndications:Pa mellisa disorder without agoraphobia Take 1 Tab by mouth daily as needed for Anxiety. 20 Tab 0 12/26/2018 Active tramadol (ULTRAM) 50 MG tabletIndications:Me rkel cell cancer (HCC) Take 1 Tab by mouth every 6 hours as needed for Pain. 30 Tab 0 07/11/2019 Active famotidine (Pepcid) 20 MG tablet Take 1 Tablet by mouth daily. 30 Tablet 0 01/18/2022 Active Pembrolizumab 100 MG/4ML Solution Inject into the vein. 0 Active nystatin (Nyamyc) powder APPLY 1 TO 4 TIMES A DAY TO BODY FOLDS NEEDED Strength: 100,000 UNIT/GM 60 g 11 11/29/2022 Active ketoconazole (NIZORAL) 2 % cream APPLY TO RASHES IN BODY FOLDS AND GROIN DAILY NEEDED 0 01/18/2023 Active fluticasone (Flonase) 50 MCG/ACT nasal spray 2 Sprays by Each Nare route daily. 1 g 5 05/30/2023 Active citalopram (CeleXA) 10 MG tablet Take 1 Tablet by mouth every morning. 90 Tablet 3 12/05/2023 Active atorvastatin (LIPITOR) 20 MG tablet Take 1 Tablet by mouth daily. 90 Tablet 1 12/08/2023 Active sildenafil (VIAGRA) 100 MG tablet Take 0.5 Tablets by mouth as needed for Erectile Dysfunction. 30 Tablet 5 12/21/2023 Active clidinium-chlordiaze poxide (LIBRAX) 5-2.5 MG per capsule TAKE ONE CAPSULE BY MOUTH THREE TIMES A DAY WITH MEALS 270 Capsule 1 01/16/2024 Active Active Problems Problem Noted Date Prediabetes 02/12/2022 Multiple thyroid nodules 04/28/2021 Overview: Benign follicular nodules (left and right) - followed by [facility] endocrinology (Dr. Kat Guerrero) Sebaceous cyst of her right forearm 03/21 Obstructive sleep apnea severe AHI 44 Overview: Uses cpap regularly Severe obesity (BMI 35.0-39.9) with bobby rbidity 12/19/2018 Hyperlipidemia 06/05/2018 Irritable bowel syndrome 11/30/2016 Neck pain 01/28/2015 Overview: [facility] - 01/28/15 - 80% improved after second injection; gabapentin discussed but deferred; followup 3 months Adjustment disorder 02/13/2013 GERD 10/12/2010 History of dysplastic nevus 03/16/2010 Overview: Dysplastic nevus 02/27 back (moderate atypia) Dysplastic nevus 03/16/2010 Generalized osteoarthrosis, involving mu ltiple sites 05/07/2009 History of basal cell carcinoma of skin 10/18/2006 Overview: BCC 09/20 Scalp IMO update History of basal cell carcinoma 10/19/19 07 Overview: BCC 09/20 Scalp IMO update PANIC DISORDER 07/04/2006 ALLERGIC RHINITIS 07/19/2005 Scottie cell carcinoma Overview: Right forearm, 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 H/O head and neck radiation Immunotherapy Dyspepsia Resolved Problems Problem Noted Date Resolved Date Sleep Apnea, moderate overall 08/28/2009 Overview: Using cpap Obesity, unspecified 07/04/2006 02/26/2019 Obesity, unspecified 07/04/2006 04/24/2019 Immunizations Name Administration Dates Next Due COVID-19 (Pfizer) 06/14/2020,05/24/2020 COVID-19 (Pfizer) Pt Reported 03/02/2021 Influenza (> 6 Months) 12/16/2015,2012,12/21/2011,04/09,03/31/2009 Influenza (>6 Months) Split Preservative Free 05/18/2014 Influenza H1N1 Pandemic Flu Vaccine 03/31/2009 Influenza Vaccine-preservati ve Free-quadrivalent 4 Years 02/28/2018 Influenza Vaccine-quadrivale nt 4 Years Plus 11/30/2016 Influenza vaccine high dose age 65 and over 12/05/2023,11/29/2022,01/18/2022,12/31,01/22/2020,12/26/2018 Pneumoccoccal(Adult) Polysac charide PPSV23 12/26/2018 Pneumococcal Conjugate PCV-13 12/06/2017 TD (STATE SUPPLIED FOR ADULT S AND CHILDREN) 05/22/2013,09/26/2001 TETANUS/DIPTHERIA (ADULT) 09/26/2001 Zostavax 11/21/2012 Family History Medical History Relation Name Comments CA Colon Father CA Ovarian Sister 1 Relation Name Status Comments Father [...] file Not on file Not on file Last Filed Vital Signs Vital Sign Reading Time Taken Comments Blood Pressure 88/59 12/05/2023 11:13 AM EDT Pulse 87 12/05/2023 11:13 AM EDT Temperature 36.2 C (97.1 F) 12/05/2023 11:13 AM EDT Respiratory Rate 17 12/05/2023 11:1 3 AM EDT Oxygen Saturation 94% 02/28/2023 10: 13 AM EST Inhaled Oxygen Concentration - - Weight 101.2 kg (223 lb 3.2 oz) 024 11:13 AM EDT Height 177.8 cm (5' 10 ) 12/05/2023 11: 13 AM EDT Body Mass Index 32.03 12/05/2023 11:13 AM EDT Plan of Treatment Health Maintenance Due Date Last Done Comments SHINGLES VACCINE (2 of 3) 01/16/2013 11/21/2012 Covid-19 Vaccine (2022-04 4 season) 2023 03/02/2021, 06/14/2020, 05/24/2020 FALL RISK ASSESSMENT 11/30/2023 11/29/2022, 11/20/2021, 11/25/2020, Additional history exists BMI CHECK/ADVISE 03/21/2024 12/05/2023, 01/2024, 04/25/2023, Additional history exists INFLUENZA (#1) 2024 12/05/2023, 11/19, 01/18/2022, Additional history exists DEPRESSION SCREEN 12/04/2024 12/05/2023, , 11/29/2022, Additional history exists DTAP/TDAP/TD (2 - Td or Tdap) 05/26/2025 (Exception), 05/22/2013, 09/26/2001 CHOLESTEROL SCREENING 12/04/2028 12/05/2023 , 02/28/2023, 06/30/2022, Additional history exists COLON CANCER SCREENING 03/31/2033 , 03/12/2013, 03/12/2013, Additional history exists HEPATITIS C SCREENING Completed 07/16/2013 PNEUMOCOCCAL VACCINE Completed 12/26/2018, 12/07/19 18 Care Teams Purchasing Contracting Clerk Relationship Specialty Start Date End Date Suresh Mcclellan PA-C [address] [place] [address] PCP - General Internal Medicine 06/06/20
--- OUTSIDE RECORDS SUMMARY | 2024-11-13 13:45 | XMS_ITS | Encounter Summary ---
Author Organization [facility] Address [facility]9 [place] [address] Care Team Providers Care [employer] Compliance Internship Name Role Phone Suresh Mcclellan PA-C Primary Care Provider +1 [phone] Encounter Details Date Type Department Care Team Description 12/29/2020 Clinical Nutrition Manager Report Medical Records [address] [place] [address] Herman Guzman MD Social History Tobacco Use [...] on filedocumented in this encounter Care Teams [employer] Compliance Internship Relationship Specialty Start Date End Date Suresh Mcclellan PA-C [address] [place] [address] [phone] PCP - General Internal Medicine 06/06/20 documented as of this encounter
--- OUTSIDE RECORDS SUMMARY | 2024-11-13 13:45 | XMS_ITS | Encounter Summary ---
Author Organization [facility] Address [facility]9 [place] [address] Care Team Providers Care Cad Programmer Name Role Phone Hossein Mcclellan PA-C Primary Care Provider +1 [phone] Reason for Visit * Reason Onset Date Comments Provider Call Back 10/10/2023 clidinium-chl ordiazepoxide (LIBRAX) 5-2.5 MG per capsule Encounter Details Date Type Department Care Team Description 10/10/2023 Telephone Adult Medicine [address] [address] Hossein Mcclellan PA-C [address] [place] [address] [phone] Provider Call Back (/clidinium-chlordiaze poxide (LIBRAX) 5-2.5 MG per capsule) Social History Tobacco Use Types Packs/Day Years [...] encounter Miscellaneous Notes * Telephone Encounter - Fernanda Fairchild - 10/12/2023 11:26 AM EDT This fax still has not made it to hossein'nicolas bin Do we know the where about's of said fax?? * Telephone Encounter - Justinajacque Rowell - 10/10/2023 10:26 AM EDT Request for more information received and placed in provider bin. Please review and fax to [phone] * Telephone Encounter - Justina Rowell - 10/10/2023 9:22 AM EDT Caller requesting call back from provider: Is the caller the patient? YES If caller is not the patient, what is the callers name? N/A Callers relationship to patient? N/A If person calling is not the patient themselves, is there a verbal release in FYI or permanent comments for this person: YES Reason for call back: Patient states pharmacy is requesting verbal authorization for this medication. Please call [employer] at [phone] Caller offered to speak with the nurse for assistance: YES Response: Patient offered to speak with nurse for assistance and patient agreed. Message forwarded to nurse. documented in this encounter Plan of Treatment Not on file documented as of this encounter Visit Diagnoses Not on filedocumented in this encounter Care Teams Cad Programmer Relationship Specialty Start Date End Date Hossein Mcclellan PA-C [address] [place] [address] PCP - General Internal Medicine 06/06/20 documented as of this encounter
--- OUTSIDE RECORDS SUMMARY | 2024-11-13 13:45 | XMS_ITS | Encounter Summary ---
Author Organization [facility] Address [facility] [place] [address] Care Team Providers Care Blade Boner Name Role Phone Trae Rojas MD Primary Care Provider [phone] Suresh Mcclellan PA-C Primary Care Provider [phone] Encounter Details Date Type Department Care Team Description 04/30/2015 Athletic Trainer Report Medical Records [address] [place] [address] Driver, [facility] [address] [place] [address] Social History Tobacco Use Types Packs/Day Years [...] on filedocumented in this encounter Care Teams Blade Boner Relationship Specialty Start Date End Date Trae Rojas MD [address] [place] [address] PCP - General 11/11/01 06/05/20 Suresh Mcclellan PA-C [address] [place] [address] [phone] PCP - General Internal Medicine 06/06/20 documented as of this encounter
--- OUTSIDE RECORDS SUMMARY | 2024-11-13 13:45 | XMS_ITS | Encounter Summary ---
Author Organization [facility] Address [facility] [place] [address] Care Team Providers Care Soft Tile Setter Name Role Phone Trae Rojas MD Primary Care Provider [phone] Suresh Mcclellan PA-C Primary Care Provider [phone] Encounter Details Date Type Department Care Team Description 06/24/2014 FACE PAINTER/[employer] Report Medical Records [address] [place] [address] Abstract, Provider Social History Tobacco Use Types [...] on filedocumented in this encounter Care Teams Soft Tile Setter Relationship Specialty Start Date End Date Trae Rojas MD [address] [place] [address] PCP - General 11/11/01 06/05/20 Suresh Mcclellan PA-C [address] [place] [address] [phone] PCP - General Internal Medicine 06/06/20 documented as of this encounter
--- OUTSIDE RECORDS SUMMARY | 2024-11-13 13:45 | XMS_ITS | Encounter Summary ---
Author Organization [facility] Address [facility] [place] [address] Care Team Providers Care Armed Security Officer Name Role Phone Suresh Mcclellan PA-C Primary Care Provider [phone] Encounter Details Date Type Department Care Team Description 02/10/2021 [employer] Industrial Arts Teacher Report Medical Records [address] [place], [place] [address] [place] Social History Tobacco Use Types Packs/Day Years [...] on filedocumented in this encounter Care Teams Armed Security Officer Relationship Specialty Start Date End Date Suresh Mcclellan PA-C [address] [place] [address] [phone] PCP - General Internal Medicine 06/06/20 documented as of this encounter
== END 2024-11-13 13:30 | disposition home or self-care (01) ==
LOC: HO.RHES 13:00
PROVIDERS: PCP Physician Assistant Medical; Visit Provider Internal Medicine Rheumatology
DX: M70.61 Trochanteric bursitis, right hip (principal); M70.62 Trochanteric bursitis, left hip; M17.0 Bilateral primary osteoarthritis of knee
CPT/HCPCS: 99213; G2211

== ENCOUNTER → 2024-11-13 12:59 | Outpatient (BNVA) | payer MEDICARE, OTHER, SELFPAY | PROVIDERS: PCP Physician Assistant Medical; Visit Provider Internal Medicine Rheumatology | DX: M70.61 Trochanteric bursitis, right hip (principal); M70.62 Trochanteric bursitis, left hip; M17.0 Bilateral primary osteoarthritis of knee | CPT/HCPCS: 99212 ==

== ENCOUNTER 2025-02-13 13:09 | Outpatient (AMB) | payer MEDICARE, OTHER, SELFPAY ==
[2025-02-13 13:21] VITALS: BP 130/74; PULSE 71; O2SAT 96; BMI 32.5
--- NOTE | 2025-02-13 13:21 | A.OFFVIS_ITS ---
Vital Signs 02/13/25 13:21 Height 5 ft 10 in Weight 226 lb 6.636 oz BMI 32.5 BP 130/74 Blood Pressure Location Lt brachial Position Standing Pulse 71 Pulse Source Pulse Oximeter Pulse Oximetry (%) 96 Oxygen Delivery Method Room Air Intake Visit Reasons: 3months Intake Note: Patient presents today for follow up on arthritis. Toggle Press Operator Required: No Accompanied by: Self / Same As Patient Allergies celecoxib (From CELEBREX) Allergy (Severe, Verified 02/13/25 13:25) ANAPHYLAXIS Sulfa (Sulfonamide Antibiotics) (SULFA (SULFONAMIDE ANTIBIOTICS)) Allergy (Unknown, Verified 02/13/25 13:25) ANAPHYLACTIS z pack Allergy (Mild, Uncoded 02/13/25 13:25) Hives HPI HPI 3months: Details: Knee pain is worse. He did not start PT. He has had back pain for years. In the last few weeks he has had increase back pain. He is not self medicating. He is not applying heat to back. Denies radiculopthy. Takes two tablets 500mg PRN twice a day. [facility] Medical History Cervical radiculopathy due to degenerative joint disease of spine Severe obesity Thyroid goiter Venus cell carcinoma HLD (hyperlipidemia) Social History Household Members: Spouse Housing: House Do you presently have visiting nurse or other home services: No Alcohol intake: current Alcohol intake frequency: holidays/special occasions only Patient Tobacco Use Status: Never used Tobacco Second Hand Smoke Exposure: No service: No Physical Exam Vital Signs: Last Vital Signs Pulse 71 02/13/25 13:21 BP 130/74 02/13/25 13:21 Pulse Ox 96 02/13/25 13:21 Oxygen Delivery Method Room Air 02/13/25 13:21 BMI result Body Mass Index 32.5 Const Other: General: Comfortable Skin: No lesions seen MSK: Tender to palpate bilateral trochanteric bursae. Good external rotation of bilateral hips. Left knee tenderness with mild effusion. Bilateral Knee flexion 90 degrees. Tender lower lumbar spinous process with good ROM. No paraspinal muscle tenderness. Office Procedures AMB Joint Injection/Aspiration Joint Injection/Aspiration Details: Bilateral knee joints Prep: site was prepped using aseptic technique Injected into each joint: 40 mg of, Kenalog, with 1 mL of and 1% plain lidocaine Procedure: Informed verbal consent was obtained. The patient tolerated the procedure well. Postprocedure protocol was discussed with patient. Coding - Bilateral Large Joint Procedure code (CPT) selection complete AMB Joint Injection/Aspiration Coding 35720 - Bilateral Large Joint Procedure code (CPT) selection complete Office Meds lidocaine (PF) 10 mg/mL (1 %) injection solution Performing Provider: Murray Nam MD Performing Location: [facility] Administered by: Murray Nam MD on 02/13/25 13:48 Dose Route Admin Location Dispensed Lot Number Expiration Date [facility] Marker Maker 1 mL Infiltration left knee 2 mL [id number] 11/19/27 33003-089-11 [employer] Total Dispensed Waste 2 mL 50 % Kenalog 40 mg/mL suspension for injection Performing Provider: Murray Nam MD Performing Location: [facility] Administered by: Murray Nam MD on 02/13/25 13:48 Dose Route Admin Location Dispensed Lot Number Expiration Date [facility] Marker Maker 40 mg intra-articular left knee 1 mL [id number] 09/17/26 [address]-7 [employer] Total Dispensed Waste 1 mL 0 % lidocaine (PF) 10 mg/mL (1 %) injection solution Performing Provider: Murray Nam MD Performing Location: [facility] Administered by: Murray Nma MD on 02/13/25 13:48 Dose Route Admin Location Dispensed Lot Number Expiration Date [facility] Marker Maker 1 mL Infiltration right knee 2 mL [id number] 11/19/27 53474-024-68 [employer] Total Dispensed Waste 2 mL 50 % Kenalog 40 mg/mL suspension for injection Performing Provider: Murray Nam MD Performing Location: [facility] Administered by: Murray Nam MD on 02/13/25 13:48 Dose Route Admin Location Dispensed Lot Number Expiration Date [facility] Marker Maker 40 mg intra-articular right knee 1 mL [id number] 09/17/26 [address]- 1 [employer] Total Dispensed Waste 1 mL 0 % Assessment & Plan Assessment & Plan (1) Greater trochanteric bursitis of both hips: Comment: Chronic, bilateral. Uncontrolled Code(s): M70.61 - Trochanteric bursitis, right hip; M70.62 - Trochanteric bursitis, left hip Category: Medical Plan: PT ordered Can consider trochanteric bursa injections next visit if pain persists Return to clinic in 3 months (2) Osteoarthritis of knees, bilateral: Comment: Pain is uncontrolled. Rheumatology history: last of cortisone injections 05/08/2024 Code(s): M17.0 - Bilateral primary osteoarthritis of knee Category: Medical Plan: patient received bilateral knee cortisone injecctions. Use Tylenol PRN joint pain Return to clinic in 3 months (3) Lower back pain: Code(s): M54.50 - Low back pain, unspecified Category: Medical Plan: L-spine x-ray ordered PT ordered Apply to heat to back PRN Try lidocaine patch RTC PRN Orders: Orders XR lumbar spine 2-3V Today M54.50 - Low back pain, unspecified AMB Joint Injection/Aspiration Today M17.0 - Bilateral primary osteoarthritis of knee AMB Joint Injection/Aspiration Today M17.0 - Bilateral primary osteoarthritis of knee Coding Level of Care Code Est Pt Level 4 (90471) Complex visit Add On G2211 Diagnoses Greater trochanteric bursitis of both hips M70.61; M70.62 Osteoarthritis of knees, bilateral M17.0 Lower back pain M54.50 CPT Codes Coding - 83862 - Bilateral Large Joint: 23447 - Bilateral Large Joint ([id number]) Coding - 42000 - Bilateral Large Joint: 83695 - Bilateral Large Joint ([id number])
--- OUTSIDE RECORDS SUMMARY | 2025-02-13 16:16 | XMS_ITS | Encounter Summary ---
Author Organization [facility] Address [address] [facility] [address] [place] [address] Phone Care Team Providers Care Rural Mail Contractor Name Role Phone Self-Referred, Patient Unavailable Unavailab Lillian Cho [facility] Unavailable Janine Simeon MD Unavailable Herman Guzman MD Unavailable Suresh Mcclellan Primary Care Provid er Daniela Bazan MD Unavailable Luke Ross MD Unavailable Encounter Details Date Type Department Care Team (Late st Contact Info) Description 12/09/2020 Procedure Pass [facility] Imaging Department, [facility] [place], [place] [address] [place] [address], Floor [address]1 [place] [address] Social History Tobacco Use Types Packs/Day Years [...] Care Team (Late st Contact Info) Description 05/01/2025 11:45 AM EST Blood Draw [facility] Imaging Department, [facility], Imaging [employer] [address] [facility], [place] [address] [place] [address] Melany Davey MD [address] [place] [id number] [email or web address] 05/01/2025 1:30 PM EST Appointment [facility] Imaging Department, [facility], PET/CT [address] [place] [address] Melany Davey MD [address] [address] [email or web address] 05/02/2025 9:30 AM EST Office [facility], [address], 5th [place] [address] Alida Mancilla MD [address] [place] [address] [place] [address] [email or web address] 05/02/2025 10:00 AM EST Office Visit [facility], [address], [address]th [place] [address] Melany Davey MD [address] [place] [address] [email or web address] documented as of this encounter Visit Diagnoses Not on filedocumented in this encounter Care Teams Rural Mail Contractor Relationship Specialty Start Date End Date Suresh Mcclellan PA [address] [place] [address] PCP - General Unknown Provider Specialty 10/30/20 Self-Referred, Patient Referring Physician 06/07/19 Lillian Muñiz LICSW [address] [place] [address] [email or web address] Protection Inspector 06/20/19 Janine Simeon MD [address] [place] [address] [email or web address] Radiation Oncology 10/19/19 Herman Guzman MD [address] [facility] Hematology/[place] [address] [email or web address] 01/18/20 Daniela Bazan MD [id number] [id number] [email or web address] Medical Student 11/05/20 Luke Ross MD [address] Janeen Abdullahi [address] [place] [phone] Otolaryngology 03/04/23 documented as of this encounter Additional Source Comments The information contained in this document represents components of the legal health record. It is not the complete legal health record.[facility]
--- OUTSIDE RECORDS SUMMARY | 2025-02-13 16:16 | XMS_ITS | Encounter Summary ---
Author Organization [facility] Address [address] [facility] [address] [place] [address] Phone Care Team Providers Care White Lead Filterer Name Role Phone Self-Referred, Patient Unavailable Unavailab Lillian Coh [facility] Unavailable Janine Simeon MD Unavailable Herman Guzman MD Unavailable Suresh Mcclellan Primary Care Provid er Daniela Bazan MD Unavailable Luke Ross MD Unavailable [phone] Encounter Details Date Type Department Care Team (Late st Contact Info) Description 12/09/2020 Procedure Pass [facility] Imaging Department, [facility] [place], [place] [address] [place] [address], Floor [address] [place] [address] Social History Tobacco Use Types Packs/Day Years [...] Description 05/01/2025 11:45 AM EST Blood Draw [facility] Imaging Department, [facility], Imaging [employer] [address] [facility], Floor [address] [place] [address] Melany Davey MD [address] [place] [id number] [email or web address] 05/01/2025 1:30 PM EST Appointment [facility] Imaging Department, [facility], PET/CT 450 [place] [address] Melany Davey MD [address] [address] [email or web address] 05/02/2025 9:30 AM EST Office Visit [facility], [address], [address]th [place] [address] Alida Mancilla MD [address] [place] [address] [place] [address] [email or web address] 05/02/2025 10:00 AM EST Office Visit [facility], [address], [address]th [place] [address] Melany Davey MD [address] [place] [phone] [email or web address] documented as of this encounter Visit Diagnoses Not on filedocumented in this encounter Care Teams White Lead Filterer Relationship Specialty Start Date End Date Suresh Mcclellan PA [address] [place] [phone] PCP - General Unknown Provider Specialty 10/30/20 Self-Referred, Patient Referring Physician 06/07/19 Lillian Muñiz LICSW [address] [place] [address] [email or web address] Buyer Intern 06/20/19 Janine Simeon MD [address] [place] [address] [email or web address] Radiation Oncology 10/19/19 Herman Guzman MD [address] [facility] Hematology/[place] [address] [email or web address] 01/18/20 Daniela Bazan MD [phone] [address] [email or web address] Medical Student 11/05/20 Luke Ross MD 15 Janeen Abdullahi [address] [place] [address] Otolaryngology 03/04/23 documented as of this encounter Additional Source Comments The information contained in this document represents components of the legal health record. It is not the complete legal health record.[facility]
--- OUTSIDE RECORDS SUMMARY | 2025-02-13 16:17 | XMS_ITS | Clinical Summary ---
Author Organization [facility] Address [address] [place] [phone] Phone Care Team Providers Care Asp Net Mvc Developer Name Role Phone Self-Referred, Patient Unavailable Unavailab Lillian Cho [facility] Unavailable Janine Simeon MD Unavailable Herman [...] thin skin. 80 g 1 0 Active ketoconazole 2 % cream APPLY TOPICALLY DAILY NEEDED FOR RASHES IN BODY FOLDS AND GROIN AREA 60 g 11 3 Active clobetasol (TEMOVATE) 0.05 % ointment Apply topically 2 (two) times a day. As needed for itchy bug bites. For flares of rash on TRUNK/EXTREMITIE S up to 2weeks/month. Avoid face, genitals, armpits. 30 g 1 3 Active atorvastatin (LIPITOR) 20 MG tablet Take 20 mg by mouth daily. 1 Active acetaminophen (TYLENOL) 325 mg tablet Take 650 mg by mouth every 6 (six) hours as needed. Active clidinium-chlor diazePOXIDE (LIBRAX) 5-2.5 mg per capsule TAKE ONE CAPSULE BY MOUTH THREE TIMES A DAY WITH MEALS 4 Active guaiFENesin-cod eine (ROBITUSSIN AC) 100-10 mg/5 mL liquid 5 mL, By Mouth, Every 4 hours, PRN for cough, # 60 mL, 0 Refills, Maintenance, 10/29/24 1:27:00 PM EDT, Syrup, [facility], Partial fill upon patient request if the prescription is for a schedule II opioid drug., 5 mL By Mouth Every 4 hours,PRN:for cough, 173.2, cm, 10/29/24 13:00:00 EDT, Height, 103, kg, 10/29/24 13:01:00 EDT, Dry Weight 2 Active diclofenac sodium (VOLTAREN) 50 MG EC tablet Take 50 mg by mouth 2 (two) times a day. 3 Active famotidine (PEPCID) 20 MG tablet Take 20 mg by mouth daily. 2 Active ibuprofen (ADVIL,MOTRIN) 200 MG tablet Take 200 mg by mouth every 6 (six) hours as needed. Active nystatin (NYSTOP) powder 1 application, Topically, 2 times a day, # 30 Gm, 3 Refills, Maintenance, 10/21/21 11:25:00 EDT, Powder, [facility], Partial fill upon patient request if the prescription is for a schedule II opioid drug., 1 application Topically 2 times... 2 Active citalopram (CELEXA) 20 MG tablet Take 20 mg by mouth daily. 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 01/31/2025 Orders Only [facility], [address], [address] [place] [address] Melany Davey MD [place] cell carcinoma (Primary Dx) 01/30/2025 12:50 PM EST - 01/30/2025 11:59 PM EST Hospital Encounter [facility], [facility], PET/CT [address] [place] [address] Melany Davey MD Discharge Disposition: Home or Self Care 01/24/2025 Orders Only [facility] [address] [place] [address], [address] [place] [address] Leonardo Taveras MD Splenic mass 01/24/2025 Orders Only [facility] [address] [facility], [address]th [place] [address] Imelda Ulloa Splenic mass (Primary Dx) 12/24/2024 1:28 PM EDT - 12/24/2024 11:59 PM EDT Hospital Encounter [facility] Phlebotomy [place] [address] [place] [address] Leonardo Taveras MD Discharge Disposition: Home or Self Care 12/24/2024 1:00 PM EDT Office Visit [facility] Hematology [address] [place] [address] Leonardo Taveras MD Lesion of spleen (Primary Dx); Need for hepatitis C screening test; Need for hepatitis B screening test; Recurrent Scottie cell carcinoma; Large cell lymphoma, splenic from Last 3 Months Family History Medical History Relation Comments Colon cancer Father Relation Status Comments Father Social History Tobacco Use Types Packs/Day Years Used Date Smoking Tobacco: Never Smokeless Tobacco: Never Tobacco Cessation:Counseling Given: No Alcohol Use Standard Drinks/Week Comments Yes 1 (1 standard drink = 0.6 oz pur e alcohol) Education Answer Date Recorded Are you interested [...] Sign Reading Time Taken Comments Blood Pressure 108/62 01/31/2025 11:45 AM EST Pulse 83 01/31/2025 11:45 AM EST Temperature 36.5 C (97.7 F) 01/31/2025 11:45 AM EST Respiratory Rate 18 01/31/2025 11:4 3 AM EST Oxygen Saturation 96% 01/31/2025 11: 45 AM EST Inhaled Oxygen Concentration - - Weight 102.9 kg (226 lb 13.7 oz) 2024 11:43 AM EST Height 172.5 cm (5' 7.91 ) 11/08/2024 1 0:11 AM EDT Body Mass Index 34.58 11/08/2024 10:11 AM EDT Plan of Treatment Upcoming Encounters Date Type Department Care Team (Late st Contact Info) Description 05/01/2025 11:45 AM EST Blood Draw [facility] Imaging [facility], [facility], Imaging [id number] [address] [facility], [address] [place] [address] Melany Davey MD [address] [place] [phone] [email or web address] 05/01/2025 1:30 PM EST Appointment [facility] Imaging Department, [facility], PET/CT [address] [place] [address] Melany Davey MD [address] [place] [phone] [email or web address] 05/02/2025 9:30 AM EST Office Visit [facility], [address], 5[address] [place] [address] Alida Mancilla MD [address] [place] [address] [place] [phone] [email or web address] 05/02/2025 10:00 AM EST Office Visit [facility], [address], [address] [place] [address] Melany Davey MD [address] [place] [phone] [email or web address] Health Maintenance Due Date Last Done Comments COLOGUARD 1997 COLONOSCOPY 1997 COLORECTAL CANCER SCREENING 1997 FIT TEST 1997 FOBT 1997 SIGMOIDOSCOPY 1997 VIRTUAL COLONOSCOPY 1997 ZOSTER VACCINES (1 of 2) 01/16/2013 11/21/2012 COVID-19 VACCINE ( season) 2024 03/02/2021, 06/14/2020, 05/24/2020 DEPRESSION SCREENING 12/21/2025 12/21/2024 RSV VACCINE (1 - 1-dose 75+ series) 09/20/2027 LIPID PANEL 01/28/2030 01/28/2025, 11/19, 02/28/2023, Additional history exists Adult Td,Tdap Booster 01/28/2035 01/28/2025 , 05/22/2013, 09/26/2001 PNEUMOCOCCAL VACCINES (50+ years) Completed 12/26/2018, 12/06/2017 HEPATITIS C SCREENING Completed 12/24/2024 , 12/24/2024, 12/24/2024, Additional history exists SMOKING STATUS SCREENING (Once After 26 Yrs) Completed 12/24/2024 INFLUENZA VACCINE Completed 01/28/2025, , 12/05/2023, Additional history exists HEPATITIS A VACCINES Aged Out No long [...] NM PET CT SCALP TO TOES Routine 01/31/20 25 2:43 PM EST [place] cell carcinoma POCT GLUCOSE Routine 01/30/2025 1:06 PM EST POCT GLUCOSE Routine 01/30/2025 1:02 PM EST CBC AND DIFFERENTIAL Routine 01/30/2025 12:20 PM EST [place] cell carcinoma FREE T4 Routine 01/30/2025 12:20 PM EST Scottie cell carcinoma THYROID STIMULATING HORMONE (TSH) Routine 01/30/2025 12:20 PM EST [place] cell carcinoma SCOTTIE CELL CARCINOMA ANTIBODIES Routine 01/30/2025 12:20 PM EST [place] cell carcinoma LDH Routine 01/30/2025 12:20 PM EST Scottie cell carcinoma COMPREHENSIVE METABOLIC PANEL (CMP) Routine 01/30/2025 12:20 PM EST Scottie cell carcinoma CBC AND DIFFERENTIAL Routine 01/30/2025 12:20 PM EST Scottie cell carcinoma SIGNATERA ONLY Routine 01/30/2025 OUTSIDE PATHOLOGY REVIEW/CONSULT Routine 01/24/2025 1:35 PM EST Splenic mass CBC AND DIFFERENTIAL Routine 12/24/2024 1:39 PM EDT Need for hepatitis C screening test Need for hepatitis B screening test Lesion of spleen Recurrent Scottie cell carcinoma RETICULOCYTES Routine 12/24/2024 1:39 PM EDT Need for hepatitis C screening test Need for hepatitis B screening test Lesion of spleen Recurrent [place] cell carcinoma COMPREHENSIVE METABOLIC PANEL (CMP) Routine 12/24/2024 1:39 PM EDT Need for hepatitis C screening test Need for hepatitis B screening test Lesion of spleen Recurrent [place] cell carcinoma LDH Routine 12/24/2024 1:39 PM EDT Need for hepatitis C screening test Need for hepatitis B screening test Lesion of spleen Recurrent Scottie cell carcinoma URIC ACID Routine 12/24/2024 1:39 PM EDT Need for hepatitis C screening test Need for hepatitis B screening test Lesion of spleen Recurrent [place] cell carcinoma HEPATITIS B SURFACE ANTIBODY Routine 12/24/2024 1:39 PM EDT Need for hepatitis B screening test ANGIOTENSIN CONVERTING ENZYME, BLOOD Routine 12/24/2024 1:39 PM EDT Need for hepatitis C screening test Need for hepatitis B screening test Lesion of spleen Recurrent Scottie cell carcinoma LGL PANEL Routine 12/24/2024 1:39 PM EDT Need for hepatitis C screening test Need for hepatitis B screening test Lesion of spleen Recurrent [place] cell carcinoma LYMPHOMA / CLL PANEL Routine 12/24/2024 1:39 PM EDT Need for hepatitis C screening test Need for hepatitis B screening test Lesion of spleen Recurrent [place] cell carcinoma FREE LIGHT CHAINS, SERUM Routine 12/24/2024 1:39 PM EDT Need for hepatitis C screening test Need for hepatitis B screening test Lesion of spleen Recurrent Scottie cell carcinoma SPEP PANEL WITH IMMUNOFIXATION Routine 12/24/2024 1:39 PM EDT Need for hepatitis C screening test Need for hepatitis B screening test Lesion of spleen Recurrent [place] cell carcinoma BETA-2 MICROGLOBULIN, BLOOD Routine 12/24/2024 1:39 PM EDT Need for hepatitis C screening test Need for hepatitis B screening test Lesion of spleen Recurrent Scottie cell carcinoma HIV-1/2 ANTIGEN/ANTIBODY Routine 12/24/2024 1:39 PM EDT Need for hepatitis C screening test Need for hepatitis B screening test Lesion of spleen Recurrent [place] cell carcinoma T SPOT TB TEST Routine 12/24/2024 1:39 PM EDT Need for hepatitis C screening test Need for hepatitis B screening test Lesion of spleen Recurrent [place] cell carcinoma HEPATITIS C ANTIBODY, QUALITATIVE Routine 12/24/2024 1:39 PM EDT Need for hepatitis C screening test HEPATITIS B SURFACE ANTIGEN Routine 12/24/2024 1:39 PM EDT Need for hepatitis B screening test HEPATITIS B CORE ANTIBODY, TOTAL Routine 12/24/2024 1:39 PM EDT Need for hepatitis B screening test 1-3-BETA D GLUCAN Routine 12/24/2024 1:3 9 PM EDT Need for hepatitis C screening test Need for hepatitis B screening test Lesion of spleen Recurrent Scottie cell carcinoma GALACTOMANNAN, BLOOD Routine 12/24/2024 1:39 PM EDT Need for hepatitis C screening test Need for hepatitis B screening test Lesion of spleen Recurrent Scottie cell carcinoma SCHISTOSOMA ANTIBODY, IGG, BLOOD Routine 12/24/2024 1:39 PM EDT Need for hepatitis C screening test Need for hepatitis B screening test Lesion of spleen Recurrent Scottie cell carcinoma HC ANTIBODY HELMINTH NOT ELSEWHERE SPECIFIED Routine 12/24/2024 1:39 PM EDT Need for hepatitis C screening test Need for hepatitis B screening test Lesion of spleen Recurrent [place] cell carcinoma LEISHMANIA ANTIBODY Routine 12/24/2024 1 :39 PM EDT Need for hepatitis C screening test Need for hepatitis B screening test Lesion of spleen Recurrent [place] cell carcinoma SERUM PROTEIN ELECTROPHORESIS Routine 12/24/2024 12:00 AM EDT T/B CLONALITY Routine 12/24/2024 12:00 AM EDT RAPID HEME PANEL Routine 12/24/2024 12:0 0 AM EDT FLOW CYTOMETRY Routine 12/24/2024 12:00 AM EDT from Last 3 Months Results * NM PET CT Scalp to Toes (01/30/2025 2:43 PM EST) Anatomical Region Laterality Modality Computed Tomogra phy 01/30/2025 3:09 PM EST Impressions 01/31/2025 8:37 AM EST 1. Increased intensely FDG-avid mesenteric lymph node and similar moderately FDG avid portacaval lymph node are indeterminate but suspicious for malignancy. It's not impossible that this could also be related to #2 although this is new and the findings in #2 are similar to the prior scan. 2. Similar diffuse heterogeneously intense FDG uptake throughout the liver and spleen is indeterminate. These findings are unusual for metastatic [place] cell carcinoma and a delayed immunotherapy related inflammatory response can be considered. Short term clinical correlation is recommended in 8 weeks. 3. Unchanged intense focal FDG uptake along the dorsal aspect of the right forefoot, likely inflammatory. ATTESTATION: Mary Botello, as teaching physician have reviewed the images, if any, for this patient's exam, and if necessary, have edited the report originally created by Yanick Guzman. Narrative 01/31/2025 8:37 AM EST Reason for exam (per EHR order): *Skin cancer, assess treatment response; The primary tumor is located on Additional clinical information obtained from the EHR: 74-year-old Male. 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 Subsequent treatment strategy. TECHNIQUE: Radiopharmaceutical: F-18-FDG. Dose: 9.99 mCi. Blood glucose: 91 mg/dL. TECHNIQUE: At 71 minutes following IV tracer administration via a left antecubital vein, positron emission tomography was performed from the vertex of the skull through the toes. Non-contrast low-dose helical CT imaging was performed over the same range without breath-hold for attenuation correction of PET images and anatomic correlation. COMPARISON: FDG-PET/CT dated November 07, 2024. FINDINGS: HEAD AND NECK: Similar left thyroid nodule with peripheral calcifications and small below PET uptake measuring 5.8 x 5.0 cm with extension into the superior mediastinum and tracheoesophageal displacement (image 109). There is better morphologically characterized on February 25, 2021 CT neck. CHEST: Ports and devices: None. Lungs: Biapical scarring, likely sequela of radiation fibrosis. Similar right apical, middle and bilateral lower lobe scarring with low-level FDG uptake. Pleura: No abnormal FDG uptake. Lymph Nodes: No abnormal FDG uptake. Mediastinum: No abnormal FDG uptake. Focal moderate uptake at the distal esophagus, likely inflammatory. Atherosclerosis of the thoracic aorta and major branch vessels. Breasts/Chest Wall: Right axillary lymph node dissection. ABDOMEN/PELVIS: Liver/biliary system: Similar diffuse heterogeneously intense FDG uptake throughout the enlarged liver. Pancreas: No abnormal FDG uptake. Spleen: Similar diffuse heterogeneously intense FDG uptake throughout the spleen with scattered intensely avid foci. Adrenal Glands: No abnormal FDG uptake. Kidneys: No abnormal FDG uptake. Bowel: No abnormal FDG uptake. Mesentery, Omentum and Peritoneum: No abnormal FDG uptake. Atherosclerosis of the abdominal aorta and major branch vessels. Pelvis Organs: No abnormal FDG uptake. Lymph Nodes: Increased intensely FDG-avid mesenteric lymph node measuring 1.1 x 1.1 cm with SUVmax 8.6 (image 246). Similar moderately FDG-avid portacaval lymph node measuring 1.7 x 1.2 cm with SUVmax 4.5 (image 193). MUSCULOSKELETAL: Focal moderate FDG uptake in the left deltoid with SUVmax 3.5 (image 106). LOWER EXTREMITIES: Unchanged intense focal FDG uptake along the dorsal aspect of the right forefoot with SUV max 4.0 (image 587). Multilevel degenerative changes of the spine with expected post radiation changes in the upper thoracic spine. Procedure Note Mary Golden MD - 01/31/2025 Reason for exam (per EHR order): *Skin cancer, assess treatment response;The primary tumor is located on Additional clinical information obtained from the EHR: 74-year-old Male.[place] cell carcinoma of the right forearm status post excision andradiation to the right forearm (2019) with metastatic recurrence statuspost radiation to the left neck (2021) and nasopharynx (2023), onpembrolizumab since 2019. Subsequent treatment strategy. TECHNIQUE: Radiopharmaceutical: F-18-FDG. Dose: 9.99 mCi. Blood glucose: 91 mg/dL. TECHNIQUE: At 71 minutes following IV tracer administration via a leftantecubital vein, positron emission tomography was performed from thevertex of the skull through the toes. Non-contrast low-dose helical CTimaging was performed over the same range without breath-hold forattenuation correction of PET images and anatomic correlation. COMPARISON: FDG-PET/CT dated November 07, 2024. FINDINGS: HEAD AND NECK: Similar left thyroid nodule with peripheral calcificationsand small below PET uptake measuring 5.8 x 5.0 cm with extension into thesuperior mediastinum and tracheoesophageal displacement (image 109). Thereis better morphologically characterized on February 25, 2021 CT neck. CHEST: Ports and devices: None. Lungs: Biapical scarring, likely sequela of radiation fibrosis. Similarright apical, middle and bilateral lower lobe scarring with low-level FDGuptake. Pleura: No abnormal FDG uptake. Lymph Nodes: No abnormal FDG uptake. Mediastinum: No abnormal FDG uptake. Focal moderate uptake at the distalesophagus, likely inflammatory. Atherosclerosis of the thoracic aorta andmajor branch vessels. Breasts/Chest Wall: Right axillary lymph node dissection. ABDOMEN/PELVIS: Liver/biliary system: Similar diffuse heterogeneously intense FDG uptakethroughout the enlarged liver. Pancreas: No abnormal FDG uptake. Spleen: Similar diffuse heterogeneously intense FDG uptake throughout thespleen with scattered intensely avid foci. Adrenal Glands: No abnormal FDG uptake. Kidneys: No abnormal FDG uptake. Bowel: No abnormal FDG uptake. Mesentery, Omentum and Peritoneum: No abnormal FDG uptake. Atherosclerosisof the abdominal aorta and major branch vessels. Pelvis Organs: No abnormal FDG uptake. Lymph Nodes: Increased intensely FDG-avid mesenteric lymph node measuring1.1 x 1.1 cm with SUVmax 8.6 (image 246). Similar moderately FDG-avidportacaval lymph node measuring 1.7 x 1.2 cm with SUVmax 4.5 (). MUSCULOSKELETAL: Focal moderate FDG uptake in the left deltoid with SUVmax3.5 (image 106). LOWER EXTREMITIES: Unchanged intense focal FDG uptake along the dorsalaspect of the right forefoot with SUV max 4.0 (image 587). Multileveldegenerative changes of the spine with expected post radiation changes inthe upper thoracic spine. IMPRESSION: 1. Increased intensely FDG-avid mesenteric lymph node and similarmoderately FDG avid portacaval lymph node are indeterminate but suspiciousfor malignancy. It's not impossible that this could also be related to #2although this is new and the findings in #2 are similar to the priorscan. 2. Similar diffuse heterogeneously intense FDG uptake throughout the liverand spleen is indeterminate. These findings are unusual for metastaticMerkel cell carcinoma and a delayed immunotherapy related inflammatoryresponse can be considered. Short term clinical correlation is recommendedin 8 weeks. 3. Unchanged intense focal FDG uptake along the dorsal aspect of the rightforefoot, likely inflammatory. ATTESTATION: Mary Botello, as teaching physician have reviewed theimages, if any, for this patient's exam, and if necessary, have edited thereport originally created by Yanick Guzman. us Melany Davey MD IMG NM PET Final Result * POCT Glucose (01/30/2025 1:06 PM EST) Only the most recent of2 resultswithin the time period is included. Glucose 91 70 - 99 mg/dL 01/30/2025 3:59 PM EST [facility] Blood (Blood) 01/30/2025 1:0 6 PM EST 01/30/2025 3:59 PM EST us Melany Davey MD LAB POCT DOCKED DEVICE UNSOLICTE D RESULTS Final Result Performing Organization Address City/[facility]/ZIP Co de Phone Number [facility] [address] [place] [phone] * (ABNORMAL) Lactate Dehydrogenase (LDH) (01/30/2025 12:20 PM EST) Only the most recent of2 resultswithin the time period is included. LDH 456(H) 135 - 225 U/L 01/30/2025 2:06 PM EST [facility] Blood (Blood) Venipuncture / Unknown 01/30/2025 12:20 PM EST 01/30/2025 1:26 PM EST us Melany Davey MD LAB BLOOD BKR ORDERABLES Final R esult [facility] [address] [place] [phone] * (ABNORMAL) Comprehensive Metabolic Panel (CMP) (01/30/2025 12:20 PM EST) Only the most recent of2 resultswithin the time period is included. Sodium 135(L) 136 - 145 mmol/L 01/30/2025 2:06 PM [facility] Potassium 4.4 3.4 - 5.1 mmol/L 01/30/2025 2:06 PM [facility] Chloride 101 98 - 107 mmol/L 01/30/2025 2:06 PM EST [facility] CO2 23 20 - 31 mmol/L 01/30/2025 2:06 PM [facility] Anion Gap 11 3 - 17 mmol/L 01/30/2025 2:06 PM [facility] BUN 26(H) 6 - 23 mg/dL 01/30/2025 2:06 PM [facility] Creatinine 1.33(H) 0.60 - 1.30 mg/dL 01/30/2025 2:06 PM [facility] eGFR 57(L) >59 mL/min/1.7 3m2 01/30/2025 2:06 PM [facility] Comment:Estimated glomerular filtration rate calculated using the CKD-EPI refit equation. Glucose 89 70 - 99 mg/dL 01/30/2025 2:06 PM [facility] Calcium 9.4 8.5 - 10.5 mg/dL 01/30/2025 2:06 PM [facility] AST 32 <41 U/L 01/30/2025 2:06 PM [facility] ALT 18 <42 U/L 01/30/2025 2:06 PM [facility] Alkaline Phosphatase 121 40 - 130 U/L 01/30/2025 2:06 PM [facility] Bilirubin, Total 0.4 0.0 - 1.2 mg/dL 01/30/2025 2:06 PM [facility] Total Protein 7.9 6.4 - 8.3 g/dL 01/30/2025 2:06 PM EST [facility] Albumin 3.6 3.5 - 5.2 g/dL 01/30/2025 2:06 PM EST [facility] Globulin 4.3(H) 1.9 - 4.1 g/dL 01/30/2025 2:06 PM EST [facility] Blood (Blood) Venipuncture / Unknown 01/30/2025 12:20 PM EST 01/30/2025 1:26 PM EST us Melany Davey MD LAB BLOOD BKR ORDERABLES Final R esult [facility] [address] [place] [address] * (ABNORMAL) Scottie Cell Carcinoma Antibodies (01/30/2025 12:20 PM EST) Scottie Oncoprotein Antibody, Titer 3940(H) 0 - 74 ALTHEA 02/08/2025 3:12 PM EST [facility] Comment: Testing performed by [facility] Med, [id number], [address] [facility], [place] [id number], [place], [address], Die Lay Out Worker: Lenin Feng MD Scottie Oncoprotein Antibody, Interpretation Positive 02/08/2025 3:12 PM EST [facility] Comment: Testing performed by [facility] of [facility] Med, [id number], [address] [facility], [place] [address], [place], [address], Die Lay Out Worker: Lenin Feng MD Prior [place] Oncoprotein Antibody 3580(H) 0 - 74 ALTHEA 02/08/2025 3:12 PM EST [facility] Comment: Testing performed by [facility] of [facility] Med, [id number], [address] [facility], [place] [id number], [place], [address], Die Lay Out Worker: Lenin Feng MD Date of Prior Sample 11/07/24 02/08/2025 3:12 PM EST [facility] Comment: Testing performed by [facility] of Lab Med, [id number], [address] [facility], [place] [address], [place], [address], Die Lay Out Worker: Lenin Feng MD Merkel Disease Status, Interpretation 1 See Note 02/08/2025 3:12 PM EST [facility] Comment: Oncoprotein antibodies are present in the blood of 50% of patients when they have clinically detectable INTERMEDIATE. In patients who make oncoprotein antibodies, titers are expected to decrease significantly within 3 months of successful treatment of INTERMEDIATE. Testing performed by [facility], [id number], [address] [facility], [place] [id number], [place], [address], Die Lay Out Worker: Lenin Feng MD Merkel Disease Status, Interpretation 2 See Note 02/08/2025 3:12 PM EST [employer] Comment: Changes in oncoprotein titer of less than 25% may not be biologically significant. A significant rise in titer or stabilization of titer above 2000 ALTHEA may be associated with persistent or recurrent INTERMEDIATE. See [email or web address] Testing performed by [facility], [id number], [address] [facility], [place] [id number], [place], [address], Die Lay Out Worker: Lenin Feng MD Scottie Antibody SmT Method See Note 02/08/2025 3:12 PM EST [employer] Comment: This test was developed and its performance characteristics determined by the [facility] Department of Laboratory Medicine. It has not been cleared or approved by the US Food and Drug Administration. This laboratory is certified under the Clinical Laboratory Improvement Amendments (CLIA) as qualified to perform high complexity clinical laboratory testing. This test is used for clinical purposes. It should not be regarded as investigational or for research. Testing performed by [facility], [id number], [address] [place] [address], [place] [id number], [place], [address], Die Lay Out Worker: Lenin Feng MD Blood (Blood) Venipuncture / Unknown 01/30/2025 12:20 PM EST 01/30/2025 1:25 PM EST us Melany W Silk MD LAB BLOOD BKR ORDERABLES Final R esult [employer] [address] [place] [phone], [facility] [phone] * CBC and Differential (01/30/2025 12:20 PM EST) WBC 5.86 4.00 - 11.00 K/uL 01/30/2025 1:38 PM EST [facility] RBC 4.55 4.50 - 5.90 M/uL 01/30/2025 1:38 PM EST [facility] Hemoglobin 13.8 13.5 - 17.5 g/dL 01/30/2025 1:38 PM EST [facility] Hematocrit 41.0 41.0 - 53.0 % 01/30/2025 1:38 PM EST [facility] MCV 90.1 80.0 - 100.0 fL 01/30/2025 1:38 PM EST [facility] MCH 30.3 27.0 - 31.0 pg 01/30/2025 1:38 PM EST [facility] MCHC 33.7 32.0 - 36.0 g/dL 01/30/2025 1:38 PM EST [facility] MPV 10.0 8.4 - 12.0 fL 01/30/2025 1:38 PM EST [facility] RDW-CV 13.8 11.5 - 14.5 % 01/30/2025 1:38 PM EST [facility] PLT 162 150 - 450 K/uL 01/30/2025 1:38 PM EST [facility] Neutrophils 69.8 % 01/30/2025 1:38 PM EST [facility] Lymphocytes 14.0 % 01/30/2025 1:38 PM EST [facility] Monocytes 12.3 % 01/30/2025 1:38 PM EST [facility] Eosinophils 2.9 % 01/30/2025 1:38 PM EST [facility] Basophils 0.7 % 01/30/2025 1:38 PM EST [facility] Imm Grans 0.3 % 01/30/2025 1:38 PM EST [facility] NRBC 0.0 <=0.0 /100 WBCs 01/30/2025 1:38 PM EST [facility] Absolute Neutrophils 4.09 1.92 - 7.60 K/uL 01/30/2025 1:38 PM EST [facility] Absolute Lymphocytes 0.82 0.72 - 4.10 K/uL 01/30/2025 1:38 PM EST [facility] Absolute Monocytes 0.72 0.16 - 1.10 K/uL 01/30/2025 1:38 PM EST [facility] Absolute Eosinophils 0.17 0.00 - 0.50 K/uL 01/30/2025 1:38 PM EST [facility] Absolute Basophils 0.04 0.00 - 0.15 K/uL 01/30/2025 1:38 PM EST [facility] Absolute Imm Grans 0.02 0.00 - 0.09 K/uL 01/30/2025 1:38 PM EST [facility] Absolute NRBC 0.00 <=0.00 K cells/uL 01/30/2025 1:38 PM EST [facility] Absolute Neutrophils 4.09 1.92 - 7.60 K/uL 01/30/2025 1:38 PM EST [facility] Diff Type Auto 01/30/2025 1:38 PM EST [facility] Blood (Blood) Venipuncture / Unknown 01/30/2025 12:20 PM EST 01/30/2025 1:26 PM EST us Melany Davey MD LAB BLOOD BKR ORDERABLES Final R esult [facility] [address] [place] [id number] * Thyroid Stimulating Hormone (TSH) (01/30/2025 12:20 PM EST) [facility] TSH 1.47 0.40 - 5.90 uIU/mL 01/30/2025 2:09 PM EST [facility] Blood (Blood) Venipuncture / Unknown 01/30/2025 12:20 PM EST 01/30/2025 1:26 PM EST us Melany Davey MD LAB BLOOD BKR ORDERABLES Final R esult Performing Organization Address [facility]/ZIP Co de Phone Number [facility] [address] [place] [address] * T4, Free (01/30/2025 12:20 PM EST) [facility] T4, Free 1.2 0.9 - 1.8 ng/dL 01/30/2025 2:09 PM EST [facility] Blood (Blood) Venipuncture / Unknown 01/30/2025 12:20 PM EST 01/30/2025 1:26 PM EST us Melany Davey MD LAB BLOOD BKR ORDERABLES Final R esult Performing Organization Address City/[facility]/ZIP Co de Phone Number [facility] [address] [place] [phone] * Signatera only (01/30/2025) [facility] Test Result NEGATIVE SAMRA [employer] MTM Readout 0 SAMRA Comment: A full complement of 16 bespoke assays could not be designed from this particular tumor section. Testing with less than 16 assays may decrease clinical sensitivity. Please see the attached PDF for more information. Limitations [employer] is a personalized, tumor-informed test [...] shed. 1 Chaparro SV, Freddy SERRANOC, Ni GAYE, et al. Personalized circulating tumor DNA analysis as a predictive biomarker in solid tumor patients treated with pembrolizumab. Nature Cancer. 2020;1(9):873-881. 2 Carrie PINTO, Jhonatan Solis, et al., Circulating Tumor DNA [...] samples collected in cell-free DNA blood tubes ([employer]) using the QIAsymphony automated or manual extraction method (Qiagen). Using a proprietary algorithm, putative, clonal variants present in the tumor but absent in the germline DNA are identified to design the customized multiplex PCR assay. Whole-exome sequencing is performed on tumor and peripheral blood DNA using the proprietary [employer] whole-exome sequencing assay. Pathology services are performed at [facility], [address] [place] [address], [facility], [address], and whole exome sequencing is performed at [facility] (CLIA ID# [id number]), [address] [place] [address]. Disclaimer The extraction, library preparation, and sequencing for this test were performed by [facility] [address], [place] [address] (CLIA ID [id number]). The data analysis and reporting for this test were performed by [facility] [address], [place] [address] (CLIA ID [id number]). This test was developed and its performance characteristics determined by [facility]. The test has not been cleared or approved by the U.S. Food and Drug Administration (FDA). CAP accredited, ISO 34903 certified, and CLIA certified. Pathology services and whole exome sequencing for this test were performed by [facility] (CLIA ID # [id number]), [address] [place] [address]. 2020 [employer]. All Rights Reserved. 01/30/2025 Melany Davey MD LAB BLOOD ORDERABLES Final Resul t [facility] [address] [phone] * Outside Pathology Review/Consult (01/24/2025 1:35 PM EST) Consult Auto Resulting Yes 01/24/2025 1:46 PM EST [facility] Consult 01/24/2025 1:35 PM EST 01/24/2025 1:37 PM EST Leonardo Taveras MD LAB PATHOLOGY ORDERABLES Final Result [facility] [address] [place] [address] * Lymphoma / CLL panel (12/24/2024 1:39 PM EDT) LYMPHOCYTE SUBSETS SEE PATHOLOGY REPORT [facility] 12/24/2024 1:39 PM EDT 12/24/2024 2:03 PM EDT Leonardo Taveras MD LAB FLOW CYTOMETRY ORDERA BLES Final Result Performing Organization Address [facility] Co de Phone Number [facility] [address] [place] [phone] * LGL panel (12/24/2024 1:39 PM EDT) LGL PANEL SEE PATHOLOGY REPORT [facility] 12/24/2024 1:39 PM EDT 12/24/2024 2:03 PM EDT Leonardo Taveras MD LAB BLOOD ORDERABLES Aminata l Result Performing Organization Address [facility] Co de Phone Number [facility] [address] [place] [phone] * (ABNORMAL) SPEP panel with immunofixation (12/24/2024 1:39 PM EDT) TOTAL PROTEIN 7.9 6.4 - 8.3 g/dL [facility] SPEP SEE PATHOLOGY REPORT [facility] IMMUNOFIXATION SEE PATHOLOGY REPORT [facility] IgA 318 70 - 400 mg/dL [facility] IMMUNOGLOBULIN G 2,039(H) 700 - 1,600 mg/dL [facility] IMMUNOGLOBULIN M 443(H) 40 - 230 mg/dL [facility] 12/24/2024 1:39 PM EDT 12/24/2024 2:03 PM EDT Leonardo Taveras MD LAB BLOOD BKR ORDERABLES Final Result [facility] [address] [place] [address] * LEISHMANIA ANTIBODY (12/24/2024 1:39 PM EDT) [facility] LEISHMANIA VISC AB Negative Negative [facility]PATH [facility] Comment: (NOTE) Results indicate the absence of antibodies to members of the Leishmania donovoni complex. Repeat testing in 2-3 weeks if clinically indicated. Immunocompromised patients frequently have low or undetectable antibodies to Leishmania species. 12/24/2024 1:39 PM EDT 12/24/2024 1:59 PM EDT Leonardo Taveras MD LAB BLOOD ORDERABLES Aminata l Result Performing Organization Address [facility]/ZIP Co de Phone Number [facility]/PATH [address] [place] [address] * Echinococcal antibody (12/24/2024 1:39 PM EDT) [facility] ECHINOCOCCUS AB IGG Negative Negative [facility] Comment: (NOTE) No IgG antibody to Echinococcus species detected. False negative results may occur in samples collected too soon after infection or in immunosuppressed patients. Blood 12/24/2024 1:39 PM EDT 12/24/2024 2:03 PM EDT Leonardo Taveras MD MICROBIOLOGY - GENERAL OR DERABLES Final Result [facility]/PATH [address] [place] [address] * Reticulocytes (12/24/2024 1:39 PM EDT) Pathologist [facility] RETIC 1.3 0.7 - 2.5 % [facility] 12/24/2024 1:39 PM EDT 12/24/2024 1:59 PM EDT Leonardo Taveras MD LAB BLOOD BKR ORDERABLES Final Result [facility] [address] [place] [address] * Schistosoma antibody, IgG (12/24/2024 1:39 PM EDT) [facility] SCHISTOSOMA IGG AB Negative Negative [facility]PATH [facility]IOR Comment: (NOTE) No IgG antibodies to Schistosoma species detected. ADDITIONAL INFORMATION This test has been modified from the ledger clerk's instructions. Its performance characteristics were determined by [facility] in a manner consistent with CLIA requirements. This test has not been cleared or approved by the U.S. Food and Drug Administration. 12/24/2024 1:39 PM EDT 12/24/2024 1:59 PM EDT Leonardo Taveras MD LAB BLOOD ORDERABLES Aminata l Result Performing Organization Address City/[facility]/ZIP Co de Phone Number [facility]/PATH [address] [place] [address] * T spot TB test (12/24/2024 1:39 PM EDT) [facility] T-SPOT.TB Negative Negative [facility] Comment: (NOTE) A negative test result does not exclude the possibility of exposure to or infection with Mycobacterium tuberculosis (M. tuberculosis). Patients with recent exposure to TB infected individuals exhibiting a negative T-SPOT.TB result should be considered for retesting within 6 weeks or if other relevant clinical symptoms indicate. Results from T-SPOT.TB testing must be used in conjunction with each individual's epidemiological history, current medical status, and results of other diagnostic evaluations. The T-SPOT.TB test is qualitative and results are reported as positive, borderline, or negative, given that the test controls perform as expected. In line with the Centers for Disease Control and Prevention's 2010 recommendation to report quantitative measurements alongside the qualitative result, the laboratory provides spot counts for informational purposes only. The T-SPOT.TB test should not be interpreted as a quantitative test. Panel A Spot Count Corrected For Neg Control 0 [facility] Panel B Spot Count Corrected For Neg Control 0 [facility] Negative Control Passed [facility] Positive Control Passed [facility] Comment: (NOTE) For additional information, please refer to http://education.[employer]/faq/ZSC200 (This link is being provided for informational/ educational purposes only.) 12/24/2024 1:39 PM EDT 12/24/2024 1:59 PM EDT Leonardo Taveras MD LAB BLOOD ORDERABLES Aminata reyes Result [facility] [address] [place], [place] * 1-3-Beta D glucan (12/24/2024 1:39 PM EDT) [facility] Quantitative Value <31 <60 pg/mL pg/mL [facility]/PATH [address] DR Merrill Qualitative Result Negative Negative [facility] Comment: (NOTE) No (1, 3) Meid-S-Tovmae detected. This assay does not detect certain fungi, including Cryptococcus species, which produce very low levels of (1, 3) Icsb-S-Prmfrl (BDG) and the Mucorales (e.g., Lichthemia, Mucor and Rhizopus), which are not known to produce BDG. Additionally, the yeast phase of Blastomyces dermatitidis produces little BDG and may not be detected by this assay. ADDITIONAL INFORMATION This assay was performed using the FDA-cleared Fungitell Assay ([facility]), a kinetic DESIRAE based on modification of the Limulus Amebocyte Lysate pathway. Blood 12/24/2024 1:39 PM EDT 12/24/2024 2:03 PM EDT Leonardo Taveras MD NON CULTURE MICROBIOLOGY Final Result Performing Organization Address City/[facility]/ZIP Co de Phone Number [facility]PATH [address] [place] [address] * HIV-1/2 antigen/antibody (12/24/2024 1:39 PM EDT) Pathologist [facility] HIV 1/2 AB/AG Nonreactive Nonreactive [facility] Comment:No HIV 1/2 antibody or HIV 1 antigen detected. 12/24/2024 1:39 PM EDT 12/24/2024 1:59 PM EDT Leonardo Taveras MD LAB BLOOD BKR ORDERABLES Final Result Performing Organization Address City/[facility]/ZIP Co de Phone Number [facility] [address] [place] [phone] * Hepatitis C antibody, qualitative (12/24/2024 1:39 PM EDT) Pathologist [facility] HCV Nonreactive Nonreactive [facility] 12/24/2024 1:39 PM EDT 12/24/2024 1:59 PM EDT Leonardo Taveras MD LAB BLOOD BKR ORDERABLES Final Result Performing Organization Address [facility] Co de Phone Number [facility] [address] [place] [phone] * (ABNORMAL) Free light chains, serum (12/24/2024 1:39 PM EDT) FREE KAPPA LT CHAIN 44.2(H) 3.3 - 19.4 mg/L [facility] FREE LAMBDA LT CHAIN 60.7(H) 5.7 - 26.3 mg/L [facility] FREE KAPPA LAMBDA RAT 0.73 0.26 - 1.65 [facility] 12/24/2024 1:39 PM EDT 12/24/2024 1:59 PM EDT Leonardo Taveras MD LAB BLOOD BKR ORDERABLES Final Result Performing Organization Address [facility] Co de Phone Number [facility] [address] [place] [phone] * Galactomannan, blood (12/24/2024 1:39 PM EDT) ASPERGILLUS ANTIGEN 0.05 0 - 0.[address] [facility] Comment:SEMIQUANTITATIVE MET HOD PERFORMED 12/24/2024 1:39 PM EDT 12/24/2024 2:03 PM EDT Leonardo Taveras MD LAB BLOOD BKR ORDERABLES Final Result Performing Organization Address [facility] Co de Phone Number [facility] [address] [place] [address] * Hepatitis B core antibody, total (12/24/2024 1:39 PM EDT) HEP B CORE AB, TOT Nonreactive Nonreactive [facility] 12/24/2024 1:39 PM EDT 12/24/2024 1:59 PM EDT Leonardo Taveras MD LAB BLOOD BKR ORDERABLES Final Result Performing Organization Address [facility] Co de Phone Number [facility] [address] [place] [phone] * Hepatitis B surface antibody (12/24/2024 1:39 PM EDT) HBSAB <8.00 mIU/mL [facility] Comment: Nonreactive (<8.00mIU/mL) Individual is considered not immune to HBV infection. 12/24/2024 1:39 PM EDT 12/24/2024 1:59 PM EDT Leonardo Taveras MD LAB BLOOD BKR ORDERABLES Final Result Performing Organization Address City/[facility]/ZIP Co de Phone Number [facility] [address] [place] [phone] * Hepatitis B surface antigen (12/24/2024 1:39 PM EDT) HBV SURFACE ANTIGEN Nonreactive (HBsAg Negative) Nonreactive (HBsAg Negative) [facility] 12/24/2024 1:39 PM EDT 12/24/2024 1:59 PM EDT Leonardo Taveras MD LAB BLOOD BKR ORDERABLES Final Result Performing Organization Address [facility] de Phone Number [facility] [address] [place] [phone] * (ABNORMAL) CBC and differential (12/24/2024 1:39 PM EDT) WBC 6.11 4.00 - 11.00 K/uL [facility] RBC 4.68 4.50 - 5.90 M/uL [facility] HGB 14.1 13.5 - 17.5 g/dL [facility] HCT 42.7 41.0 - 53.0 % [facility] PLT 175 150 - 450 K/uL [facility] MCV 91.2 80.0 - 100.[address] [facility] MCH 30.1 27.0 - 31.[address] [facility] MCHC 33.0 32.0 - 36.0 g/dL [facility] RDW 13.8 11.5 - 14.5 % [facility] MPV 9.7 8.4 - 12.[address] [facility] NRBC 0.00 0.00 /[address] [facility] ABSOLUTE NRBC 0.00 0.00 K/uL [facility] DIFF METHOD Auto [facility] NEUTS 72.6 48.0 - 76.0 % [facility] LYMPHS 11.5(L) 18.0 - 41.0 % [facility] MONOS 12.1(H) 4.0 - 11.0 % [facility] EOS 2.8 0.0 - 5.0 % [facility] BASOS 0.8 0.0 - 1.5 % [facility] % IMMATURE GRANS 0.2 0.0 - 0.9 % [facility] ABSOLUTE NEUTS 4.44 1.92 - 7.60 K/uL [facility] Comment:1.21-5.39 cells/KL i s the reference range for individuals with the Acosta null phenotype ABSOLUTE LYMPHS 0.70(L) 0.72 - 4.10 K/uL [facility] ABSOLUTE MONOS 0.74 0.16 - 1.10 K/uL [facility] ABSOLUTE EOS 0.17 0.00 - 0.50 K/uL [facility] ABSOLUTE BASOS 0.05 0.00 - 0.15 K/uL [facility] ABS IMMATURE GRANS 0.01 0.00 - 0.09 K/uL [facility] ABSOLUTE NEUTROPHIL COUNT 4.44 1.92 - 7.60 K/uL [facility] Comment: Automated cell count. Manual ANC may differ if performed. 1.21-5.39 cells/KL is the reference range for individuals with the Acosta null phenotype Blood 12/24/2024 1:39 PM EDT 12/24/2024 1:59 PM EDT Leonardo Taveras MD LAB BLOOD BKR ORDERABLES Final Result [facility] [address] [place] [phone] * Angiotensin converting enzyme, blood (12/24/2024 1:39 PM EDT) ANGIOTENSIN CONV. ENZ 43 16 - 85 U/L [facility] OF [facility] MED AND PAT+ 12/24/2024 1:39 PM EDT 12/24/2024 1:59 PM EDT Leonardo Taveras MD LAB BLOOD ORDERABLES Aminata l Result [facility] OF LAB MED AND PAT+ [address] [place] [address] * Uric acid (12/24/2024 1:39 PM EDT) URIC ACID 6.8 3.4 - 7.0 mg/dL [facility] 12/24/2024 1:39 PM EDT 12/24/2024 1:59 PM EDT Leonardo Taveras MD LAB BLOOD BKR ORDERABLES Final Result Performing Organization Address City/[facility]/ZIP Co de Phone Number [facility] [address] [place] [address] * (ABNORMAL) Beta-2 microglobulin, blood (12/24/2024 1:39 PM EDT) BETA 2 MICROGLOBULIN 4.53(H) 1.21 - 2.70 mcg/mL [facility]PATH [facility] 12/24/2024 1:39 PM EDT 12/24/2024 1:59 PM EDT Leonardo Taveras MD LAB BLOOD BKR ORDERABLES Final Result Performing Organization Address [facility] Co de Phone Number [facility]PATH [address] [place] [address] * Flow Cytometry (12/24/2024 12:00 AM EDT) 12/24/2024 12/24/[address] [facility] - 12/26/2024 3:52 PM EDT CASE: [id number] PATIENT: HERNANDEZ NGUYEN Date: 1950 Sex: Male [facility] Department of Pathology [address] [place] [address] CLIA License No.: [id number] Furniture Mover Driver: Kika Meehan MD, PhD Pathologist: Candida Nunez M.D. CLINICAL DATA: Clinical History: [place] cell carcinoma and splenic lesions Clinical Diagnosis: None given. RESULT: FLOW CYTOMETRY REPORT-LYMPHOMA/LGL PANEL Gating is by side scatter and CD45 on lymphoid events with 9% of the total events in the gate. Antibodies targeting the following antigens were used: CD2, CD3, CD4, CD5, CD7, CD8, CD10, CD11c, CD19, CD20, CD23, CD38, CD16, CD56, CD57, CD45, and surface kappa and lambda light chains. INTERPRETATION: Flow cytometric analysis of this peripheral blood specimen demonstrates 38% of gated events (4% of total events) are CD3-positive T cells expressing mature T-cell markers (CD2, CD5 and CD7) with a CD4:CD8 ratio of 1.52. Within the T-cell population is a subset of T cells (7% of gated events; 1% of total events) that are positive for CD3, CD2, CD7, CD5(dim), CD8, CD57, consistent with T-cell large granular lymphocytes. NK cells (positive for CD8(dim, subset), CD7, CD2, CD16, and CD56) comprise 16% of gated events (2% of total events). B cells comprise 35% of gated events, (3% of total events) with polytypic surface immunoglobulin expression. Diagnostic features of involvement by a B- or T-cell lymphoproliferative disorder are not seen. Correlation with clinical and other laboratory findings is advised. This case was prepared by Nadja Alfonso MT([facility]). The technical component of this test was performed at [facility], [address] [place] [address], [place] [address] (CLIA Die Lay Out Worker: Kika Meehan MD, PhD). This test was developed and its performance characteristics determined by [facility]. It has not been cleared or approved by the U.S. Food and Drug Administration (FDA). The FDA has determined that such clearance or approval is not necessary; the performing laboratory has established and verified the test's accuracy and precision. This test is for clinical purposes, and should not be regarded as investigational or for research. The [facility] laboratory and [facility] laboratory are both certified under CLIA-88 as qualified to perform high complexity laboratory testing. By his/her signature below, the senior physician certifies that he/she personally reviewed all the laboratory data of the described specimen(s) and rendered or confirmed the diagnosis(es) related thereto. Final Diagnosis by Candida Nunez M.D., Electronically signed on Thursday December 26, 2024 at 03:52:07PM us Leonardo Taveras MD LAB PATHOLOGY ORDERABLES Final Result [facility] [address] [place] [address] * T/b Clonality (12/24/2024 12:00 AM EDT) Results Polyclonal pattern. DNA fragments up to 600 bp in length did amplify with the control primers. The expected size range for TCR gamma rearrangements is 159-207 bp. Note that the TCRG assay changed on September 14, 2023 and rearrangements (peak sizes) cannot be directly compared between current and prior assay. [facility] Results\Inte rpretation No clonal T cell population is identified by this test. This technique can detect clonal rearrangements in 90% of T cell lymphomas (van Merlinen JJM et al. Leukemia 2003; 17:2373-2654); therefore, this negative result does not completely exclude a T cell lymphoma. These tests were developed and their performance characteristics determined by the [facility], [facility]. They have not been cleared or approved by the U.S. Food and Drug Administration. The FDA has determined that such clearance or approval is not necessary. By his/her signature below, the senior physician certifies that he/she personally reviewed all the laboratory data of the described specimen(s) and rendered or confirmed the diagnosis(es) related thereto. [facility] Procedure Comments ProcTCRGAMMA clonality TCR by Capillary electrophoresis - [facility] Report Accession No: [id number] Date: 1950 Sex: Male [facility] Department of Pathology [address] [place] [address] CLIA License No.: [id number] Furniture Mover Driver: Dr. Araseli Coronado Physician: LEONARDO TAVERAS MD Specimen Submitted: Molecular Procedure Date: 12/24/2024 CLINICAL DATA: Clinical History: None given. 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 ([employer], [employer], [place], [place]). The DNA was also amplified with control primers to multiple gene segments (64 to 600 bp in length) to assess the integrity and quality of the isolated DNA. The PCR products were analyzed by capillary gel electrophoresis. RESULT: Polyclonal pattern. DNA fragments up to 600 bp in length did amplify with the control primers. The expected size range for TCR gamma rearrangements is 159-207 bp. Note that the TCRG assay changed on September 14, 2023 and rearrangements (peak sizes) cannot be directly compared between current and prior assay. INTERPRETATION: No clonal T cell population is identified by this test. This technique can detect clonal rearrangements in 90% of T cell lymphomas (van Merlinen JJYashira et al. Leukemia 2003; 17:3664-4164); therefore, this negative result does not completely exclude a T cell lymphoma. These tests were developed and their performance characteristics determined by the [facility] Laboratory, [facility]. They have not been cleared or approved by the U.S. Food and Drug Administration. The FDA has determined that such clearance or approval is not necessary. By his/her signature below, the senior physician certifies that he/she personally reviewed all the laboratory data of the described specimen(s) and rendered or confirmed the diagnosis(es) related thereto. Final Diagnosis by Benita Shook M.D., Electronically signed on Saturday December 28, 2024 at 08:21:08AM [facility] Conversion Type (Other) 12/24/2024 12/24/2024 us Leonardo Taveras MD PATHOLOGY ORDERABLES Edit ed Result - Final [facility] [address] [place] [address], [facility] * Protein Electrophoresis (12/24/2024 12:00 AM EDT) 12/24/2024 12/24/[address] [facility] - 12/28/2024 12:27 AM EDT CASE: [id number] PATIENT: HERNANDEZ NGUYEN Date: 1950 Sex: Male [facility] Department of Pathology [address] [place] [address] License No.: [id number] Furniture Mover Driver: Kika Meehan MD, PhD Resident: Gelacio Navarro M.D., M.S. Pathologist: Hernandez Lui M.D., Ph.D. CLINICAL DATA: Clinical Diagnosis: TEST ORDERED: Serum protein electrophoresis professional interpretation - [facility] Serum immunofixation electrophoresis professional interpretation - [facility] RESULT: Reference range Total Protein 7.9 g/dl 6.4 - 8.3 g/dL Albumin 3.55 g/dl 3.20 - 5.30 g/dL Alpha 1 0.28 g/dl 0.10 - 0.40 g/dL Alpha 2 0.87 g/dl 0.50 - 1.00 g/dL Beta 0.87 g/dl 0.60 - 1.20 g/dL Gamma 2.33 g/dl (HI) 0.80 - 1.70 g/dL IgG 2039 mg/dL (HI) 700 - 1600 mg/dL IgA 318 mg/dL 70 - 400 mg/dL IgM 443 mg/dL (HI) 40 - 230 mg/dL MOST RECENT PRIOR SERUM ELECTROPHORESIS RESULTS: Date Beta Gamma [place] Lambda K/L IgG IgA IgM MSp1 MSp2 MSp3 g/dl g/dl mg/l mg/l mg/dl mg/dl mg/dl g/dl g/dl g/dl INTERPRETATION: Protein Electrophoresis: -No M-spike detected Polyclonal hypergammaglobulinemia Immunofixation: -No monoclonal gammopathy By his/her signature below, the senior physician certifies that he/she personally reviewed all the laboratory data of the described specimen(s) and rendered or confirmed the diagnosis(es) related thereto. Final Diagnosis by Hernandez Lui M.D., Ph.D., Electronically signed on Saturday December 28, 2024 at 12:27:02AM us Leonardo Taveras MD PATHOLOGY ORDERABLES Aminata reyes Result [facility] [address] [place] [address] * Rapid Heme Panel (12/24/2024 12:00 AM EDT) Results Sample Type: Molec D x Blood ==== RAPID HEME PANEL ==== QC: PASS Pathogenic Single Nucleotide Variants and Small Insertions/Deletions* None Detected. *This test is designed for somatic analysis of variants and may provide information about the germline. It cannot distinguish between somatic and germline variants. Germline testing should be ordered separately, as indicated. Copy Number Analysis*: Read count analysis shows no significant copy number alterations in the regions tested. IKZF1 deletion: not detected ERG deletion: not detected KMT2A(MLL)-PTD: not detected *This test assesses only autosomal chromosomal copy number changes. FLT3-ITD Analysis None Detected. This assay has been validated to detect FLT3-ITDs with insert size up to 180 bp. AR (allelic ratio) is approximated as Mutant/Wildtype or Sum(Mutants)/Wildtype and is calculated from the variant allele fraction by the following formula: AR=FLT3-ITD alleles / wild-type alleles. However, the AR may be underestimated for certain ITDs by the technical limitations of the assay and should be considered semi-quantitative only for these cases. The validated limit of ITD detection is 0.01 AR, but lower ARs may be called at the pathologist discretion as clinically indicated. Values <0.01 should be viewed with caution. Other Variants of Unknown Significance (VUS)*: CREBBP c.7040C>T (p.W5326X) 41.1% VAF (870x consensus coverage)# DNMT3A c.287G>A (p.R96Q) 35.7% VAF (1895x consensus coverage)# #Of note, the listed variants in CREBBP and DNMT3A have been noted at a very low frequency in the general population in SNP databases. *This test is designed for somatic analysis of variants and may provide information about the germline. It cannot distinguish between somatic and germline variants. Germline testing should be ordered separately, as indicated. Some variants on the VUS list may later found to be pathogenic and some may be of germline in nature. The following recurrently mutated codons have wild type sequences only: ABL1 315 BRAF 594 BRAF 595 BRAF 596 BRAF 597 BRAF 600 BRAF 601 CBL 371 CBL 384 CBL 404 CSF3R 615 CSF3R 617 CSF3R 618 DDX41 525 DNMT3A 882 ETNK1 244 FLT3 835 GNAS 201 GNB1 57 IDH1 132 IDH2 140 IDH2 172 JAK2 617 KIT 816 KIT 822 KIT 823 KRAS 12 KRAS 13 KRAS 61 KRAS 146 MAP2K1 57 MAP2K1 121 MPL 505 MPL 515 MYD88 265 NOTCH1 2514 NPM1 287 NPM1 288 NRAS 12 NRAS 13 NRAS 61 NRAS 146 PTPN11 60 PTPN11 61 PTPN11 71 PTPN11 72 PTPN11 73 PTPN11 76 SETBP1 868 SF3B1 625 SF3B1 626 SF3B1 662 SF3B1 666 SF3B1 700 SF3B1 742 SRSF2 95 STAT3 640 STAT3 661 U2AF1 34 U2AF1 156 U2AF1 157 XPO1 571 The following recurrently mutated codons have inadequate coverage(<100X): KRAS [address] [facility] Results\Inte rpretation QC details*: MTC: 448.1344 NG396e: 89.07% *MTC > 325 and WL973j > 85% is considered as good quality Test Information: The [facility] Rapid Heme Panel (RHP) Assay is a next generation sequencing assay based on the Medialetst kit from [employer]. A detailed description of the assay is available upon request from [facility], [facility]. Amplification method: Grockit Direct(R), [employer] Assay Version: Rapid Heme Panel V3.0 Genes: Total 88,(183 KB) whole coding sequence for most genes Sequencing platform: Illumina NextSeq 550Dx, 150bp paired-end reads Raw data processing: BWA Mem (v0.7.17) KAYLA Correction: Fgbio (v0.4.0) Variant Caller: Vardict (v1.6.0) CNV Caller: RobustCNV (internally developed) FLT3-ITD: TsaiITD (internally developed) Data File formats: BAM, VCF Genome version: hg19 Metrics: GATK (v.4.0.5.0) and Securusbio (v0.4.0) Variant Annotation: Variant Effect Predictor (v79) Pipeline cutoff: 3 Variant Reads and 1% variant allele frequency. Analytical sensitivity: Varies from locus to locus, but is estimated to be 3.0% at 325x consensus coverage The test performed at [facility] were developed and their performance characteristics determined by the [facility] Diagnostic Laboratory in the Department of Pathology at [facility]. They have not been cleared or approved by the U.S. Food and Drug Administration (FDA). The FDA has determined that such clearance or approval is not necessary. The following regions have insufficient number of sequence reads (<100X) for evaluation. Gene Exon Start End Coverage DANY e40 [id number] 100466064 48.094608 ATRX e03 99286764 09196450 22.6875 e08 49818389 51074228 46.425557 BCOR e03 70557562 02770616 43.560201 BCORL1 e01 544366781 157862485 49.9 BRCC3 e2 171102950 466005584 23.311217 CREBBP e01 8741952 7255330 15.240839 CUX1 e01 907464698 113927151 25.516688 e08 956015997 795912009 25.127197 e24 120970890 502489065 11.618676 DKC1 e01 394446177 543504643 45.9 IDH2 e1 60619334 09568622 6.122535 KMT2A e1 793343905 962927846 4.23102 KRAS e06 09633482 14663644 43.098045 NF1 e01 08193909 60222674 27.81937 e16 26657200 50442775 16.4375 e24 53637349 26366682 31.505417 e36 03626263 70118250 30.316756 PTEN e02 36998144 44140287 37.899397 PTPN11 e01 348728870 717429281 27.837457 e14 413203356 482689644 27.358120 SETD2 e01 71474256 61445588 47.699368 SH2B3 e02 830139515 776384535 8.072038 SRSF2 e1 73806427 55579078 24.333436 STAG2 e03 670622173 515212250 42.858198 e07 983624206 156349259 35.908088 e15 342375021 940446736 45.616208 e34 998363632 434071284 46.310894 TERT e01 3395512 4450138 3.930098 ZRSR2 e03 86797028 09399229 44.535496 e06 58584902 39771978 33.47342 Targeted Gene/Exon List (genomic coordinates available upon request): The [facility] Rapid Heme Panel (RHP) Assay is a next generation sequencing assay based on the Grockit kit from [employer]. A detailed description of the assay is available upon request from [facility], [facility]. ABL1 [id number] 5 alt e1 ABL1 UHYV53612338650 5 e1-e10 ASXL1 BEOY44475271179 4 e11-e12 DANY HCEF71532868612 4 e2-e63 ATRX DCFP00796434423 5 e1-e35 BCOR UUEP57294636407 4 e2-e15 BCORL1 JTVT52201914008 1 e1-e12 BCORL1 NM_[id number] 1 alt e8 BRAF CWDI20051299504 6 e12-e16 BRCC3 OSLN70036341355 1 e1-e11 BTK QIAX45911800790 7 e11,e15-e16 CALR XVMS68227301311 5 e9 CBL EFAD21576730314 4 e7-e9 CCND1 QCEZ84789422982 2 e1-e5 CD79B PIFZ53786684178 3 e5-e6 CDKN2A VZIQ13898383984 1 e1-e4 CDKN2A NM_058195 1 alt e1 CDKN2B UAHR72001580605 6 e1-e2 CEBPA FMAM93355420847 2 e1 CREBBP ZWFE96234500473 5 e1-e31 CRLF2 MBIP65566674787 3 e5 CSF3R SPGB88560834741 1 e14-e17 OKTL2F8 FJFD60143256055 2 e1-e10 IHZT8Z7 GROI86851502879 2 alt e5 CTCF GRUI51225157205 4 e3-e12 CUX1 CHBD55225047967 7 e1-e24 CUX1 RDPZ69246317524 7 alt e1,e15-e23 CXCR4 PPEL73212540412 3 e3 DDX41 XTNI88027674498 1 e1-e17 DKC1 OCDZ69536592193 5 e1-e15 DNMT3A VZQJ78169141113 3 alt e1-e2 DNMT3A BIHB85845561577 3 e2-e23 DNMT3A NM_[id number] 3 alt e1 EP300 NORF06565413099 7 e1-e31 ERG TWJG85663781742 2 alt e1 ERG CZRR23145048342 2 e3-e12 ERG NM_[id number] 2 alt e12 ETNK1 OKKB57772666485 4 e3 ETV6 WILY93397789167 4 e1-e8 EZH2 JKUK51708496089 2 e2-e20 FBXW7 BJVN05553912115 4 e10-e14 FLT3 FURM34554763780 7 e14,e16-e17,e20 GATA1 METT29443858706 3 e2-e6 GATA2 TYTK47484942150 2 e2-e6 GNAS MDUY71249075222 3 e8-e9 GNB1 JLMD50724681104 4 e5-e6 IDH1 OCXF39944635897 2 e3-e10 IDH2 ZIGV81272384633 3 e1-e11 IKZF1 OWWO16257907300 3 e2-e8 IKZF1 JENU02519441257 3 alt e4 IKZF1 NOVO85735152761 3 alt e5 IL7R TRRZ45806207591 3 e5-e7 JAK1 BDYS26804514222 4 e10-e25 JAK2 BQBF09646803427 3 e12-e20 JAK3 UMFA80789259865 1 e16-e24 KIT ITFO13548294126 5 e8-e11,e17 KRAS UFVF86708233407 3 e2-e6 KRAS LYZI95758204620 3 alt e5 KMT2A VILP31133823975 1 e1-e13,e24-e26 MAP2K1 NGDY84329684668 5 e2-e3,e6 e28-e30 MPL VCED70070209044 3 e4,e10 NF1 CLPN69438325185 3 e1-e57 NF1 XLLB20465152457 3 alt e31 MYC WEMJ01613629504 2 e1-e3 MYD88 XJWK72145391354 3 e5 NOTCH2 BWWV80076779314 2 e24-e28,e34 NFE2 DCFY31172303460 1 e3-e4 NOTCH1 MKRG23689169176 6 e24-e28,e34 NSD2 SMPE84146266908 3 e20-e21 NPM1 ALLT44393698408 5 e10-e11 NRAS HGPG86987639502 4 e2-e5 PIGA QXQV40029290310 4 e1-e62 NT5C2 YZHI11761300049 5 e10-e18 PHF6 WYKC73648790488 1 e1-e9 PRPF8 ZXRJ90235769516 6 e25-e34 PLCG2 MHBS32781667521 3 e18-e19,e23 e26,e29 PPM1D OQQL80297077521 3 e6 RAD21 DGOD41848387330 2 e2-e14 PTEN TNIT09859943305 3 e1-e9 PTPN11 NYFC57889292959 2 e1-e15 SBDS IIII97697157559 2 e1-e5 RIT1 UITG13673314620 3 alt e1 RIT1 DOMQ10163506768 3 e2-e6 RUNX1 JNJR28672825367 1 e2-e9 RUNX1 XHWY11099889679 1 alt e5 SF3B1 JYKK13172633314 6 e12-e18 SETBP1 DDDS65771122585 5 e4 SETD2 GWPN65113961850 3 e1-e21 SMC3 NQHP06540722695 4 e1-e29 SH2B3 UIPL34646098364 2 alt e1 SH2B3 JIEJ45894573619 2 e2-e8 SMC1A OHPN55742948634 4 e1-e25 SMC1A NM_001281463 4 alt e2 STAT3 MNUS73792815063 5 e2-e24 SRSF2 XMMP77345615175 5 e1 STAG2 QMLL93340959591 9 e3-e35 TERT BLDB89806221906 5 e1-e16 STAT5B LOFI29420132874 3 e13-e19 TERC OMAW24341950470 1 e1 U2AF1 GYLY84870377893 4 e2,e6 TET2 JGJZ35443846470 4 e3-e11 TP53 URQY34211441733 4 e2-e11 TP53 ZOQK13900863778 4 alt e10 ZRSR2 QIQR37514217851 7 e1-e11 WT1 XDSR71278439628 3 alt e1 WT1 FSQS70205457345 3 e1-e10 XPO1 EUOR60915629163 2 e15-e16 The test performed at [facility] were developed and their performance characteristics determined by the [facility] Diagnostic Laboratory in the Department of Pathology at [facility]. They have not been cleared or approved by the U.S. Food and Drug Administration (FDA). The FDA has determined that such clearance or approval is not necessary. By his/her signature below, the senior physician certifies that he/she personally reviewed all the laboratory data of the described specimen(s) and rendered or confirmed the diagnosis(es) related thereto. [facility] Procedure Comments ProcRHP- MYD88 Rapid Heme Panel - [facility] RHP Professional Interpretation RHP - BRAF V600 Variants RHP - B-CELL NHL/PLASMA CELL DYSCRASIA Rapid Heme Panel - [facility] Report Accession No: [id number] Date: 1950 Sex: Male [facility]ibility [facility] [place] [address] [employer] License #: [id number] Furniture Mover Driver: Dr. Araseli Coronado Physician: LEONARDO TAVERAS MD Specimen Submitted: Molecular Procedure Date: 12/24/2024 Pathologist: Sarath Lowry M.D., Ph.D. CLINICAL DATA: Clinical History: None given. 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 *This test is designed for somatic analysis of variants and may provide information about the germline. It cannot distinguish between somatic and germline variants. Germline testing should be ordered separately, as indicated. Copy Number Analysis*: Read count analysis shows no significant copy number alterations in the regions tested. IKZF1 deletion: not detected ERG deletion: not detected KMT2A(MLL)-PTD: not detected *This test assesses only autosomal chromosomal copy number changes. FLT3-ITD Analysis None Detected. This assay has been validated to detect FLT3-ITDs with insert size up to 180 bp. AR (allelic ratio) is approximated as Mutant/Wildtype or Sum(Mutants)/Wildtype and is calculated from the variant allele fraction by the following formula: AR=FLT3-ITD alleles / wild-type alleles. However, the AR may be underestimated for certain ITDs by the technical limitations of the assay and should be considered semi-quantitative only for these cases. The validated limit of ITD detection is 0.01 AR, but lower ARs may be called at the pathologist discretion as clinically indicated. Values <0.01 should be viewed with caution. Other Variants of Unknown Significance (VUS)*: CREBBP c.7040C>T (p.R9050W) 41.1% VAF (870x consensus coverage)# DNMT3A c.287G>A (p.R96Q) 35.7% VAF (1895x consensus coverage)# #Of note, the listed variants in CREBBP and DNMT3A have been noted at a very low frequency in the general population in SNP databases. *This test is designed for somatic analysis of variants and may provide information about the germline. It cannot distinguish between somatic and germline variants. Germline testing should be ordered separately, as indicated. Some variants on the VUS list may later found to be pathogenic and some may be of germline in nature. The following recurrently mutated codons have wild type sequences only: ABL1 315 BRAF 594 BRAF 595 BRAF 596 BRAF 597 BRAF 600 BRAF 601 CBL 371 CBL 384 CBL 404 CSF3R 615 CSF3R 617 CSF3R 618 DDX41 525 DNMT3A 882 ETNK1 244 FLT3 835 GNAS 201 GNB1 57 IDH1 132 IDH2 140 IDH2 172 JAK2 617 KIT 816 KIT 822 KIT 823 KRAS 12 KRAS 13 KRAS 61 KRAS 146 MAP2K1 57 MAP2K1 121 MPL 505 MPL 515 MYD88 265 NOTCH1 2514 NPM1 287 NPM1 288 NRAS 12 NRAS 13 NRAS 61 NRAS 146 PTPN11 60 PTPN11 61 PTPN11 71 PTPN11 72 PTPN11 73 PTPN11 76 SETBP1 868 SF3B1 625 SF3B1 626 SF3B1 662 SF3B1 666 SF3B1 700 SF3B1 742 SRSF2 95 STAT3 640 STAT3 661 U2AF1 34 U2AF1 156 U2AF1 157 XPO1 571 The following recurrently mutated codons have inadequate coverage(<100X): KRAS 12 KRAS 13 INTERPRETATION: QC details*: MTC: 448.1344 TL350c: 89.07% *MTC > 325 and FN900i > 85% is considered as good quality Test Information: The [facility] Rapid Heme Panel (RHP) Assay is a next generation sequencing assay based on the Medialetst kit from [employer]. A detailed description of the assay is available upon request from [facility], [facility]. Amplification method: Medialetst Direct(R), [employer] Assay Version: Rapid Heme Panel V3.0 Genes: Total 88,(183 KB) whole coding sequence for most genes Sequencing platform: Illumina NextSeq 550Dx, 150bp paired-end reads Raw data processing: BWA Mem (v0.7.17) KAYLA Correction: Fgbio (v0.4.0) Variant Caller: Vardict (v1.6.0) CNV Caller: RobustCNV (internally developed) FLT3-ITD: TsaiITD (internally developed) Data File formats: BAM, VCF Genome version: hg19 Metrics: GATK (v.4.0.5.0) and Fgbio (v0.4.0) Variant Annotation: Variant Effect Predictor (v79) Pipeline cutoff: 3 Variant Reads and 1% variant allele frequency. Analytical sensitivity: Varies from locus to locus, but is estimated to be 3.0% at 325x consensus coverage The test performed at [facility] were developed and their performance characteristics determined by the Molecular Diagnostic Laboratory in the Department of Pathology at [facility]. They have not been cleared or approved by the U.S. Food and Drug Administration (FDA). The FDA has determined that such clearance or approval is not necessary. The following regions have insufficient number of sequence reads (<100X) for evaluation. Gene Exon Start End Coverage DANY e40 388723119 919111082 48.786069 ATRX e03 77532597 62017624 22.6875 e08 94922108 97761078 46.717935 BCOR e03 25268039 19108471 43.908594 BCORL1 e01 896837112 577387272 49.9 BRCC3 e2 345382891 079727537 23.989338 CREBBP e01 2830233 9516256 15.820783 CUX1 e01 531000009 539038378 25.856583 e08 506545180 928116324 25.860656 e24 793764642 389071964 11.605359 DKC1 e01 706192597 837846482 45.9 IDH2 e1 90615199 06004560 6.607580 KMT2A e1 407600268 963825085 4.79188 KRAS e06 00101491 47722831 43.010739 NF1 e01 32928856 98682032 27.01025 e16 35960710 65453309 16.4375 e24 44237106 11138806 31.083907 e36 25790839 71035048 30.554555 PTEN e02 92620149 16742742 37.107129 PTPN11 e01 913700422 102109677 27.297872 e14 277602864 070174437 27.602499 SETD2 e01 09037523 01721767 47.950699 SH2B3 e02 767804906 428755132 8.985744 SRSF2 e1 28138309 30346634 24.891848 STAG2 e03 860787667 192254459 42.229037 e07 658616074 732871969 35.058311 e15 620753629 369942307 45.503221 e34 074813469 951726901 46.971053 TERT e01 0992228 7700535 3.675124 ZRSR2 e03 10339585 02553348 44.080342 e06 14844669 87044990 33.19372 Targeted Gene/Exon List (genomic coordinates available upon request): The [facility] Rapid Heme Panel (RHP) Assay is a next generation sequencing assay based on the Medialetst kit from [employer]. A detailed description of the assay is available upon request from [facility], [facility]. ABL1 [id number] 5 alt e1 ABL1 VJEO57360949726 5 e1-e10 ASXL1 HAOW66384734527 4 e11-e12 DANY UKSH35432927923 4 e2-e63 ATRX IBFJ74538664172 5 e1-e35 BCOR DBFM31013882169 4 e2-e15 BCORL1 NVKR47765688785 1 e1-e12 BCORL1 NM_[id number] 1 alt e8 BRAF HDNF10735681181 6 e12-e16 BRCC3 FCDQ28541174555 1 e1-e11 BTK YGRY34918824924 7 e11,e15-e16 CALR IMRU78028693564 5 e9 CBL DRHC86874614322 4 e7-e9 CCND1 EXPL69966093705 2 e1-e5 CD79B IIPZ79404851266 3 e5-e6 CDKN2A BSLY26263417318 1 e1-e4 CDKN2A NM_058195 1 alt e1 CDKN2B [id number] 6 e1-e2 CEBPA [id number] 2 e1 CREBBP [id number] 5 e1-e31 CRLF2 [id number] 3 e5 CSF3R [id number] 1 e14-e17 TSIX1G6 [id number] 2 e1-e10 MEHL3Z8 [id number] 2 alt e5 CTCF [id number] 4 e3-e12 CUX1 [id number] 7 e1-e24 CUX1 [id number] 7 alt e1,e15-e23 CXCR4 [id number] 3 e3 DDX41 [id number] 1 e1-e17 DKC1 [id number] 5 e1-e15 DNMT3A [id number] 3 alt e1-e2 DNMT3A [id number] 3 e2-e23 DNMT3A [id number] 3 alt e1 EP300 [id number] 7 e1-e31 ERG [id number] 2 alt e1 ERG [id number] 2 e3-e12 ERG [id number] 2 alt e12 ETNK1 [id number] 4 e3 ETV6 [id number] 4 e1-e8 EZH2 [id number] 2 e2-e20 FBXW7 [id number] 4 e10-e14 FLT3 [id number] 7 e14,e16-e17,e20 GATA1 [id number] 3 e2-e6 GATA2 [id number] 2 e2-e6 GNAS [id number] 3 e8-e9 GNB1 MILH65979041526 4 e5-e6 IDH1 [id number] 2 e3-e10 IDH2 [id number] 3 e1-e11 IKZF1 UWDW67591554254 3 e2-e8 IKZF1 [id number] 3 alt e4 IKZF1 [id number] 3 alt e5 IL7R [id number] 3 e5-e7 JAK1 [id number] 4 e10-e25 JAK2 [id number] 3 e12-e20 JAK3 [id number] 1 e16-e24 KIT [id number] 5 e8-e11,e17 KRAS [id number] 3 e2-e6 KRAS AGRJ13733753402 3 alt e5 KMT2A [id number] 1 e1-e13,e24-e26 MAP2K1 BJSK26445427931 5 e2-e3,e6 e28-e30 MPL [id number] 3 e4,e10 NF1 INKZ72307956500 3 e1-e57 NF1 [id number] 3 alt e31 MYC JSFH07783623961 2 e1-e3 MYD88 VGYA04452344859 3 e5 NOTCH2 [id number] 2 e24-e28,e34 NFE2 [id number] 1 e3-e4 NOTCH1 [id number] 6 e24-e28,e34 NSD2 IAQR16236718657 3 e20-e21 NPM1 [id number] 5 e10-e11 NRAS [id number] 4 e2-e5 PIGA [id number] 4 e1-e62 NT5C2 JYLB16268740362 5 e10-e18 PHF6 CZTN00116436587 1 e1-e9 PRPF8 WYOC63946158158 6 e25-e34 PLCG2 [id number] 3 e18-e19,e23 e26,e29 PPM1D TMOK85683873873 3 e6 RAD21 XDJB82041816657 2 e2-e14 PTEN DONK56820694441 3 e1-e9 PTPN11 [id number] 2 e1-e15 SBDS YMJC04856946948 2 e1-e5 RIT1 [id number] 3 alt e1 RIT1 [id number] 3 e2-e6 RUNX1 KIAW16374694580 1 e2-e9 RUNX1 [id number] 1 alt e5 SF3B1 KZLQ74197927899 6 e12-e18 SETBP1 VLGL89155221725 5 e4 SETD2 JYVA78415271830 3 e1-e21 SMC3 CTOL26878085149 4 e1-e29 SH2B3 EVVY75664874638 2 alt e1 SH2B3 [id number] 2 e2-e8 SMC1A [id number] 4 e1-e25 SMC1A [id number] 4 alt e2 STAT3 [id number] 5 e2-e24 SRSF2 LRMG95501424908 5 e1 STAG2 [id number] 9 e3-e35 TERT [id number] 5 e1-e16 STAT5B [id number] 3 e13-e19 TERC GCVT90849725420 1 e1 U2AF1 NQQO72763737162 4 e2,e6 TET2 ONBY60031549051 4 e3-e11 TP53 [id number] 4 e2-e11 TP53 RJGQ84686810458 4 alt e10 ZRSR2 [id number] 7 e1-e11 WT1 CEWU97289556651 3 alt e1 WT1 [id number] 3 e1-e10 XPO1 [id number] 2 e15-e16 The test performed at [facility] were developed and their performance characteristics determined by the Molecular Diagnostic Laboratory in the Department of Pathology at [facility]. They have not been cleared or approved by the U.S. Food and Drug Administration (FDA). The FDA has determined that such clearance or approval is not necessary. By his/her signature below, the senior physician certifies that he/she personally reviewed all the laboratory data of the described specimen(s) and rendered or confirmed the diagnosis(es) related thereto. Final Diagnosis by Sarath Lowry M.D., Ph.D., Electronically signed on December at 12:50:44PM [facility] Conversion Type (Other) 12/24/2024 12/24/2024 us Leonardo Taveras MD PATHOLOGY ORDERABLES Edit ed Result - Final [facility] [address] [place] [address], [facility] from Last 3 Months Insurance MEDICARE PART A & B [employer] MEDICARE SUPPLEMENT MEDICARE PART A & B [facility] MEDICARE SUPPLEMENT MEDICARE PART A & B [email or web address] MEDICARE SUPPLEMENT MEDICARE PART A & B [employer] MEDICARE SUPPLEMENT MEDICARE PART A & B [facility] MEDICARE SUPPLEMENT MEDICARE PART A & B [facility] MEDICARE SUPPLEMENT MEDICARE PART A & B [facility] MEDICARE SUPPLEMENT MEDICARE PART A & B [facility] MEDICARE SUPPLEMENT MEDICARE PART A & B [facility] MEDICARE SUPPLEMENT Care Teams [employer] Net Mvc Developer Relationship Specialty Start Date End Date Suresh Mcclellan PA [address] [place] [address] PCP - General Unknown Provider Specialty 10/30/20 Self-Referred, Patient Referring Physician 06/07/19 Lillian Muñiz CHAIN BUILDER [address] [place] [address] [email or web address] Senior Technical Recruiter 06/20/19 Janine Simeon MD [address] [place] [address] [email or web address] Radiation Oncology 10/19/19 Herman Guzman MD [address] [facility] Hematology/[place] [address] [email or web address] Hematology 01/18/20 Daniela Bazan MD 50 [facility] S50200 [place] [address] [email or web address] Medical Student 11/05/20 Luke Ross MD 15 Janeen Abdullahi [address] [place] [address] Otolaryngology 03/04/23 Additional Source Comments The information contained in this document represents components of the legal health record. It is not the complete legal health record.[facility]
--- OUTSIDE RECORDS SUMMARY | 2025-02-13 16:17 | XMS_ITS | Encounter Summary ---
Author Organization [facility] Address [address] [facility] [address] [place] [address] Phone Care Team Providers Care Lathe Turner Name Role Phone Self-Referred, Patient Unavailable Unavailab Lillian Cho [facility] Unavailable Janine Simeon MD Unavailable Herman Guzman MD Unavailable Suresh Mcclellan Primary Care Provid er Dainela Bazan MD Unavailable Luke Ross MD Unavailable Encounter Details Date Type Department Care Team (Late st Contact Info) Description 12/09/2020 Procedure Pass [facility] Imaging Department, [facility] [place], [place] [address] [place] [address], Floor L1 [place] [address] Social History Tobacco Use Types Packs/Day Years [...] 05/01/2025 11:45 AM EST Blood Draw [facility] Imaging Department, [facility], Imaging Ukkxa-fe-Twdn [address] [facility], Floor [address]1 [place] [address] Melany Davey MD [address] [place] [address] [email or web address] 05/01/2025 1:30 PM EST Appointment [facility] Imaging Department, [facility], PET/CT [address] [place] [address] Melany Davey MD [address] [address] [email or web address] 05/02/2025 9:30 AM EST [facility], [address], 5th [place] [address] Alida Mancilla MD [address] [place] [address] [place] [address] [email or web address] 05/02/2025 10:00 AM EST Office [facility], [address], [address]th [place] [address] Melany Davey MD [address] [place] [address] [email or web address] documented as of this encounter Visit Diagnoses Not on filedocumented in this encounter Care Teams Lathe Turner Relationship Specialty Start Date End Date Suresh Mcclellan PA [address] [place] [address] PCP - General Unknown Provider Specialty 10/30/20 Self-Referred, Patient Referring Physician 06/07/19 Lillian Muñiz LICSW [address] [place] [address] [email or web address] .[facility] Sewage Treatment Plant Operator 06/20/19 Janine Simeon MD [address] [place] [address] [email or web address] Radiation Oncology 10/19/19 Herman Guzman MD [address] [facility] Hematology/[place] [address] [email or web address] Hematology 01/18/20 Daniela Bazan MD [address] [place] [address] [address] [email or web address] Medical Student 11/05/20 Luke Ross MD 15 Janeen Abdullahi [address] [place] [address] Otolaryngology 03/04/23 documented as of this encounter Additional Source Comments The information contained in this document represents components of the legal health record. It is not the complete legal health record.[facility]
--- OUTSIDE RECORDS SUMMARY | 2025-02-13 16:17 | XMS_ITS | Clinical Summary ---
Author Organization [facility] Address [address] [place] [address] Care Team Providers Care Domestic Violence Advocate Name Role Phone Suresh Mcclellan PA-C Primary Care Provider Un available Allergies Active Allergy Reactions Criticality Noted Date Comments Azithromycin Hives Medium 11/09/2019 rash Celecoxib Anaphylaxis,Hives,Sw elling,Rash/Dermatit is High 08/07/2009 Other Reaction(s): Hives/Urticaria, Numbness, tingling or swelling of the lips, tongue or mouth Dexamethasone Unknown/Patient and Family Unable to Define Medium 07/07/2021 Sulfa Antibiotics Other (See Comments),Rash/[place] titis Medium 08/07/2009 This occurred with celebrex [...] nodules (left and right) - followed by [facility] endocrinology (Dr. 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 Allergic rhinitis 07/19/2005 Immunizations Immunization Administration Dates Next Due Covid-19 [...] 09/04/2024 2:57 PM EDT Plan of Treatment Health Maintenance Due Date Last Done Comments Advance Care Planning 1950 Hepatitis C Virus Screening 1950 DTaP/Tdap/Td Vaccines (1 - Tdap) 09/20/1971 Colonoscopy 1997 RSV Vaccine 50 years and older and Patients (1 - Risk 50-74 years 1-dose series) 2002 Zoster (Shingles) Vaccine (1 of 2) 01/16/2013 11/21/2012 Influenza Vaccine 10/19/2024 12/05/2023, , 12/05/2023, Additional history exists COVID-19 Vaccine (2024- season) 2024 03/02/2021, 02/18/2021, 06/14/2020, Additional history exists Pneumococcal Vaccines 50+ Completed 12/26/2018, Hepatitis B Vaccines Aged Out No long er eligible based on patient's age to complete this topic Insurance MEDICARE PART A & B [facility] COMM[facility]CIAL Care Teams Domestic Violence Advocate Relationship Specialty Start Date End Date Suresh Mcclellan PA-C PCP - General Internal Medicine 02/24/24
--- OUTSIDE RECORDS SUMMARY | 2025-02-13 16:17 | XMS_ITS | Encounter Summary ---
Author Organization [facility] Address [address] [employer] [address] [place] [address] Phone Care Team Providers Care Thresher Broomcorn Name Role Phone Self-Referred, Patient Unavailable Unavailab Lillian Cho [facility] Unavailable Janine Simeon MD Unavailable Herman Guzman MD Unavailable Suresh Mcclellan Primary Care Provid er Daniela Bazan MD Unavailable Luke Ross MD Unavailable Encounter Details Date Type Department Care Team (Late st Contact Info) Description 12/09/2020 Procedure Pass [facility] Imaging Department, [facility] [place], [place] [address] [place] [address], Floor L1 [place] [address] Social History Tobacco Use Types Packs/Day Years [...] Description 05/01/2025 11:45 AM EST Blood Draw [facility] Imaging Department, [facility], Imaging Jyihu-xr-Djri [address] [facility], Floor L1 [place] [address] Melany Davey MD [address] [place] [address] [email or web address]@[email or web address] 05/01/2025 1:30 PM EST Appointment [facility] Imaging Department, [facility], PET/CT [address] [place] [address] Melany Davey MD [address] [address] Sharif@[email or web address] 05/02/2025 9:30 AM EST Office Visit [facility], [address], 5th [place] [address] Alida Mancilla MD [address] [place] [address] [place] [address] [email or web address] 05/02/2025 10:00 AM EST Office Visit [facility], [address], [address]th [place] [address] Melany Davey MD [address] [place] [address] Sharif@[facility] documented as of this encounter Visit Diagnoses Not on filedocumented in this encounter Care Teams Thresher Broomcorn Relationship Specialty Start Date End Date Suresh Mcclellan PA [address] [place] [address] PCP - General Unknown Provider Specialty 10/30/20 Self-Referred, Patient Referring Physician 06/07/19 Lillian Muñiz LICSW [address] [place] [address] [email or web address] .[email or web address] Physical Scientist 06/20/19 Janine Simeon MD [address] [place] [address] [email or web address] Radiation Oncology 10/19/19 Herman Guzman MD [address] [facility] Hematology/[place] [address] [email or web address] Hematology 01/18/20 Daniela Bazan MD [address] [place] [address] [address] [email or web address] Medical Student 11/05/20 Luke Ross MD 15 Janeen Abdullahi [address] [place] [address] Otolaryngology 03/04/23 documented as of this encounter Additional Source Comments The information contained in this document represents components of the legal health record. It is not the complete legal health record.[facility]
--- OUTSIDE RECORDS SUMMARY | 2025-02-13 16:17 | XMS_ITS | Encounter Summary ---
Author Organization [facility] Address [address] [facility] [address] [place] [address] Phone Care Team Providers Care Coffee Weigher Name Role Phone Self-Referred, Patient Unavailable Unavailab Lillian Cho [facility] Unavailable Janine Simeon MD Unavailable Herman Guzman MD Unavailable Suresh Mcclellan Primary Care Provid er Daniela Bazan MD Unavailable Luke Ross MD Unavailable Encounter Details Date Type Department Care Team (Late st Contact Info) Description 10/31/2020 Procedure Pass [facility] Cross Sectional Interventional Radiology [address] [place] [address] Social History Tobacco Use Types Packs/Day Years [...] Description 05/01/2025 11:45 AM EST Blood Draw [facility] Imaging Department, [facility] [place], Imaging Qbprm-ow-Kzue [address] [facility], [place] L1 [place] [address] Melany Davey MD [address] [address] [email or web address] 05/01/2025 1:30 PM EST Appointment [facility] Imaging Department, [facility], PET/CT [address] [place] [address] Melany Davey MD [address] [address] [email or web address] 05/02/2025 9:30 AM EST Office Visit [facility], [address], [address] [place] [address] Alida Mancilla MD [address] [place] [address] [place] [address] [email or web address] 05/02/2025 10:00 AM EST Office Visit [facility], [address], 5th [place] [address] Melany Davey MD [address] [place] [address] [email or web address]@[email or web address] documented as of this encounter Visit Diagnoses Not on filedocumented in this encounter Care Teams Coffee Weigher Relationship Specialty Start Date End Date Suresh Mcclellan PA [address] [place] [address] PCP - General Unknown Provider Specialty 10/30/20 Self-Referred, Patient Referring Physician 06/07/19 Lillian Muñiz LICSW [address] [place] [address] [email or web address] .[email or web address] Fusing Machine Feeder 06/20/19 Janine Simeon MD [address] [place] [address] [email or web address] Radiation Oncology 10/19/19 [place] [address] [place] [address] Hematology/[place] [address] [email or web address] Hematology 01/18/20 Daniela Bazan MD [address] [address] [email or web address] Medical Student 11/05/20 Luke Ross MD 15 Janeen Abdullahi [address] [place] [address] Otolaryngology 03/04/23 documented as of this encounter Additional Source Comments The information contained in this document represents components of the legal health record. It is not the complete legal health record.[facility]
--- OUTSIDE RECORDS SUMMARY | 2025-02-13 16:17 | XMS_ITS | Encounter Summary ---
Author Organization [facility] Address [address] [facility] [address] [place] [phone] Phone Care Team Providers Care Buffing Machine Operator Semiautomatic Name Role Phone Self-Referred, Patient Unavailable Unavailab Lillian Cho [facility] Unavailable [phone] Janine Simeon MD Unavailable [phone] Herman Guzman MD Unavailable Suresh Mcclellan Primary Care Provid er Daniela Bazan MD Unavailable Luke Ross MD Unavailable [phone] Encounter Details Date Type Department Care Team (Late st Contact Info) Description 01/24/2025 Orders Only [facility], [facility] [address] [place] [address], 8th [place] [address] Leonardo Huber MD [address] [facility] - Division [place] [address] [email or web address] Splenic mass Social History Tobacco Use Types Packs/Day Years Used Date Smoking Tobacco: Never Smokeless Tobacco: Never Alcohol Use Standard Drinks/Week Comments Yes 1 [...] Description 05/01/2025 11:45 AM [address] [facility] Imaging Department, [facility], Imaging [id number] [address] [facility], Floor [address]1 [place] [address] Melany Davey MD [address] [place] [phone] [email or web address] 05/01/2025 1:[address] [facility] Imaging Department, [facility], PET/CT [address] [place] [address] Melany Davey MD [address] [place] [phone] [email or web address] 05/02/2025 9:30 AM EST Office Visit [facility], [address], 5th [place] [address] Alida Mancilla MD [address] [place] [address] [place] [id number] [email or web address] 05/02/2025 10:00 AM EST Office Visit [facility], [address], 5th [place] [address] Melany Davey MD [address] [facility] [address] [place] [address] [email or web address] documented as of this encounter Procedures Procedure Name Priority Date/Time Associated Diagnosis Comments OUTSIDE PATHOLOGY REVIEW/CONSULT Routine 01/24/2025 1:35 PM EST Splenic mass TISSUE EXAM Routine 09/18/2024 Splenic mass documented in this encounter Results * Outside Pathology Review/Consult (01/24/2025 1:35 PM EST) Consult Auto Resulting Yes 01/24/2025 1:46 PM EST [facility] Consult 01/24/2025 1:35 PM EST 01/24/2025 1:37 PM EST us Leonardo Huber MD LAB PATHOLOGY ORDERABLES Final Result [facility] [address] [place] [address] * Tissue Exam (09/18/2024) Final Pathologic Diagnosis CONSULT SLIDES FROM [facility], [place], [place]: A. SPLENIC MASS, NEEDLE ASPIRATION ([id number]; 09/18/2024): Highly atypical lymphoid cells, worrisome for involvement by a B cell lymphoproliferative disorder (see NOTE). NOTE: Morphologic evaluation is limited by suboptimal cell preservation and crush artifact; however, cytologic preparations appear to show a population of large, atypical lymphoid cells in a background of small lymphocytes. Immunohistochemical studies performed at the outside institution show that the cellularity is predominantly composed of RH04-lqjgkukq B cells (including the larger, atypical forms) and fewer CD3/CD5-positive T cells. The larger cells show focal possible weak positivity for BCL2 and BCL6 and appear negative for CD10, cyclin D1, CD23, MYC, MUM-1, cytokeratin cocktail, TTF-1, synaptophysin, chromogranin, MCV, CK20, and ZEKE. The Ki-67 proliferative index is markedly elevated in the large cells (>80%). 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 Per report, rearrangements involving BCL6, BCL2, and MYC were not detected. The overall morphologic, immunophenotypic, and FISH findings are worrisome for involvement by a large B cell lymphoma. However, the biopsy material is scant, limiting definitive classification. Additional tissue sampling of this lesion or other candidate lesion (with allocation for flow cytometry) is recommended for further classification if clinically indicated. The case was also reviewed by Drs. Blanka Urias and Alison Garcias (Hematopathology), who agree with the above diagnosis. The findings were discussed with Dr. Nancy Huber on 02/01/2025. 02/01/2025 5:[address] [facility] PATHOLOGY at 1718 EST Additional Pathologists Halina Wong, [facility] - Pathology Fellow 02/01/2025 5:[address] [facility] PATHOLOGY Clinical History splenic mass 02/01/2025 5:[address] [facility] PATHOLOGY Materials Received A. Spleen; Mass, Needle Aspiration [id number] - 09/18/2024 Blocks: 0 Stained Slides: 23 Number of Unstained Slides: 0 Stained Slides Received: A1-1 TN A1-2 CB A1-3 IP A1-4 IP A1-5 IP A1-6 IP A1-7 IP A1-8 IP A1-9 IP A1-10 IP A1-11 IP A1-12 IP A1-13 IP A1-14 IP A1-15 IP A1-16 IP A1-17 IP A1-18 IP A1-19 IP A1-20 IP A1-21 IP A1-22 IP A1-23 IP 02/01/2025 5:[address] [facility] PATHOLOG[facility] Result Priority Level Routine 02/01/2025 5:[address] [facility] PATHOLOG[facility] Disclaimer By their signature above, the pathologist listed as making the Final Diagnosis certifies that they have personally reviewed the case and confirmed the diagnosis. All slides and stains were of sufficient quality to establish the diagnosis, unless otherwise stated. Due to loss of elastic tension and/or tissue shrinkage in formalin, the clinical sizes of tissue specimens may be larger than those provided in this report. 02/01/2025 5:18 PM EST [facility] PATHOLOG[facility] Consult (Spleen) 09/18/2024 01/25/20 25 1:37 PM EST us Leonardo Huber MD LAB PATHOLOGY ORDERABLES Final Result [facility] PATH[facility] documented in this encounter Visit Diagnoses Diagnosis Splenic mass Splenomegaly documented in this encounter Care Teams Buffing Machine Operator Semiautomatic Relationship Specialty Start Date End Date Suresh Mcclellan PA [address] [place] [address] PCP - General Unknown Provider Specialty 10/30/20 Self-Referred, Patient Referring Physician 06/07/19 Lillian Muñiz [facility] [address] [place] [id number] [email or web address] Gauger 06/20/19 Janine Simeon MD [address] [place] [address] [email or web address] Radiation Oncology 10/19/19 [place] [address] [place] [address] Hematology/[place] [address] [email or web address] Hematology 01/18/20 Daniela Bazan MD [address] [facility] S50200 [place] [address] [email or web address] Medical Student 11/05/20 Luke Ross MD [address] [place] [address] Otolaryngology 03/04/23 documented as of this encounter Additional Source Comments The information contained in this document represents components of the legal health record. It is not the complete legal health record.[facility]
--- OUTSIDE RECORDS SUMMARY | 2025-02-13 16:17 | XMS_ITS | Encounter Summary ---
Author Organization [facility] Address [address] [facility] [address] [place] [address] Phone Care Team Providers Care Bus Starter Name Role Phone Self-Referred, Patient Unavailable Unavailab Lillian Cho [facility] Unavailable Janine Simeon MD Unavailable Herman Guzman MD Unavailable Suresh Mcclellan Primary Care Provid er Daniela Bazan MD Unavailable Luke Ross MD Unavailable Encounter Details Date Type Department Care Team (Late st Contact Info) Description 12/10/[address] [facility] Imaging Department, [facility] [place] [address] [facility], Floor [address]1 [place] [address] Social History Tobacco Use Types Packs/Day Years [...] 05/01/2025 11:45 AM EST Blood Draw [facility] Imaging Department, [facility], Imaging Czuiq-[id number] [address] [facility], Floor [address] [place] [address] Melany Davey MD [address] [place] [phone] [email or web address] 05/01/2025 1:[address] [facility] Imaging Department, [facility], PET/CT [address] [place] [address] Melany Davey MD [address] [address] [email or web address] 05/02/2025 9:30 AM EST Office Visit [facility], [address], 5th [place] [address] Alida Mancilla MD [address] [place] [address] [place] [address] [email or web address] 05/02/2025 10:00 AM EST Office Visit [facility], [address], 5th [place] [address] Melany Davey MD [address] [place] [phone] [email or web address] documented as of this encounter Visit Diagnoses Not on filedocumented in this encounter Care Teams Bus Starter Relationship Specialty Start Date End Date Suresh Mcclellan PA [address] [place] [address] PCP - General Unknown Provider Specialty 10/30/20 Self-Referred, Patient Referring Physician 06/07/19 Lillian Muñiz LICSW [address] [place] [address] [email or web address] Improvement Analyst 06/20/19 Janine Simeon MD [address] [place] [address] [email or web address] Radiation Oncology 10/19/19 Herman Guzman MD [address] [facility] Hematology/[place] [address] [email or web address] Hematology 01/18/20 Daniela Bazan MD [address] [place] [address] [address] [email or web address] Medical Student 11/05/20 Luke Ross MD 15 Janeen Abdullahi [address] [place] [address] Otolaryngology 03/04/23 documented as of this encounter Additional Source Comments The information contained in this document represents components of the legal health record. It is not the complete legal health record.[facility]
--- OUTSIDE RECORDS SUMMARY | 2025-02-13 16:17 | XMS_ITS | Clinical Summary ---
Author Organization [facility] Address [address] [place] [address] Care Team Providers Care Statuary Painter Name Role Phone Trae Rojas MD Primary Care Provider [phone] Allergies Active Allergy Reactions Criticality Noted Date [...] age to complete this topic Care Teams Statuary Painter Relationship Specialty Start Date End Date Trae Rojas MD PCP - General Mammography Supervisor 05/29/19
--- OUTSIDE RECORDS SUMMARY | 2025-02-13 16:17 | XMS_ITS ---
Author Name [facility] Organization Unknown Results Test Name/Text Value Interpretation Date Range Source Surgical . Normal 05/22/2023 [facility] History of Medication Use Medication Directions Dispensed Refills Start Date End Date Stat us clidinium-chlordiazep oxide (LIBRAX) 5-2.5 MG per capsule TAKE ONE CAPSULE BY MOUTH THREE TIMES A DAY WITH MEALS 01/16/2024 active sildenafil (VIAGRA) 100 MG tablet 1 (one) time each day if needed. Take 0.5 Tablets by mouth as needed for Erectile Dysfunction 12/21/2023 active citalopram (CeleXA) 10 MG tablet Take 1 tablet by mouth every morning. 12/05/2023 active famotidine (PEPCID) 20 MG tablet Take 20 mg by mouth daily. 11/29/2023 active traMADol (ULTRAM) 50 MG tablet Take 50 mg by mouth. 2023 active fluticasone (FloNASE) 50 mcg/spray nasal spray 100 mcg into each nostril. 05/30/2023 active atorvastatin (LIPITOR) 20 MG tablet Take 20 mg by mouth daily. 04/25/2023 active acetaminophen (TYLENOL) 325 MG tablet Take 650 mg by mouth 4 times daily (every 6 hours) as needed. active fexofenadine (LETICIA) 180 MG tablet Take 180 mg by mouth daily. active pembrolizumab (Keytruda) Solution injection Infuse into a venous catheter. active Allergies Allergen Reaction Severity Comment Documented Date Source Statu s SULFAMETHOXAZOLE-TR IMETHOPRIM OTHER (SEE COMMENTS) 05/14/2024 [facility] active DEXAMETHASONE UNKNOWN/PATIEN T AND FAMILY UNABLE TO DEFINE 07/07/2021 [facility] active AZITHROMYCIN HIVES rash 11/09/2019 [facility] active SULFA ANTIBIOTICS RASH/DERMATITI S This occurred with celebrex 08/07/2009 [facility] active CELECOXIB RASH/DERMATITI S Other Reaction(s): Hives/Urticari a, Numbness, tingling or swelling of the lips, tongue or mouth [facility] Problems Problem Status Onset Date Problem Type Date of Resolution Source Vocal cord weakness active EncounterDiagnosisAc t [facility] Neck pain active 2015-01-28 ProblemAct [facility] DJD (degenerative joint disease) active 2019-06-14 ProblemAct [facility] GERD (gastroesophageal reflux disease) active 2010-10-12 ProblemAct [facility] Sebaceous cyst active 2019-04-[address] 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 ProblemAct [facility] Panic disorder without agoraphobia active 2006-07-04 ProblemAct [facility] Hypercholesteremia active 2019-06-14 ProblemAct [facility] Multiple thyroid nodules active 2021-04-28 ProblemAct [facility] H/O head and neck radiation active 2024-02-24 ProblemAct [facility] Obstructive sleep apnea active 2018-12-19 ProblemAct [facility] Depression active 2019-06-14 ProblemAct [facility] Hyperlipidemia active 2018-06-[address] Allergic rhinitis active 2005-07-19 ProblemAct [facility] Prediabetes active 2022-02-12 ProblemAct [facility] Nasopharyngeal neoplasm active EncounterDiagnos isAct [facility] Generalized osteoarthritis of multiple sites active 2009-05-07 ProblemAct [facility] Irritable bowel syndrome active 2016-11-30 ProblemAct [facility] Adjustment disorder active 2013-02-13 ProblemAct [facility] Severe obesity (BMI 35.0-39.9) with comorbidity active 2018-12-19 ProblemAct [facility] History of dysplastic nevus active 2010-03-16 ProblemAct [facility] Dyspepsia active 2023-12-21 ProblemAct [facility] Seasonal allergies active 2019-06-14 ProblemAct [facility] Class 1 obesity active 2024-02-24 ProblemAct [facility] Eustachian tube dysfunction, bilateral active EncounterDiagnosisAct [facility] Dysplastic nevus active 2010-03-16 ProblemAct [facility] Vallejo cell carcinoma active 2023-12-21 ProblemAct [facility] Immunotherapy active 2024-02-24 ProblemAct [facility] T History of basal cell carcinoma (BCC) active 2006-10-18 ProblemAct [facility] Immunizations Vaccine Date Source Lot Number Status Influenza High-Dose Quadriva lent,(FLUZONE HIGH-DOSE), Perservative Free IM 0.7 mL 65 years and older 12/05/2023 [facility] completed Influenza, Trivalent (FLUAD) Adjuvanted Preservative Free IM 65 years and older 12/05/2023 [facility] [id number] completed Influenza High-Dose Trivalen t,(FLUZONE HIGH-DOSE), Perservative Free IM 0.5 mL 65 years and older 11/29/2022 [facility] [id number] completed Influenza, Trivalent (FLUAD) Adjuvanted Preservative Free IM 65 years and older 11/29/2022 [facility] [id number] completed Influenza High-Dose Trivalen t,(FLUZONE HIGH-DOSE), Perservative Free IM 0.5 mL 65 years and older 01/18/2022 [facility] [id number] completed Influenza, Trivalent (FLUAD) Adjuvanted Preservative Free IM 65 years and older 01/18/2022 [facility] [id number] completed Covid-19 MRNA Vaccine - Pfiz er 12+ (Purple Cap) 02/18/2021 [facility] completed Influenza High-Dose Quadriva lent,(FLUZONE HIGH-DOSE), Perservative Free IM 0.7 mL 65 years and older 12/31/2020 [facility] [id number] completed Influenza High-Dose Trivalen t,(FLUZONE HIGH-DOSE), Perservative Free IM 0.5 mL 65 years and older 12/31/2020 [facility] [id number] completed Influenza, Trivalent (FLUAD) Adjuvanted Preservative Free IM 65 years and older 12/31/2020 [facility] [id number] completed Influenza High-Dose Quadriva lent,(FLUZONE HIGH-DOSE), Perservative Free IM 0.7 mL 65 years and older 01/22/2020 [facility] [id number] completed Influenza High-Dose Trivalen t,(FLUZONE HIGH-DOSE), Perservative Free IM 0.5 mL 65 years and older 01/22/2020 [facility] [id number] completed Influenza, Trivalent (FLUAD) Adjuvanted Preservative Free IM 65 years and older 01/22/2020 [facility] [id number] completed Influenza High-Dose Trivalen t,(FLUZONE HIGH-DOSE), Perservative Free IM 0.5 mL 65 years and older 12/26/2018 [facility] [id number] completed Influenza, Trivalent (FLUAD) Adjuvanted Preservative Free IM 65 years and older 12/26/2018 [facility] [id number] completed Pneumococcal Polysaccharide 23-Valent 12/26/2018 [facility] [id number] completed Influenza, Quadrivalent (FLU CELVAX) MDCK, Preservative Free IM 02/28/2018 [facility] [id number] completed Pneumococcal Conjugate 13-Valent 12/06/2017 [facility] [id number] completed Influenza Virus Trivalent Sp lit Vaccine (MDV) IM 12/16/2015 [facility] [id number] completed Influenza, Trivalent (FLUARI X, AFLURIA, FLULAVAL, FLUZONE) Preservative Free IM 12/16/2015 [facility] [id number] completed Influenza, Trivalent (FLUARI X, AFLURIA, FLULAVAL, FLUZONE) Preservative Free IM 05/18/2014 [facility] [id number] completed Influenza Virus Trivalent Sp lit Vaccine (MDV) IM 11/21/2012 [facility] [id number] completed Influenza, Trivalent (FLUARI X, AFLURIA, FLULAVAL, FLUZONE) Preservative Free IM 11/21/2012 [facility] [id number] completed Zoster Vaccine Live/Attenuated (Zostavax) 11/21/2012 [facility] [id number] completed Influenza Virus Trivalent Sp lit Vaccine (MDV) IM 12/21/2011 [facility] [id number] completed Influenza, Trivalent (FLUARI X, AFLURIA, FLULAVAL, FLUZONE) Preservative Free IM 12/21/2011 [facility] [id number] completed Influenza Virus Trivalent Sp lit Vaccine (MDV) IM 04/09/2011 [facility] [id number] completed Influenza, Trivalent (FLUARI X, AFLURIA, FLULAVAL, FLUZONE) Preservative Free IM 04/09/2011 [facility] [id number] completed H1N1 Inj Preservative Free 03/31/2009 [facility] [id number] completed Influenza Virus Trivalent Sp lit Vaccine (MDV) IM 03/31/2009 [facility] [id number] completed Influenza, Trivalent (FLUARI X, AFLURIA, FLULAVAL, FLUZONE) Preservative Free IM 03/31/2009 [facility] [id number] completed Encounters Encounter Type Encounter Reason Primary Diagnosis Location Date Ambulatory Follow-up Follow-up [facility] 09/04/2024 Ambulatory Follow-up Follow-up [facility] 05/28/2024 Ambulatory Follow-up Follow-up [facility] 02/27/2024 Ambulatory [facility] 05/18/2023 Care Team Organization Name Specialty Phone Email Start Date End Da te [facility] ACO 11/07/2024 [facility] Primary Care 03/02/2024 10/03/2024 [facility] Primary Care 02/24/2024 [facility] 02/24/2024 [facility] provided,No Primary Care 05/19/2023 08/16/2023 [facility] 05/18/2023 [facility] Suresh Mcclellan Primary Care 08/27/2022
== END 2025-02-13 13:53 | disposition home or self-care (01) ==
LOC: HO.RHES 13:10
PROVIDERS: PCP Physician Assistant Medical; Visit Provider Internal Medicine Rheumatology
DX: M70.61 Trochanteric bursitis, right hip (principal); M70.62 Trochanteric bursitis, left hip; M17.0 Bilateral primary osteoarthritis of knee; M54.50 Low back pain, unspecified
CPT/HCPCS: 20610; 99213

== ENCOUNTER → 2025-02-13 13:09 | Outpatient (BNVA) | payer MEDICARE, OTHER, SELFPAY | PROVIDERS: PCP Physician Assistant Medical; Visit Provider Internal Medicine Rheumatology | DX: M17.0 Bilateral primary osteoarthritis of knee (principal); M25.561 Pain in right knee; M25.562 Pain in left knee; M70.61 Trochanteric bursitis, right hip; M70.62 Trochanteric bursitis, left hip; M54.50 Low back pain, unspecified | CPT/HCPCS: 20610; 99212; J2003; J3301 ==

== ENCOUNTER 2025-02-21 16:08 | Outpatient (REF) | payer MEDICARE, OTHER, SELFPAY ==
--- NOTE | ~2025-02-21 | XR_ITS ---
EXAMINATION: XR LUMBOSACRAL SPINE CLINICAL INFORMATION: M54.50 - Low back pain, unspecified COMPARISON: None available. TECHNIQUE: Three views of the lumbosacral spine. FINDINGS: Moderate atherosclerotic calcification are visible in the aorta. There is mild convex right curvature of the lumbar spine. T12-L1: There is large anterior osteophytes and minimal disc space narrowing. L1-L2: There is mild endplate sclerosis, anterior osteophytes, and mild disc space narrowing L2-L3: There is subtle grade 1 retrolisthesis with mild disc space narrowing and small anterior osteophyte. L3-L4: There is subtle retrolisthesis with mild disc space narrowing and small endplate osteophytes. There is endplate sclerosis. There is facet sclerosis and osteophytes L4-L5: There is subtle anterolisthesis with minimal disc space narrowing and small endplate osteophytes. There is facet sclerosis and osteophytes. L5-S1: There is endplate sclerosis of S1. There is facet sclerosis and osteophytes. XR/XR lumbar spine 2-3V IMPRESSION: Degenerative disc disease and facet osteoarthritis. Electronically signed by: Uriel Richardson MD 02/21/2025 04:35 PM EST
--- OUTSIDE RECORDS SUMMARY | 2025-02-21 22:07 | XMS_ITS | Encounter Summary ---
Author Organization [facility] Address [address] [facility] [address] [place] [address] Phone Care Team Providers Care Shot Packer Name Role Phone Self-Referred, Patient Unavailable Unavailab Lillian Cho [facility] Unavailable Janine Simeon MD Unavailable Herman Guzman MD Unavailable Suresh Mcclellan Primary Care Provid er Daniela Bazan MD Unavailable Luke Ross MD Unavailable Encounter Details Date Type Department Care Team (Late st Contact Info) Description 12/09/2020 Procedure Pass [facility] Imaging Department, [facility] [place], [place] [address] [facility], Floor [address]1 [place] [address] Social History Tobacco Use Types Packs/Day Years [...] Care Team (Late st Contact Info) Description 02/04/2025 Procedure Pass [facility] Cross Sectional Interventional Radiology [address] [place] [address] 03/26/2025 11:00 AM EST Appointment [facility] Cross Sectional Interventional Radiology [address] [place] [address] Leonardo Huber MD [address] [place] [address] and Women's [facility] - [place] [address] [email or web address] 04/05/2025 11:00 AM EST Telemedicine [facility] Lymph[facility], Division of Hematologic Oncology, [address], 7th [place] [address] Lesia Rodriguez MD, PhD [address] [place] [address] [email or web address] 05/01/2025 11:45 AM EST [facility] Imaging Department, [facility], Imaging Yvmsa-kh-Maxa [address] [facility], Floor [address]1 [place] [address] Melany Davey MD [address] [place] [id number] [email or web address]@[email or web address] 05/01/2025 1:30 PM EST Appointment Jign[facility] Cruz Imaging Department, [facility], PET/CT [address] [place] [address] Melany Davey MD [address] [place] [id number] [email or web address]@[email or web address] 05/02/2025 9:30 AM EST Office Visit [facility], [address], 5th [place] [address] Alida Mancilla MD [address] [place] [address] [place] [address] [email or web address] 05/02/2025 10:00 AM EST Office Visit [facility], [facility] [place] [address] [facility], 5th [place] [address] Melany Davey MD [address] [facility] [address] [place] [address] [email or web address] documented as of this encounter Visit Diagnoses Not on filedocumented in this encounter Care Teams Shot Packer Relationship Specialty Start Date End Date Suresh Mcclellan PA [address] [place] [address] PCP - General Unknown Provider Specialty 10/30/20 Self-Referred, Patient Referring Physician 06/07/19 Lillian Muñiz [facility] [address] [place] [address] [email or web address] Transit Planning Manager 06/20/19 Janine Simeon MD [address] [place] [address] [email or web address] Radiation Oncology 10/19/19 [place] [address] [place] [address] Hematology/[place] [address] [email or web address] Hematology 01/18/20 Daniela Bazan MD [address] [facility] S50200 [place] [address] [email or web address] Medical Student 11/05/20 Luke Ross MD 15 Janeen Abdullahi [address] [place] [address] Otolaryngology 03/04/23 documented as of this encounter Additional Source Comments The information contained in this document represents components of the legal health record. It is not the complete legal health record.[facility]
--- OUTSIDE RECORDS SUMMARY | 2025-02-21 22:07 | XMS_ITS | Encounter Summary ---
Author Organization [facility] Address [address] [facility] [address] [place] [address] Phone Care Team Providers Care Journeyman Glazier Name Role Phone Self-Referred, Patient Unavailable Unavailab Lillian Cho [facility] Unavailable [phone] Janine Simeon MD Unavailable Herman Guzman MD Unavailable Suresh Mcclellan Primary Care Provid er Daniela Bazan MD Unavailable Luke Ross MD Unavailable Encounter Details Date Type Department Care Team (Late st Contact Info) Description 12/09/2020 Procedure Pass [facility] Imaging Department, [facility] [place], [place] [address] [facility], Floor [address]1 [place] [address] Social History Tobacco Use Types Packs/Day Years [...] st Contact Info) Description 02/04/2025 Procedure Pass [facility] Cross Sectional Interventional Radiology [address] [place] [address] 03/26/2025 11:00 AM EST Appointment [facility] Cross Sectional Interventional Radiology [address] [place] [address] Leonardo Huber MD [address] [place] [address] and Women's [facility] - [place] [address] [email or web address] 04/05/2025 11:00 AM EST Telemedicine Center for Lymphoma, Division of Hematologic Oncology, [address], 7th [place] [address] Lesia Rodriguez MD, PhD [address] [place] [phone] [email or web address] 05/01/2025 11:45 AM EST [facility], [facility], Imaging Mpytf-wl-Kyzd [address] [facility], Floor [address] [place] [address] Melany Davey MD [address] [place] [phone] [email or web address]@[facility] 05/01/2025 1:30 PM EST Appointment [facility] Cruz Imaging Department, [facility], PET/CT [address] [place] [address] Melany Davey MD [address] [place] [address] [email or web address] 05/02/2025 9:30 AM EST Office Visit [facility], [address], 5th [place] [address] Alida Mancilla MD [address] [place] [address] [place] [address] [email or web address] 05/02/2025 10:00 AM EST Office Visit [facility], [facility] [place] [address] [facility], 5th [place] [address] Melany Davey MD [address] [facility] LW[address] [place] [address] Sharif@[email or web address] documented as of this encounter Visit Diagnoses Not on filedocumented in this encounter Care Teams Journeyman Glazier Relationship Specialty Start Date End Date Suresh Mcclellan PA [address] [place] [address] PCP - General Unknown Provider Specialty 10/30/20 Self-Referred, Patient Referring Physician 06/07/19 Lillian Muñiz [facility] [address] [place] [address] [email or web address] Detective Bowling Alley 06/20/19 Janine Simeon MD [address] [place] [address] [email or web address] Radiation Oncology 10/19/19 [place] [address] [place] [address] Hematology/[place] [address] [email or web address] Hematology 01/18/20 Daniela Bazan MD [address] [facility] S[address]200 [place] [address] [email or web address] u Medical Student 11/05/20 Luke Ross MD 15 Janeen Abdullahi [address] [place] [address] Otolaryngology 03/04/23 documented as of this encounter Additional Source Comments The information contained in this document represents components of the legal health record. It is not the complete legal health record.[facility]
--- OUTSIDE RECORDS SUMMARY | 2025-02-21 22:07 | XMS_ITS | Encounter Summary ---
Author Organization [facility] Address [address] [facility] [address] [place] [address] Phone Care Team Providers Care Greenhouse Florist Name Role Phone Self-Referred, Patient Unavailable Unavailab Lillian Cho [facility] Unavailable [phone] Janine Simeon MD Unavailable [phone] Herman Guzman MD Unavailable Suresh Mcclellan Primary Care Provid er Daniela Bazan MD Unavailable Luke Ross MD Unavailable Encounter Details Date Type Department Care Team (Late st Contact Info) Description 12/09/2020 Procedure Pass [facility] Imaging Department, [facility] [place], [place] [address] [facility], Floor L1 [place] [address] Social History Tobacco Use Types Packs/Day Years [...] st Contact Info) Description 02/04/2025 Procedure Pass [facility] Cross Sectional Interventional Radiology [address] [place] [address] 03/26/2025 11:00 AM EST Appointment [facility] Cross Sectional Interventional Radiology [address] [place] [address] Leonardo Huber MD [address] [place] [address] and Women's [facility] - [place] [address] [email or web address] 04/05/2025 11:00 AM EST Telemedicine Center for Lymphoma, Division of Hematologic Oncology, [address], 7th [place] [address] Lesia Rodriguez MD, PhD [address] [place] [address] [email or web address] 05/01/2025 11:45 AM EST [facility], [facility], Imaging Wjlvt-xd-Zbpo [address] [facility], Floor [address]1 [place] [address] Melany Davey MD [address] [place] [id number] [email or web address]@[facility] 05/01/2025 1:30 PM EST Appointment iJgna Cruz Imaging Department, [facility], PET/CT [address] [place] [address] Melany Davey MD [address] [place] [address] [email or web address] 05/02/2025 9:30 AM EST Office Visit [facility], [address], 5th [place] [address] Alida Mancilla MD [address] [place] [address] [place] [address] [email or web address] 05/02/2025 10:00 AM EST Office Visit [facility], [facility] [place] [address] [facility], 5th [place] [address] Melany Davey MD [address] [facility] [address] [place] [address] [email or web address] documented as of this encounter Visit Diagnoses Not on filedocumented in this encounter Care Teams Greenhouse Florist Relationship Specialty Start Date End Date Suresh Mcclellan PA [address] [place] [address] PCP - General Unknown Provider Specialty 10/30/20 Self-Referred, Patient Referring Physician 06/07/19 Lillian Muñiz [facility] [address] [place] [address] [email or web address] .[email or web address] Lead Business Systems Analyst 06/20/19 Janine Simeon MD [address] [place] [address] [email or web address] Radiation Oncology 10/19/19 [place] [address] [place] [address] Hematology/[place] [address] [email or web address] Hematology 01/18/20 Daniela Bazan MD [address] [facility] S50200 [place] [address] [email or web address] u Medical Student 11/05/20 Luke Ross MD 15 Janeen Abdullahi [address] [place] [address] Otolaryngology 03/04/23 documented as of this encounter Additional Source Comments The information contained in this document represents components of the legal health record. It is not the complete legal health record.[facility]
--- OUTSIDE RECORDS SUMMARY | 2025-02-21 22:07 | XMS_ITS | Clinical Summary ---
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 0 06/14/2019 Seasonal allergies 06/14/2019 DJD (degenerative joint disease) 06/14/2019 Depression 06/14/2019 Hypercholesteremia 06/14/2019 Encounters Date Type Department Care Team Description 02/04/2025 Documentation [facility], [address], [address] [place] [address] Melany Davey MD 02/04/2025 Orders Only [facility] Hematology [address] [place] [address] Leonardo Taveras MD 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) 01/31/2025 12:00 PM EST Office Visit [facility], [address], [address] [place] [address] Melany Davey MD [place] cell carcinoma (Primary Dx) 01/31/2025 11:30 AM EST Office Visit [facility], [address], [address] [place] [address] Alida Mancilla MD Scottie cell carcinoma (Primary Dx); Abnormal findings on imaging test; 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 01/31/2025 Orders Only [facility], [address], [address] [place] [address] Melany Davey MD Scottie cell carcinoma (Primary Dx) 01/30/2025 12:50 PM EST - 01/30/2025 11:59 PM EST Hospital Encounter [facility], [facility], PET/CT [address] [place] [phone] Melany Davey MD Discharge Disposition: Home or Self Care 01/24/2025 Orders Only [facility] [address] [place] [address], [address] [place] [address] Leonardo Taveras MD Splenic mass 01/24/2025 Orders Only [facility], [facility] [address] [facility], 8th [place] [address] Imelda Ulloa Splenic mass (Primary Dx) 12/24/2024 1:28 PM EDT - 12/24/2024 11:59 PM EDT Hospital Encounter [facility] Phlebotomy [place] [address] [place] [address] Leonardo Taveras MD Discharge Disposition: Home or Self Care 12/24/2024 1:00 PM EDT Office Visit [facility] Hematology [address] [place] [address] Leonardo Taveras MD Lesion of spleen (Primary Dx); Need for hepatitis C screening test; Need for hepatitis B screening test; Recurrent [place] cell carcinoma; Large cell lymphoma, splenic from [...] st Contact Info) Description 02/04/2025 Procedure Pass [facility] Cross Sectional Interventional Radiology [address] [place] [address] 03/26/2025 11:00 AM EST Appointment [facility] Cross Sectional Interventional Radiology [address] [place] [address] Leonardo Taveras MD [address] [place] [address] and [facility] [place] [address] [email or web address] 04/05/2025 11:00 AM EST Telemedicine Center for Lymphoma, Division of Hematologic Oncology, [facility] Cancer [address], [address]th [place] [address] Lesia Rodriguez MD, PhD [address] [place] [phone] [email or web address] 05/01/2025 11:45 AM EST Blood Draw [facility] Imaging Department, [facility] [place], Imaging [email or web address] [address] [place] [address], [place] [address] [place] [address] Melany Davey MD [address] [place] [phone] [email or web address] 05/01/2025 1:30 PM EST Appointment [facility] Imaging Department, [facility], PET/CT [address] [place] [address] Melany Davey MD [address] [place] [address], [place] [address] [email or web address] 05/02/2025 9:30 AM EST Office Visit [facility], [address], 5th [place] [address] Alida Mancilla MD [address] [place] [address] [place] [address] [email or web address] 05/02/2025 10:00 AM EST Office Visit [facility], [address], [address] [place] [address] Melany Davey MD [address] [place] [address] [email or web address] Health Maintenance Due Date Last Done Comments [...] PET CT SCALP TO TOES Routine 01/31/20 2:43 PM EST Scottie cell carcinoma POCT GLUCOSE Routine 01/30/2025 1:06 PM EST POCT GLUCOSE Routine 01/30/2025 1:02 PM EST CBC AND DIFFERENTIAL Routine 01/30/2025 12:20 PM EST Scottie cell carcinoma FREE T4 Routine 01/30/2025 12:20 PM EST Scottie cell carcinoma THYROID STIMULATING HORMONE (TSH) Routine 01/30/2025 12:20 PM EST [place] cell carcinoma SCOTTIE CELL CARCINOMA ANTIBODIES Routine 01/30/2025 12:20 PM EST [place] cell carcinoma LDH Routine 01/30/2025 12:20 PM EST [place] cell carcinoma COMPREHENSIVE METABOLIC PANEL (CMP) Routine 01/30/2025 12:20 PM EST Scottie cell carcinoma CBC AND DIFFERENTIAL Routine 01/30/2025 12:20 PM EST [place] cell carcinoma SIGNATERA ONLY Routine 01/30/2025 OUTSIDE [...] Lesion of spleen Recurrent Scottie cell carcinoma COMPREHENSIVE METABOLIC PANEL (CMP) Routine 12/24/2024 1:39 PM EDT Need for hepatitis C screening test Need for hepatitis B screening test Lesion of spleen Recurrent [place] cell carcinoma LDH Routine 12/24/2024 1:39 PM EDT Need for hepatitis C screening test Need for hepatitis B screening test Lesion of spleen Recurrent [place] cell carcinoma URIC ACID Routine 12/24/2024 1:39 PM EDT Need for hepatitis C screening test Need for hepatitis B screening test Lesion of spleen Recurrent Scottie cell carcinoma HEPATITIS B SURFACE ANTIBODY Routine 12/24/2024 1:39 PM EDT Need for hepatitis B screening test ANGIOTENSIN CONVERTING ENZYME, BLOOD Routine 12/24/2024 1:39 PM EDT Need for hepatitis C screening test Need for hepatitis B screening test Lesion of spleen Recurrent [place] cell carcinoma LGL PANEL Routine 12/24/2024 1:39 PM EDT Need for hepatitis C screening test Need for hepatitis B screening test Lesion of spleen Recurrent Sctotie cell carcinoma LYMPHOMA / CLL PANEL Routine 12/24/2024 1:39 PM EDT Need for hepatitis C screening test Need for hepatitis B screening test Lesion of spleen Recurrent [place] cell carcinoma FREE LIGHT CHAINS, SERUM Routine 12/24/2024 1:39 PM EDT Need for hepatitis C screening test Need for hepatitis B screening test Lesion of spleen Recurrent Scottie cell carcinoma SPEP PANEL WITH IMMUNOFIXATION Routine 12/24/2024 1:39 PM EDT Need for hepatitis C screening test Need for hepatitis B screening test Lesion of spleen Recurrent [place]ie cell carcinoma BETA-2 MICROGLOBULIN, BLOOD Routine 12/24/2024 1:39 PM EDT Need for hepatitis C screening test Need for hepatitis B screening test Lesion of spleen Recurrent [place]ie cell carcinoma HIV-1/2 ANTIGEN/ANTIBODY Routine 12/24/2024 1:39 PM EDT Need for hepatitis C screening test Need for hepatitis B screening test Lesion of spleen Recurrent [place]ie cell carcinoma T SPOT TB TEST Routine 12/24/2024 1:39 PM EDT Need for hepatitis C screening test Need for hepatitis B screening test Lesion of spleen Recurrent [place] cell carcinoma HEPATITIS C ANTIBODY, QUALITATIVE Routine [...] B screening test Lesion of spleen Recurrent [place] cell carcinoma SCHISTOSOMA ANTIBODY, IGG, BLOOD Routine 12/24/2024 1:39 PM EDT Need for hepatitis C screening test Need for hepatitis B screening test Lesion of spleen Recurrent Scottie cell carcinoma HC ANTIBODY HELMINTH NOT ELSEWHERE SPECIFIED Routine 12/24/2024 1:39 PM EDT Need for hepatitis C screening test Need for hepatitis B screening test Lesion of spleen Recurrent [place]ie cell carcinoma LEISHMANIA ANTIBODY Routine 12/24/2024 1 :39 PM EDT Need for hepatitis C screening test Need for hepatitis B screening test Lesion of spleen Recurrent Scottie cell carcinoma SERUM PROTEIN ELECTROPHORESIS Routine 12/24/2024 [...] indeterminate. These findings are unusual for metastatic Scottie cell carcinoma and a delayed immunotherapy related [...] information obtained from the EHR: 74-year-old Male. 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 MUSCULOSKELETAL: Focal moderate FDG uptake in the [...] edited thereport originally created by Yanick Guzman. Melany Davey MD [facility] PET Final Result * POCT Glucose (01/30/2025 1:06 PM EST) Only the most recent of2 resultswithin the time period is included. Glucose 91 70 - 99 mg/dL 01/30/2025 3:59 PM EST [facility] Blood (Blood) 01/30/2025 1:0 6 PM EST 01/30/2025 3:59 PM EST Melany Davey MD LAB POCT DOCKED DEVICE UNSOLICTE D RESULTS Final Result Performing Organization Address [facility]/ZIP Co de Phone Number [facility] [address] [place] [address] * (ABNORMAL) Lactate Dehydrogenase (LDH) (01/30/2025 12:20 PM EST) Only the most recent of2 resultswithin the time period is included. LDH 456(H) 135 - 225 U/L 01/30/2025 2:06 PM EST [facility] Blood (Blood) Venipuncture / Unknown 01/30/2025 12:20 PM EST 01/30/2025 1:26 PM EST us Melany Davey MD LAB BLOOD BKR ORDERABLES Final R esult Performing Organization Address [facility] Co de Phone Number [facility] [address] [place] [address] * (ABNORMAL) Comprehensive Metabolic Panel (CMP) (01/30/2025 12:20 PM EST) Only the most recent of2 resultswithin the time period is included. Sodium 135(L) 136 - 145 mmol/L 01/30/2025 2:06 PM EST [facility] Potassium 4.4 3.4 - 5.1 mmol/L 01/30/2025 2:06 PM EST [facility] Chloride 101 98 - 107 mmol/L 01/30/2025 2:06 PM EST [facility] CO2 23 20 - 31 mmol/L 01/30/2025 2:06 PM EST [facility] Anion Gap 11 3 - 17 mmol/L 01/30/2025 2:06 PM EST [facility] BUN 26(H) 6 - 23 mg/dL 01/30/2025 2:06 PM EST [facility] Creatinine 1.33(H) 0.60 - 1.30 mg/dL 01/30/2025 2:06 PM EST [facility] eGFR 57(L) >59 mL/min/1.7 3m2 01/30/2025 2:06 PM EST [facility] Comment:Estimated glomerular filtration rate calculated using the CKD-EPI refit equation. Glucose 89 70 - 99 mg/dL 01/30/2025 2:06 PM EST [facility] Calcium 9.4 8.5 - 10.5 mg/dL 01/30/2025 2:06 PM EST [facility] AST 32 <41 U/L 01/30/2025 2:06 PM EST [facility] ALT 18 <42 U/L 01/30/2025 2:06 PM EST [facility] Alkaline Phosphatase 121 40 - 130 U/L 01/30/2025 2:06 PM EST [facility] Bilirubin, Total 0.4 0.0 - 1.2 mg/dL 01/30/2025 2:06 PM EST [facility] Total Protein 7.9 6.4 - 8.3 g/dL 01/30/2025 2:06 PM EST [facility] Albumin 3.6 3.5 - 5.2 g/dL 01/30/2025 2:06 PM EST [facility] Globulin 4.3(H) 1.9 - 4.1 g/dL 01/30/2025 2:06 PM EST [facility] Blood (Blood) Venipuncture / Unknown 01/30/2025 12:20 PM EST 01/30/2025 1:26 PM EST us Melany Davey MD LAB BLOOD BKR ORDERABLES Final R esult [facility] [address] [place] [address] * (ABNORMAL) Scottie Cell Carcinoma Antibodies (01/30/2025 12:20 PM EST) [place] Oncoprotein Antibody, Titer 3940(H) 0 - 74 ALTHEA 02/08/2025 3:12 PM EST [employer] [facility] [employer] Comment: Testing performed by [facility] Dept of Lab Med, [id number], [address] [facility], [place] [address], [place], [address], Hospital Pharmacist: Lenin Feng MD Scottie Oncoprotein Antibody, Interpretation Positive 02/08/2025 3:12 PM EST [facility] Comment: [facility], [id number], [address] [facility], [place] [address], [place], [address], Hospital Pharmacist: Lenin Feng MD Prior [place] Oncoprotein Antibody 3580(H) 0 - 74 ALTHEA 02/08/2025 3:12 PM EST [facility] Comment: [facility], [id number], [address] [facility], [place] [address], [place], [address], Hospital Pharmacist: Lenin Feng MD Date of Prior Sample 11/07/24 02/08/2025 3:12 PM EST [facility] Comment: [facility], [id number], [address] [facility], [place] [address], [place], [address], Hospital Pharmacist: Lenin Feng MD Merkel Disease Status, Interpretation 1 See Note 02/08/2025 3:12 PM EST [facility] Comment: Oncoprotein antibodies are present in the blood of 50% of patients when they have clinically detectable DETENTION. In patients who make oncoprotein antibodies, titers are expected to decrease significantly within 3 months of successful treatment of DETENTION. Testing performed by [facility] Lab Med, [id number], [address] [facility], [place] [address], [place], [address], Hospital Pharmacist: Lenin Feng MD Merkel Disease Status, Interpretation 2 See Note 02/08/2025 3:12 PM EST [facility] Comment: Changes in oncoprotein titer of less than 25% may not be biologically significant. A significant rise in titer or stabilization of titer above 2000 ALTHEA may be associated with persistent or recurrent DETENTION. See [email or web address] Testing [facility], [id number], [address] [facility], [place] [address], [place], [address], Hospital Pharmacist: Lenin Feng MD [place] Antibody SmT Method See Note 02/08/2025 3:12 PM EST [employer] Comment: This test was developed and its performance characteristics determined by the [facility] Department of Laboratory Medicine. It has not been cleared or approved by the US Food and Drug Administration. This laboratory is certified under the Clinical Laboratory Improvement Amendments (CLIA) as qualified to perform high complexity clinical laboratory testing. This test is used for clinical purposes. It should not be regarded as investigational or for research. Testing performed by [facility] Dept of Lab Med, [id number], [address] [facility], [place] [address], [place], [address], Hospital Pharmacist: Lenin Feng MD Blood (Blood) Venipuncture / Unknown 01/30/2025 12:20 PM EST 01/30/2025 1:25 PM EST Melany Davey MD LAB BLOOD BKR ORDERABLES Final R esult [employer] [place] [employer] [address] [place] [phone], [facility] [phone] * CBC and Differential (01/30/2025 12:20 PM EST) WBC 5.86 4.00 - 11.00 K/uL 01/30/2025 1:38 PM EST [facility] RBC 4.55 4.50 - 5.90 M/uL 01/30/2025 1:38 PM EST [facility] Hemoglobin 13.8 13.5 - 17.5 g/dL 01/30/2025 1:38 PM EST [facility] Hematocrit 41.0 41.0 - 53.0 % 01/30/2025 1:38 PM EST [facility] MCV 90.1 80.0 - 100.0 fL 01/30/2025 1:38 PM EST [facility] MCH 30.3 27.0 - 31.0 pg 01/30/2025 1:38 PM [facility] MCHC 33.7 32.0 - 36.0 g/dL 01/30/2025 1:38 PM [facility] MPV 10.0 8.4 - 12.0 fL 01/30/2025 1:38 PM [facility] RDW-CV 13.8 11.5 - 14.5 % 01/30/2025 1:38 PM EST [facility] PLT 162 150 - 450 K/uL 01/30/2025 1:38 PM [facility] Neutrophils 69.8 % 01/30/2025 1:38 PM [facility] Lymphocytes 14.0 % 01/30/2025 1:38 PM EST [facility] Monocytes 12.3 % 01/30/2025 1:38 PM [facility] Eosinophils 2.9 % 01/30/2025 1:38 PM [facility] Basophils 0.7 % 01/30/2025 1:38 PM [facility] Imm Grans 0.3 % 01/30/2025 1:38 PM [facility] NRBC 0.0 <=0.0 /100 WBCs 01/30/2025 1:38 PM [facility] Absolute Neutrophils 4.09 1.92 - 7.60 K/uL 01/30/2025 1:38 PM [facility] Absolute Lymphocytes 0.82 0.72 - 4.10 K/uL 01/30/2025 1:38 PM [facility] Absolute Monocytes 0.72 0.16 - 1.10 K/uL 01/30/2025 1:38 PM [facility] Absolute Eosinophils 0.17 0.00 - 0.50 K/uL 01/30/2025 1:38 PM [facility] Absolute Basophils 0.04 0.00 - 0.15 K/uL 01/30/2025 1:38 PM EST [facility] Absolute Imm Grans 0.02 0.00 - 0.09 K/uL 01/30/2025 1:38 PM EST [facility] Absolute NRBC 0.00 <=0.00 K cells/uL 01/30/2025 1:38 PM EST [facility] Absolute Neutrophils 4.09 1.92 - 7.60 K/uL 01/30/2025 1:38 PM EST [facility] Diff Type Auto 01/30/2025 1:38 PM EST [facility] Blood (Blood) Venipuncture / Unknown 01/30/2025 12:20 PM EST 01/30/2025 1:26 PM EST Melany Davey MD LAB BLOOD BKR ORDERABLES Final R esult Performing Organization Address City/[facility] Co de Phone Number [facility] [address] [place] [address] * Thyroid Stimulating Hormone (TSH) (01/30/2025 12:20 PM EST) TSH 1.47 0.40 - 5.90 uIU/mL 01/30/2025 2:09 PM EST [facility] Blood (Blood) Venipuncture / Unknown 01/30/2025 12:20 PM EST 01/30/2025 1:26 PM EST Melany Davey MD LAB BLOOD BKR ORDERABLES Final R esult Performing Organization Address City/[facility]/ZIP Co de Phone Number [facility] [address] [place] [address] * T4, Free (01/30/2025 12:20 PM EST) T4, Free 1.2 0.9 - 1.8 ng/dL 01/30/2025 2:09 PM EST [facility] Blood (Blood) Venipuncture / Unknown 01/30/2025 12:20 PM EST 01/30/2025 1:26 PM EST us Melany Davey MD LAB BLOOD BKR ORDERABLES Final R esult [facility] [address] [place] [address] * Signatera only (01/30/2025) [employer]atera Test Result NEGATIVE SAMRA Signatera MTM [...] samples collected in cell-free DNA blood tubes ([employer]) using the QIAsymphony automated or manual extraction method (Qiagen). Using a proprietary algorithm, putative, clonal variants present in the tumor but absent in the germline DNA are identified to design the customized multiplex PCR assay. Whole-exome sequencing is performed on tumor and peripheral blood DNA using the proprietary Brass Monkey whole-exome sequencing assay. Pathology services are performed at [facility], [address] [place] [address], [address], [place] [address], [facility], and whole exome sequencing is performed at [email or web address] (CLIA ID# [id number]), [address] [place] [address]. Disclaimer The extraction, library preparation, and sequencing for this test were performed by [employer] [address], [place] [address] (CLIA ID [id number]). The data analysis and reporting for this test were performed by [facility] [address], [place] [address] (CLIA ID [id number]). This test was developed and its performance characteristics determined by [facility] [facility]. The test has not been cleared or approved by the U.S. Food and Drug Administration (FDA). CAP accredited, ISO 03357 certified, and CLIA certified. Pathology services and whole exome sequencing for this test were performed by [email or web address] (CLIA ID # [id number]), [address] [place] [address]. 2020 [employer] All Rights Reserved. 01/30/2025 Melany Davey MD LAB BLOOD ORDERABLES Final Resul t [facility] [address] [place] [address], [facility] [phone] * Outside Pathology Review/Consult (01/24/2025 1:35 PM EST) Consult Auto Resulting Yes 01/24/2025 1:46 PM EST [facility] Consult 01/24/2025 1:35 PM EST 01/24/2025 1:37 PM EST Leonardo Taveras MD LAB PATHOLOGY ORDERABLES Final Result [facility] [address] [place] [address] * Lymphoma / CLL panel (12/24/2024 1:39 PM EDT) LYMPHOCYTE SUBSETS SEE PATHOLOGY REPORT [facility] 12/24/2024 1:39 PM EDT 12/24/2024 2:03 PM EDT Leonardo Taveras MD LAB FLOW CYTOMETRY ORDERA BLES Final Result [facility] [address] [place] [address] * LGL panel (12/24/2024 1:39 PM EDT) Pathologist [facility] LGL PANEL SEE PATHOLOGY REPORT [facility] 12/24/2024 1:39 PM EDT 12/24/2024 2:03 PM EDT Leonardo Taveras MD LAB BLOOD ORDERABLES Aminata l Result Performing Organization Address [facility] Co de Phone Number [facility] [address] [place] [address] * (ABNORMAL) SPEP panel with immunofixation (12/24/2024 1:39 PM EDT) Pathologist [facility] TOTAL PROTEIN 7.9 6.4 - 8.3 g/dL [facility] SPEP SEE PATHOLOGY REPORT [facility] IMMUNOFIXATION SEE PATHOLOGY REPORT [facility] IgA 318 70 - 400 mg/dL [facility] IMMUNOGLOBULIN G 2,039(H) 700 - 1,600 mg/dL [facility] IMMUNOGLOBULIN M 443(H) 40 - 230 mg/dL [facility] 12/24/2024 1:39 PM EDT 12/24/2024 2:03 PM EDT Leonardo Taveras MD LAB BLOOD BKR ORDERABLES Final Result Performing Organization Address [facility] Co de Phone Number [address] [address] * LEISHMANIA ANTIBODY (12/24/2024 1:39 PM EDT) Pathologist [facility] LEISHMANIA VISC AB Negative Negative [facility]PATH [address] Comment: (NOTE) Results indicate the absence of antibodies to members of the Leishmania donovoni complex. Repeat testing in 2-3 weeks if clinically indicated. Immunocompromised patients frequently have low or undetectable antibodies to Leishmania species. 12/24/2024 1:39 PM EDT 12/24/2024 1:59 PM EDT Leonardo Taveras MD LAB BLOOD ORDERABLES Aminata l Result Performing Organization Address [facility] Co de Phone Number [facility]/PATH [address] [place] [address] * Echinococcal antibody (12/24/2024 1:39 PM EDT) [facility] ECHINOCOCCUS AB IGG Negative Negative [facility]/PATH [facility] Comment: (NOTE) No IgG antibody to Echinococcus species detected. False negative results may occur in samples collected too soon after infection or in immunosuppressed patients. Blood 12/24/2024 1:39 PM EDT 12/24/2024 2:03 PM EDT Leonardo Taveras MD MICROBIOLOGY - GENERAL OR DERABLES Final Result Performing Organization Address [facility] Co de Phone Number [facility] LAB MED/PATH [address] [place] [address] * Reticulocytes (12/24/2024 1:39 PM EDT) [facility] RETIC 1.3 0.7 - 2.5 % [facility] 12/24/2024 1:39 PM EDT 12/24/2024 1:59 PM EDT Leonardo Tavears MD LAB BLOOD BKR ORDERABLES Final Result Performing Organization Address City/[facility] Co de Phone Number [facility] [address] [place] [address] * Schistosoma antibody, IgG (12/24/2024 1:39 PM EDT) [facility] SCHISTOSOMA IGG AB Negative Negative [facility]PATH [facility]IOR Comment: (NOTE) No IgG antibodies to Schistosoma species detected. ADDITIONAL INFORMATION This test has been modified from the requirements manager's instructions. Its performance characteristics were determined by [facility] in a manner consistent with CLIA requirements. This test has not been cleared or approved by the U.S. Food and Drug Administration. 12/24/2024 1:39 PM EDT 12/24/2024 1:59 PM EDT Leonardo Taveras MD LAB BLOOD ORDERABLES Aminata l Result Performing Organization Address City/[facility]/ZIP Co de Phone Number [facility] LAB MED/PATH [address] [place] [address] * T spot TB test (12/24/2024 1:39 PM EDT) [facility] T-SPOT.TB Negative Negative [facility] [employer] Comment: (NOTE) A negative test result does [...] Spot Count Corrected For Neg Control 0 [facility] [employer] Panel B Spot Count Corrected For Neg Control 0 [facility] Negative Control Passed [facility] Positive Control Passed [facility] Comment: (NOTE) For additional information, please refer to [email or web address]/[email or web address] (This link is being provided for informational/ educational purposes only.) 12/24/2024 1:39 PM EDT 12/24/2024 1:59 PM EDT Leonardo Taveras MD LAB BLOOD ORDERABLES Aminata l Result Performing Organization Address City/[facility]/ZIP Co de Phone Number [employer] [address] [place], [place] * 1-3-Beta D glucan (12/24/2024 1:39 PM EDT) Pathologist [facility] Fungiteluz maria Quantitative Value <31 <60 pg/mL pg/mL [facility] LAB MED/PATH [address] Merrill Qualitative Result Negative Negative [facility] MED/PATH [address]PERIOR Comment: (NOTE) No (1, 3) Trzv-N-Tbtwfe detected. This assay does not detect certain fungi, including Cryptococcus species, which produce very low levels of (1, 3) Avyv-W-Ahmabf (BDG) and the Mucorales (e.g., Lichthemia, Mucor and Rhizopus), which are not known to produce BDG. Additionally, the yeast phase of Blastomyces dermatitidis produces little BDG and may not be detected by this assay. ADDITIONAL INFORMATION This assay was performed using the FDA-cleared Fungitell Assay ([facility]), a kinetic DESIRAE based on modification of the Limulus Amebocyte Lysate pathway. Blood 12/24/2024 1:39 PM EDT 12/24/2024 2:03 PM EDT Leonardo Taveras MD NON CULTURE MICROBIOLOGY Final Result [facility] LAB MED/PATH [address] [place] [address] * HIV-1/2 antigen/antibody (12/24/2024 1:39 PM EDT) Pathologist [facility] HIV 1/2 AB/AG Nonreactive Nonreactive [facility] Comment:No HIV 1/2 antibody or HIV 1 antigen detected. 12/24/2024 1:39 PM EDT 12/24/2024 1:59 PM EDT Leonardo Taveras MD LAB BLOOD BKR ORDERABLES Final Result [facility] [address] [place] [address] * Hepatitis C antibody, qualitative (12/24/2024 1:39 PM EDT) HCV Nonreactive Nonreactive [facility] 12/24/2024 1:39 PM EDT 12/24/2024 1:59 PM EDT Leonardo Taveras MD LAB BLOOD BKR ORDERABLES Final Result Performing Organization Address [facility] Co de Phone Number [facility] [address] [place] [address] * (ABNORMAL) Free light chains, serum (12/24/2024 1:39 PM EDT) FREE KAPPA LT CHAIN 44.2(H) 3.3 - 19.4 mg/L [facility] FREE LAMBDA LT CHAIN 60.7(H) 5.7 - 26.3 mg/L [facility] FREE KAPPA LAMBDA RAT 0.73 0.26 - 1.65 [facility] 12/24/2024 1:39 PM EDT 12/24/2024 1:59 PM EDT Leonardo Taveras MD LAB BLOOD BKR ORDERABLES Final Result Performing Organization Address [facility] Co de Phone Number [facility] [address] [place] [address] * Galactomannan, blood (12/24/2024 1:39 PM EDT) ASPERGILLUS ANTIGEN 0.05 0 - 0.49 INDEX [facility] Comment:SEMIQUANTITATIVE MET HOD PERFORMED 12/24/2024 1:39 PM EDT 12/24/2024 2:03 PM EDT Leonardo Taveras MD LAB BLOOD BKR ORDERABLES Final Result Performing Organization Address City/[facility]/ZIP Co de Phone Number [facility] [address] [place] [address] * Hepatitis B core antibody, total (12/24/2024 1:39 PM EDT) HEP B CORE AB, TOT Nonreactive Nonreactive [facility] 12/24/2024 1:39 PM EDT 12/24/2024 1:59 PM EDT Leonardo Taveras MD LAB BLOOD BKR ORDERABLES Final Result Performing Organization Address City/[facility] Co de Phone Number [address] [address] * Hepatitis B surface antibody (12/24/2024 1:39 PM EDT) HBSAB <8.00 mIU/mL [facility] Comment: Nonreactive (<8.00mIU/mL) Individual is considered not immune to HBV infection. 12/24/2024 1:39 PM EDT 12/24/2024 1:59 PM EDT Leonardo Taveras MD LAB BLOOD BKR ORDERABLES Final Result Performing Organization Address [facility] Co de Phone Number [address] [address] * Hepatitis B surface antigen (12/24/2024 1:39 PM EDT) HBV SURFACE ANTIGEN Nonreactive (HBsAg Negative) Nonreactive (HBsAg Negative) [facility] 12/24/2024 1:39 PM EDT 12/24/2024 1:59 PM EDT Leonardo Taveras MD LAB BLOOD BKR ORDERABLES Final Result Performing Organization Address [facility] Co de Phone Number [address] [address] * (ABNORMAL) CBC and differential (12/24/2024 1:39 PM EDT) WBC 6.11 4.00 - 11.00 K/uL [facility] RBC 4.68 4.50 - 5.90 M/uL [facility] HGB 14.1 13.5 - 17.5 g/dL [facility] HCT 42.7 41.0 - 53.0 % [facility] PLT 175 150 - 450 K/uL [facility] MCV 91.2 80.0 - 100.0 fL [facility] MCH 30.1 27.0 - 31.0 pg [facility] MCHC 33.0 32.0 - 36.0 g/dL [facility] RDW 13.8 11.5 - 14.5 % [facility] MPV 9.7 8.4 - 12.0 fL [facility] NRBC 0.00 0.00 /100 WBCs [facility] ABSOLUTE NRBC 0.00 0.00 K/uL [facility] DIFF METHOD Auto [facility] NEUTS 72.6 48.0 - 76.0 % [facility] LYMPHS 11.5(L) 18.0 - 41.0 % [facility] MONOS 12.1(H) 4.0 - 11.0 % [facility] EOS 2.8 0.0 - 5.0 % [facility] BASOS 0.8 0.0 - 1.5 % [facility] % IMMATURE GRANS 0.2 0.0 - 0.9 % [facility] ABSOLUTE NEUTS 4.44 1.92 - 7.60 K/uL [facility] Comment:1.21-5.39 cells/KL i s the reference range for individuals with the Acosta null phenotype ABSOLUTE LYMPHS 0.70(L) 0.72 - 4.10 K/uL [facility] ABSOLUTE MONOS 0.74 0.16 - 1.10 K/uL [facility] ABSOLUTE EOS 0.17 0.00 - 0.50 K/uL [facility] ABSOLUTE BASOS 0.05 0.00 - 0.15 K/uL [facility] ABS IMMATURE GRANS 0.01 0.00 - 0.09 K/uL [facility] ABSOLUTE NEUTROPHIL COUNT 4.44 1.92 - 7.60 K/uL [facility] Comment: Automated cell count. Manual ANC may differ if performed. 1.21-5.39 cells/KL is the reference range for individuals with the Acosta null phenotype Blood 12/24/2024 1:39 PM EDT 12/24/2024 1:59 PM EDT us Leonardo Taveras MD LAB BLOOD BKR ORDERABLES Final Result [facility] [address] [place] [address] * Angiotensin converting enzyme, blood (12/24/2024 1:39 PM EDT) ANGIOTENSIN CONV. ENZ 43 16 - 85 U/L [facility] DPT OF LAB MED AND PAT+ 12/24/2024 1:39 PM EDT 12/24/2024 1:59 PM EDT us Leonardo Taveras MD LAB BLOOD ORDERABLES Aminata l Result Performing Organization Address City/[facility]/ZIP Co de Phone Number [facility] DPT OF LAB MED AND PAT+ [address] [place] [address] * Uric acid (12/24/2024 1:39 PM EDT) URIC ACID 6.8 3.4 - 7.0 mg/dL [facility] 12/24/2024 1:39 PM EDT 12/24/2024 1:59 PM EDT us Leonardo Taveras MD LAB BLOOD BKR ORDERABLES Final Result Performing Organization Address City/[facility]/ZIP Co de Phone Number [facility] [address] [place] [address] * (ABNORMAL) Beta-2 microglobulin, blood (12/24/2024 1:39 PM EDT) BETA 2 MICROGLOBULIN 4.53(H) 1.21 - 2.70 mcg/mL [facility] MED/PATH [address] 12/24/2024 1:39 PM EDT 12/24/2024 1:59 PM EDT us Leonardo Taveras MD LAB BLOOD BKR ORDERABLES Final Result [facility] MED/PATH [address] [place] [address] * Flow Cytometry (12/24/2024 12:00 AM EDT) 12/24/2024 12/24/2024 [facility] CLINICAL LABORATORIES - 12/26/2024 3:52 PM EDT CASE: [id number] PATIENT: HERNANDEZ NGUYEN Date: 1950 Sex: Male [facility] Department of Pathology [address] [place] [address] CLIA License No.: [id number] Abe Teacher: Kika Meehan MD, PhD Pathologist: Candida Nunez M.D. CLINICAL DATA: Clinical History: [place] cell carcinoma and splenic lesions Clinical Diagnosis: [...] This case was prepared by Nadja Alfonso MT(ASCP). The technical component of this test was performed at [facility], [address] [place] [address] (CLIA Hospital Pharmacist: Kika Meehan MD, PhD). This test was developed and its performance characteristics determined by [facility]. It has not been cleared or approved by the U.S. Food and Drug Administration (FDA). The FDA has determined that such clearance or approval is not necessary; the performing laboratory has established and verified the test's accuracy and precision. This test is for clinical purposes, and should not be regarded as investigational or for research. The [facility] laboratory and [facility] laboratory are both certified under CLIA-88 as qualified to perform high complexity laboratory testing. By his/her signature below, the senior physician certifies that he/she personally reviewed all the laboratory data of the described specimen(s) and rendered or confirmed the diagnosis(es) related thereto. Final Diagnosis by Candida Nunez M.D., Electronically signed on Thursday December 26, 2024 at 03:52:07PM Leonardo Taveras MD LAB PATHOLOGY ORDERABLES Final Result [facility] [address] [place] [address] * T/b Clonality (12/24/2024 12:00 AM EDT) Results Polyclonal pattern. DNA fragments up to 600 bp in length did amplify with the control primers. The expected size range for TCR gamma rearrangements is 159-207 bp. Note that the TCRG assay changed on September 14, 2023 and rearrangements (peak sizes) cannot be directly compared between current and prior assay. [facility] Results\Inte rpretation No clonal T cell population is identified by this test. This technique can detect clonal rearrangements in 90% of T cell lymphomas (van Merlinen JJYashira et al. Leukemia 2003; 17:0476-3562); therefore, this negative result does not completely exclude a T cell lymphoma. These tests were developed and their performance characteristics determined by the [facility], [facility]. They have not been cleared or approved by the U.S. Food and Drug Administration. The FDA has determined that such clearance or approval is not necessary. By his/her signature below, the senior physician certifies that he/she personally reviewed all the laboratory data of the described specimen(s) and rendered or confirmed the diagnosis(es) related thereto. [facility] Procedure Comments ProcTCRGAMMA clonality TCR by Capillary electrophoresis - [facility] DI[facility]NOST[facility] LAB Report Accession No: [id number] Date: 1950 Sex: Male [facility] Department of Pathology [address] [place] [address] CLIA License No.: [id number] Abe Teacher: Dr. Araseli Coronado Physician: LEONARDO TAVERAS MD Specimen Submitted: Molecular Procedure Date: 12/24/2024 CLINICAL DATA: Clinical History: None given. 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 ([employer], [place], [place]). The DNA was also amplified with [...] 90% of T cell lymphomas (van Merlinen JMARY et al. Leukemia 2003; 17:3047-4739); therefore, this negative result does not completely exclude a T cell lymphoma. These tests were developed and their performance characteristics determined by the [facility], [facility]. They have not been cleared or [...] on Saturday December 28, 2024 at 08:21:08AM [facility] Conversion Type (Other) 12/24/2024 12/24/2024 Leonardo Taveras MD PATHOLOGY ORDERABLES Edit ed Result - Final [facility] [address] [place] [address] * Protein Electrophoresis (12/24/2024 12:00 AM EDT) 12/24/2024 12/24/2024 Narrative [facility] - 12/28/2024 12:27 AM EDT CASE: [id number] PATIENT: HERNANDEZ NGUYEN Date: 1950 Sex: Male [facility] Department of Pathology [address] [place] [address] License No.: [id number] Abe Teacher: Kika Meehan MD, PhD Resident: Gelacio Navarro M.D., M.S. Pathologist: Hernandez Lui M.D., Ph.D. CLINICAL DATA: Clinical Diagnosis: TEST ORDERED: Serum protein electrophoresis professional interpretation - [facility] 1 Serum immunofixation electrophoresis professional interpretation - [facility] RESULT: Reference range Total Protein 7.9 g/dl [...] PRIOR SERUM ELECTROPHORESIS RESULTS: Date Beta Gamma [place] Lambda K/L IgG IgA IgM MSp1 [...] Taveras MD PATHOLOGY ORDERABLES Aminata reyes Result Performing Organization Address City/State/[facility] Co de Phone Number [facility] [address] [place] [address] * Rapid Heme Panel (12/24/2024 12:00 AM [...] Variants of Unknown Significance (VUS)*: CREBBP c.7040C>T (p.Z4974B) 41.1% VAF (870x consensus coverage)# DNMT3A c.287G>A [...] have inadequate coverage(<100X): KRAS 12 KRAS 13 [facility] Results\Inte rpretation QC details*: MTC: 448.1344 ER591w: 89.07% *MTC > 325 and SI417e > 85% is considered as good quality Test Information: The [facility] Rapid Heme Panel (RHP) Assay is a next generation sequencing assay based on the SETt kit from [employer] A detailed description of the assay is available upon request from [facility], [facility]. Amplification method: [employer] Software Direct(R), [employer] Assay Version: Rapid Heme Panel V3.0 [...] 325x consensus coverage The test performed at [facility] were developed and their performance characteristics determined by the Molecular Diagnostic Laboratory in the Department of Pathology at [facility]. They have not been cleared or approved by the U.S. Food and Drug Administration (FDA). The FDA has determined that such clearance or approval is not necessary. The following regions have insufficient number of sequence reads (<100X) for evaluation. Gene Exon Start End Coverage DANY e40 [id number] 473452381 48.734333 ATRX e03 52543216 13796234 22.6875 e08 69125433 96441956 46.577457 BCOR e03 08016623 92515382 43.962786 BCORL1 e01 769435461 490563755 49.9 BRCC3 e2 231448546 147954930 23.787038 CREBBP e01 9525839 9749090 15.565353 CUX1 e01 670234139 058747633 25.490900 e08 455177411 636666703 25.485015 e24 738624117 480479747 11.809224 DKC1 e01 826438454 099133727 45.9 IDH2 e1 03615388 02984411 6.930471 KMT2A e1 353707251 759844411 4.10848 KRAS e06 06338207 16967101 43.246830 NF1 e01 98539389 74479506 27.04488 e16 38190241 74240067 16.4375 e24 53785588 73526244 31.105755 e36 75211760 15127659 30.085308 PTEN e02 82143452 83130403 37.577889 PTPN11 e01 790435333 730393658 27.016459 e14 644845342 259579689 27.682082 SETD2 e01 53187499 70552100 47.084310 SH2B3 e02 239379011 566314651 8.932488 SRSF2 e1 99042420 08807173 24.786735 STAG2 e03 944571408 531080058 42.264052 e07 098139757 601119506 35.846993 e15 237546653 454246164 45.487535 e34 640003896 175224132 46.240631 TERT e01 4426494 1235887 3.592993 ZRSR2 e03 99782411 72389256 44.650090 e06 56261905 90232854 33.86593 Targeted Gene/Exon List (genomic coordinates available upon request): The [facility] Rapid Heme Panel (RHP) Assay is a next generation sequencing assay based on the SETt kit from [employer]. A detailed description of the assay is available upon request from [facility]. ABL1 LLQW14891927612 5 alt e1 ABL1 ZYMM62109474038 5 e1-e10 ASXL1 NDNU32278605210 4 e11-e12 DANY QVPS34918562293 4 e2-e63 ATRX KKAU10628822501 5 e1-e35 BCOR OKNH16804935683 4 e2-e15 BCORL1 YYPG14740860219 1 e1-e12 BCORL1 [id number] 1 alt e8 BRAF NKYB28752837919 6 e12-e16 BRCC3 SXDQ07884525534 1 e1-e11 BTK HOPB88818836474 7 e11,e15-e16 CALR QWTV33423357329 5 e9 CBL WUBH75122458145 4 e7-e9 CCND1 WTYW52053796227 2 e1-e5 CD79B TXPU61243446156 3 e5-e6 CDKN2A PRTU98499559372 1 e1-e4 CDKN2A NM_058195 1 alt e1 CDKN2B KDKH87504109950 6 e1-e2 CEBPA ISQQ77374548861 2 e1 CREBBP WSBA57278080017 5 e1-e31 CRLF2 BYCW72284647851 3 e5 CSF3R MFZK37048771786 1 e14-e17 IQSR1F8 ATQW62561563085 2 e1-e10 IRJP7I5 BKFY24275832908 2 alt e5 CTCF KVPX98439981434 4 e3-e12 CUX1 NBWU30402854051 7 e1-e24 CUX1 GKAW95302517769 7 alt e1,e15-e23 CXCR4 IFOO42894549545 3 e3 DDX41 GLAS44738196712 1 e1-e17 DKC1 ZSHH03175206615 5 e1-e15 DNMT3A KCPO78670748056 3 alt e1-e2 DNMT3A NYET08692977893 3 e2-e23 DNMT3A [id number] 3 alt e1 EP300 LYPM41715441804 7 e1-e31 ERG AMVN29703228127 2 alt e1 ERG LMTY60305298589 2 e3-e12 ERG [id number] 2 alt e12 ETNK1 BFUG72612893606 4 e3 ETV6 BYNP89058195952 4 e1-e8 EZH2 HSGT29336610364 2 e2-e20 FBXW7 JUJI37426739531 4 e10-e14 FLT3 FLKF59076097699 7 e14,e16-e17,e20 GATA1 VZML96434670044 3 e2-e6 GATA2 UPBF63805662477 2 e2-e6 GNAS TZQY70746136435 3 e8-e9 GNB1 AGOS57624258922 4 e5-e6 IDH1 IIPQ84774719583 2 e3-e10 IDH2 VGDL29711917996 3 e1-e11 IKZF1 ZWMP96963830297 3 e2-e8 IKZF1 LZJC18269941959 3 alt e4 IKZF1 RKLB08928546268 3 alt e5 IL7R ZBPZ06165503135 3 e5-e7 JAK1 DWJQ73560405403 4 e10-e25 JAK2 YCTH77441223174 3 e12-e20 JAK3 SMSL94804466996 1 e16-e24 KIT WUPH62401874996 5 e8-e11,e17 KRAS QNBZ13227470185 3 e2-e6 KRAS EALE52809388978 3 alt e5 KMT2A OPEW69379156695 1 e1-e13,e24-e26 MAP2K1 TLEM26908849857 5 e2-e3,e6 e28-e30 MPL FEPS77334578078 3 e4,e10 NF1 RHEP40496585705 3 e1-e57 NF1 MOYT43101115014 3 alt e31 MYC AOXU29273776374 2 e1-e3 MYD88 YPVS90006579958 3 e5 NOTCH2 ZFOP38530451082 2 e24-e28,e34 NFE2 GAZV86979359701 1 e3-e4 NOTCH1 JVGT16818997628 6 e24-e28,e34 NSD2 RFYV49859150486 3 e20-e21 NPM1 ZKHJ28131539286 5 e10-e11 NRAS KRQZ68341923587 4 e2-e5 PIGA OUMB94640420078 4 e1-e62 NT5C2 ZIWA52659455039 5 e10-e18 PHF6 OKLX35704081485 1 e1-e9 PRPF8 KXOZ09335261078 6 e25-e34 PLCG2 OMOI90999385243 3 e18-e19,e23 e26,e29 PPM1D BPFS11343221791 3 e6 RAD21 XPJV48878511844 2 e2-e14 PTEN EITX06592991880 3 e1-e9 PTPN11 CUQH46436372445 2 e1-e15 SBDS XGDG21506799938 2 e1-e5 RIT1 CWIY69839777148 3 alt e1 RIT1 ABEE67877265764 3 e2-e6 RUNX1 EOXL77210939930 1 e2-e9 RUNX1 UETS88953103557 1 alt e5 SF3B1 XULA86580413605 6 e12-e18 SETBP1 XTCU08887041803 5 e4 SETD2 EMZK57253128802 3 e1-e21 SMC3 JZPW16109715825 4 e1-e29 SH2B3 BHNO19561209423 2 alt e1 SH2B3 UXZK34694538328 2 e2-e8 SMC1A MCHD67977569481 4 e1-e25 SMC1A [id number] 4 alt e2 STAT3 XOVG75230424691 5 e2-e24 SRSF2 MHHH99417428170 5 e1 STAG2 SWDD63219356520 9 e3-e35 TERT XULV80262539461 5 e1-e16 STAT5B AIMC41913212902 3 e13-e19 TERC QNUV55966543879 1 e1 U2AF1 FCJA15837418613 4 e2,e6 TET2 QNZK14274603159 4 e3-e11 TP53 SZGR22512301151 4 e2-e11 TP53 ELKA93688555451 4 alt e10 ZRSR2 AWJW89404434709 7 e1-e11 WT1 DYTW13868374269 3 alt e1 WT1 LINH41679276627 3 e1-e10 XPO1 ABUG19780548156 2 e15-e16 The test performed at [facility] were developed and their performance characteristics determined by the Molecular Diagnostic Laboratory in the Department of Pathology at [facility]. They have not been cleared or approved by the U.S. Food and Drug Administration (FDA). The FDA has determined that such clearance or approval is not necessary. By his/her signature below, the senior physician certifies that he/she personally reviewed all the laboratory data of the described specimen(s) and rendered or confirmed the diagnosis(es) related thereto. [facility]ST[facility] Procedure Comments ProcRHP- MYD88 Rapid Heme Panel - [facility] RHP Professional Interpretation RHP - BRAF V600 Variants RHP - B-CELL NHL/PLASMA CELL DYSCRASIA Rapid Heme Panel - [facility] MOLECULAR DIAGNOSTICS LAB Report Accession No: [id number] Date: 1950 Sex: Male [facility] Molecular Diagnostics & [place] [address] CLIA License #: [id number] Abe Teacher: Dr. Araseli Coronado Physician: LEONARDO TAVERAS MD Specimen Submitted: Molecular Procedure Date: 12/24/2024 Pathologist: Sarath Lowry M.D., Ph.D. CLINICAL DATA: Clinical History: None given. 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 A detailed description of the assay is available upon request from [facility], [facility]. Amplification method: Future Health Software Direct(R), [employer] Assay Version: Rapid Heme Panel V3.0 Genes: Total 88,(183 KB) whole coding sequence for most genes Sequencing platform: Illumina NextSeq 550Dx, 150bp paired-end reads Raw data processing: BWA Mem (v0.7.17) KAYLA Correction: Fgbio (v0.4.0) Variant Caller: Vardict (v1.6.0) CNV Caller: RobustCNV (internally developed) FLT3-ITD: TsaiITD (internally developed) Data File formats: BAM, VCF Genome version: hg19 Metrics: GATK (v.4.0.5.0) and internetstoresbio (v0.4.0) Variant Annotation: Variant Effect Predictor (v79) Pipeline cutoff: 3 Variant Reads and 1% variant allele frequency. Analytical sensitivity: Varies from locus to locus, but is estimated to be 3.0% at 325x consensus coverage The test performed at [facility] were developed and their performance characteristics determined by the Molecular Diagnostic Laboratory in the Department of Pathology at [facility]. They have not been cleared or approved by the U.S. Food and Drug Administration (FDA). The FDA has determined that such clearance or approval is not necessary. The following regions have insufficient number of sequence reads (<100X) for evaluation. Gene Exon Start End Coverage DANY e40 [id number] 746952788 48.079849 ATRX e03 06169659 41087125 22.6875 e08 74424912 66358157 46.397086 BCOR e03 89395480 62276188 43.588460 BCORL1 e01 505272170 583319785 49.9 BRCC3 e2 863386588 385832654 23.139923 CREBBP e01 6893545 2058334 15.042860 CUX1 e01 383142426 729244995 25.111297 e08 864199587 021237880 25.489987 e24 777859062 931352683 11.997406 DKC1 e01 897982696 887525002 45.9 IDH2 e1 98040135 79630516 6.100238 KMT2A e1 984096510 669202991 4.52930 KRAS e06 33242273 69880169 43.605069 NF1 e01 63228110 48856421 27.17589 e16 81382167 49901346 16.4375 e24 40084229 71383306 31.240021 e36 60623622 73346463 30.021108 PTEN e02 77648346 59000611 37.170240 PTPN11 e01 351220413 825127328 27.807242 e14 832519415 491839472 27.041174 SETD2 e01 96410969 06628282 47.664347 SH2B3 e02 312916613 440202622 8.664897 SRSF2 e1 18430284 35773544 24.118980 STAG2 e03 025716100 609778070 42.853419 e07 555909560 904198273 35.141304 e15 357878546 177042743 45.586443 e34 337498864 319126606 46.081942 TERT e01 4422115 7804895 3.751844 ZRSR2 e03 20557365 44899605 44.514989 e06 28302836 23253336 33.01317 Targeted Gene/Exon List (genomic coordinates available upon request): The [facility] Rapid Heme Panel (RHP) Assay is a next generation sequencing assay based on the Future Health Software kit from [employer]. A detailed description of the assay is available upon request from [facility], [facility]. ABL1 [id number] 5 alt e1 ABL1 KUWZ83870973755 5 e1-e10 ASXL1 LZEC33424188077 4 e11-e12 DANY DZGQ70988104716 4 e2-e63 ATRX PUQR95818159924 5 e1-e35 BCOR JZJQ77745545119 4 e2-e15 BCORL1 NNPG23642507241 1 e1-e12 BCORL1 [id number] 1 alt e8 BRAF BQRA65467212953 6 e12-e16 BRCC3 NKZY95678654036 1 e1-e11 BTK FQQM88681967364 7 e11,e15-e16 CALR SJYU16214025002 5 e9 CBL YOLL12981480230 4 e7-e9 CCND1 KSTU87129826486 2 e1-e5 CD79B CCHF82801799696 3 e5-e6 CDKN2A WWMX81640885184 1 e1-e4 CDKN2A [id number] 1 alt e1 CDKN2B CSOV83609523705 6 e1-e2 CEBPA AISS54492116561 2 e1 CREBBP HZGV08483473701 5 e1-e31 CRLF2 JPFW90451943154 3 e5 CSF3R LMBJ91768373929 1 e14-e17 HHAM2X2 ZNQU18550761513 2 e1-e10 GYIZ9Z3 XTQH93502499048 2 alt e5 CTCF ILKB36587926414 4 e3-e12 CUX1 WFAT48717023160 7 e1-e24 CUX1 MOIG34242325508 7 alt e1,e15-e23 CXCR4 FUCM53563178137 3 e3 DDX41 TIWF80808206580 1 e1-e17 DKC1 GSWO32826316876 5 e1-e15 DNMT3A XROF37791007300 3 alt e1-e2 DNMT3A XOWD34717233809 3 e2-e23 DNMT3A [id number] 3 alt e1 EP300 WFBV42129830570 7 e1-e31 ERG VAZT03736261416 2 alt e1 ERG DKIQ96992748195 2 e3-e12 ERG [id number] 2 alt e12 ETNK1 GZSC75521228863 4 e3 ETV6 XUDW23029297544 4 e1-e8 EZH2 PFVN19797582548 2 e2-e20 FBXW7 KDSN73361453366 4 e10-e14 FLT3 WUUI59673122925 7 e14,e16-e17,e20 GATA1 ITXN19591697448 3 e2-e6 GATA2 AJHQ16738189893 2 e2-e6 GNAS XNSY69120711254 3 e8-e9 GNB1 GRFH34034972443 4 e5-e6 IDH1 IGLO33697558608 2 e3-e10 IDH2 OYXK87137416155 3 e1-e11 IKZF1 VTHL43032523144 3 e2-e8 IKZF1 AZHB71416018344 3 alt e4 IKZF1 RWIG19345316584 3 alt e5 IL7R ZQFK93032028973 3 e5-e7 JAK1 ZINU14679589048 4 e10-e25 JAK2 NHJH89494222594 3 e12-e20 JAK3 RXPU41325855833 1 e16-e24 KIT VNZF41329475780 5 e8-e11,e17 KRAS RJLU27917540488 3 e2-e6 KRAS DOSS09090658923 3 alt e5 KMT2A KEBG51487666227 1 e1-e13,e24-e26 MAP2K1 WSLJ59724424953 5 e2-e3,e6 e28-e30 MPL QSDG04146388264 3 e4,e10 NF1 LDJE58101295064 3 e1-e57 NF1 RGWD06326488672 3 alt e31 MYC EICJ16543195211 2 e1-e3 MYD88 EGFQ51688495326 3 e5 NOTCH2 ZIRR32527062881 2 e24-e28,e34 NFE2 HYIS28759730512 1 e3-e4 NOTCH1 OHDN58854163166 6 e24-e28,e34 NSD2 JPET80128301775 3 e20-e21 NPM1 DOLF05144404770 5 e10-e11 NRAS KXDB78722201611 4 e2-e5 PIGA IMTF29319342769 4 e1-e62 NT5C2 WBGG05336543945 5 e10-e18 PHF6 HFIU89491601008 1 e1-e9 PRPF8 ACUE23223514613 6 e25-e34 PLCG2 QGQZ01045653856 3 e18-e19,e23 e26,e29 PPM1D BJKA90665766129 3 e6 RAD21 LVCX54708941767 2 e2-e14 PTEN YNDR98272884007 3 e1-e9 PTPN11 GJIR11852210448 2 e1-e15 SBDS JNJQ29212673010 2 e1-e5 RIT1 OTYI68175248807 3 alt e1 RIT1 NDOU27375173058 3 e2-e6 RUNX1 WMHS25044390549 1 e2-e9 RUNX1 FKWJ62975384249 1 alt e5 SF3B1 TXLB02326543395 6 e12-e18 SETBP1 JNUS44333287554 5 e4 SETD2 PDJE94522553724 3 e1-e21 SMC3 IOOT51102794270 4 e1-e29 SH2B3 ROAV04622022891 2 alt e1 SH2B3 ITYN65789244182 2 e2-e8 SMC1A RSGS03120337913 4 e1-e25 SMC1A [id number] 4 alt e2 STAT3 REIG95533622252 5 e2-e24 SRSF2 PWXO89274986884 5 e1 STAG2 TMFP23462097488 9 e3-e35 TERT SJOZ78136878248 5 e1-e16 STAT5B PGKE94570498999 3 e13-e19 TERC OYXO32624692704 1 e1 U2AF1 IPIR35348142946 4 e2,e6 TET2 PPYV72891858851 4 e3-e11 TP53 RYLC29687689809 4 e2-e11 TP53 UMVW79188422799 4 alt e10 ZRSR2 GISV59292414788 7 e1-e11 WT1 ZIEU47268324400 3 alt e1 WT1 GWPK00131643861 3 e1-e10 XPO1 RMLC87731742872 2 e15-e16 The test performed at [facility] were developed and their performance characteristics determined by the Molecular Diagnostic Laboratory in the Department of Pathology at [facility]. They have not been cleared or [...] Ph.D., Electronically signed on December at 12:50:44PM [facility] Conversion Type (Other) 12/24/2024 12/24/2024 Leonardo Taveras MD PATHOLOGY ORDERABLES Edit ed Result - Final [facility] [address] [place] [address], [facility] from Last 3 Months Insurance MEDICARE PART A [place] [id number] [facility] MEDICARE SUPPLEMENT MEDICARE PART A & B [employer] MEDICARE SUPPLEMENT MEDICARE PART A & B [employer] MEDICARE SUPPLEMENT MEDICARE PART A & B [employer] MED[employer]ARE SUPPLEMENT MEDICARE PART A & B [employer] MEDICARE SUPPLEMENT MEDICARE PART A & B [facility] MEDICARE SUPPLEMENT MEDICARE PART A & B [facility] EXT[facility] MEDICARE SUPPLEMENT MEDICARE PART A & B [facility] EX[employer] MEDICARE SUPPLEMENT MEDICARE PART A & B [facility] EX[employer]ION MEDICARE SUPPLEMENT Care Teams Cadd Drafter Relationship Specialty Start Date End Date Suresh Mcclellan PA [address] [place] [address] PCP - General Unknown Provider Specialty 10/30/20 Self-Referred, Patient Referring Physician 06/07/19 Lillian Muñiz [facility] [address] [place] [address] [email or web address] Artificial Candy Maker 06/20/19 Janine Simeon MD [address] [place] [address] [email or web address] Radiation Oncology 10/19/19 [place] [address] [place] [address] Hematology/[place] [address] [email or web address] 01/18/20 Daniela Bazan MD [id number] [place] [address] [email or web address] Medical Student 11/05/20 Luke Ross MD 15 Janeen Abdullahi [address] [place] [address] Otolaryngology 03/04/23 Additional Source Comments The information contained in this document represents components of the legal health record. It is not the complete legal health record.[facility]
--- OUTSIDE RECORDS SUMMARY | 2025-02-21 22:07 | XMS_ITS | Patient Health Record ---
[facility] gonsalo Kulwant Address [address] [place] [address] Care Team Providers Care High School Music Instructor Name Role Phone Suresh Gill Primary Care Provider Unav ailable Williams [place] Unavailable [phone] Suresh Gill Unavailable Unavailabl e Allergies Allergen [...] Problem Acquired hammer toe of right foot (8023805205852 105) Other hammer toe(s) (acquired), right foot (M20.41) Active confirmed Problem Acquired hammer toe of left foot (9221012103439 103) Other hammer toe(s) (acquired), left foot [...] Medicare [employer] [address] [facility] [place] [address] [id number] Hernandez Boss Self - patient is the insured [facility] ([facility] [address] [place] [address] [id number] Hernandez Boss Self - patient is the insured Medical (General) History Medical History History ICD Code Anxiety Arthritis Cancer Depression Hiatal hernia chronic sinusitis Measles Chicken pox Surgical History Surgery Date(Month/Year) tumor removal from the right arm 020 Hospitalization History Reason Date(Month/Year) Cancer Teartment 2021
--- OUTSIDE RECORDS SUMMARY | 2025-02-21 22:07 | XMS_ITS | Clinical Summary ---
Author Organization [facility] Prior to 08/18/[address] [place] [address] Care Team Providers Care Plate Molder Name Role Phone Trae Rojas MD Primary Care Provider [phone] Allergies Active Allergy Reactions Criticality Noted Date [...] age to complete this topic Care Teams Plate Molder Relationship Specialty Start Date End Date Trae Rojas MD PCP - General Asparagus Cutter 05/29/19
--- OUTSIDE RECORDS SUMMARY | 2025-02-21 22:07 | XMS_ITS | Encounter Summary ---
Author Organization [facility] Address [address] [facility] [address] [place] [address] Phone Care Team Providers Care Call Centre Supervisor Name Role Phone Self-Referred, Patient Unavailable Unavailab Lillian Cho [facility] Unavailable [phone] Janine Simeon MD Unavailable Herman Guzman MD Unavailable Suresh Mcclellan Primary Care Provid er Daniela Bazan MD Unavailable Luke Ross MD Unavailable Encounter Details Date Type Department Care Team (Late st Contact Info) Description 12/09/2020 Procedure Pass [facility] Imaging Department, [facility] [place], [place] [address] [facility], [address] [place] [address] Social History Tobacco Use Types Packs/Day Years [...] st Contact Info) Description 02/04/[address] [facility] Cross Sectional Interventional Radiology [address] [place] [address] 03/26/2025 11:[address] [facility] Cross Sectional Interventional Radiology [address] [place] [address] Leonardo Huber MD [address] [place] [address] and [facility] [place] [address] [email or web address] 04/05/2025 11:00 AM EST Telemedicine [facility], Division of Hematologic Oncology, [address], 7th [place] [address] Lesia Rodriguez MD, PhD [address] [place] [address] [email or web address] 05/01/2025 11:45 AM EST [facility], [facility], Imaging Onlnf-sm-Ylai [address] [facility], [address] [place] [address] Melany Davey MD [address] [place] [address] [email or web address] 05/01/2025 1:30 PM EST Appointment Jign[facility] Cruz Imaging Department, [facility], PET/CT [address] [place] [address] Melany Davey MD [address] [place] [address] [email or web address] 05/02/2025 9:30 AM EST Office Visit [facility], [address], [address]th [place] [address] Alida Mancilla MD [address] [place] [address] [place] [address] [email or web address] 05/02/2025 10:00 AM EST Office Visit [facility], [facility] [place] [address] [facility], 5th [place] [address] Melany Davey MD [address] [facility] [address] [place] [address] [email or web address] documented as of this encounter Visit Diagnoses Not on filedocumented in this encounter Care Teams Call Centre Supervisor Relationship Specialty Start Date End Date Suresh Mcclellan PA [address] [place] [address] PCP - General Unknown Provider Specialty 10/30/20 Self-Referred, Patient Referring Physician 06/07/19 Lillian Muñiz [facility] [address] [place] [address] [email or web address] Urologist 06/20/19 Janine Simeon MD [address] [place] [address] [email or web address] Radiation Oncology 10/19/19 [place] [address] [place] [address] Hematology/[place] [address] [email or web address] [email or web address] 01/18/20 Daniela Bazan MD [address] [facility] S[address] [place] [address] [email or web address] Medical Student 11/05/20 Luke Ross MD 15 Janeen Abdullahi [address] [place] [address] Otolaryngology 03/04/23 documented as of this encounter Additional Source Comments The information contained in this document represents components of the legal health record. It is not the complete legal health record.[facility]
--- OUTSIDE RECORDS SUMMARY | 2025-02-21 22:07 | XMS_ITS | Encounter Summary ---
Author Organization [facility] Address [address] [place] [address] Care Team Providers Care Neon Sign Worker Name Role Phone Suresh Mcclellan Primary Care Provider [phone] Encounter Details Date Type Department Care Team (Late st Contact Info) Description 01/29/2025 Results Follow-Up Adult Medicine [facility] [address] [place], [place] [phone] Nelsy Ferraro PA [address] [place], [place] Social History Tobacco Use Types Packs/Day Years Used Date Smoking Tobacco: Never Smokeless Tobacco: Never Alcohol Use Standard Drinks/Week Comments Yes 0 (1 standard drink = 0.6 oz pur e alcohol) Housing Instability Answer Date Recorde d Are you worried that in the next 2 months you may not have stable housing? No 01/28/2025 Food Access & Nutrition Answer Date Rec orded Do you have access to a vari ety of food including fruits and vegetables? Yes 01/28/2025 Health Literacy Answer Date Recorded How often do you need to hav e someone help you when you read instructions, pamphlets, or other written material from your doctor or pharmacy? Never 01/28/2025 Caregiver: How often do you need to have someone help you when you read instructions, pamphlets, or other written material from your doctor or pharmacy? Not on file 01/28/2025 Financial Risk Answer Date Recorded How hard is it for you to pa y for the very basics like food, housing, medical care, and air conditioning / heating? Not very hard 01/28/2025 Transportation Answer Date Recorded Has the lack of transportati on kept you from meetings, work, or from getting things needed for daily living? No Has the lack of transportati on kept you from medical appointments or from getting medications? No 01/28/2025 Social Isolation Answer Date Recorded How often do you feel lonely or isolated from th ose around you? Never 01/28/2025 Food Risk Answer Date Recorded Within the past 12 months we worried whether our food would run out before we got money to buy more. Never true 01/28/2025 Within the past 12 months th e food we bought just didn't last and we didn't have money to get more. Never true 01/28/2025 Dependent Care Answer Date Recorded Do you need help finding or paying for care for your loved ones. For example, children's ministries director or elderly care for an older adult? No 01/28/2025 Education Answer Date Recorded Do you think completing more education or training, like finishing a GED, going to college, or learning a trade, would be helpful for you? N/A 01/28/2025 Employment and Income Answer Date Recor ded During the last four weeks, have you been actively looking for work? No 01/28/2025 Living Situation Answer Date Recorded What is your living situation? Unrecognized valu e 01/28/2025 Sex and Gender Information Value Date Recorded Sex Assigned at Not on file Legal Sex Male 1:22 PM EST Gender Identity Not on file Sexual Orientation Not on file documented as of this encounter Plan of Treatment Upcoming Encounters Date Type Department Care Team (Late st Contact Info) Description 02/27/2025 9:45 AM EST Office Visit Orthopedic Surgery [place] [address] [phone] Ishan Riojas DPM [address] [address] 08/02/2025 11:00 AM EDT Office Visit Adult Medicine [address] [address] Suresh Mcclellan, PA [address] [place] [phone] documented as of this encounter Visit Diagnoses Not on filedocumented in this encounter Additional Health Concerns Assessment Noted Time PHQ-9 Depression Total Score: 1 01/29/20 25 11:14 AM EST A fall risk assessment has been complete d for the patient 01/28/2025 11:14 AM EST documented as of this encounter Care Teams Neon Sign Worker Relationship Specialty Start Date End Date Suresh Mcclellan PA [address] [place] [address] PCP - General Internal Medicine 06/06/20 documented as of this encounter
--- OUTSIDE RECORDS SUMMARY | 2025-02-21 22:07 | XMS_ITS | Encounter Summary ---
Author Organization [facility] Address [address] [employer] [facility] [address] [place] [address] Phone Care Team Providers Care Institution Director Name Role Phone Self-Referred, Patient Unavailable Unavailab Lillian Cho [facility] Unavailable Janine Simeon MD Unavailable Herman Guzman MD Unavailable Suresh Mcclellan Primary Care Provid er Daniela Bazan MD Unavailable Luke Ross MD Unavailable Encounter Details Date Type Department Care Team (Late st Contact Info) Description 01/24/2025 Orders Only [facility] and [facility], [facility] [address] [place] [address], 8th [place] [address] Leonardo Huber MD [address] [facility] - [place] [address] [email or web address] Splenic mass Social History Tobacco Use [...] st Contact Info) Description 02/04/2025 Procedure Pass [facility] Cross Sectional Interventional Radiology [address] [place] [address] 03/26/2025 11:00 AM EST Appointment [facility] Cross Sectional Interventional Radiology [address] [place] [address] Leonardo Huber MD [address] [place] [address] [facility] - [place] [address] [email or web address] 04/05/2025 11:00 AM EST Telemedicine Center for Lymphoma, Division of Hematologic Oncology, [facility] Cancer [address], 7th [place] [address] Lesia Rodriguez MD, PhD [address] [place] [address] [email or web address] 05/01/2025 11:45 AM EST Blood Draw Jigna Cruz Imaging Department, [facility], Imaging Stzzx-nu-Dhaq [address] [place] [address], Floor L1 [place] [address] Melany Davey MD [address] [place] [address] LW502 [place] [address] Sharif@[email or web address] 05/01/2025 1:30 PM EST Appointment Jigna Lank Imaging Department, [facility], PET/CT [address] [place] [address] Melany Davey MD [address] [phone] [email or web address] 05/02/2025 9:30 AM EST Office Visit [facility], [address], 5th [place] [address] Alida Mancilla MD [address] [place] [address] [email or web address] 05/02/2025 10:00 AM EST Office Visit [facility], [address], 5th [place] [address] Melany Davey MD [address] [place] [address] [email or web address] documented as of this encounter Procedures Procedure Name Priority Date/Time Associated Diagnosis Comments OUTSIDE PATHOLOGY REVIEW/CONSULT Routine 01/24/2025 1:35 PM EST Splenic mass TISSUE EXAM Routine 09/18/2024 Splenic mass documented in this encounter Results * Outside Pathology Review/Consult (01/24/2025 1:35 PM EST) Consult Auto Resulting Yes 01/24/2025 1:46 PM EST [facility] Consult 01/24/2025 1:35 PM EST 01/24/2025 1:37 PM EST us Leonardo Huber MD LAB PATHOLOGY ORDERABLES Final Result [facility] [address] [place] [address] * Tissue Exam (09/18/2024) Final Pathologic Diagnosis CONSULT SLIDES FROM [facility] [place], [place]: A. SPLENIC MASS, NEEDLE ASPIRATION ([id number]; [...] that the cellularity is predominantly composed of DH36-vyjyrsbe B cells (including the larger, atypical forms) and fewer CD3/CD5-positive T cells. The larger cells show focal possible weak positivity for BCL2 and BCL6 and appear negative for CD10, cyclin D1, CD23, MYC, MUM-1, cytokeratin cocktail, TTF-1, synaptophysin, chromogranin, MCV, CK20, and ZEKE. The Ki-67 proliferative index is markedly elevated in the large cells (>80%). Per report, FISH testing performed at [facility] showed 3-4 copies of BCL2 and BCL6 [...] Nancy Huber on 02/01/2025. 02/01/2025 5:18 PM EST [facility] PATHOLOGY at 1718 EST Additional Pathologists Halina Wong, [facility] - Pathology Fellow 02/01/2025 5:18 PM EST [facility] PATHOLOGY Clinical History splenic mass 02/01/2025 5:18 PM EST [facility] PATHOLOGY Materials Received A. Spleen; Mass, Needle [...] A1-22 IP A1-23 IP 02/01/2025 5:18 PM EST [facility] PATHOLOGY Result Priority Level Routine 02/01/2025 5:18 PM EST [facility] PATHOLOGY Disclaimer By their signature above, the [...] in this report. 02/01/2025 5:18 PM EST [facility] PATHOLOGY Consult (Spleen) 09/18/2024 01/25/20 25 1:37 PM EST Leonardo Huber MD LAB PATHOLOGY ORDERABLES Final Result [facility] PATHOLOGY documented in this encounter Visit Diagnoses Diagnosis Splenic mass Splenomegaly documented in this encounter Care Teams Institution Director Relationship Specialty Start Date End Date Suresh Mcclellan PA [address] [place] [address] [phone] PCP - General Unknown Provider Specialty 10/30/20 Self-Referred, Patient Referring Physician 06/07/19 Lillian Muñiz LICSW [address] [place] [address] Moo@[email or web address] .[email or web address] Counting Machine Operator 06/20/19 Janine Simeon MD [address] [place] [address] [email or web address] Radiation Oncology 10/19/19 [place] [address] [place] [address] Hematology/[place] [address] [email or web address] Hematology 01/18/20 Daniela Bazan MD [address] [place] [address] [email or web address] Medical Student 11/05/20 Luke Ross MD 15 Janeen Abdullahi [address] [place] [address] Otolaryngology 03/04/23 documented as of this encounter Additional Source Comments The information contained in this document represents components of the legal health record. It is not the complete legal health record.[facility]
--- OUTSIDE RECORDS SUMMARY | 2025-02-21 22:07 | XMS_ITS | Encounter Summary ---
Author Organization [facility] Address [address] [place] [address] [place] [address] Phone Care Team Providers Care Senior Marketing Associate Name Role Phone Self-Referred, Patient Unavailable Unavailab Lillian Cho [facility] Unavailable Janine Simeon MD Unavailable Herman Guzman MD Unavailable Suresh Mcclellan Primary Care Provid er Daniela Bazan MD Unavailable Luke Ross MD Unavailable Encounter Details Date Type Department Care Team (Late st Contact Info) Description 10/31/2020 Procedure Pass [facility] Cross Sectional Interventional Radiology [address] [place] [address] Social History Tobacco Use Types Packs/Day Years [...] st Contact Info) Description 02/04/2025 Procedure Pass [facility] Cross Sectional Interventional Radiology [address] [place] [address] 03/26/2025 11:00 AM EST Appointment [facility] Cross Sectional Interventional Radiology [address] [place] [address] Leonardo Huber MD [address] [place], [place] [address]am and [facility] - [place] [address] [email or web address] 04/05/2025 11:00 AM EST Telemedicine Center for Lymphoma, Division of Hematologic Oncology, [address], 7th [place] [address] Lesia Rodriguez MD, PhD [address] [place] [address] [email or web address] 05/01/2025 11:45 AM EST Blood Draw Jigna [facility] Imaging Department, [facility], Imaging Xtqdl-gj-Nhsi [address] [facility], Floor L1 [place] [address] Melany Davey MD [address] [place] [address] Sharif@[facility] 05/01/2025 1:30 PM EST Appointment Jigna Cruz Imaging Department, [facility], PET/CT [address] [place] [address] Melany Davey MD [address] [place] [phone] Sharif@[facility] 05/02/2025 9:30 AM EST Office Visit [facility], [address], 5th [place] [address] Alida Mancilla MD [address] [place] [address] [place] [address] [email or web address] 05/02/2025 10:00 AM EST Office Visit [facility], [facility], 5th [place] [address] Melany Davey MD 450 [facility] [address] [place] [address] Sharif@[facility] documented as of this encounter Visit Diagnoses Not on filedocumented in this encounter Care Teams Senior Marketing Associate Relationship Specialty Start Date End Date Suresh Mcclellan PA [address] [place] [address] PCP - General Unknown Provider Specialty 10/30/20 Self-Referred, Patient Referring Physician 06/07/19 Lillian Muñiz [facility] [address] [place] [address] Moo@[email or web address] .[email or web address] Environmental Sciences Professor 06/20/19 Janine Simeon MD [address] [place] [address] [email or web address] Radiation Oncology 10/19/19 Herman Guzman MD [address] [place] [address] Hematology/[place] [address] [email or web address] Hematology 01/18/20 Daniela Bazan MD [address] [facility] S50-200 [place] [address] [email or web address] Medical Student 11/05/20 Luke Ross MD 15 Janeen Abdullahi [address] [place] [address], [place] [address] Otolaryngology 03/04/23 documented as of this encounter Additional Source Comments The information contained in this document represents components of the legal health record. It is not the complete legal health record.[facility]
--- OUTSIDE RECORDS SUMMARY | 2025-02-21 22:08 | XMS_ITS | Encounter Summary ---
Author Organization [facility] Address [address] [facility] [address] [place] [phone] Phone Care Team Providers Care Tieing Machine Operator Name Role Phone Self-Referred, Patient Unavailable Unavailab Lillian Cho [facility] Unavailable [phone] Janine Simeon MD Unavailable Herman Guzman MD Unavailable Suresh Mcclellan Primary Care Provid er Daniela Bazan MD Unavailable Luke Ross MD Unavailable Encounter Details Date Type Department Care Team (Late st Contact Info) Description 12/10/2020 Procedure Pass [facility] Imaging Department, [facility] [place], [place] 450 [facility], Floor L1 [place] [address] Social History Tobacco Use Types Packs/Day Years [...] st Contact Info) Description 02/04/2025 Procedure Pass [facility] Cross Sectional Interventional Radiology [address] [place] [address] 03/26/2025 11:00 AM EST Appointment [facility] Cross Sectional Interventional Radiology [address] [place] [address] Leonardo Huber MD [address] [place] [address] and [facility] - [place] [address] [email or web address] 04/05/2025 11:00 AM EST Telemedicine Center for Lymphoma, Division of Hematologic Oncology, [address], 7th [place] [address] Lesia Rodriguez MD, PhD [address] [place] [address] [email or web address] 05/01/2025 11:45 AM EST [facility] Department, [facility], Imaging Szogd-sn-Xtkk [address] [facility], Floor L1 [place] [address] Melany Davey MD [address] [place] [address] Sharif@[facility] 05/01/2025 1:30 PM EST Appointment Jigna Cruz Imaging Department, [facility], PET/CT [address] [place] [address] Melany Davey MD [address] [place] [address] Sharif@[facility] 05/02/2025 9:30 AM EST Office Visit [facility], [address], 5th [place] [address] Alida Mancilla MD [address] [place] [address] [place] [address] [email or web address] 05/02/2025 10:00 AM EST Office Visit [facility], [facility] [place] [address] [facility], 5th [place] [address] Melany Davey MD 450 [facility] LW[address] [place] [address] Sharif@[facility] documented as of this encounter Visit Diagnoses Not on filedocumented in this encounter Care Teams Tieing Machine Operator Relationship Specialty Start Date End Date Suresh Mcclellan PA [address] [place] [address] PCP - General Unknown Provider Specialty 10/30/20 Self-Referred, Patient Referring Physician 06/07/[address] L[address] Muñiz [facility] [address] [place] [address] Moo@[email or web address] .[facility] Gold Letterer 06/20/19 Janine Simeon MD [address] [place] [address] [email or web address] Radiation Oncology 10/19/19 [place] [address] [place] [address] Hematology/[place] [address] [email or web address] Hematology 01/18/20 Daniela Bazan MD 50 [facility] S50200 [place] [address] [email or web address] u Medical Student 11/05/20 Luke Ross MD 15 Janeen Abdullahi [address] [place] [address] Otolaryngology 03/04/23 documented as of this encounter Additional Source Comments The information contained in this document represents components of the legal health record. It is not the complete legal health record.[facility]
--- OUTSIDE RECORDS SUMMARY | 2025-02-21 22:08 | XMS_ITS | Clinical Summary ---
Author Organization [facility] Address [address] [place] [address] Care Team Providers Care Orthopedic Surgeon Name Role Phone Suresh Mcclellan PA-C Primary Care Provider Un available Allergies Active Allergy Reactions Criticality Noted Date Comments Azithromycin Hives Medium 11/09/2019 rash Celecoxib Anaphylaxis,Hives,Sw elling,Rash/Dermatit is High 08/07/2009 Other Reaction(s): Hives/Urticaria, Numbness, tingling or swelling of the lips, tongue or mouth Dexamethasone Unknown/Patient and Family Unable to Define Medium 07/07/2021 Sulfa Antibiotics Other (See Comments),Rash/Laurens titis Medium 08/07/2009 This occurred with celebrex [...] nodules (left and right) - followed by [facility] endocrinology (Dr. 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 06/06/2019 Sebaceous cyst 04/03/2019 Obstructive sleep apnea 12/19/2018 Overview (02/24/2024): Uses cpap regularly Severe obesity (BMI 35.0-39.9) with comorbidity 12/19/2018 Hyperlipidemia 06/05/2018 Irritable bowel syndrome 11/30/2016 Neck pain 01/28/2015 Overview (02/24/2024): [facility] - 01/28/15 - 80% [...] Team (Late st Contact Info) Description 03/12/2025 2:00 PM EST Office Visit [facility] [place] 15 [facility], [place] [address] Luke Ross MD [address] [address] Health Maintenance Due Date Last Done [...] topic Insurance MEDICARE PART A & B [facility] Care Teams Orthopedic Surgeon Relationship Specialty Start Date End Date Suresh Mcclellan PA-C PCP - General Internal Medicine 02/24/24
--- OUTSIDE RECORDS SUMMARY | 2025-02-21 22:08 | XMS_ITS | Clinical Summary ---
Author Organization 175 [facility] Address [address] [place] [address] Phone Care Team Providers Care [employer] Name Role Phone Suresh Mcclellan Primary Care Provider [phone] Allergies Active Allergy Reactions Criticality Noted Date [...] TO BODY FOLDS NEEDED Strength: 100,000 UNIT/GM 11/30/19 23 Active traMADoL (ULTRAM) 50 mg tablet Take 1 Tab by mouth every 6 hours as needed for Pain. 07/11/19 20 Active LORazepam (ATIVAN) 1 mg tablet Take 1 Tab by mouth daily as needed for Anxiety. 12/27/19 19 Active ketoconazole (NIZORAL) 2 % cream APPLY TO RASHES IN BODY FOLDS AND GROIN DAILY NEEDED 01/19/20 23 Active fluticasone propionate (FLONASE) 50 mcg/actuation nasal spray Administer 1 spray into each nostril 1 (one) time each day. Active sildenafiL (VIAGRA) 100 mg tablet 1 (one) time each day if needed. Take 0.5 Tablets by mouth as needed for Erectile Dysfunction Active miscellaneous medical supply [facility] CPAP Historical (HISTORICAL CPAP) Inhale 9 cm into the lungs nightly. Via nasal pillows/ BHI&R, 9 cm, Inhalation, NIGHTLY Active citalopram (CeleXA) 20 mg tablet TAKE ONE TABLET BY MOUTH EVERY DAY 90 tablet 1 11/10/19 25 Active atorvastatin (LIPITOR) 20 mg tablet Take 1 tablet (20 mg total) by mouth 1 (one) time each day. 90 tablet 1 01/29/20 25 Active famotidine (PEPCID) 20 mg tablet Take 1 tablet (20 mg total) by mouth 2 (two) times a day if needed for heartburn. 180 tablet 1 01/29/20 25 Active chlordiazePOX ALO-clidinium (LIBRAX) 5-2.5 mg per capsule TAKE ONE CAPSULE BY MOUTH THREE TIMES A DAY WITH MEALS 270 capsule 1 02/14/20 25 Active citalopram (CeleXA) 10 mg tablet Take 1 Tablet by mouth every morning 025 Discontinued(Th erapy completed) famotidine (PEPCID) 20 mg tablet Take 1 tablet (20 mg total) by mouth 1 (one) time each day. 025 Discontinued(Re order) chlordiazePOX ALO-clidinium (LIBRAX) 5-2.5 mg per capsule Take 1 capsule by mouth 3 (three) times a day with meals. 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 Kat Guerrero) [place] cell carcinoma of rig ht upper extremity (CMS/[facility]ER[facility] V24, [facility] V28) 06/06/2019 Sebaceous cyst 04/03/2019 Obstructive sleep apnea 12/19/2018 Overview (12/21/2023): Uses cpap regularly Severe obesity (BMI 35.0-39. 9) with comorbidity ([facility] V24, [facility] V28) 12/19/2018 Hyperlipidemia 06/05/2018 Irritable bowel syndrome 11/30/2016 Neck pain 01/28/2015 Overview (12/21/2023): [facility] - 01/28/15 - 80% improved after second injection; gabapentin discussed but deferred; followup 3 months Adjustment disorder 02/13/2013 GERD (gastroesophageal reflux disease) 1 Dysplastic nevus 03/16/2010 Generalized osteoarthrosis, involving multiple s ites 05/07/2009 Panic disorder without agoraphobia 07/04/2006 Allergic rhinitis 07/19/2005 Encounters Date Type Department Care Team Description 01/29/2025 Results Follow-Up Adult Medicine [address] [phone] Nelsy Ferraro PA 01/28/2025 12:05 PM EST Lab Draw [address] Prediabetes; Mixed hyperlipidemia 01/28/2025 11:15 AM EST Office Visit Adult Medicine [address] [phone] Nelsy Ferraro PA Mixed hyperlipidemia (Primary Dx); Prediabetes; Gastroesophageal reflux disease, unspecified whether esophagitis present; Anxiety and depression; JAIR on CPAP; Recurrent [place] cell carcinoma ([facility] V24, [facility] V28); Need for prophylactic vaccination and inoculation against influenza; Hyperlipidemia, unspecified hyperlipidemia type 12/26/2024 2:15 PM EDT Office Visit Orthopedic Surgery - [address] [phone] Ishan Riojas DPM Pain in toes of both feet (Primary Dx); Ingrown nail of fourth toe of right foot; Neuropathy due to chemotherapeutic drug ([facility] V24); Arthritis of both feet from Last 3 Months Immunizations Immunization Administration Dates Next Due H1N1 Inj Preservative Free 03/31/2009 Influenza Quadravalent, 0.5m l (Fluzone High-dose) 65yo and older 12/05/2023 Influenza Quadravalent, MDCK , 0.5ml, preservative free (Flucelvax) 6mo and older 02/28/2018 Influenza Quadravalent, MDCK , 0.5ml, with preservative (Flucelvax) 6mo and older 11/30/2016 Influenza trivalent, 0.5mL ( Fluad) 65yo and older 01/28/2025 Influenza trivalent, 0.5mL ( Fluzone High-dose) 65yo [...] Tetanus diptheria (Tdvax) 7yo and older 05/22/2013,09/26/2001,09/26/2001 Td Tetanus diptheria, preser vative free (Tenivac) 7yo and older 01/28/2025 Zoster Live 11/21/2012 Surgical History Surgery Date Site/Laterality Comments COLONOSCOPY 2002 PROCEDURE: HISTORICAL COLONOSCOPY; COMMENT: minimal diverticulosis OTHER SURGICAL HISTORY PROCEDURE: HISTORY OTHER; COMMENT: SCALP basal cell skin cancer MOLE REMOVAL PROCEDURE: HISTORICAL MOLE (REMOVAL OF) COLONOSCOPY 2012 PROCEDURE: [place] COLONOSCOPY FLX DX W/COLLJ SPEC WHEN PFRMD; COMMENT: no polyps OTHER SURGICAL HISTORY PROCEDURE: CHG ONC SCOTTIE CELL CARC DETCJ ANTB SERUM PABLO; COMMENT: biopsies related to scottie cell cancer OTHER SURGICAL HISTORY PROCEDURE: [place] MYRINGOTOMY ASPIR&/EUSTACHIAN TUBE NFLTJ; COMMENT: ENT in [place] 2022 Medical History Medical History Date Comments [...] nodules (left and right) - followed by [facility] endocrinology (Dr. Kat Guerrero) [place] cell cancer (CMS/HCC V24, CMS/HCC V28) DX:[place] cell cancer (HCC) H/O head and neck [...] Tobacco: Never Tobacco Cessation:Counseling Given: Not Answered Alcohol Use Standard Drinks/Week Comments Yes 0 [...] care for your loved ones. For example, child care center administrator or elderly care for an older adult? [...] Sign Reading Time Taken Comments Blood Pressure 100/60 01/28/2025 11:40 AM EST Pulse 70 01/28/2025 11:15 AM EST Temperature 36.2 C (97.2 F) 01/28/2025 11:15 AM EST Respiratory Rate 13 01/28/2025 11:15 AM EST Oxygen Saturation 97% 01/28/2025 11:15 AM EST Inhaled Oxygen Concentration - - Weight 103 kg (227 lb) 01/28/2025 11:15 AM EST Height 177.8 cm (5' 10 ) 01/28/2025 11:15 AM EST Body Mass Index 32.57 01/28/2025 11:15 AM EST Plan of Treatment Upcoming Encounters Date Type Department Care Team (Late st Contact Info) Description 02/27/2025 9:45 AM EST Office Visit Orthopedic Surgery - [place] [address] [phone] Ishan Riojas, DPYashira [address] [address] 08/02/2025 11:00 AM EDT Office Visit Adult Medicine [address] [phone] Suresh Mcclellan, PA [address] [place] [phone] Health Maintenance Due Date Last Done Comments RSV Immunization Adult Patients (1 - Risk 50-74 years 1-dose series) 2002 Zoster Vaccines (1 of 2) 01/16/2013 11/21/2012 COVID-19 Vaccine ( - season) 2024 03/02/2021, 02/18/2021, 06/14/2020, Additional history exists Medicare Annual Wellness Visit 12/04/2024 12/05/2023 Falls Risk Assessment 01/28/2026 01/28/2025 Social Influencers of Health Screening 01/28/2026 01/28/2025 Cholesterol Screening (Lipid Panel) 01/28/2030 01/28/2025, 12/05/2023, 12/05/2023 Colorectal Cancer Screening: Colonoscopy 03/31/2033 03/31/2023 DTaP,Tdap,and Td Vaccines (5 - Td or Tdap) 01/28/2035 01/28/2025, 05/22/2013, 09/26/2001, Additional history exists Pneumococcal Vaccine: 50+ Years Completed 12/26/2018, 12/06/2017 Hepatitis C Screening Completed 12/24/2024, 024 Depression Screening Completed 01/28/2025, 12/05/19 24 Influenza Vaccine Completed 01/28/2025, , 11/29/2022, Additional history exists HIB Vaccines Aged Out [...] Procedure Name Priority Date/Time Associated Diagnosis Comments LIPID PANEL WITH REFLEX TO DIRECT LDL Routine 01/28/2025 12:08 PM EST Mixed hyperlipidemia HEMOGLOBIN A1C Routine 01/28/2025 12:08 PM EST Prediabetes HM DEPRESSION SCREENING Routine 12/05/2023 HEPATITIS C SCREENING Routine 07/17/2023 COLONOSCOPY Routine 03/31/2023 from Last 3 Months or Most Recently Relevant to Health Maintenance Results * (ABNORMAL) Lipid panel with reflex to direct LDL (01/28/2025 12:08 PM EST) Cholesterol 141 0 - 200 mg/dL LAB CHEMISTRY METHOD 01/28/2025 8:26 PM EST [facility] Triglycerides 177(H) 0 - 150 mg/dL LAB CHEMISTRY METHOD 01/28/2025 8:26 PM EST [facility] HDL 47 >=40 mg/dL LAB CHEMISTRY METHOD 01/28/2025 8:26 PM [facility] LDL Calculated 59 0 - 100 mg/dL LAB CHEMISTRY METHOD 01/28/2025 8:26 PM [facility] Comment:Estimated LDL Calcul ated using equation: Total cholesterol - HDL cholesterol - (Triglycerides/5) VLDL Cholesterol Bladimir 35.4 mg/dL LAB CHEMISTRY METHOD 01/28/2025 8:26 PM EST [facility] Non HDL Chol. (LDL+VLDL) 94 <145 mg/dL LAB CHEMISTRY METHOD 01/28/2025 8:26 PM EST [facility] Chol/HDL Ratio 3.0 0.0 - 4.4 LAB CHEMISTRY METHOD 01/28/2025 8:26 PM [facility] Blood Venous blood specimen / Unknown Venipuncture / Unknown 01/28/2025 12:08 PM EST 01/28/2025 12:08 PM EST us Nelsy Ronan QURESHI LAB BLOOD ORDERABLES Final Resul t [facility] [address] [place] [address], * Hemoglobin A1c (01/28/2025 12:08 PM EST) Hemoglobin A1C 5.7 <6.5 % LAB CHEMISTRY METHOD 01/28/2025 5:08 PM EST [facility] Mean Bld Glu Estim. 117 mg/dL LAB CHEMISTRY METHOD 01/28/2025 5:08 PM EST [facility] Blood Venous blood specimen / Unknown Venipuncture / Unknown 01/28/2025 12:08 PM EST 01/28/2025 12:08 PM EST us Nelsy Ronan QURESHI LAB BLOOD ORDERABLES Final Resul t [facility] [address] [place] [address], [place] [phone] * Depression Screening (12/05/2023) Depression Screening Abstracted Historical Provider MD HEALTH MAINTENANCE Final Result * Hepatitis C Screening (07/17/2023) Pathologist [facility] Hepatitis C Screening Abstracted Historical Provider MD HEALTH MAINTENANCE Final Result * Colonoscopy (03/31/2023) Pathologist [facility] Colonoscopy No Interpretation , Abstracted Anatomical Region Laterality Modality Other Historical Provider HEALTH MAINTENANCE Final Result from Last 3 Months or Most Recently Relevant to Health Maintenance Insurance MEDICARE [facility] Care Teams [employer] Relationship Specialty Start Date End Date Suresh Mcclellan PA [address] [place] [address] PCP - General Internal Medicine 06/06/20
== END 2025-02-21 16:09 | disposition home or self-care (01) ==
LOC: HO.HMGCX 16:08
PROVIDERS: PCP Physician Assistant Medical; Visit Provider Internal Medicine Rheumatology
DX: M54.50 Low back pain, unspecified (principal)
CPT/HCPCS: 72100

== ENCOUNTER → 2025-02-21 16:12 | Outpatient (BNV) | payer MEDICARE, OTHER, SELFPAY | PROVIDERS: PCP Physician Assistant Medical; Visit Provider Radiology Diagnostic Radiology | DX: M51.360 Other intervertebral disc degeneration, lumbar region with discogenic back pain only (principal); M47.816 Spondylosis without myelopathy or radiculopathy, lumbar region | CPT/HCPCS: 72100 ==